=== PATIENT | male | born 1935 | race Hispanic/Latino ===

== ENCOUNTER 2016-09-14 10:07 | Emergency (ER) | payer MEDICARE, BC ==
[2016-09-14 10:21] VITALS: RESP 18; TEMP 97.7; BMI 34.2
[2016-09-14] MEDS ORDERED: Sodium Chloride 0.9% 1,000 ML IV STA (10:40)
--- NOTE | 2016-09-14 10:53 | ED PDOC ---
Arrival/HPI - General Historian: Patient - History of Present Illness Time/Duration: < month Symptom Onset: Gradual Symptom Course: Unchanged Context: Home - General Chief Complaint: Dizziness/Lightheaded Time Seen by Provider: 09/14/16 10:16 - History of Present Illness Narrative History of Present Illness (Text): 09/14/16 10:50 81 year old male with PMHx of CAD, DM, gastritis and colon polyps presents for lightheadedness ongoing for about 3 weeks. Patient states that in past 3 weeks he would get lightheaded when he would try to stand up. Patient aso c/o dark stools. Denies having any bright blood in stool. Patient denie shavign any CP , SOB, abd pain. He had 2 episodes of vomiting 2-3 days ago which has now resolved. Last colonoscopy was in 2013 which showed multiple polyps. Last EGD was in 2015 which showed gastritis. (Laila Rachel) Past Medical History - Provider Review Nursing Documentation Reviewed: Yes - Travel History Have you recently traveled outside [place] w/in the past 3 mons?: No - Cardiac Hx Pacemaker: No - Neurological Hx Paralysis: No - Hematological/Oncological Hx Blood Transfusions: No Hx Blood Transfusion Reaction: No - Musculoskeletal/Rheumatological Hx Musculoskeletal Disorders: Yes - Psychiatric Hx Emotional Abuse: No Hx Physical Abuse: No Hx Substance Use: No - Anesthesia Hx Anesthesia Reactions: No Hx Malignant Hyperthermia: No - Suicidal Assessment Feels Threatened In Home Enviroment: No Family/Social History - Physician Review Nursing Documentation Reviewed: Yes Family/Social History: Unknown Family HX Smoking Status: Unknown If Ever Smoked Hx Alcohol Use: No (PAST ETOH) Hx Substance Use: No Allergies/Home Meds Allergies/Adverse Reactions: Allergies Penicillins Allergy (Severe, Verified 08/03/15 14:33) SWELLING Home Medications: Home Meds Medication Instructions Recorded Confirmed Atorvastatin [Lipitor] 10 mg PO DAILY 10/30/13 09/14/16 Cilostazol 100 mg PO BID 10/30/13 09/14/16 Losartan [Cozaar] 50 mg PO QAM 10/30/13 09/14/16 Metoprolol Succinate 50 mg PO BID 10/30/13 09/14/16 Polyethylene Glycol 3350 [Miralax] 17 gm PO DAILY PRN 10/30/13 09/14/16 Allopurinol [Zyloprim] 300 mg PO QAM 08/03/15 09/14/16 Aspirin [Ecotrin] 81 mg PO QAM 08/03/15 09/14/16 Cholecalciferol (Vitamin D3) 4,000 unit PO QAM 08/03/15 09/14/16 [Vitamin D3] Furosemide [Lasix] 40 mg PO QAM 08/03/15 09/14/16 Isosorbide Mononitrate [Imdur] 30 mg PO QAM 08/03/15 09/14/16 Metformin HCl [Glucophage] 1,000 mg PO BID 08/03/15 09/14/16 Multivit-Min/FA/Lycopen/Lutein 1 each PO DAILY 08/03/15 09/14/16 [Centrum Silver Tablet] Omeprazole [Prilosec] 40 mg PO QAM 08/03/15 09/14/16 Vitamin B Complex [Vitamin B50 1 cap PO DAILY 08/03/15 09/14/16 Super Complex] Docusate [Colace] 100 mg PO PRN PRN 09/12/16 09/14/16 Ferrous Sulfate [High Potency Iron] 134 mg PO TID 09/12/16 09/14/16 Review of Systems - Review of Systems Constitutional: Normal. absent: Fatigue, Fevers Eyes: Normal. absent: Vision Changes, Photophobia ENT: Normal. absent: Sore Throat, Rhinorrhea, Sinus Congestion Respiratory: Normal. absent: SOB, Cough, Sputum, Wheezing Cardiovascular: Normal. absent: Chest Pain, Edema, Calf Pain, Orthopnea Gastrointestinal: Vomiting, Other (dark stools). absent: Constipation, Diarrhea , Nausea Genitourinary Male: Normal. absent: Dysuria, Frequency, Hematuria Musculoskeletal: Normal. absent: Back Pain, Neck Pain Skin: Normal. absent: Rash, Pruritis, Skin Lesions, Laceration Neurological: Dizziness. absent: Headache Hemo/Lymphatic: Normal. absent: Adenopathy, Easy Bleeding Psychiatric: Normal. absent: Anxiety, Depression Physical Exam Vital Signs Reviewed: Yes Temperature: Afebrile Blood Pressure: Normal Pulse: Regular Respiratory Rate: Normal Appearance: Positive for: Well-Appearing, Non-Toxic, Comfortable Pain Distress: None Mental Status: Positive for: Alert and Oriented X 3 - Systems Exam Head: Present: Atraumatic, Normocephalic Pupils: Present: PERRL Mouth: Present: Moist Mucous Membranes Respiratory/Chest: Present: Clear to Auscultation, Good Air Exchange. No: Respiratory Distress, Accessory Muscle Use, Wheezes, Rales, Rhonchi Cardiovascular: Present: Regular Rate and Rhythm, Normal S1, S2. No: Murmurs, Rub, Gallop Abdomen: Present: Normal Bowel Sounds. No: Tenderness, Distention, Peritoneal Signs, Rebound, Guarding Rectal: No: Occult Blood, Rectal Tenderness, Gross Blood, Melena, Hemorrhoids Lower Extremity: Present: Normal Inspection. No: Edema, CALF TENDERNESS Neurological: Present: GCS=15, Speech Normal, Motor Func Grossly Intact, Normal Sensory Function Skin: Present: Warm, Dry, Normal Color. No: Rashes Psychiatric: Present: Alert, Oriented x 3, Normal Insight, Normal Concentration Medical Decision Making ED Course and Treatment: 09/14/16 10:55 81 y/o male presents for lightheadedness. Stool occult was negative at bedside. will check CBC with diff, CMP, PT, PTT, type and screen Will give 1 bolus of NS 09/14/16 12:16 Patient has appointment with Dr. Kwan on 09/20 for colonoscopy. Hgb is found to be 10.9. Pt's lightheadedness resolved. (Laila Rachel) In agreement with resident note, which includes further HPI details. Patient was seen and evaluated with resident, came up with plan and treatment together. EKG: Ordered, reviewed, and independently interpreted the EKG. Rate : 75 BPM Rhythm : NSR Interpretation : RBBB. Comparison : No previous EKG for comparison. Case was discussed with Dr. Novak after labs reviewed and symptoms resolved. Patient already has apointment set up with Dr. Meade. Patient also feels asymptomatic and wants to go home. He is walking in the ED with no ataxia or lightheadedness or dizziness. (Kameron Carey) - Lab Interpretations Narrative Lab Interpretation (Text): 09/14/16 11:28 Hgb is noted to 10.9 (Laila Rachel) Lab Results: 09/14/16 10:35 09/14/16 10:35 Lab Results 09/14/16 11:05: Blood Type Confirm O NEGATIVE 09/14/16 10:35: Blood Type O NEGATIVE, Antibody Screen Negative, BBK History Checked No verified bt 09/14/16 10:35: PT 10.7, INR 0.99, APTT 28.3 09/14/16 10:35: Sodium 141, Potassium 4.2, Chloride 102, Carbon Dioxide 25, Anion Gap 18, BUN 20, Creatinine 1.1, Est GFR ( Amer) > 60, Est GFR (Non- Af Amer) > 60, Random Glucose 113 H, Calcium 9.9, Total Bilirubin 0.4, AST 56, ALT 60 H, Alkaline Phosphatase 101, Total Protein 8.0, Albumin 4.4, Globulin 3.6 , Albumin/Globulin Ratio 1.2, Lipase 43 09/14/16 10:35: WBC 10.0, RBC 4.36, Hgb 10.9 L, Hct 35.3 L, MCV 81.0, MCH 25.0, MCHC 30.9 L, RDW 19.8 H, Plt Count 267, MPV 9.3 - RAD Interpretation Radiology Orders: 09/14/16 11:10 CHEST PORTABLE [RAD] Stat - Medication Orders Current Medication Orders: Discontinued Medications Sodium Chloride (Sodium Chloride 0.9%) 1,000 mls @ 999 mls/hr IV .Q1H1M STA Stop: 09/14/16 11:40 Last Admin: 09/14/16 10:54 Dose: 999 mls/hr Disposition/Present on Arrival - Present on Arrival Any Indicators Present on Arrival: No History of DVT/PE: No History of Uncontrolled Diabetes: No Urinary Catheter: No History of Decub. Ulcer: No History Surgical Site Infection Following: None - Disposition Have Diagnosis and Disposition been Completed?: Yes Disposition Time: 11:33 Patient Plan: Discharge - Disposition Diagnosis: Lightheadedness, Anemia Disposition: HOME/ ROUTINE Condition: GOOD Additional Instructions: Eligio Swanson, thank you for letting us take care of you today. Your provider was Dr. Laila Rachel. You were treated for lightheadedness and anemia. The emergency medical care you received today was directed at your acute symptoms. If you were prescribed any medication, please fill it and take as directed. It may take several days for your symptoms to resolve. Return to the Emergency Department if your symptoms worsen, do not improve, or if you have any other problems. Please contact your doctor or call one of the physicians/clinics you have been referred to that are listed on the Patient Visit Information form that is included in your discharge packet. Bring any paperwork you were given at discharge with you along with any medications you are taking to your follow up visit. Our treatment cannot replace ongoing medical care by a primary care provider (PCP) outside of the emergency department. Thank you for allowing the [facility] team to be part of your care today. If you had an X-Ray or CT scan: A Radiologist will review the ED reading if any change in treatment is needed we will contact you. If you had a blood, urine, or wound culture: It will take several days for the results, if any change in treatment is needed we will contact you. If you had an STI test: It will take 48 hours for the results. Please call after 1 week if you have not heard back. Referrals: PCP,NO [Primary Care Provider] - Follow up with primary Chandu Novak MD [Staff Provider] - Follow up with primary Eligio Kwan MD [Staff Provider] - Follow up with primary Forms: [employer] (Azeri)
[2016-09-14 11:06] LABS: HEMOGLOBIN 10.9 g/dL (14.0-18.0); MEAN CORPUSCULAR HGB CONC 30.9 g/dl (31.0-37.0); MEAN PLATELET VOLUME 9.3 fl (7.0-11.0); RBC 4.36 10^6/uL (3.5-6.1); RED CELL DISTRIBUTION WIDTH 19.8 % (11.5-14.5)
[2016-09-14 11:20] LABS: ALB/GLOB RATIO 1.2 (1.1-1.8); ALBUMIN 4.4 g/dL (3.0-4.8); ALT/SGPT 60 U/L (7-56); AST/SGOT 56 U/L (15-59); BLOOD UREA NITROGEN 20 mg/dL (7-21); CALCIUM 9.9 mg/dL (8.4-10.5); GFR AFRICAN-AMERICAN > 60; GFR NON-AFRICAN AMERICAN > 60; INR 0.99 (0.93-1.08); LIPASE 43 U/L (23-300); PARTIAL THROMBOPLASTIN TIME 28.3 Seconds (23.7-30.8); PROTHROMBIN TIME 10.7 Seconds (9.9-11.8)
[2016-09-14 12:36] VITALS: BP 130/64; PULSE 70; O2SAT 99
--- NOTE | 2016-09-14 12:43 | RAD ---
HISTORY: lightheadedness COMPARISON: 03/26/2013 FINDINGS: LUNGS: No active pulmonary disease. PLEURA: No significant pleural effusion identified, no pneumothorax apparent. CARDIOVASCULAR: Normal. OSSEOUS STRUCTURES: No significant abnormalities. VISUALIZED UPPER ABDOMEN: Normal. OTHER FINDINGS: None. IMPRESSION: No active disease.
--- NOTE | 2016-09-15 00:48 | CARD ---
APPROVED REPORT EKG Measurement Heart [id number] <Conclusion> Normal sinus rhythm Right bundle branch block Inferior infarct, age undetermined Abnormal ECG
== END 2016-09-14 12:16 | disposition home or self-care (01) ==
LOC: ED 10:07
DX: D64.9 Anemia, unspecified (principal); R42 Dizziness and giddiness; E11.9 Type 2 diabetes mellitus without complications; I25.10 Atherosclerotic heart disease of native coronary artery without angina pectoris
CPT/HCPCS: 71010; 80053; 83690; 85027; 85610; 85730; 86850; 86900; 93005; 96360; 99285; J7040

== ENCOUNTER 2016-09-20 06:41 | Day surgery (SDC) | payer MEDICARE, BC ==
[2016-09-20 07:14] VITALS: TEMP 97.5
[2016-09-20] MEDS ORDERED: Propofol 10 mg/ml Inj (20 ML) ONE (08:01)
[2016-09-20] MEDS ORDERED: Etomidate 20 mg/10ml Inj IV ONE (08:02)
[2016-09-20] MEDS ORDERED: Lactated Ringer's 1,000 ML IV SCH (08:03)
[2016-09-20 09:45] VITALS: BP 154/76; PULSE 77; RESP 19; O2SAT 97
== END 2016-09-20 10:20 | disposition home or self-care (01) ==
LOC: ENDO 06:41
PROVIDERS: ATTEND Specialist
DX: D12.4 Benign neoplasm of descending colon (principal); D17.5 Benign lipomatous neoplasm of intra-abdominal organs; K57.30 Diverticulosis of large intestine without perforation or abscess without bleeding; D64.9 Anemia, unspecified; K64.8 Other hemorrhoids; E11.9 Type 2 diabetes mellitus without complications; I25.10 Atherosclerotic heart disease of native coronary artery without angina pectoris; Z95.1 Presence of aortocoronary bypass graft; Z79.84 Long term (current) use of oral hypoglycemic drugs
CPT/HCPCS: 45380; 82948; 88305; J2001; J2704; J7040; J7120

== ENCOUNTER 2017-04-06 06:29 | Inpatient (IN) | payer MEDICARE, BC ==
[2017-04-06 07:22] LABS: BASO # 0.04 K/mm3 (0.0-2.0); BASO % 0.3 % (0.0-3.0); EOS # 0.9 (0.0-0.7); EOS % 7.7 % (1.5-5.0); GRAN # 9.06 (1.4-6.5); GRAN % 74.6 % (50.0-68.0); HEMOGLOBIN 9.5 g/dL (14.0-18.0); LYMPH # 1.5 (1.2-3.4); LYMPH % 12.4 % (22.0-35.0); MEAN CELL VOLUME 89.5 fl (80.0-105.0); MEAN CORPUSCULAR HEMOGLOBIN 27.8 pg (25.0-35.0); MEAN PLATELET VOLUME 8.7 fl (7.0-11.0); MONO # 0.6 (0.1-0.6); RBC 3.42 10^6/uL (3.5-6.1); WHITE BLOOD COUNT 12.1 10^3/ul (4.5-11.0)
[2017-04-06 07:31] LABS: ALB/GLOB RATIO 1.1 (1.1-1.8); ALBUMIN 3.7 g/dL (3.0-4.8); ALT/SGPT 44 U/L (7-56); AST/SGOT 37 U/L (17-59); BLOOD UREA NITROGEN 19 mg/dL (7-21); CALCIUM 10.1 mg/dL (8.4-10.5); GFR AFRICAN-AMERICAN > 60; GFR NON-AFRICAN AMERICAN > 60
[2017-04-06 07:32] LABS: INR 1.18 (0.93-1.08); PROTHROMBIN TIME 13.6 SECONDS (9.4-12.5)
[2017-04-06 07:42] LABS: B-TYPE NATRIURETIC PEPTIDE 1770 pg/mL (0-450); TROPONIN I < 0.01 ng/mL
--- NOTE | 2017-04-06 07:49 | ED PDOC ---
Arrival/HPI - General Chief Complaint: Respiratory Distress Time Seen by Provider: 04/06/17 06:48 Historian: Patient - History of Present Illness Narrative History of Present Illness (Text): 04/06/17 07:48 An 81 year old male, whose past medical history includes CAD, diabetes, CHF, gastritis and colon polyps, presents to the emergency department complaining of shortness of breath. Patient reports he went to Dr. Chand's office yesterday for a cardiac stress test, reports shortness of breath worse with exertion or lying down. Notes lower extremity swelling. Patient reports nonproductive cough but denies any chest pain, fever or any other complaints at this time. PMD: Dr. Novak Time/Duration: Other (yesterday) Symptom Onset: Sudden Symptom Course: Unchanged Activities at Onset: Light Past Medical History - Provider Review Nursing Documentation Reviewed: Yes - Cardiac Hx Hypertension: Yes Hx Pacemaker: No Other/Comment: triple bypass. Stents - Neurological Hx Paralysis: No - Endocrine/Metabolic Hx Diabetes Mellitus Type 2: Yes - Hematological/Oncological Hx Blood Transfusions: No Hx Blood Transfusion Reaction: No - Musculoskeletal/Rheumatological Hx Musculoskeletal Disorders: Yes - Psychiatric Hx Emotional Abuse: No Hx Physical Abuse: No Hx Substance Use: No - Anesthesia Hx Anesthesia: No Hx Anesthesia Reactions: No Hx Malignant Hyperthermia: No - Suicidal Assessment Feels Threatened In Home Enviroment: No Family/Social History - Physician Review Nursing Documentation Reviewed: Yes Family/Social History: No Known Family HX Smoking Status: Unknown If Ever Smoked Hx Alcohol Use: No (PAST ETOH) Hx Substance Use: No Allergies/Home Meds Allergies/Adverse Reactions: Allergies Penicillins Allergy (Severe, Verified 04/06/17 06:48) SWELLING Home Medications: Home Meds Medication Instructions Recorded Confirmed Atorvastatin [Lipitor] 10 mg PO DAILY 10/30/13 04/06/17 Cilostazol 100 mg PO BID 10/30/13 04/06/17 Losartan [Cozaar] 50 mg PO QAM 10/30/13 04/06/17 Metoprolol Succinate 50 mg PO BID 10/30/13 04/06/17 Polyethylene Glycol 3350 [Miralax] 17 gm PO DAILY PRN 10/30/13 04/06/17 Allopurinol [Zyloprim] 300 mg PO QAM 08/03/15 04/06/17 Aspirin [Ecotrin] 81 mg PO QAM 08/03/15 04/06/17 Cholecalciferol (Vitamin D3) 4,000 unit PO QAM 08/03/15 04/06/17 [Vitamin D3] Furosemide [Lasix] 40 mg PO QAM 08/03/15 04/06/17 Isosorbide Mononitrate ER [Imdur 30 mg PO QAM 08/03/15 04/06/17 ER] Metformin HCl [Glucophage] 1,000 mg PO BID 08/03/15 04/06/17 Multivit-Min/FA/Lycopen/Lutein 1 each PO DAILY 08/03/15 04/06/17 [Centrum Silver Tablet] Omeprazole [Prilosec] 40 mg PO QAM 08/03/15 04/06/17 Vitamin B Complex [Vitamin B50 1 cap PO DAILY 08/03/15 04/06/17 Super Complex] Docusate [Colace] 100 mg PO PRN PRN 09/12/16 04/06/17 Ferrous Sulfate [High Potency Iron] 134 mg PO TID 09/12/16 04/06/17 Review of Systems - Physician Review All systems were reviewed & negative as marked: Yes - Review of Systems Constitutional: absent: Fevers Cardiovascular: absent: Chest Pain Physical Exam - Physical Exam Narrative Physical Exam (Text): 04/06/17 07:47 Constitutional: No acute distress. Head: Normocephalic. Atraumatic. Eyes: PERRL. ENT: Moist mucous membranes. Neck: Supple. Cardiovascular: Regular rate. No S3. Chest: No tenderness. Respiratory: bibasilar crackles. GI: Soft. Nontender. Nondistended. Back: No CVA tenderness. Musculoskeletal: No tenderness of extremities. b/l pitting edema LE. Skin: No rash. Neurologic: Alert, no focal deficit. Vital Signs Reviewed: Yes Vital Signs Temp Pulse Resp BP Pulse Ox 04/06/17 07:55 98 H 20 164/86 H 96 04/06/17 06:49 24 95 04/06/17 06:41 97.4 F L 103 H 22 163/91 H 92 L Appearance: Positive for: Well-Appearing, Non-Toxic, Comfortable Pain Distress: None Mental Status: Positive for: Alert and Oriented X 3 Medical Decision Making ED Course and Treatment: 04/06/17 07:46 Impression: An 81 year old male with shortness of breath. Plan: -- EKG -- chest xray -- labs -- Reassess and disposition Prior Visits: Notes and results from previous visits were reviewed. Patient was last seen in the emergency department on 09/14/16 for evaluation of lightheadedness. Progress Notes: 04/06/17 08:13 Chest xray- Creator : Lynne Varghese MD FINDINGS: LUNGS: The lungs are well inflated. There is moderate pulmonary venous congestion. There is airspace disease in the left lower lobe. PLEURA: Small pleural effusions, no pneumothorax apparent. CARDIOVASCULAR: The heart is enlarged. Status post CABG with OSSEOUS STRUCTURES: No significant abnormalities. VISUALIZED UPPER ABDOMEN: Normal. IMPRESSION: Findings are most compatible with mild congestive heart failure. EKG: Ordered, reviewed, and independently interpreted the EKG. Rate : 100 BPM Rhythm : sinus rhythm Interpretation : No ST elevations, PVCs - Lab Interpretations Lab Results: 04/06/17 07:00 04/06/17 07:00 Lab Results 04/06/17 07:00: Sodium 143, Potassium 4.5, Chloride 110 H, Carbon Dioxide 20 L, Anion Gap 18, BUN 19, Creatinine 1.1, Est GFR ( Amer) > 60, Est GFR (Non- Af Amer) > 60, Random Glucose 138 H, Calcium 10.1, Total Bilirubin 0.4, AST 37, ALT 44, Alkaline Phosphatase 115, Lactate Dehydrogenase 341, Total Creatine Kinase < 20 L, Troponin I < 0.01, NT-Pro-B Natriuret Pep 1770 H, Total Protein 7.2, Albumin 3.7, Globulin 3.5, Albumin/Globulin Ratio 1.1 04/06/17 07:00: PT 13.6 H, INR 1.18 H, APTT 33.0 04/06/17 07:00: WBC 12.1 H D, RBC 3.42 L, Hgb 9.5 L, Hct 30.6 L, MCV 89.5 D, MCH 27.8, MCHC 31.0, RDW 18.0 H, Plt Count 341, MPV 8.7, Gran % 74.6 H, Lymph % (Auto) 12.4 L, Ware % (Auto) 5.0, Eos % (Auto) 7.7 H, Baso % (Auto) 0.3, Gran # 9.06 H, Lymph # (Auto) 1.5, Ware # (Auto) 0.6, Eos # (Auto) 0.9 H, Baso # (Auto ) 0.04 I have reviewed the lab results: Yes - RAD Interpretation Radiology Orders: 04/06/17 06:57 CHEST PORTABLE [RAD] Stat - EKG Interpretation Interpreted by ED Physician: Yes Type: 12 lead EKG - Medication Orders Current Medication Orders: Discontinued Medications Furosemide (Lasix) 40 mg IVP STAT STA Stop: 04/06/17 08:14 - Scribe Statement The provider has reviewed the documentation as recorded by the Arash Calle Provider Scribe Attestation: All medical record entries made by the Mirlandeibe were at my direction and personally dictated by me. I have reviewed the chart and agree that the record accurately reflects my personal performance of the history, physical exam, medical decision making, and the department course for this patient. I have also personally directed, reviewed, and agree with the discharge instructions and disposition. Disposition/Present on Arrival - Present on Arrival Any Indicators Present on Arrival: No History of DVT/PE: No History of Uncontrolled Diabetes: No Urinary Catheter: No History of Decub. Ulcer: No History Surgical Site Infection Following: None - Disposition Have Diagnosis and Disposition been Completed?: Yes Diagnosis: CHF exacerbation Disposition: HOSPITALIZED Disposition Time: 08:15 Patient Plan: Admission, Telemetry Condition: GUARDED Discharge Instructions (ExitCare): Heart Failure (ED) Forms: [employer] (Romanian)
--- NOTE | 2017-04-06 08:11 | RAD ---
HISTORY: Shortness of breath COMPARISON: 09/14/2016. FINDINGS: LUNGS: The lungs are well inflated. There is moderate pulmonary venous congestion. There is airspace disease in the left lower lobe. PLEURA: Small pleural effusions, no pneumothorax apparent. CARDIOVASCULAR: The heart is enlarged. Status post CABG with OSSEOUS STRUCTURES: No significant abnormalities. VISUALIZED UPPER ABDOMEN: Normal. OTHER FINDINGS: None. IMPRESSION: Findings are most compatible with mild congestive heart failure.
--- NOTE | 2017-04-06 09:55 | CARD ---
APPROVED REPORT EKG Measurement Heart [id number] <Conclusion> Sinus tachycardia with frequent premature ventricular complexes
--- NOTE | 2017-04-06 10:16 | CON ---
DATE: 04/06/2017 INDICATIONS: Shortness of breath, congestive heart failure. HISTORY OF PRESENT ILLNESS: This is an 81-year-old man with coronary artery disease with remote coronary bypass surgery, who has had several days of increasing shortness of breath with orthopnea and edema. He came to the office yesterday for a stress test, but was unable to lie down on the table. He came to the emergency room this morning admission and treatment. There has been no chest pain, syncope, presyncope, lightheadedness, dizziness, palpitations, fever, chills, cough, sputum production and hemoptysis, abdominal pain, nausea, vomiting, diarrhea, constipation or melena. PAST MEDICAL HISTORY: Notable for coronary artery disease with remote coronary bypass surgery. He has diabetes and anemia. He has had colonic and gastric polyps. There is no history of rheumatic fever, stroke, TIA, gout. MEDICATIONS AT THE TIME OF ADMISSION: Include Lipitor, Pletal, Cozaar, metoprolol, MiraLax, allopurinol, aspirin, vitamin D3, Lasix which was held for a week or so because of abnormal ab results by Dr. Novak. He also takes Imdur, Metformin, Protonix, iron sulfate and Colace. ALLERGIES: HE NOTES AN ALLERGY TO PENICILLIN. SOCIAL HISTORY: He lives at home with his with assistance of his family. He does not smoke. He does not drink. FAMILY HISTORY: Noncontributory. REVIEW OF SYSTEMS: Ten-point review of systems otherwise unremarkable except as noted above. PHYSICAL EXAMINATION: GENERAL: He is a well-developed male, sitting in a chair in the emergency room, in no acute distress. His daughter is at the bedside. VITAL SIGNS: He is in sinus rhythm to sinus tachycardia, 98 to 103 beats per minute. He is afebrile. Blood pressure 164/86, respirations 20 to 24, O2 sat 95-96% on nasal cannula and room air. HEENT: Reveals neck vein distention. No thyromegaly. No carotid bruit. Mucous membranes moist. Conjunctivae pale. NECK: Supple. LUNGS: Lung baird, few rales at the bases HEART: Examination of the heart revealed an irregular rhythm. Normal first and second heart sounds. Soft systolic murmur along the left sternal border. PMI not palpable. ABDOMEN: Obese. Bowel sounds present. No mass, organomegaly, tenderness, rebound, guarding. No CVA tenderness. No palpable abdominal aortic aneurysm. EXTREMITIES: Revealed no cyanosis, clubbing or edema. There is no cyanosis or clubbing. There is 2 to 3+ edema to the shins. NEUROLOGIC: Awake, alert and oriented. PSYCHIATRIC: Normal as to mood and affect. SKIN: Warm and dry. No rash or cellulitis. LABORATORY AND IMAGING: The chest x-ray, a portable study, shows mild congestive heart failure with increased markings at both bases. EKG shows atrial fibrillation with frequent PVCs, leftward axis, nonspecific ST wave changes. The PVCs and A. fib.are new compared to an old EKG. White count 12, 100, hemoglobin 9.5, hematocrit 30.6, platelet count normal. PT, INR, PTT unremarkable. Electrolytes: BUN, creatinine unremarkable. LFTs unremarkable. CK less than 20. Troponin less than 0.01. BNP 1770. IMPRESSION: Eligio Swanson is an 81-year-old man with coronary artery disease, status post coronary bypass surgery, who presents with a week or more of increasing dyspnea on exertion, shortness of breath with minimal activity, orthopnea and edema and atrial fibrillation. He had abnormal lab results and Lasix was stopped about a week ago. At this time, he will be admitted to telemetry. I have spoken with Dr. Dougherty. He will get IV Lasix and we will attempt to diurese him. We will get an echocardiogram. We will monitor inputs and outputs, weights and check stool for occult blood. I will review his old records. I will continue cardiac medications including losartan, aspirin, Imdur, Lipitor, metoprolol. He is also getting allopurinol, Pletal and insulin coverage. He will get Colace p.r.n. Start A/C with Eliquis. I will follow along with you. I will make additional recommendations based on his clinical course. If his symptoms are controlled, we will consider nuclear stress testing as well. However, we may elect to go directly to cardiac catheterization based on his clinical course. We will monitor repeat labs in the morning. I will get a TSH level and repeat his troponin. Jovon Chand MD [facility] # [id number]
[2017-04-06] MEDS: Cilostazol 100 mg Tab UD PO SCH ×2 (10:23→17:26)
[2017-04-06] MEDS: Metoprolol Succinate 50 mg XL Tab PO SCH ×2 (10:24→17:27)
[2017-04-06] MEDS ORDERED: Pneumococcal 23-Valent Vaccine IM ONE (13:04)
[2017-04-06] MEDS ORDERED: Influenza Vaccine 60 mcg/0.5 mL SYR (4YR UP) IM ONE (13:04)
[2017-04-06 13:05] VITALS: BMI 34.5
[2017-04-06] MEDS: Insulin Reg-LOW-Coverage SC SCH (17:02)
--- NOTE | 2017-04-07 02:31 | HP ---
CHIEF COMPLAINT AND HISTORY OF PRESENT ILLNESS: This is an 81-year-old male who is coming in to the hospital because of shortness of breath. The patient says that he gets shortness of breath on exertion. He was going to get a stress test done, but was unable to lie flat. He has a past medical history of diabetes type 2, coronary artery disease, colon polyps. The patient says he does not have any shortness of breath now. He had been seen by Dr. Chand, who was going to perform a stress test, but because it was unsuccessful, he was advised to come in to the hospital for further management. The patient has no complaints of any chest pain. No nausea. No vomiting. No fever, headaches or chills. No dysuria or frequency. No weakness in the arms or his legs. REVIEW OF SYMPTOMS: All other review of symptoms are within normal limits except that was mentioned. ALLERGIES: TO PENICILLIN. HOME MEDICATIONS: Have been reviewed. PAST MEDICAL HISTORY: Coronary artery disease, status post CABG; diabetes; colon polyps. SOCIAL HISTORY: He lives with his . He does not smoke or drink. FAMILY HISTORY: Noncontributory. PHYSICAL EXAMINATION: VITAL SIGNS: Temperature is 97.3; pulse of 91; blood pressure is 166/81, repeat is 133/78; respirations 22; O2 saturation 96%. GENERAL: The patient lying in bed, uncomfortable, and in no acute distress. HEENT: Atraumatic and normocephalic. Anicteric sclerae. Moist mucosa. [place] conjunctivae. No oral lesions. NECK: No JVD, anterior and posterior adenopathy, thyromegaly, or bruits. CARDIOVASCULAR: S1 and S2 regular. No murmur, rubs, or gallop. LUNGS: Clear to auscultation bilaterally. No wheezes, rales, or rhonchi. ABDOMEN: Bowel sounds are positive. Soft, nontender and nondistended. No hepatosplenomegaly. No rebound and no guarding EXTREMITIES: No cyanosis, clubbing. Lower extremity, there is 1+ edema. NEUROLOGIC: No facial asymmetry. Tongue is midline. No uvula deviation. Power is 5/5 upper extremity and lower extremity. Sensation intact in upper extremity and lower extremity. PSYCHIATRIC: He is awake, alert and oriented x3. No anxiety or depression. He has normal affect. GENITOURINARY: No CVA tenderness. VASCULAR: 2+ pulses in the carotid pulses and pedal pulses. SKIN: No erythema or nodules SPINE: Shows normal curvature. LABORATORY DATA: His labs have been reviewed. White count of 4.1, hemoglobin 9.5. INR is 1.1. Chemistry shows creatinine is 1.1 with a troponin is 0.01, albumin is 3.7. ProBNP is 1770. EKG shows sinus tachycardia with frequent PVCs, heart rate of 102. Chest x-ray done shows mild CHF. ASSESSMENT: 1. Shortness of breath. 2. Lower extremity edema. 3. Diabetes type 2. 4. Coronary artery disease. 5. Dyslipidemia. 6. Hypertension. 7. Hyperuricemia. 8. Anemia, unknown type. PLAN: The patient is going to be admitted to the hospital. He has shortness of breath. He has lower extremity edema. He has an elevated proBNP. He is unable to lie flat because of paroxysmal nocturnal dyspnea. The patient has an acute CHF exacerbation. He is going to be admitted to the hospital. I will get Dr. Chand to evaluate the patient. We are going to continue with his losartan. He is on aspirin for his coronary artery disease. The patient is on Lipitor for dyslipidemia. This will be continued. He is on metoprolol for his coronary artery disease as well. He is going to with the allopurinol because of hyperuricemia. The patient is going to have an echocardiogram ordered. He will continue on carbohydrate consistent diet. I will hold his metformin. In case he needs contrast, the patient is going to be on insulin sliding scale. He is going to have repeat blood work tomorrow as well as the troponin. He had blood cultures, which are done and pending. Juma Dougherty MD
--- NOTE | 2017-04-07 08:02 | CP.PCM.PN ---
Subjective - Date & Time of Evaluation Date of Evaluation: 04/07/17 Time of Evaluation: 07:00 - Subjective Subjective: Stable on 3R. Still orthopneic, SOB with min. exertions and edema. No CP. Not much sleep last night. V/S noted. AF PE: Lungs: rhonchi, rales at bases or.: irreg S1S2 Abd.: soft Ext: + edema Neuro.: alert I/O= 620/1150 recorded. Wt = 255 lbs. Objective - Vital Signs/Intake and Output Vital Signs (last 24 hours): Temp Pulse Resp BP Pulse Ox 97.6 F 57 L 18 144/66 98 04/07/17 06:00 04/07/17 06:00 04/07/17 06:00 04/07/17 06:00 04/07/17 06:00 Intake and Output: 04/07/17 04/07/17 06:59 18:59 Intake Total 620 Output Total 650 Balance -30 - Medications Medications: Current Medications Acetaminophen (Tylenol 325mg Tab) 650 mg PO Q4H PRN PRN Reason: Pain, Mild (1-3) [facility] Last Admin: 04/06/17 10:23 Dose: 300 mg Apixaban (Eliquis) 5 mg PO BID [facility] PRN Reason: Protocol Aspirin (Ecotrin) [facility] [place] Last Admin: 04/06/17 10:23 Dose: 81 mg Atorvastatin Calcium (Lipitor) 10 mg PO HS [facility] Last Admin: 04/06/17 21:39 Dose: 10 mg Cilostazol (Pletal) 100 mg PO BID [facility] Last Admin: 04/06/17 17:26 Dose: 100 mg Furosemide (Lasix) 40 mg IVP Q12 [facility] Insulin Human Regular (Humulin R Low) 0 units SC ACBD [facility] PRN Reason: Protocol Last Admin: 04/06/17 17:02 Dose: Not Given Isosorbide Mononitrate (Imdur Er) [facility] [place] Last Admin: 04/06/17 10:24 Dose: 30 mg Losartan Potassium (Cozaar) [facility] [place] Last Admin: 04/06/17 10:24 Dose: 50 mg Metolazone (Zaroxolyn) 2.5 mg PO ONCE ONE Stop: 04/07/17 09:01 Metoprolol Succinate (Toprol Xl) 50 mg PO BID [facility] Last Admin: 04/06/17 17:27 Dose: 50 mg - Labs Labs: PT 13.6 SECONDS (9.4-12.5) H 04/06/17 07:00 INR 1.18 (0.93-1.08) H 04/06/17 07:00 APTT 33.0 Seconds (25.1-36.5) 04/06/17 07:00 Assessment and Plan - Assessment and Plan (Free Text) Assessment: Dyspnea/Orthopnea/Edema CHF AFib CAD/CABG CKD Diabetes Gastric and Colonic Polyps Anemia Plan: Continue IV Lasix and add metolazone 2.5 PO today Echo Lovenox OOB Once stabilized> cath next week.
[2017-04-07 08:14] LABS: HEMOGLOBIN 9.5 g/dL (14.0-18.0); MEAN CELL VOLUME 89.7 fl (80.0-105.0); MEAN CORPUSCULAR HEMOGLOBIN 27.1 pg (25.0-35.0); MEAN CORPUSCULAR HGB CONC 30.3 g/dl (31.0-37.0); MEAN PLATELET VOLUME 8.9 fl (7.0-11.0); RBC 3.5 10^6/uL (3.5-6.1)
[2017-04-07 08:16] LABS: BLOOD UREA NITROGEN 22 mg/dL (7-21); CALCIUM 9.7 mg/dL (8.4-10.5); GFR AFRICAN-AMERICAN > 60; GFR NON-AFRICAN AMERICAN 53
[2017-04-07] MEDS: Insulin Reg-LOW-Coverage SC SCH ×2 (08:22→16:15)
[2017-04-07 08:27] LABS: IRON 29 ug/dL (45-180); TROPONIN I < 0.01 ng/mL
[2017-04-07 08:36] LABS: % IRON SATURATION 9 % (20-55); TOTAL IRON BINDING CAPACITY 337 ug/dL (261-462)
[2017-04-07] MEDS ORDERED: metOLazone 2.5 MG TAB PO ONE (09:00)
--- NOTE | 2017-04-07 09:33 | CARD ---
APPROVED REPORT EKG Measurement Heart [id number] NE 176P [id number] <Conclusion> A fib Inferior infarct, age undetermined Abnormal ECG
[2017-04-07] MEDS: Cilostazol 100 mg Tab UD PO SCH ×2 (10:23→17:34)
[2017-04-07] MEDS: Enoxaparin 120 mg Syringe SC SCH ×2 (10:23→20:03)
[2017-04-07] MEDS: Metoprolol Succinate 50 mg XL Tab PO SCH ×2 (10:23→17:34)
--- NOTE | 2017-04-07 12:37 | PN ---
DATE: SUBJECTIVE: The patient is 81 years old, seen and examined, sitting in chair, seems to be comfortable. Mild shortness of breath on exertion. Still has leg edema. He states when he is sitting in chair, he has no problem and as soon as he move around and try to go to the bathroom, he start huffing and puffing. PHYSICAL EXAMINATION: VITAL SIGNS: He is afebrile, pulse 70, respirations 18, blood pressure 142/62. LUNGS: Bilateral diffusely decreased breath sound, more so in the bases. HEART: S1 and S2 audible. ABDOMEN: Soft, obese, nontender. No rebound. No guarding. NEUROLOGIC: He is awake, alert, oriented, communicative. EXTREMITIES: Bilateral leg, +3 edema with slight erythema of shins. LABORATORY DATA: WBC is 13, hemoglobin 9.5, hematocrit 31.4, platelet Of 385, PT 13.6, INR 1.18. Chemistry: Sodium 142, potassium 4.2, chloride 108, CO2 of 22, BUN 22, creatinine 1.3, blood sugar of 146. TSH is 4.94. His blood culture positive for gram-positive cocci. His x-ray chest is positive for mild congestive heart failure. ASSESSMENT: 1. Gram-positive bacteremia. 2. Congestive heart failure. 3. Morbid obesity. 4. Bilateral leg edema. 5. Coronary artery disease, status post open heart surgery, followed by angioplasty. 6. Efh-ymjzecd-otklpibco diabetes. 7. Hyperlipidemia. 8. Hypothyroidism. PLAN: We will continue the patient on losartan, aspirin. He is on isosorbide. He is on Lasix 40 mg q. 12, we will continue that. He is on DVT prophylaxis. We will start him on levothyroxine. I will give him a dose of vancomycin and ID consult will be requested. We will follow up his electrolytes. Michael Giron MD
[2017-04-07] MEDS: Vancomycin 1gm in NS 250ml 1 GM/250 ML BAG IVPB SCH ×2 (14:35→22:51)
[2017-04-08 00:49] LABS: URINE BILIRUBIN NEGATIVE (NEGATIVE); URINE BLOOD NEGATIVE (NEGATIVE); URINE GLUCOSE (UA) NEGATIVE (NEGATIVE); URINE LEUKOCYTE ESTERASE TRACE Leu/uL (NEGATIVE); URINE NITRATE NEGATIVE (NEGATIVE); URINE PROTEIN NEGATIVE mg/dL (<30 mg/dL); URINE UROBILINOGEN 0.2 E.U./dL (<1 E.U./dL)
[2017-04-08 01:35] LABS: URINE APPEARANCE CLEAR (CLEAR); URINE COLOR YELLOW (YELLOW)
[2017-04-08 01:38] LABS: URINE BACTERIA FEW (NEG); URINE EPITHELIAL CELLS 0 - 2 /hpf (0-5); URINE RBC 0 - 2 /hpf (0-2)
[2017-04-08] MEDS: Levothyroxine 25 MCG TAB PO SCH (05:58)
--- NOTE | 2017-04-08 08:04 | CP.PCM.PN ---
Subjective - Date & Time of Evaluation Date of Evaluation: 04/08/17 Time of Evaluation: 07:00 - Subjective Subjective: Stable on 3R. He feels better after good diuresis. Less SOB, edema. Able to walk in room and sleep in bed without dyspnea. No CP. V/S noted. AF PE: Lungs: rhonchi, rales at bases or.: irreg S1S2 Abd.: soft Ext: less edema Neuro.: alert I/O= 1040/4200 recorded. Wt = 255 lbs. Labs pending ECG 04/07: AF with moderate VR, PVCs, NSSTW changes Objective - Vital Signs/Intake and Output Vital Signs (last 24 hours): Temp Pulse Resp BP Pulse Ox 97.5 F L 81 18 155/79 H 95 04/08/17 06:00 04/08/17 06:00 04/08/17 06:00 04/08/17 06:00 04/08/17 06:00 Intake and Output: 04/08/17 04/08/17 06:59 18:59 Intake Total 740 Output Total 3300 Balance -2560 - Medications Medications: Current Medications Acetaminophen (Tylenol 325mg Tab) 650 mg PO Q4H PRN PRN Reason: Pain, Mild (1-3) Last Admin: 04/07/17 20:01 Dose: 650 mg Allopurinol (Zyloprim) 300 mg PO QAM [facility] Last Admin: 04/07/17 10:24 Dose: 300 mg Aspirin (Ecotrin) 81 mg PO QAM [facility] Last Admin: 04/07/17 10:23 Dose: 81 mg Atorvastatin Calcium (Lipitor) 10 mg PO HS [facility] Last Admin: 04/07/17 22:18 Dose: 10 mg Cilostazol (Pletal) 100 mg PO BID [facility] Last Admin: 04/07/17 17:34 Dose: 100 mg Enoxaparin Sodium (Lovenox) 120 mg SC Q12H [facility] PRN Reason: Protocol Last Admin: 04/07/17 20:03 Dose: 120 mg Furosemide (Lasix) 40 mg IVP Q12 [facility] Last Admin: 04/07/17 22:18 Dose: 40 mg Vancomycin HCl (Vancomycin 1gm) 1 gm in 250 mls @ 167 mls/hr IVPB Q12H [facility] PRN Reason: Protocol Last Admin: 04/07/17 22:51 Dose: 167 mls/hr Insulin Human Regular (Humulin R Low) 0 units SC ACBD [facility] PRN Reason: Protocol Last Admin: 04/07/17 16:15 Dose: Not Given Isosorbide Mononitrate (Imdur Er) [facility] [place] Last Admin: 04/07/17 10:21 Dose: 30 mg Levothyroxine Sodium (Synthroid) 25 mcg PO 0600 [facility] Last Admin: 04/08/17 05:58 Dose: 25 mcg Losartan Potassium (Cozaar) 50 mg PO QAM [facility] Last Admin: 04/07/17 10:22 Dose: 50 mg Metoprolol Succinate (Toprol Xl) 50 mg PO BID [facility] Last Admin: 04/07/17 17:34 Dose: 50 mg - Labs Labs: 04/07/17 07:00 04/07/17 07:00 PT 13.6 SECONDS (9.4-12.5) H 04/06/17 07:00 INR 1.18 (0.93-1.08) H 04/06/17 07:00 APTT 33.0 Seconds (25.1-36.5) 04/06/17 07:00 Assessment and Plan - Assessment and Plan (Free Text) Assessment: Dyspnea/Orthopnea/Edema CHF AFib CAD/CABG CKD Diabetes Gastric and Colonic Polyps Anemia Plan: Await AM labs. Continue IV Lasix BID today Will check Echo Lovenox OOB Monitor: I/O, wts., labs, sats., etc. Once stabilized> cath, probably this week.
[2017-04-08 08:21] LABS: BASO # 0.04 K/mm3 (0.0-2.0); BASO % 0.3 % (0.0-3.0); EOS # 1.2 (0.0-0.7); EOS % 9.7 % (1.5-5.0); GRAN # 7.73 (1.4-6.5); GRAN % 63.6 % (50.0-68.0); HEMOGLOBIN 9.4 g/dL (14.0-18.0); LYMPH # 2.4 (1.2-3.4); LYMPH % 19.7 % (22.0-35.0); MEAN CELL VOLUME 89.2 fl (80.0-105.0); MEAN CORPUSCULAR HEMOGLOBIN 27.4 pg (25.0-35.0); MEAN CORPUSCULAR HGB CONC 30.7 g/dl (31.0-37.0); MEAN PLATELET VOLUME 8.9 fl (7.0-11.0); MONO # 0.8 (0.1-0.6); MONO % 6.7 % (1.0-6.0); RBC 3.43 10^6/uL (3.5-6.1); WHITE BLOOD COUNT 12.2 10^3/ul (4.5-11.0)
[2017-04-08 09:23] LABS: CALCIUM 9.6 mg/dL (8.4-10.5)
[2017-04-08] MEDS: Insulin Reg-LOW-Coverage SC SCH ×2 (09:54→17:14)
[2017-04-08] MEDS: Metoprolol Succinate 50 mg XL Tab PO SCH ×2 (10:09→17:40)
[2017-04-08] MEDS: Potassium Chloride 20 mEq ER Tab PO SCH ×2 (10:09→17:39)
[2017-04-08] MEDS: Vancomycin 1gm in NS 250ml 1 GM/250 ML BAG IVPB SCH ×3 (10:10→23:05)
[2017-04-08] MEDS: Enoxaparin 120 mg Syringe SC SCH ×2 (10:10→23:04)
[2017-04-08] MEDS: Cilostazol 100 mg Tab UD PO SCH ×2 (10:10→17:39)
[2017-04-09] MEDS: Levothyroxine 25 MCG TAB PO SCH (06:52)
[2017-04-09 07:48] LABS: CALCIUM 9.4 mg/dL (8.4-10.5); MAGNESIUM 1.8 mg/dL (1.7-2.2)
--- NOTE | 2017-04-09 08:05 | PQF CHF ---
This form is a permanent part of the medical record Dr. Dougherty, Please provide specificity for CHF type and severity when determined. Clarification of your documentation is requested to better reflect the severity of illness and intensity of treatment of your patient. Indicators present [] Diagnosis of CHF and/or history of CHF [] BNP > 200 [] Imaging Finding of Pulmonary Edema /Pleural Effusions [] Fluid/Volume Overload [] Pitting edema [] Ejection Fraction < 40% (Indicative of Systolic Heart Failure) [] Ejection Fraction > 40% (Indicative of Diastolic Heart Failure) [] Dyspnea / Orthopenea / Paroxysmal Nocturnal Dyspnea [] Other: Location in the medical record that reflects the above clinical findings: [] Treatment Provided: [] PHYSICIAN'S RESPONSE Based on your medical judgment of the clinical indicators outlined above, are you treating this patient for a known or suspected: [] Acute CHF [] Systolic [] Diastolic [] Combined [] Chronic CHF [] Systolic [] Diastolic [] Combined [] Acute on Chronic CHF []Systolic [] Diastolic [] Combined [] CHF due hypertension [] Acute systolic []Chronic systolic [] Acute/ chronic systolic [] Other, please indicate: [] [] If Unable to Determine, please check the box, sign and date. Present On Admission (POA) Indicator: [] Present at the time of admission [] Not present at the time of admission [] Clinically Undetermined In responding to this query, please exercise your independent professional judgment. The fact that a question is asked does not imply that any particular answer is desired or expected. Thank you for your clarification on this documentation. If you have any questions please call:[ ] * Thank you, [ ]Indra Gonsales [facility] #[id number] explosive operator fuse KRYSTY[place]
--- NOTE | 2017-04-09 08:17 | CP.PCM.PN ---
Subjective - Date & Time of Evaluation Date of Evaluation: 04/09/17 Time of Evaluation: 07:00 - Subjective Subjective: Stable on 3R. He feels better after good diuresis (5800 cc. urine reported). Less SOB, edema. Able to walk and sleep in bed without dyspnea. No CP. V/S noted. AF PE: Lungs: rhonchi or.: irreg S1S2 Abd.: soft Ext: less edema, mild erythema Neuro.: alert I/O= 5800 cc. urine reported Wt = 256 lbs. (?) Labs noted: K+= 4.2, Cr.= 1.5, Mg.++= 1.8 ECG 04/07: AF with moderate VR, PVCs, NSSTW changes BC x1 + 2 GP orgs Objective - Vital Signs/Intake and Output Vital Signs (last 24 hours): Temp Pulse Resp BP Pulse Ox 97.6 F 90 16 147/88 95 04/08/17 12:00 04/09/17 06:00 04/08/17 12:00 04/08/17 23:05 04/08/17 06:00 Intake and Output: 04/09/17 04/09/17 06:59 18:59 Intake Total 1450 Output Total 7800 Balance -6350 - Medications Medications: Current Medications Acetaminophen (Tylenol 325mg Tab) 650 mg PO Q4H PRN PRN Reason: Pain, Mild (1-3) Last Admin: 04/07/17 20:01 Dose: 650 mg Allopurinol (Zyloprim) 300 mg PO QAM [facility] Last Admin: 04/08/17 10:09 Dose: 300 mg Aspirin (Ecotrin) 81 mg PO QAM [facility] Last Admin: 04/08/17 10:09 Dose: 81 mg Atorvastatin Calcium (Lipitor) 10 mg PO HS [facility] Last Admin: 04/08/17 23:04 Dose: 10 mg Cilostazol (Pletal) 100 mg PO BID [facility] Last Admin: 04/08/17 17:39 Dose: 100 mg Enoxaparin Sodium (Lovenox) 120 mg SC Q12H [facility] PRN Reason: Protocol Last Admin: 04/08/17 23:04 Dose: 120 mg Furosemide (Lasix) 40 mg IVP Q12 [facility] Last Admin: 04/08/17 23:05 Dose: 40 mg Vancomycin HCl (Vancomycin 1gm) 1 gm in 250 mls @ 167 mls/hr IVPB Q12H [facility] PRN Reason: Protocol Last Admin: 04/08/17 23:05 Dose: 167 mls/hr Insulin Human Regular (Humulin R Low) 0 units SC ACBD [facility] PRN Reason: Protocol Last Admin: 04/08/17 17:14 Dose: Not Given Isosorbide Mononitrate (Imdur Er) 30 mg PO QAM [facility] Last Admin: 04/08/17 10:09 Dose: 30 mg Levothyroxine Sodium (Synthroid) 25 mcg PO 0600 [facility] Last Admin: 04/09/17 06:52 Dose: 25 mcg Losartan Potassium (Cozaar) 50 mg PO QAM [facility] Last Admin: 04/08/17 10:09 Dose: 50 mg Metoprolol Succinate (Toprol Xl) 50 mg PO BID [facility] Last Admin: 04/08/17 17:40 Dose: 50 mg Potassium Chloride (K-Dur 20 Meq Er Tab) 20 meq PO BID [facility] Last Admin: 04/08/17 17:39 Dose: 20 meq - Labs Labs: 04/08/17 07:30 04/09/17 06:45 PT 13.6 SECONDS (9.4-12.5) H 04/06/17 07:00 INR 1.18 (0.93-1.08) H 04/06/17 07:00 APTT 33.0 Seconds (25.1-36.5) 04/06/17 07:00 Assessment and Plan - Assessment and Plan (Free Text) Assessment: Dyspnea/Orthopnea/Edema BC x1 _ GP orgs x 2 CHF , ? severity AFib CAD/CABG CKD Diabetes Gastric and Colonic Polyps Anemia Plan: Continue IV Lasix Will repeat Echo today. Initial study is suboptimal. ID evaluation for + BC x 1 Lovenox OOB as sam. Monitor: I/O, wts., labs, sats., BCs, etc. Case D/W Dr. Dougherty this AM.
[2017-04-09] MEDS: Insulin Reg-LOW-Coverage SC SCH ×2 (09:15→17:09)
[2017-04-09] MEDS ORDERED: DAPTOmycin 500 mg Inj (Cubicin) IV SCH (09:45)
[2017-04-09] MEDS ORDERED: DAPTOmycin 700 MG in Sodium Chloride 0.9% 100 ML IV SCH (09:45)
--- NOTE | 2017-04-09 10:39 | PN ---
DATE: 04/08/2017 SUBJECTIVE: The patient is an 81 years old, seen and examined, sitting in chair, seems to be doing better. He states he is able to bath in the bathroom without shortness of breath now. PHYSICAL EXAMINATION: VITAL SIGNS: He is afebrile, pulse 81, respirations 18, blood pressure is 134/73. LUNGS: Bilateral good airflow in the upper lung region; however, he has decreased breath sound at bases. HEART: S1 and S2 audible. ABDOMEN: Soft, obese, nontender. No rebound. No guarding. EXTREMITIES: Bilateral leg +2 edema. LABORATORY EXAM: WBC 12.2, hemoglobin 9.4, hematocrit 30.6, and platelets 401. Chemistry: Sodium 141, potassium 3.9, chloride 104, CO2 of 23. BUN 28, creatinine 1.5. Blood sugar of 110. ASSESSMENT: 1. Gram-positive bacteremia. 2. Congestive heart failure, improving. 3. Morbid obesity. 4. Bilateral leg edema, improving. 5. Coronary artery disease status post open heart surgery and angioplasty. 6. Insulin-dependent diabetes. 7. Hypothyroidism. 8. Hyperlipidemia. PLAN: The patient is currently on losartan, aspirin. Blood sugar is being monitored. He is on potassium supplementation. He is on Lasix and Lipitor. He is on cilostazol. He has been started on Synthroid. Continue on beta-abad. Follow up his electrolytes in the a.m. Michael Giron MD
[2017-04-09] MEDS: Potassium Chloride 20 mEq ER Tab PO SCH ×2 (10:48→18:30)
[2017-04-09] MEDS: Enoxaparin 120 mg Syringe SC SCH ×2 (10:48→21:37)
[2017-04-09] MEDS: Cilostazol 100 mg Tab UD PO SCH ×2 (10:48→18:30)
[2017-04-09] MEDS: Metoprolol Succinate 50 mg XL Tab PO SCH ×2 (10:49→18:28)
--- NOTE | 2017-04-09 15:44 | CP.PCM.CON ---
History of Present Illness - History of Present Illness History of Present Illness: 81 year old male with PMH of CAD S/P CABG in 1998 S/P PCI, chronic CHF, DM, history of colonic polyps S/P polypectomy, S/P laminectomy in 1970 without hardware placement, obesity with BMI 34, was brought in to [facility] initially because of shortness of breath and he is being treated for CHF exacerbation and has been doing well. Part of the initial work up included blood cx which are now showing coagulase negative staph and E. faecalis in 1 bottle out of 4. Infectious Diseases consult is requested to further evaluate and manage. The patient denies having any hardware placed in his body, denies fever or chills currently , no nausea or vomiting, no headache or dizziness, no chest pain, no SOB, no abdominal pain, no diarrhea, no dysuria, no back pain. Review of Systems - Review of Systems All systems: reviewed and no additional remarkable complaints except (as per HPI ) Past Patient History - Past Social History Smoking Status: Former Smoker - CARDIAC Hx Cardiac Disorders: Yes (PVD) Hx Circulatory Problems: Yes Hx Congestive Heart Failure: Yes Hx Hypercholesterolemia: Yes Hx Hypertension: Yes Hx Pacemaker: No Hx Peripheral Edema: Yes Other/Comment: triple bypass. Stents - PULMONARY Hx Respiratory Disorders: Yes (PPD OF CIGARETTES QUIT 1996) - NEUROLOGICAL Hx Neurological Disorder: No - HEENT Hx HEENT Problems: Yes (BLURRY VISION) - RENAL Hx Chronic Kidney Disease: No - ENDOCRINE/METABOLIC Hx Endocrine Disorders: Yes Hx Diabetes Mellitus Type 2: Yes - HEMATOLOGICAL/ONCOLOGICAL Hx Blood Disorders: Yes Hx Anemia: Yes - INTEGUMENTARY Hx Dermatological Problems: Yes Other/Comment: BILATERAL LE EDEMA MORE TO RIGHT. JAIN BONE SOME REDNESS.BROWNISH SKIN DISCOLORATION. - MUSCULOSKELETAL/RHEUMATOLOGICAL Hx Musculoskeletal Disorders: Yes (LAMINECTOMY) Hx Falls: Yes Hx Gout: Yes Hx Unsteady Gait: Yes (CANE) - GASTROINTESTINAL Hx Gastrointestinal Disorders: Yes (DIVERTICULITIS,CONSTIPATION) Hx Gastroesophageal Reflux: Yes - GENITOURINARY/GYNECOLOGICAL Hx Genitourinary Disorders: No - PSYCHIATRIC Hx Psychophysiologic Disorder: No Hx Emotional Abuse: No Hx Physical Abuse: No Hx Substance Use: No - SURGICAL HISTORY Hx Surgeries: Yes (GI POLYPS REMOVED,LAMINECTOMY 1970,5 BYPASS) - ANESTHESIA Hx Anesthesia: No Hx Anesthesia Reactions: No Hx Malignant Hyperthermia: No Meds Allergies/Adverse Reactions: Allergies Allergy/AdvReac Type Severity Reaction Status Date / Time Penicillins Allergy Severe SWELLING Verified 04/06/17 11:27 - Medications Medications: Current Medications Acetaminophen (Tylenol 325mg Tab) 650 mg PO Q4H PRN PRN Reason: Pain, Mild (1-3) Last Admin: 04/07/17 20:01 Dose: 650 mg Allopurinol (Zyloprim) 300 mg PO QAM [facility] Last Admin: 04/08/17 10:09 Dose: 300 mg Aspirin (Ecotrin) 81 mg PO QAM [facility] Last Admin: 04/08/17 10:09 Dose: 81 mg Atorvastatin Calcium (Lipitor) 10 mg PO HS [facility] Last Admin: 04/08/17 23:04 Dose: 10 mg Cilostazol (Pletal) 100 mg PO BID [facility] Last Admin: 04/08/17 17:39 Dose: 100 mg Enoxaparin Sodium (Lovenox) 120 mg SC Q12H [facility] PRN Reason: Protocol Last Admin: 04/08/17 23:04 Dose: 120 mg Furosemide (Lasix) 40 mg IVP Q12 [facility] Last Admin: 04/08/17 23:05 Dose: 40 mg Vancomycin HCl (Vancomycin 1gm) 1 gm in 250 mls @ 167 mls/hr IVPB Q12H [facility] PRN Reason: Protocol Last Admin: 04/08/17 23:05 Dose: 167 mls/hr Insulin Human Regular (Humulin R Low) 0 units SC ACBD [facility] PRN Reason: Protocol Last Admin: 04/09/17 09:15 Dose: Not Given Isosorbide Mononitrate (Imdur Er) [facility] [place] Last Admin: 04/08/17 10:09 Dose: 30 mg Levothyroxine Sodium (Synthroid) 25 mcg PO 0600 [facility] Last Admin: 04/09/17 06:52 Dose: 25 mcg Losartan Potassium (Cozaar) [facility] [place] Last Admin: 04/08/17 10:09 Dose: 50 mg Metoprolol Succinate (Toprol Xl) 50 mg PO BID [facility] Last Admin: 04/08/17 17:40 Dose: 50 mg Potassium Chloride (K-Dur 20 Meq Er Tab) 20 meq PO BID [facility] Last Admin: 04/08/17 17:39 Dose: 20 meq Physical Exam - Constitutional Appears: Non-toxic - Head Exam Head Exam: NORMAL INSPECTION - ENT Exam ENT Exam: Mucous Membranes Moist - Neck Exam Neck exam: Negative for: Meningismus - Respiratory Exam Respiratory Exam: Decreased Breath Sounds - Cardiovascular Exam Cardiovascular Exam: +S1, +S2 - GI/Abdominal Exam GI & Abdominal Exam: Soft. absent: Tenderness Results - Vital Signs Recent Vital Signs: Last Vital Signs Temp 97.6 F 04/08/17 12:00 Pulse 90 04/09/17 06:00 Resp 16 04/08/17 12:00 BP 147/88 04/08/17 23:05 Pulse Ox 95 04/08/17 06:00 - Labs Result Diagrams: 04/08/17 07:30 04/09/17 06:45 Labs: Laboratory Results - last 24 hr 04/08/17 04/08/17 04/08/17 07:22 11:16 16:30 Sodium Potassium Chloride Carbon Dioxide Anion Gap BUN Creatinine Est GFR ( Amer) Est GFR (Non-Af Amer) POC Glucose (mg/dL) 112 H 116 H 100 Random Glucose Calcium Magnesium 04/08/17 04/09/17 04/09/17 22:06 06:45 07:10 Sodium 140 Potassium 4.2 Chloride 102 Carbon Dioxide 27 Anion Gap 15 BUN 29 H Creatinine 1.5 Est GFR ( Amer) 54 Est GFR (Non-Af Amer) 45 POC Glucose (mg/dL) 142 H 100 Random Glucose 108 Calcium 9.4 Magnesium 1.8 Assessment & Plan - Assessment and Plan (Free Text) Plan: Assessment E. faecalis and coagulase staph bacteremia (1 of 4 bottles), R/O contamination, R/O endocarditis CAD S/P CABG in 1998 S/P PCI acute on chronic CHF, clinically improving chronic renal failure DM history of colonic polyps S/P polypectomy S/P laminectomy in 1970 without hardware placement obesity with BMI 34 Plan Started Daptomycin pending repeat blood cx and 2D echo will monitor clinically
--- NOTE | 2017-04-09 23:10 | DS ---
DATE: 04/09/2017 SUBJECTIVE: Patient has no complaints of any chest pain or shortness of breath. No headache, no dizziness. He was initially admitted to the hospital because he was having shortness of breath when he tried to lie flat. He had lower extremity edema. He was found to have CHF and was started on IV diuretic therapy. He said he is feeling better. The patient had an echocardiogram, but had not been read yet. He had no complaints of any headaches or dizziness. PHYSICAL EXAMINATION: VITAL SIGNS: Temperature is 97.6, pulse of 93, blood pressure 130/60, respirations 16. GENERAL: The patient is lying in bed, flat, comfortable. HEENT: No oral lesion. Anicteric sclerae. Moist mucosa. NECK: No JVD, adenopathy, or thyromegaly. CARDIOVASCULAR: S1 and S2, regular. No murmurs, rubs, or gallops. LUNGS: Clear to auscultation bilaterally. No wheeze, rales, or rhonchi. ABDOMEN: Bowel sounds are positive, soft, nontender and nondistended. EXTREMITIES: No cyanosis, clubbing. Lower extremity 1+ edema. ASSESSMENT: 1. Acute congestive heart failure secondary to systolic dysfunction. 2. Lower extremity edema. 3. Diabetes type 2. 4. Coronary artery disease. 5. Dyslipidemia. 6. Hypertension. 7. Hyperuricemia. 8. Anemia, iron deficiency. PLAN: The patient is currently comfortable. Patient is on losartan for hypertension. He is going to continue with isosorbide, Lasix twice a day. His edema has improved. Patient is on Lipitor for dyslipidemia. He is on Lovenox for anticoagulation. Patient is on Synthroid for hypothyroidism, allopurinol for hyperuricemia. We will await for the input from Cardiology regarding the patient's plan of care. Patient may need a cardiac cath to be done; I will speak to Cardiology regarding this. Juma Dougherty MD
[2017-04-10] MEDS: Levothyroxine 25 MCG TAB PO SCH (05:51)
--- NOTE | 2017-04-10 07:21 | CARD ---
APPROVED REPORT EXAM: Two-dimensional and M-mode echocardiogram with Doppler and color Doppler. Other Information Quality : FairRhythm : INDICATION Dyspnea , Edema 2D DIMENSIONS Left Atrium (2D)4.5 (1.6-4.0cm)IVSd1.3 (0.7-1.1cm) LVDd5.1 (3.9-5.9cm)LVOT Diameter2.1 (1.8-2.4cm) PWd1.3 (0.7-1.1cm)LVDs3.8 (2.5-4.0cm) FS (%) 26.4 %LVEF (%)51.0 (>50%) M-Mode DIMENSIONS Aortic Root3.90 (2.2-3.7cm)Aortic Cusp Exc.1.00 (1.5-2.0cm) Aortic Valve AoV Peak Rfdpqxxn075.0cm/Tarik Peak GR.28mmHgLVOT Peak Xwonpnbo60.4cm/s LVOT VTI13.00cmAO Mean GR.16mmHgAVA (VMAX)1.07cm2 Mitral Valve MV AMU81edH/A ratio0.0MVA (PHT)2.75cm2 TDI E/Lateral E'0.0E/Medial E'0.0 Pulmonary Valve PV Peak Ctrshucq926.0cm/sPV Peak Grad.6mmHg Tricuspid Valve TR Peak Vhqdxwrn992ha/sRAP WZUVHPVA97laKdTR Peak Gr.24mmHg TITY29ucLm LEFT VENTRICLE The left ventricle is normal size. There is mild concentric left ventricular hypertrophy. The left ventricular function is normal. The left ventricular ejection fraction is within the normal range. There is normal LV segmental wall motion. RIGHT VENTRICLE The right ventricle is normal size. ATRIA The left atrium is mildly dilated. The right atrium size is normal. The interatrial septum is intact with no evidence for an atrial septal defect. AORTIC VALVE The aortic valve is moderately to severely calcified. There is mild to moderate valvular aortic stenosis. MITRAL VALVE The mitral valve is mildly thickened but opens well. Mitral annular calcification is moderate to severe. Mitral regurgitation is moderate. TRICUSPID VALVE The tricuspid valve is not well visualized. PULMONIC VALVE The pulmonic valve is not well visualized. GREAT VESSELS The aortic root is normal in size. PERICARDIAL EFFUSION There is no pericardial effusion. <Conclusion> The left ventricle is normal size. There is mild concentric left ventricular hypertrophy. The left ventricular ejection fraction is within the normal range. The aortic valve is moderately to severely calcified. There is mild to moderate valvular aortic stenosis. Mitral regurgitation is moderate.
[2017-04-10 07:35] LABS: CALCIUM 9.7 mg/dL (8.4-10.5)
--- NOTE | 2017-04-10 07:36 | CP.PCM.PN ---
Subjective - Date & Time of Evaluation Date of Evaluation: 04/10/17 Time of Evaluation: 07:00 - Subjective Subjective: Stable on 3R. He feels better. Less SOB, mild edema. Able to walk and sleep in bed without dyspnea. No CP. V/S noted. AF/FL PE: Lungs: rhonchi or.: irreg S1S2 Abd.: soft Ext: less edema, mild erythema Neuro.: alert I/O= 1140/3675 recorded Wt = 253 lbs. Labs 04/09 noted: K+= 4.2, Cr.= 1.5, Mg.++= 1.8 ECG 04/07: AF with moderate VR, PVCs, NSSTW changes BC x1 + 2 GP orgs Echo: Nl LV fx. with conc. LVH, Mild/mod , mod/ MR. No veg. seen on fair quality study. Objective - Vital Signs/Intake and Output Vital Signs (last 24 hours): Temp Pulse Resp BP Pulse Ox 97.3 F L 63 20 122/57 L 93 L 04/10/17 00:01 04/10/17 06:00 04/10/17 00:01 04/10/17 00:01 04/10/17 00:01 Intake and Output: 04/10/17 04/10/17 06:59 18:59 Intake Total 300 Output Total 2300 -1999 - Medications Medications: Current Medications Acetaminophen (Tylenol 325mg Tab) 650 mg PO Q4H PRN PRN Reason: Pain, Mild (1-3) Last Admin: 04/07/17 20:01 Dose: 650 mg Allopurinol (Zyloprim) 300 mg PO QAM [facility] Last Admin: 04/09/17 10:48 Dose: 300 mg Apixaban (Eliquis) 2.5 mg PO BID [facility] PRN Reason: Protocol Aspirin (Ecotrin) 81 mg PO QAM [facility] Last Admin: 04/09/17 10:48 Dose: 81 mg Atorvastatin Calcium (Lipitor) 10 mg PO HS [facility] Last Admin: 04/09/17 21:37 Dose: 10 mg Cilostazol (Pletal) 100 mg PO BID [facility] Last Admin: 04/09/17 18:30 Dose: 100 mg Furosemide (Lasix) 40 mg PO BID [facility] Insulin Human Regular (Humulin R Low) 0 units SC ACBD [facility] PRN Reason: Protocol Last Admin: 04/09/17 17:09 Dose: Not Given Isosorbide Mononitrate (Imdur Er) 30 mg PO QAM [facility] Last Admin: 04/09/17 10:48 Dose: 30 mg Levothyroxine Sodium (Synthroid) 25 mcg PO 0600 [facility] Last Admin: 04/10/17 05:51 Dose: 25 mcg Losartan Potassium (Cozaar) 50 mg PO QAM [facility] Last Admin: 04/09/17 10:48 Dose: 50 mg Metoprolol Succinate (Toprol Xl) 50 mg PO BID [facility] Last Admin: 04/09/17 18:28 Dose: 50 mg Potassium Chloride (K-Dur 20 Meq Er Tab) 20 meq PO BID [facility] Last Admin: 04/09/17 18:30 Dose: 20 meq - Labs Labs: 04/08/17 07:30 04/09/17 06:45 PT 13.6 SECONDS (9.4-12.5) H 04/06/17 07:00 INR 1.18 (0.93-1.08) H 04/06/17 07:00 APTT 33.0 Seconds (25.1-36.5) 04/06/17 07:00 Assessment and Plan - Assessment and Plan (Free Text) Assessment: Dyspnea/Orthopnea/Edema BC x1 _ GP orgs x 2 CHF , mild /mod. with mod. MR AFib/fllutter CAD/CABG CKD Diabetes Gastric and Colonic Polyps Anemia Plan: PO Lasix BID D/C Lovenox > Eliquis 2.5 BID ID evaluation for + BC x 1: noted OOB as sam. OK to D/C home if OK with ID and Dr. Dougherty. Case D/W Dr. Dougherty this AM. Out-pt nuclear stress test and cardiac f/u.
[2017-04-10] MEDS: Insulin Reg-LOW-Coverage SC SCH (08:18)
[2017-04-10] MEDS: Metoprolol Succinate 50 mg XL Tab PO SCH (10:19)
[2017-04-10] MEDS: Potassium Chloride 20 mEq ER Tab PO SCH (10:19)
[2017-04-10] MEDS: Cilostazol 100 mg Tab UD PO SCH (10:20)
[2017-04-10 11:57] VITALS: BP 142/72; PULSE 74; RESP 67; TEMP 97.5; O2SAT 92
--- NOTE | 2017-04-10 18:48 | DS ---
HISTORY OF PRESENT ILLNESS: This is an 81-year-old male, who has come into the hospital with shortness of breath. He had a difficult time in lying flat for his stress test. The patient has no complaints of any chest pain. No shortness of breath, no nausea, and no vomiting. He says he is feeling better. PHYSICAL EXAMINATION: VITAL SIGNS: Temperature is 97.3, pulse of 83, blood pressure 122/57, respirations 20. GENERAL: The patient is lying in bed, flat, comfortable. HEENT: No oral lesion. Anicteric sclerae. Moist mucosa. NECK: No JVD, adenopathy, or thyromegaly. CARDIOVASCULAR: S1 and S2, regular. No murmurs, rubs, or gallops. LUNGS: Clear to auscultation bilaterally. No wheeze, rales, or rhonchi. ABDOMEN: Bowel sounds are positive, soft, nontender and nondistended. EXTREMITIES: A 1+ edema. LABORATORY DATA: White count of 12.2 and hemoglobin 9.4. Creatinine is 1.5. ASSESSMENT: 1. Acute congestive heart failure secondary to systolic dysfunction. 2. Blood culture is positive for Enterococcus. 3. Diabetes type 2. 4. Lower extremity edema. 5. Coronary artery disease. 6. Dyslipidemia. 7. Hypertension. 8. Hyperuricemia. 9. Iron-deficiency anemia. 10. Coronary artery bypass graft. 11. Atrial fibrillation, new onset. PLAN: The patient has one set of blood culture that is positive. The patient's echo has been done and is pending. He has repeat blood cultures that have been ordered. I appreciate input from Dr. Jensen from Infectious Disease and the patient is going to continue his Lasix. He is on aspirin daily. The patient is on Lovenox for anticoagulation. He is on Synthroid. He is on Lipitor for dyslipidemia. He is on losartan for his hypertension. We will await further input from Infectious Disease and Cardiology. The patient may have blood cultures that are contaminated. He has a history of coronary artery disease with CABG. The patient will need oral anticoagulation for his atrial fibrillation. Juma Dougherty MD [facility] # [id number]
--- NOTE | 2017-04-10 22:57 | PN ---
DATE: 04/10/2017 SUBJECTIVE: The patient was seen on 373, bed 3 this morning. He is anxious about getting home. He states he has people at home who cannot manage on their on and his is also ill and he must go home. He has had no fevers. The patient states that he was never did have any fevers at home. No chills. He was admitted with shortness of breath that had gotten progressively worse in the last few days prior to admission. PHYSICAL EXAMINATION VITAL SIGNS: Temperature is 97, blood pressure is 140/70, respiratory rate of 18, heart rate of 74. HEENT: Examination of HEENT is unremarkable. NECK: Supple. LUNGS: Have decreased breath sounds. HEART: Normal S1, S2. ABDOMEN: Soft, nontender. LABORATORY DATA: Laboratory examination reveals a white count of 12,200, hemoglobin of 9, platelets of 402. Chemistries reveals the creatinine is 1.7 and urinalysis is noted. Microbiology reveals the blood culture in 1 bottle is Enterococcus faecalis and a coag-negative Staph by a PNA-FISH, both sensitive organisms and the repeat blood cultures are no growth 24 hours and a second blood culture from the same date is 04/06/2017, no growth. The patient also had an echo, which was negative for endocarditis. Dr. Jovon Chand's progress note from today is reviewed reveals the patient has congestive heart failure. ASSESSMENT AND PLAN: This is an 81-year-old male who was seen early this morning, history of coronary artery disease and cardiac stents, diabetes and who was admitted what appears to be with Enterococcus faecalis and coagulase-negative Staphylococcus bacteremia, 1 bottle with repeat blood cultures no growth. Not consistent with endocarditis, most likely a contamination in a patient with acute on chronic congestive heart failure and renal insufficiency and diabetes. We can discontinue the antibiotics. The patient to follow up as outpatient with Dr. Dougherty. I spoke to the patient at length. He is to follow up with Dr. Dougherty in less than a week. He is to follow up with Cardiology in less than a week for adjustment of congestive heart failure medication and he is told to take his fevers and if there is any change to return to the emergency room immediately and we will follow with you as outpatient. He states he will follow the directions given. Hoang Orourke MD [facility] # [id number]
== END 2017-04-10 16:05 | disposition home or self-care (01) | DRG 291 ==
LOC: ED 06:29 → ERH 08:21 → 3RSO 11:35
PROVIDERS: ADMIT Internal Medicine Nephrology; ATTEND Internal Medicine Nephrology
DX: I13.0 Hypertensive heart and chronic kidney disease with heart failure and stage 1 through stage 4 chronic kidney disease, or unspecified chronic kidney disease (principal); I50.21 Acute systolic (congestive) heart failure; R78.81 Bacteremia; I48.91 Unspecified atrial fibrillation; E11.22 Type 2 diabetes mellitus with diabetic chronic kidney disease; N18.9 Chronic kidney disease, unspecified; D50.9 Iron deficiency anemia, unspecified; E78.5 Hyperlipidemia, unspecified; I25.10 Atherosclerotic heart disease of native coronary artery without angina pectoris; E66.01 Morbid (severe) obesity due to excess calories; E03.9 Hypothyroidism, unspecified; E79.0 Hyperuricemia without signs of inflammatory arthritis and tophaceous disease; Z95.1 Presence of aortocoronary bypass graft; Z79.82 Long term (current) use of aspirin; Z79.84 Long term (current) use of oral hypoglycemic drugs; Z86.010 Personal history of colon polyps; Z68.34 Body mass index [BMI] 34.0-34.9, adult; Z88.0 Allergy status to penicillin

== ENCOUNTER 2017-05-07 09:09 | Inpatient (IN) | payer MEDICARE, BC ==
[2017-05-07 09:13] VITALS: BMI 34.5
[2017-05-07] MEDS ORDERED: Sodium Chloride 0.9% 250 ML IV STA (09:29)
--- NOTE | 2017-05-07 09:38 | ED PDOC ---
Arrival/HPI - General Chief Complaint: Abnormal Labs Time Seen by Provider: 05/07/17 09:28 Historian: Patient - History of Present Illness Narrative History of Present Illness (Text): 05/07/17 09:25 pt p/w + weeks of progressive weakness, worse with exertion; pt was recently admitted and discharged earlier during the month of April for acute chf; pt states his symptoms had not improved; pt states exertional SOB continued after he was discharged home; pt had seen Dr Novak (his PCP) last week and labs were drawn. Pt was notified by Dr Novak today of worsening abnl elevated Creat and slightly elevated K+ and instructed patient to come to ED immediately; pt states no appetite, ? chills, no fever/shivers/sweats, no cp, no palpitations, no abd pain, no vomiting, + mild nausea, no urinary changes, + slight constipation (dark stool pt is on iron tablets for the last few months); pt states no LOC, + lightheadedness/dizziness, no lunsford/neck pain, no vision changes, no rashes, no fall/trauma/sick contact, no travel. pt arrived to ED for further eval pt's without other complaints. pt states his leg swellings are much improved however PCP: Dr Novak Cards: Dr Rodriguez colonoscopy last year pt lives with daughter 05/07/17 12:41 Time/Duration: Other (weeks) Symptom Onset: Gradual Symptom Course: Worsening Quality: Other (no chest pain) Severity Level: Moderate Activities at Onset: Other (worse symptoms with exertion) Context: Exertion, Home Past Medical History - Provider Review Nursing Documentation Reviewed: Yes - Travel History Have you recently traveled outside [place] w/in the past 3 mons?: No - Past History Past History: No Previous - Infectious Disease Hx of Infectious Diseases: None - Tetanus Immunization Tetanus Immunization: Unknown - Reproductive Currently Lactating: No - Cardiac Hx Cardiac Disorders: Yes (PVD) Hx Congestive Heart Failure: Yes Hx Hypertension: Yes - Pulmonary Hx Respiratory Disorders: Yes (PPD OF CIGARETTES QUIT 1996) - Neurological Hx Neurological Disorder: No - HEENT Hx HEENT Disorder: Yes (BLURRY VISION) - Renal Hx Renal Disorder: No - Endocrine/Metabolic Hx Diabetes Mellitus Type 2: Yes - Hematological/Oncological Hx Blood Disorders: Yes Hx Anemia: Yes - Integumentary Hx Dermatological Disorder: Yes Other/Comment: BILATERAL LE EDEMA MORE TO RIGHT. JAIN BONE SOME REDNESS.BROWNISH SKIN DISCOLORATION. - Musculoskeletal/Rheumatological Hx Musculoskeletal Disorders: Yes (LAMINECTOMY) Hx Falls: Yes Hx Gout: Yes Hx Unsteady Gait: Yes (CANE) - Gastrointestinal Hx Gastrointestinal Disorders: Yes (DIVERTICULITIS,CONSTIPATION) Hx Gastroesophageal Reflux: Yes - Genitourinary/Gynecological Hx Genitourinary Disorders: No - Psychiatric Hx Psychophysiologic Disorder: No Hx Emotional Abuse: No Hx Physical Abuse: No Hx Substance Use: No - Anesthesia Hx Anesthesia: No Hx Anesthesia Reactions: No Hx Malignant Hyperthermia: No - Suicidal Assessment Feels Threatened In Home Enviroment: No Family/Social History - Physician Review Nursing Documentation Reviewed: Yes Family/Social History: No Known Family HX Smoking Status: Former Smoker Hx Alcohol Use: Yes (USED TO DRINK HEAVILY QUIT 2009) Hx Substance Use: No Hx Substance Use Treatment: No Allergies/Home Meds Allergies/Adverse Reactions: Allergies Penicillins Allergy (Severe, Verified 04/06/17 11:27) SWELLING Home Medications: Home Meds Medication Instructions Recorded Confirmed Atorvastatin [Lipitor] 10 mg PO DAILY 10/30/13 05/07/17 Cilostazol 100 mg PO BID 10/30/13 05/07/17 Losartan [Cozaar] 50 mg PO QAM 10/30/13 05/07/17 Metoprolol Succinate 50 mg PO BID 10/30/13 05/07/17 Allopurinol [Zyloprim] 300 mg PO QAM 08/03/15 05/07/17 Aspirin [Ecotrin] 81 mg PO QAM 08/03/15 05/07/17 Cholecalciferol (Vitamin D3) 4,000 unit PO QAM 08/03/15 05/07/17 [Vitamin D3] Metformin HCl [Glucophage] 1,000 mg PO BID 08/03/15 05/07/17 Multivit-Min/FA/Lycopen/Lutein 1 each PO DAILY 08/03/15 05/07/17 [Centrum Silver Tablet] Vitamin B Complex [Super B-50 1 cap PO DAILY 08/03/15 05/07/17 Complex] Docusate [Colace] 100 mg PO PRN PRN 09/12/16 05/07/17 Ferrous Sulfate [High Potency Iron] 134 mg PO TID 09/12/16 05/07/17 Review of Systems - Review of Systems Constitutional: Normal Eyes: Normal ENT: Normal Respiratory: SOB Cardiovascular: Orthopnea. absent: Edema Gastrointestinal: Normal Genitourinary Male: Normal Musculoskeletal: Normal Skin: Normal Neurological: Dizziness Endocrine: Normal Hemo/Lymphatic: Normal Psychiatric: Normal Physical Exam Vital Signs Reviewed: Yes Vital Signs Temp Pulse Resp BP Pulse Ox 05/07/17 12:40 70 18 90/55 L 100 05/07/17 09:13 97.7 F 67 18 136/80 100 Temperature: Afebrile Blood Pressure: Normal Pulse: Regular Respiratory Rate: Normal Appearance: Positive for: Well-Appearing, Uncomfortable, Other (resting in bed, alert/awake, uncomfortable, NAD, cooperative, GCS = 15, oriented x 3). No: Non- Toxic Pain Distress: None Mental Status: Positive for: Alert and Oriented X 3 - Systems Exam Head: Present: Atraumatic, Normocephalic, Other (mild bi-temporal wasting) Pupils: Present: PERRL, Other (no nystagmus, no photophobia, sclera anicteric, visual field intact b/l) Extroacular Muscles: Present: EOMI Conjunctiva: Present: Normal Ears: Present: Normal Mouth: Present: Other (slight dry oral mucosa; uvula/tongue are midline, fair dentitions, no drooling/stridor, no dysphonia) Pharnyx: Present: Normal Nose (External): Present: Atraumatic Nose (Internal): Present: Normal Inspection Neck: Present: Normal Range of Motion, Trachea Midline, Other (no step off, no gross deformities, no meningeal signs, intact ROM). No: MIDLINE TENDERNESS Respiratory/Chest: Present: Clear to Auscultation, Good Air Exchange, Other ( CTA b/l, no w/r/r, no accessory muscle use noted, no tachypenia) Cardiovascular: Present: Regular Rate and Rhythm, Normal S1, S2. No: Murmurs Abdomen: Present: Normal Bowel Sounds, Other (well nourished male, no focal tenderness, no masses/rebound/guarding/rigidity, no matos's sign, no mcburney' s point tenderness) Back: Present: Normal Inspection, Other (no step off). No: CVA Tenderness, Midline Tenderness Upper Extremity: Present: Normal Inspection, Normal ROM, NORMAL PULSES, Neurovascularly Intact Lower Extremity: Present: Normal Inspection, NORMAL PULSES, Normal ROM, Neurovascularly Intact, Other (intact ROM, strength 5/5 grossly intact ). No: CALF TENDERNESS, Luis's Sign, Tenderness, Swelling Neurological: Present: GCS=15, CN II-XII Intact, Speech Normal, Other (NIH stroke scale ~ 0; CNII-XII WNL, no facial asymmetries, no slurr speech) Skin: Present: Warm, Dry, Pale, Other (cap refill ~ 1sec, no ulcerations, no petechiae; + pallor) Psychiatric: Present: Alert, Oriented x 3 Medical Decision Making ED Course and Treatment: 05/07/17 09:25 Impression: weakness/exertional sob i have consider all the differential diagnosis regarding pt's chief medical complaints/clinical findings, including but are not limited to: ARF, r/o CHF; r/ o heart attack A/P: weakness/exertional sob, abnl labs - labs - iv - xray - ekg - ua - observe - supportive care Chest X-ray Dictator : Lynne Varghese MD Report Date : 05/07/2017 10:05:57 IMPRESSION: No active pulmonary disease. Mild cardiomegaly. 05/07/17 11:21: Case discussed with Dr. Dougherty who accepts patient to his service and will admit to Telemetry. Requests Dr. Lozada and Dr. Chand on consult. He agrees with blood transfusion for the patient. 05/07/17 13:00 pt is currently comfortable, NAD pt denied chest pain pt denied shortness of breath currently pt/family are made aware of pt's medical results agrees with admission Re-evaluation Time: 11:35 Reassessment Condition: Improving,but remains with symptoms - Lab Interpretations Lab Results: 05/07/17 09:50 05/07/17 09:50 Lab Results 05/07/17 10:50: Urine Color Yellow, Urine Appearance Clear, Urine pH 6.0, Ur Specific [place] 1.015, Urine Protein Negative, Urine Glucose (UA) Negative, Urine Ketones Negative, Urine Blood Negative, Urine Nitrate Negative, Urine Bilirubin Negative, Urine Urobilinogen 0.2, Ur Leukocyte Esterase Negative 05/07/17 09:50: Blood Type O NEGATIVE, Antibody Screen Negative, BBK History Checked Patient has bt 05/07/17 09:50: PT 15.5 H, INR 1.34 H, APTT 36.5 05/07/17 09:50: WBC 14.5 H, RBC 2.71 L, Hgb 7.8 L, Hct 24.8 L, MCV 91.5, MCH 28.8, MCHC 31.5, RDW 20.0 H, Plt Count 276, MPV 10.5, Gran % 66.8, Lymph % (Auto ) 19.1 L, Potter % (Auto) 4.6, Eos % (Auto) 9.2 H, Baso % (Auto) 0.3, Gran # 9.68 H, Lymph # (Auto) 2.8, Potter # (Auto) 0.7 H, Eos # (Auto) 1.3 H, Baso # (Auto) 0.05 05/07/17 09:50: Sodium 140, Potassium 5.2 H, Chloride 111 H, Carbon Dioxide 15 L , Anion Gap 19, BUN 86 H, Creatinine 2.9 H, Est GFR ( Amer) 25, Est GFR ( Non-Af Amer) 21, Random Glucose 116 H, Calcium 10.3, Total Bilirubin 0.2, AST 33 , ALT 27, Alkaline Phosphatase 81, Troponin I < 0.01, Total Protein 7.5, Albumin 4.2, Globulin 3.3, Albumin/Globulin Ratio 1.3 I have reviewed the lab results: Yes Interpretation: Abnormal lab values (decr H/H (abnl); elevated BUN/creat; borderline elevated K) - RAD Interpretation Narrative RAD Interpretations (Text): 05/07/17 12:50 HISTORY: exertional sob COMPARISON: 04/06/2017. FINDINGS: LUNGS: The lungs are well inflated and clear. PLEURA: No significant pleural effusion identified, no pneumothorax apparent. CARDIOVASCULAR: There is mild cardiomegaly. Status post CABG. OSSEOUS STRUCTURES: No significant abnormalities. VISUALIZED UPPER ABDOMEN: Normal. OTHER FINDINGS: None. IMPRESSION: No active pulmonary disease. Mild cardiomegaly. Radiology Orders: 05/07/17 09:29 CHEST PORTABLE [RAD] Stat Clay Pigeon Loader: Radiologist - EKG Interpretation EKG Interpretation (Text): 05/07/17 12:55 sinus rhythm at 85 bpm, with frequent PVCs, normal axis, qs in leads III/F, non- specific st-t changes, ABNL EKG; unchanged compare with old ekg 04/2017 Interpreted by ED Physician: Yes Type: 12 lead EKG Comparison: Similar to previous EKG - Medication Orders Current Medication Orders: Discontinued Medications Sodium Chloride (Sodium Chloride 0.9%) 250 mls @ 999 mls/hr IV .Q16M STA Stop: 05/07/17 09:44 Last Admin: 05/07/17 10:21 Dose: 999 mls/hr eMAR Start Stop Document 05/07/17 10:21 GMD (Rec: 05/07/17 10:21 GMD [id number]) Intravenous Solution Start Date 05/07/17 Start Time 10:21 End Date 05/07/17 End time 10:36 Total Infusion Time 15 Disposition/Present on Arrival - Present on Arrival Any Indicators Present on Arrival: No History of DVT/PE: No History of Uncontrolled Diabetes: No Urinary Catheter: No History of Decub. Ulcer: No History Surgical Site Infection Following: None - Disposition Have Diagnosis and Disposition been Completed?: Yes Diagnosis: Anemia, SOB (shortness of breath) on exertion, Acute renal failure, Weakness Disposition: HOSPITALIZED Disposition Time: 12:30 Patient Plan: Admission, Telemetry Patient Problems: Current Active Problems Problem Status Onset Acute renal failure Acute Anemia Acute SOB (shortness of breath) on exertion Acute Weakness Acute Condition: STABLE Discharge Instructions (ExitCare): Weakness (ED)
--- NOTE | 2017-05-07 10:07 | RAD ---
HISTORY: exertional sob COMPARISON: 04/06/2017. FINDINGS: LUNGS: The lungs are well inflated and clear. PLEURA: No significant pleural effusion identified, no pneumothorax apparent. CARDIOVASCULAR: There is mild cardiomegaly. Status post CABG. OSSEOUS STRUCTURES: No significant abnormalities. VISUALIZED UPPER ABDOMEN: Normal. OTHER FINDINGS: None. IMPRESSION: No active pulmonary disease. Mild cardiomegaly.
[2017-05-07 10:34] LABS: BASO # 0.05 K/mm3 (0.0-2.0); BASO % 0.3 % (0.0-3.0); EOS # 1.3 (0.0-0.7); EOS % 9.2 % (1.5-5.0); GRAN # 9.68 (1.4-6.5); GRAN % 66.8 % (50.0-68.0); HEMOGLOBIN 7.8 g/dL (14.0-18.0); LYMPH # 2.8 (1.2-3.4); LYMPH % 19.1 % (22.0-35.0); MEAN CELL VOLUME 91.5 fl (80.0-105.0); MEAN CORPUSCULAR HEMOGLOBIN 28.8 pg (25.0-35.0); MEAN CORPUSCULAR HGB CONC 31.5 g/dl (31.0-37.0); MEAN PLATELET VOLUME 10.5 fl (7.0-11.0); MONO # 0.7 (0.1-0.6); MONO % 4.6 % (1.0-6.0); RBC 2.71 10^6/uL (3.5-6.1); WHITE BLOOD COUNT 14.5 10^3/ul (4.5-11.0)
[2017-05-07 10:46] LABS: INR 1.34 (0.93-1.08); PARTIAL THROMBOPLASTIN TIME 36.5 Seconds (25.1-36.5); PROTHROMBIN TIME 15.5 SECONDS (9.4-12.5)
[2017-05-07 10:56] LABS: TROPONIN I < 0.01 ng/mL
[2017-05-07 11:06] LABS: ALB/GLOB RATIO 1.3 (1.1-1.8); ALBUMIN 4.2 g/dL (3.0-4.8); ALT/SGPT 27 U/L (7-56); AST/SGOT 33 U/L (17-59); BLOOD UREA NITROGEN 86 mg/dL (7-21); CALCIUM 10.3 mg/dL (8.4-10.5); GFR AFRICAN-AMERICAN 25; GFR NON-AFRICAN AMERICAN 21
[2017-05-07 11:07] LABS: URINE BILIRUBIN NEGATIVE (NEGATIVE); URINE BLOOD NEGATIVE (NEGATIVE); URINE GLUCOSE (UA) NEGATIVE (NEGATIVE); URINE LEUKOCYTE ESTERASE NEGATIVE Leu/uL (NEGATIVE); URINE PROTEIN NEGATIVE mg/dL (<30 mg/dL); URINE UROBILINOGEN 0.2 E.U./dL (<1 E.U./dL)
[2017-05-07 11:08] LABS: URINE APPEARANCE CLEAR (CLEAR); URINE COLOR YELLOW (YELLOW)
[2017-05-07] MEDS ORDERED: Sod Polystyrene Sulf 15 gm/60 ml Susp PO STA (13:10)
[2017-05-07] MEDS: Cilostazol 100 mg Tab UD PO SCH (17:56)
[2017-05-07] MEDS: Metoprolol Succinate 50 mg XL Tab PO SCH (17:56)
--- NOTE | 2017-05-07 19:27 | CARD ---
APPROVED REPORT EKG Measurement Heart [id number] <Conclusion> Atrial Flutter with variable conduction, PVCs vs aberrancy Inferior infarct, age undetermined Abnormal ECG
[2017-05-07 21:24] LABS: IRON 53 ug/dL (45-180)
[2017-05-07 21:33] LABS: % IRON SATURATION 12 % (20-55); TOTAL IRON BINDING CAPACITY 429 ug/dL (261-462)
[2017-05-07] MEDS: Insulin Reg-LOW-Coverage SC SCH (23:00)
[2017-05-08 06:47] LABS: HEMOGLOBIN 8.6 g/dL (14.0-18.0); MEAN CELL VOLUME 90.3 fl (80.0-105.0); MEAN CORPUSCULAR HEMOGLOBIN 28.8 pg (25.0-35.0); MEAN CORPUSCULAR HGB CONC 31.9 g/dl (31.0-37.0); MEAN PLATELET VOLUME 10.5 fl (7.0-11.0); RBC 2.99 10^6/uL (3.5-6.1); RED CELL DISTRIBUTION WIDTH 19.8 % (11.5-14.5); WHITE BLOOD COUNT 14.2 10^3/ul (4.5-11.0)
[2017-05-08 07:32] LABS: ALB/GLOB RATIO 1.2 (1.1-1.8); ALBUMIN 3.7 g/dL (3.0-4.8); CALCIUM 9.3 mg/dL (8.4-10.5)
[2017-05-08] MEDS: Insulin Reg-LOW-Coverage SC SCH ×4 (07:58→21:59)
--- NOTE | 2017-05-08 08:43 | US ---
PROCEDURE: Ultrasound of the Kidneys HISTORY: [facility] COMPARISON: None available. TECHNIQUE: Sonogram of the kidneys. FINDINGS: RIGHT KIDNEY: Measures: 10.0 x 6.1 x 5.7 cm. Normal in size and contour grossly. Corticomedullary differentiation is limited which is likely a function of intrinsic medical renal disease. Body habitus limits the definition to a certain degree as well. No urolithiasis, obstructive uropathy, cystic or solid lesion grossly evident. Mild bilateral renal cortical atrophy identified. LEFT KIDNEY: Measures: 10.8 x 5.8 x 5.1 cm. Normal in size and contour grossly. Corticomedullary differentiation is limited which is likely a function of intrinsic medical renal disease. Body habitus limits the definition to a certain degree as well. No urolithiasis, obstructive uropathy, cystic or solid lesion grossly evident. Mild bilateral renal cortical atrophy identified. OTHER FINDINGS: None. IMPRESSION: Poor corticomedullary differentiation may reflect intrinsic medical renal disease though body habitus limits definition of the renal parenchyma somewhat. Mild bilateral renal cortical atrophy evident.
[2017-05-08] MEDS: Metoprolol Succinate 50 mg XL Tab PO SCH ×2 (09:26→17:28)
[2017-05-08] MEDS: Cilostazol 100 mg Tab UD PO SCH ×2 (09:26→17:28)
[2017-05-08] MEDS: Sodium Chloride 0.9% 1,000 ML IV SCH (12:29)
[2017-05-08] MEDS: Pantoprazole 40 mg EC Tab PO SCH (17:03)
--- NOTE | 2017-05-08 18:00 | CON ---
DATE: 05/08/2017 CONSULTATION INDICATIONS: Fatigue, weakness, dyspnea on exertion. HISTORY OF PRESENT ILLNESS: This is an 81-year-old man, who is well known to me, admitted with a week or more of weakness, lassitude, dyspnea on exertion, who came to the emergency room after he was found to have elevated creatinine and potassium on lab work done in Dr. Novak's office. He has had a recent admission to [facility] for congestive heart failure. He has known coronary artery disease, remote coronary bypass surgery. An echocardiogram during that admission showed normal left ventricular function with [id number] aortic stenosis and moderate mitral regurgitation. Today, he is sitting at his bedside on telemetry, complaining of fatigue, diminished memory and dyspnea on exertion only. There is no chest pain. There is no orthopnea, PND, syncope, vertigo, palpitations, edema, claudication, fever, chills, sputum production, hemoptysis, rigor, sweats, abdominal pain, nausea, vomiting, diarrhea, constipation, melena. PAST MEDICAL HISTORY: Notable for coronary artery disease, remote coronary artery bypass surgery, congestive heart failure recent, atrial fibrillation, chronic kidney disease, diabetes, anemia, colonic and gastric polyps. There is no history of stroke, TIA, or gout. MEDICATIONS AT THE TIME OF ADMISSION: Include multivitamin, Pletal, Colace, Cozaar, aspirin, Eliquis, metformin, iron sulfate, potassium chloride, Lasix 40 b.i.d., Lipitor, metoprolol 50 b.i.d., Synthroid, vitamin D3, allopurinol. ALLERGIES: HE NOTES AN ALLERGY TO PENICILLIN. SOCIAL HISTORY: He lives at home with his and family who assist him. He does not smoke. He does not drink alcohol. He is ambulatory, but less so recently. FAMILY HISTORY: Noncontributory. REVIEW OF SYSTEMS: A 10-point review of systems otherwise unremarkable except as noted above. PHYSICAL EXAMINATION GENERAL: He is a well-developed male, sitting in a chair on telemetry, in no acute distress. VITAL SIGNS: Notable for atrial fibrillation 60 to 78 beats per minute, afebrile. Blood pressure 128/61, respirations 16 to 20, O2 sat 96% to 97% on room air. HEENT: Reveals no neck vein distention, thyromegaly, carotid bruits. Mucous membranes moist. Conjunctivae pink. NECK: Supple. LUNGS: Lung baird clear. HEART: Revealed irregular rhythm. Normal first and second heart sounds. Systolic murmur along the left sternal border. ABDOMEN: Obese, soft, benign. Bowel sounds present. No mass, organomegaly, tenderness, rebound, guarding, CVA tenderness, or palpable abdominal aortic aneurysm. EXTREMITIES: Revealed no cyanosis, clubbing, or edema. NEUROLOGICAL: He is awake, alert, and oriented. PSYCHIATRIC: Normal as to mood and affect. SKIN: Warm and dry. No rash or cellulitis. LABORATORY AND IMAGING DATA: EKG demonstrates atrial fib, PVCs, nonspecific ST-wave changes, no change from the previous EKG. Chest x-ray reveals no active disease. White count 14,500 repeat 14,200, hemoglobin 7.8 repeat 8.6, hematocrit 24.8 repeat 27, platelet count normal. PT is 15.5, INR 1.34, PTT is 36.5. Electrolytes are notable for a potassium of 5.2, chloride 111, carbon dioxide 15. Repeat potassium 4.4, chloride 111, carbon dioxide 16. BUN 86 repeat 72, creatinine 2.9 repeat 2.3, blood sugar 116 repeat 113. Calcium normal. Magnesium 2.3. LFTs unremarkable. Troponin are normal. Urinalysis noted. IMPRESSION: Eligio Swanson is an 81-year-old man with recent congestive heart failure in the setting of coronary artery bypass surgery remotely, normal left ventricular function on echo with [id number] aortic stenosis and moderate mitral regurgitation, admitted with worsening renal function, hyperkalemia, fatigue, lassitude, some dyspnea on exertion, and anemia, while on Eliquis for atrial fibrillation. PLAN: At this time, he is admitted to telemetry. We are holding Cozaar and Eliquis as well as potassium and Lasix. I will review his old records. We will check him for postural changes. He is on telemetry. We will follow renal function. He is undergoing a renal evaluation and renal ultrasound is ordered. We will continue allopurinol, metoprolol, Pletal, Lipitor, and aspirin. We will check stool for occult blood. Monitor H and H as well as labs for renal function. He got a dose of Kayexalate. He will have a GI evaluation by Dr. Kwan. I will follow along with you. We will make additional recommendations based on his clinical course. Jovon Chand MD [facility]
[2017-05-08] MEDS ORDERED: Vancomycin 1gm in NS 250ml 1 GM/250 ML BAG IVPB STA (22:00)
[2017-05-08] MEDS: Aztreonam 1 Gm in NS 100mL 100 ML IVPB SCH (22:16)
--- NOTE | 2017-05-09 04:01 | HP ---
CHIEF COMPLAINT AND HISTORY OF PRESENT ILLNESS: This is an 81-year-old male, who has come into the hospital because of anemia. The patient had outpatient blood work done and was advised to come into the ER for further evaluation because of a hemoglobin that was decreased. The patient states that he has been feeling weak and tired. He is lethargic. He has no complaint of any chest pain or shortness of breath. No fevers or chills. The patient had been discharged a few weeks ago from the hospital because of heart failure. The patient states that his breathing is better, but he just feels weak and he has not been able to ambulate much. He denies any chest pain. No palpitations or abdominal pain. No back pain. No dysuria. No fevers. He does have dark stool, but he states he has been on iron tablet. He does complain of lightheadedness and dizziness at times, not all the times. He states he has been compliant with his medications. He has been on Eliquis for anticoagulation for his atrial fibrillation. He is frustrated that he is still not well as he was before. He has seen Dr. Kwan in the past for GI evaluation and endoscopy. REVIEW OF SYSTEMS: All of the review of symptoms are within normal limits except as mentioned. ALLERGIES: HE HAS ALLERGIES TO PENICILLIN. HOME MEDICATIONS: Have been reviewed on the [facility]. He is on iron tablet as well. PAST MEDICAL HISTORY: 1. Coronary artery disease, status post CABG. 2. Diabetes type 2. 3. Colon polyps. 4. Dyslipidemia. 5. Hypertension. 6. Hyperuricemia. 7. Anemia. 8. CHF secondary to systolic dysfunction. 9. Sepsis secondary to enterococcus. 10 Iron-deficiency anemia. 11. Atrial fibrillation, on Eliquis. SOCIAL HISTORY: He lives with his . He does not smoke or drink. FAMILY HISTORY: Noncontributory. PAST SURGICAL HISTORY: CABG. PHYSICAL EXAMINATION: VITAL SIGNS: He has a temperature of 98.2, pulse is 83, blood pressure is 140/59, respirations 18, height is 5 feet 10 inches, weight is 190 pounds, BMI is 27.3. GENERAL: The patient lying in bed, uncomfortable, and in no acute distress. HEENT: Atraumatic and normocephalic. Anicteric sclerae. Moist mucosa. [place] conjunctivae. No oral lesions. NECK: No JVD, anterior and posterior adenopathy, thyromegaly, or bruits. CARDIOVASCULAR: S1 and S2 regular. No murmur, rubs, or gallop. LUNGS: Clear to auscultation bilaterally. No wheezes, rales, or rhonchi. ABDOMEN: Bowel sounds are positive. Soft, nontender and nondistended. No hepatosplenomegaly. No rebound and no guarding. EXTREMITIES: No cyanosis, clubbing, or edema. NEUROLOGIC: No facial asymmetry. Tongue is midline. No uvula deviation. Power is 5/5 upper extremity and lower extremity. Sensation intact in upper extremity and lower extremity. PSYCHIATRIC: He is awake, alert and oriented x3. No anxiety or depression. He has normal affect. GENITOURINARY: No CVA tenderness. VASCULAR: 2+ pulses in the carotid pulses and pedal pulses. SKIN: No erythema or nodules SPINE: Shows normal curvature. LABORATORY DATA: White count of 14.5, hemoglobin of 7.8; repeat white count is 14.2, hemoglobin 8.6. He has INR at 1.3. He has a chemistry that shows a creatinine of 2.3. He has iron saturation of 12% with a ferritin of 27, albumin is 4.2. He has a TSH of 4.1. His bicarb is 15. His urine does show that ketones are negative, blood is negative, nitrites are negative. He has a renal ultrasound that was done that shows poor corticomedullary differentiation, may reflect intrinsic medical disease. Chest x-ray done shows no infiltrates. He had an EKG, shows atrial flutter with PVCs. ASSESSMENT: 1. Acute anemia secondary to blood loss. 2. Acute kidney injury with chronic kidney disease, stage 3. 3. Metabolic acidosis. 4. Iron-deficiency anemia. 5. Atrial fibrillation, anticoagulation on hold. 6. Coronary artery disease. 7. Dyslipidemia. 8. Hypertension. 9. Diabetes type 2. PLAN: The patient is to be admitted to the hospital. He was given 1 unit of transfusion. His hemoglobin has increased from 7.8 to 8.6 with elevated white count. I am not sure of the etiology. The patient is going to sign off AMA. He was advised to stay in the hospital to get further evaluation. His initial creatinine was 2.9 on admission. His baseline creatinine is about 1.7. The patient has been placed on fluids. His repeat creatinine is 2.3. The patient has a normal thyroid. His urine is normal as well. I will get urine to see if he has any proteinuria. I did speak to Dr. Novak, the patient's primary, to give him an update. I will get evaluation with Dr. Chand. The patient is also to be seen by GI, Dr. Kwan, but he is being covered by Dr. Lozada. I will continue his aspirin, but hold his anticoagulation with Eliquis. He is at risk of having stroke. Patient is on Lipitor for dyslipidemia. He is currently comfortable of not having any pain. We will need to repeat his a.m. blood work. Now, the patient was placed on sodium bicarb for his metabolic acidosis. He is on IV fluids. Patient on Synthroid for hypothyroidism. He is going to continue with metoprolol. He is on allopurinol for his hyperuricemia. He is on a heart-healthy diet. He is on metformin for his diabetes. I will hold his metformin because of his elevated creatinine. He has been placed on insulin sliding scale. I will wait for further input from the consultants. Juma Dougherty MD
[2017-05-09] MEDS: Levothyroxine 25 MCG TAB PO SCH (05:12)
[2017-05-09] MEDS: Pantoprazole 40 mg EC Tab PO SCH (05:12)
[2017-05-09] MEDS: Aztreonam 1 Gm in NS 100mL 100 ML IVPB SCH ×3 (05:14→22:29)
[2017-05-09 07:12] LABS: BASO # 0.04 K/mm3 (0.0-2.0); BASO % 0.3 % (0.0-3.0); EOS # 1.5 (0.0-0.7); EOS % 10.5 % (1.5-5.0); GRAN # 8.61 (1.4-6.5); GRAN % 61.2 % (50.0-68.0); HEMOGLOBIN 8.3 g/dL (14.0-18.0); LYMPH # 2.9 (1.2-3.4); LYMPH % 20.5 % (22.0-35.0); MEAN CELL VOLUME 90.2 fl (80.0-105.0); MEAN CORPUSCULAR HEMOGLOBIN 28.9 pg (25.0-35.0); MEAN PLATELET VOLUME 10.5 fl (7.0-11.0); MONO # 1.1 (0.1-0.6); MONO % 7.5 % (1.0-6.0); RBC 2.87 10^6/uL (3.5-6.1); RED CELL DISTRIBUTION WIDTH 20.1 % (11.5-14.5); WHITE BLOOD COUNT 14.1 10^3/ul (4.5-11.0)
--- NOTE | 2017-05-09 07:12 | CON ---
DATE: 05/08/2017 REASON FOR CONSULTATION: Anemia, rule out GI source of blood loss. HISTORY OF PRESENT ILLNESS: This 81-year-old patient with a past medical history of coronary artery disease, status post coronary artery bypass surgery, CHF, atrial fibrillation, chronic kidney disease, diabetes mellitus, was on Coumadin and aspirin, was found to have an abnormal labs by the primary physician, was sent to the ER for further evaluation. The patient was found to have a hemoglobin of 7.8. The patient has been on iron supplements and he says his stool is always dark. No history of any vomiting. No specific abdominal pain. The patient has been followed by Dr. Eligio Kwan, labor relations representative. He had an endoscopy and a colonoscopy done. His last endoscopy was in July 2015, and he was found to have a hiatus hernia and atrophic gastritis. The patient did have a colonoscopy in September 2016. He was found to have 2 dimunitive small polyps removed from the descending colon, diverticulosis and ascending colon lipoma and internal hemorrhoids. The patient was placed on Eliquis since his last discharge from the hospital a month ago. The patient has seen Dr. Kwan for anemia for further evaluation. Risks and benefits were discussed and repeat endoscopic evaluation was deferred. PAST MEDICAL HISTORY: Significant as above. FAMILY HISTORY: Noncontributory. SOCIAL HISTORY: Denies smoking or alcohol. REVIEW OF SYSTEMS: Other systems reviewed. Positive as above. ALLERGIES: ALLERGIC TO PENICILLIN. PHYSICAL EXAMINATION: GENERAL: The patient is lying on the bed, not in acute distress. VITAL SIGNS: T-max was 102.9 in the evening. Blood pressure 166/89, pulse 102, respirations 22. HEENT: Atraumatic, anicteric. NECK: Supple. HEART: S1 and S2 heard. LUNGS: Bilateral air entry present. ABDOMEN: Soft. There was no tenderness. EXTREMITIES: No cyanosis, no clubbing. NEUROLOGIC: Alert, oriented, moves all the extremities. LABORATORY DATA: WBC count 14.2, hemoglobin 8.6, the patient is admitted with a hemoglobin of 7.8, a unit of transfusion was given, platelets 243. Chemistry: BUN 72, creatinine 2.3. LFT's are otherwise unremarkable. IMPRESSION: This 81-year-old patient was admitted with worsening of his renal function and severe anemia. The patient has a history of chronic anemia, has been on iron supplements. EGD done in 2016 showed diverticulosis and atrophic gastritis. Colonoscopy done in 2017; dimunitive polyps removed, diverticulosis, hemorrhoids. Since the patient was on aspirin and Eliquis for atrial fibrillation and coronary artery disease and the patient has been having dark stools, he was not sure whether it is due to melena or the iron supplement causing this dark stool. The etiology for the patient's anemia is multifactorial. The patient has chronic kidney disease. The patient had spiked a temperature of 102, the etiology is unclear, cultures ordered. The patient's urinalysis is negative. RECOMMENDATION: Would recommend: 1. Followup of the hemoglobin and hematocrit. 2. Order for the CT scan of the abdomen and pelvis with only p.o. contrast to further evaluate, rule out any intraabdominal lesions, rule out any acute inflammatory pathology. 3. Continue close followup of the hemoglobin and hematocrit. The patient is still on aspirin, but Eliquis is being not restarted. The patient did have some nosebleed before, subsided now. Other comorbidities include diabetes mellitus, hypertension, dyslipidemia and arthritis. Thank you very much for allowing me to participate in the care of the patient. Magaly Lozada MD
[2017-05-09 07:21] LABS: CALCIUM 9.2 mg/dL (8.4-10.5)
[2017-05-09] MEDS: Insulin Reg-LOW-Coverage SC SCH ×4 (08:01→22:29)
[2017-05-09] MEDS: Cilostazol 100 mg Tab UD PO SCH ×2 (09:35→17:43)
[2017-05-09] MEDS: Sodium Chloride 0.9% 1,000 ML IV SCH (09:36)
[2017-05-09] MEDS: Metoprolol Succinate 50 mg XL Tab PO SCH ×2 (09:36→17:43)
[2017-05-09] MEDS ORDERED: Barium Sulfate Susp 2.1% w/v, 2.0% w/w 450 mL Bottle PO ONE (09:41)
--- NOTE | 2017-05-09 12:17 | CP.PCM.PN ---
<Jennifer Navas - Last Filed: 05/09/17 12:15> Subjective - Date & Time of Evaluation Date of Evaluation: 05/09/17 Time of Evaluation: 10:00 - Subjective Subjective: Seen and examined at the bedside earlier today, chart reviewed. Drinking oral contrast for CAT scan. Denies nausea, vomiting, or abdominal pain. Reports last bowel movement to be about 2 or 3 days ago. Objective - Vital Signs/Intake and Output Vital Signs (last 24 hours): Temp Pulse Resp BP Pulse Ox 97.3 F L 68 18 125/72 96 05/09/17 08:16 05/09/17 09:36 05/09/17 08:16 05/09/17 09:36 05/09/17 08:16 Intake and Output: 05/09/17 05/09/17 06:59 18:59 Intake Total 2690 Output Total 450 Balance 2240 - Medications Medications: Current Medications Allopurinol (Zyloprim) 300 mg PO QAM [facility] Last Admin: 05/09/17 09:35 Dose: 300 mg Aspirin (Ecotrin) 81 mg PO QAM [facility] Last Admin: 05/09/17 09:35 Dose: 81 mg Atorvastatin Calcium (Lipitor) 10 mg PO HS [facility] Last Admin: 05/08/17 22:02 Dose: 10 mg Cilostazol (Pletal) 100 mg PO BID [facility] Last Admin: 05/09/17 09:35 Dose: 100 mg Docusate Sodium (Colace) 100 mg PO TID PRN PRN Reason: Constipation Sodium Chloride (Sodium Chloride 0.9%) 1,000 mls @ 50 mls/hr IV .Q20H [facility] Last Admin: 05/09/17 09:36 Dose: Not Given Aztreonam (Azactam 1 Gm) 100 mls @ 100 mls/hr IVPB Q8 [facility] PRN Reason: Protocol Stop: 05/15/17 22:01 Last Admin: 05/09/17 05:14 Dose: 100 mls/hr Insulin Human Regular (Humulin R Low) 0 units SC ACHS [facility] PRN Reason: Protocol Last Admin: 05/09/17 08:01 Dose: Not Given Levothyroxine Sodium (Synthroid) 25 mcg PO 0600 [facility] Last Admin: 05/09/17 05:12 Dose: 25 mcg Metoprolol Succinate (Toprol Xl) 50 mg PO BID [facility] Last Admin: 05/09/17 09:36 Dose: 50 mg Pantoprazole Sodium (Protonix Ec Tab) 40 mg PO 0600,1600 [facility] Last Admin: 05/09/17 05:12 Dose: 40 mg Sodium Bicarbonate (Sodium Bicarbonate Tab) 650 mg PO DAILY [facility] Last Admin: 05/09/17 09:35 Dose: 650 mg Sodium Chloride ([place] Nasal [place]) 0 ml NS BID [facility] Last Admin: 05/09/17 09:35 Dose: 1 spr - Labs Labs: 05/09/17 06:40 05/09/17 06:40 PT 15.5 SECONDS (9.4-12.5) H 05/07/17 09:50 INR 1.34 (0.93-1.08) H 05/07/17 09:50 APTT 36.5 Seconds (25.1-36.5) 05/07/17 09:50 - Constitutional Appears: No Acute Distress - Head Exam Head Exam: NORMOCEPHALIC - Eye Exam Eye Exam: Normal appearance. absent: Scleral icterus - ENT Exam ENT Exam: Mucous Membranes Moist - Neck Exam Neck Exam: Normal Inspection - Respiratory Exam Respiratory Exam: NORMAL BREATHING PATTERN. absent: Respiratory Distress - Cardiovascular Exam Cardiovascular Exam: +S1, +S2 - GI/Abdominal Exam GI & Abdominal Exam: Soft, Normal Bowel Sounds. absent: Guarding, Tenderness, Rebound - Extremities Exam Extremities Exam: absent: Calf Tenderness, Pedal Edema - Neurological Exam Neurological Exam: Alert, Awake, Oriented x3 - Skin Skin Exam: Dry, Warm Assessment and Plan - Assessment and Plan (Free Text) Assessment: Assessment: Severe anemia status post 2 units of packed RBC Fever, urine culture negative Acute renal failure Atrial fibrillation History of colon polyps Coronary artery disease Plan: With decrease Protonix from twice a day to 40 daily in view of acute renal failure Request for CT scan of abdomen and pelvis with only oral contrast, evaluate for any intra-abdominal lesions or inflammatory process. On IV antibiotics On aspirin On stool softener when necessary Trend H&H and for overt GI bleed. Will continue to follow closely and make Further recommendations after review of CT scan abdomen and pelvis. Seen and discussed with Dr. Lozada. <Magaly Lozada V - Last Filed: 05/09/17 23:49> Objective - Vital Signs/Intake and Output Vital Signs (last 24 hours): Temp Pulse Resp BP Pulse Ox 97.9 F 80 20 132/70 100 05/09/17 16:00 05/09/17 17:43 05/09/17 16:00 05/09/17 17:43 05/09/17 16:00 Intake and Output: 05/09/17 05/10/17 18:59 06:59 Intake Total 1320 Balance 1320 - Medications Medications: Current Medications Allopurinol (Zyloprim) 300 mg PO QAM [facility] Last Admin: 05/09/17 09:35 Dose: 300 mg Aspirin (Ecotrin) 81 mg PO QAM [facility] Last Admin: 05/09/17 09:35 Dose: 81 mg Atorvastatin Calcium (Lipitor) 10 mg PO HS [facility] Last Admin: 05/09/17 22:29 Dose: 10 mg Cilostazol (Pletal) 100 mg PO BID [facility] Last Admin: 05/09/17 17:43 Dose: 100 mg Docusate Sodium (Colace) 100 mg PO TID PRN PRN Reason: Constipation Sodium Chloride (Sodium Chloride 0.9%) 1,000 mls @ 50 mls/hr IV .Q20H [facility] Last Admin: 05/09/17 09:36 Dose: Not Given Aztreonam (Azactam 1 Gm) 100 mls @ 100 mls/hr IVPB Q8 [facility] PRN Reason: Protocol Stop: 05/15/17 22:01 Last Admin: 05/09/17 22:29 Dose: 100 mls/hr Insulin Human Regular (Humulin R Low) 0 units SC ACHS [facility] PRN Reason: Protocol Last Admin: 05/09/17 22:29 Dose: Not Given Levothyroxine Sodium (Synthroid) 25 mcg PO 0600 [facility] Last Admin: 05/09/17 05:12 Dose: 25 mcg Metoprolol Succinate (Toprol Xl) 50 mg PO BID [facility] Last Admin: 05/09/17 17:43 Dose: 50 mg Pantoprazole Sodium (Protonix Ec Tab) 20 mg PO ACB [facility] Sodium Bicarbonate (Sodium Bicarbonate Tab) 650 mg PO DAILY [facility] Last Admin: 05/09/17 09:35 Dose: 650 mg Sodium Chloride ([place] Nasal [place]) 0 ml NS BID [facility] Last Admin: 05/09/17 09:35 Dose: 1 spr - Labs Labs: 05/09/17 06:40 05/09/17 06:40 PT 15.5 SECONDS (9.4-12.5) H 05/07/17 09:50 INR 1.34 (0.93-1.08) H 05/07/17 09:50 APTT 36.5 Seconds (25.1-36.5) 05/07/17 09:50 Attending/Attestation - Attestation I have personally seen and examined this patient.: Yes I have fully participated in the care of the patient.: Yes I have reviewed all pertinent clinical information, including history, physical exam and plan: Yes Notes (Text): This is an addendum to GI progress report dictated by Jennifer Navas APN.The patient was seen and examined earlier. Medical records, lab studies, imagings were reviewed. Last 24 hours events reviewed. Agreed with the above treatment plan as outlined in Jennifer Navas APN's notes the with the addition of the following patient denies any bleeding per rectum or abdominal pain Physical examination no tenderness no change CT scan was reviewed I have discussed with Dr Dougherty patient is anemic probably multifactorial etiology Chronic kidney disease Patient has significant drop in Hb/Hct ,status post transfusion Patient was on elaquis and ASA at home we will discuss with cardologist If the patient needs to be on fdc anticoagulation he may benefit from upper GI endoscopy to further evaluate . Last EGD was done and colonoscopy n 2017. The findings are reviewed. Patient has The possibility of angiodysplasia has to be considered in view of history of Aortic stenosis I discussed with the elena today 05/09/17 23:31
--- NOTE | 2017-05-09 12:40 | PN ---
DATE: SUBJECTIVE: The patient has no complaints of any chest pain. No shortness of breath. No headache. PHYSICAL EXAMINATION VITAL SIGNS: Temperature is 102.9, pulse is 68, blood pressure 113/64, respirations 22. GENERAL: The patient is lying in bed, flat, comfortable. HEENT: No oral lesion. Anicteric sclerae. Moist mucosa. NECK: No JVD, adenopathy, or thyromegaly. CARDIOVASCULAR: S1 and S2, regular. No murmurs, rubs, or gallops. LUNGS: Clear to auscultation bilaterally. No wheeze, rales, or rhonchi. ABDOMEN: Bowel sounds are positive. Soft, nontender and nondistended. EXTREMITIES: No cyanosis, clubbing or edema. LABORATORY DATA: White count is 14.3, hemoglobin 8.6, creatinine is 2.3. ASSESSMENT 1. Fever. 2. Leukocytosis. 3. Acute anemia secondary to blood loss. 4. Acute kidney injury with chronic kidney disease stage 3. 5. Iron-deficiency anemia. 6. Atrial fibrillation, anticoagulation on hold. 7. Coronary artery disease. 8. Dyslipidemia. 9. Hypertension. 10. Diabetes type 2. 11. PENICILLIN ALLERGY. PLAN: The patient is currently comfortable. He is going to be on Colace for constipation. He is on Lipitor for dyslipidemia. The patient is on sodium bicarbonate for his metabolic acidosis. The patient is on IV fluids. He is going to continue with metoprolol. The patient is on heart-healthy diet. The patient is going to be seen by Dr. Lozada. I did speak to Dr. Novak yesterday regarding the case. The patient does have iron deficiency with a saturation of 12%, ferritin of 27 and we will give the patient a dose of IV iron. The patient will need IV iron replacement to maintain his hemoglobin. He is on Synthroid for hypothyroidism. He is on metoprolol. The patient has had a fever, I am not sure of the etiology of the fever. The patient is going to be seen by Infectious Disease. Blood cultures and urine cultures have been ordered. The patient does have mild proteinuria. A renal ultrasound done was abnormal. The patient has underlying chronic kidney disease. The patient has PENICILLIN ALLERGY; so, he has been started on . Juma Dougherty MD [facility] # [id number]
--- NOTE | 2017-05-09 14:01 | CT ---
PROCEDURE: CT Abdomen and Pelvis without intravenous contrast HISTORY: anemia COMPARISON: None. TECHNIQUE: Without contrast.. Contrast Dose: Radiation dose: Total exam DLP = Total exam DLP = 1027 mGy-cm. This CT exam was performed using one or more of the following dose reduction techniques: Automated exposure control, adjustment of the mA and/or kV according to patient size, and/or use of iterative reconstruction technique. FINDINGS: LOWER THORAX: Unremarkable. LIVER: Unremarkable. No gross lesion or ductal dilatation. GALLBLADDER AND BILE DUCTS: Unremarkable. PANCREAS: Unremarkable. No gross lesion or ductal dilatation. SPLEEN: Unremarkable. ADRENALS: Unremarkable. No mass. KIDNEYS AND URETERS: Unremarkable. No hydronephrosis. No solid mass. VASCULATURE: There is a small infrarenal abdominal aortic aneurysm measuring 3.6 cm in diameter BOWEL: There is diverticulosis of the sigmoid colon without diverticulitis APPENDIX: Unremarkable. Normal appendix. PERITONEUM: Unremarkable. No free fluid. No free air. LYMPH NODES: Unremarkable. No enlarged lymph nodes. BLADDER: Unremarkable. REPRODUCTIVE: Unremarkable. BONES: No acute fracture. OTHER FINDINGS: None. IMPRESSION: No acute findings
--- NOTE | 2017-05-09 14:28 | CP.PCM.CON ---
History of Present Illness - History of Present Illness History of Present Illness: 81 year old male with PMH of chronic CHF, CAD, peripheral vascular disease, HTN , DM, gout, S/P laminectomy, came in to [facility] [place] complaining of progressive weakness and dyspnea on exertion. He was seen by his PMD and blood was taken, shwing increased potassium levels and increased Creatinine. He apparently developed one episode of 102 F fever yesterday but the patient did not have chills, no nausea or vomiting, no chest pain, no sore throat, no headache or dizziness, no cough or rhinorrhea, no abdominal pain, no diarrhea, no dysuria. Infectious Diseases consult is requested to further evaluate and manage. Review of Systems - Review of Systems All systems: reviewed and no additional remarkable complaints except (as per HPI ) Past Patient History - Infectious Disease Hx of Infectious Diseases: None - Tetanus Immunizations Tetanus Immunization: Unknown - Past Social History Smoking Status: Former Smoker - CARDIAC Hx Cardiac Disorders: Yes (PVD) Hx Congestive Heart Failure: Yes Hx Hypertension: Yes - PULMONARY Hx Respiratory Disorders: Yes (PPD OF CIGARETTES QUIT 1996) - NEUROLOGICAL Hx Neurological Disorder: No - HEENT Hx HEENT Problems: Yes (BLURRY VISION) - RENAL Hx Chronic Kidney Disease: No - ENDOCRINE/METABOLIC Hx Diabetes Mellitus Type 2: Yes - HEMATOLOGICAL/ONCOLOGICAL Hx Blood Disorders: Yes Hx Anemia: Yes - INTEGUMENTARY Hx Dermatological Problems: Yes Other/Comment: BILATERAL LE EDEMA MORE TO RIGHT. JAIN BONE SOME REDNESS.BROWNISH SKIN DISCOLORATION. - MUSCULOSKELETAL/RHEUMATOLOGICAL Hx Falls: Yes - GASTROINTESTINAL Hx Gastrointestinal Disorders: Yes (DIVERTICULITIS,CONSTIPATION) Hx Gastroesophageal Reflux: Yes - GENITOURINARY/GYNECOLOGICAL Hx Genitourinary Disorders: No - PSYCHIATRIC Hx Psychophysiologic Disorder: No Hx Emotional Abuse: No Hx Physical Abuse: No - SURGICAL HISTORY Hx Surgeries: Yes (GI POLYPS REMOVED,LAMINECTOMY 1970,5 BYPASS) - ANESTHESIA Hx Anesthesia: No Hx Anesthesia Reactions: No Hx Malignant Hyperthermia: No Meds Allergies/Adverse Reactions: Allergies Allergy/AdvReac Type Severity Reaction Status Date / Time Penicillins Allergy Severe SWELLING Verified 04/06/17 11:27 - Medications Medications: Current Medications [facility] ([facility]) [facility] [place] Last Admin: 05/08/17 09:25 Dose: 300 mg Aspirin (Ecotrin) [facility] [place] Last Admin: 05/08/17 09:26 Dose: 81 mg Atorvastatin Calcium (Lipitor) 10 mg PO DAILY [facility] Last Admin: 05/08/17 09:25 Dose: 10 mg Cilostazol (Pletal) 100 mg PO BID [facility] Last Admin: 05/08/17 09:26 Dose: 100 mg Docusate Sodium (Colace) 100 mg PO TID PRN PRN Reason: Constipation Sodium Chloride (Sodium Chloride 0.9%) 1,000 mls @ 50 mls/hr IV .Q20H [facility] Insulin Human Regular (Humulin R Low) 0 units SC ACHS [facility] PRN Reason: Protocol Last Admin: 05/08/17 11:39 Dose: Not Given Metoprolol Succinate (Toprol Xl) 50 mg PO BID [facility] Last Admin: 05/08/17 09:26 Dose: 50 mg Pantoprazole Sodium (Protonix Ec Tab) 40 mg PO 0600,1600 [facility] Sodium Bicarbonate (Sodium Bicarbonate Tab) 650 mg PO DAILY [facility] Last Admin: 05/08/17 09:25 Dose: 650 mg Sodium Chloride ([place] Nasal [place]) 0 ml NS BID [facility] Last Admin: 05/08/17 09:25 Dose: Not Given Physical Exam - Constitutional Appears: Non-toxic, Chronically Ill - Head Exam Head Exam: NORMAL INSPECTION - ENT Exam ENT Exam: Mucous Membranes Moist - Neck Exam Neck exam: Negative for: Meningismus - Respiratory Exam Respiratory Exam: Decreased Breath Sounds - Cardiovascular Exam Cardiovascular Exam: +S1, +S2 - GI/Abdominal Exam GI & Abdominal Exam: Soft. absent: Tenderness Results - Vital Signs Recent Vital Signs: Last Vital Signs Temp 98.6 F 05/08/17 09:02 Pulse 60 05/08/17 10:00 Resp 16 05/08/17 09:02 BP 128/61 05/08/17 09:26 Pulse Ox 98 05/08/17 09:02 - Labs Result Diagrams: 05/09/17 06:40 05/09/17 06:40 Labs: Laboratory Results - last 24 hr 05/07/17 05/08/17 05/08/17 21:47 06:15 06:15 WBC 14.2 H RBC 2.99 L Hgb 8.6 L Hct 27.0 L MCV 90.3 MCH 28.8 MCHC 31.9 RDW 19.8 H Plt Count 243 MPV 10.5 Sodium 139 Potassium 4.4 Chloride 111 H Carbon Dioxide 16 L Anion Gap 16 BUN 72 H Creatinine 2.3 H Est GFR ( Amer) 33 Est GFR (Non-Af Amer) 27 POC Glucose (mg/dL) 113 H Random Glucose 102 Calcium 9.3 Magnesium 2.3 H Total Bilirubin 1.0 AST 34 ALT 29 Alkaline Phosphatase 65 Total Protein 6.8 Albumin 3.7 Globulin 3.1 Albumin/Globulin Ratio 1.2 05/08/17 05/08/17 07:44 11:37 WBC RBC Hgb Hct MCV MCH MCHC RDW Plt Count MPV Sodium Potassium Chloride Carbon Dioxide Anion Gap BUN Creatinine Est GFR ( Amer) Est GFR (Non-Af Amer) POC Glucose (mg/dL) 101 99 Random Glucose Calcium Magnesium Total Bilirubin AST ALT Alkaline Phosphatase Total Protein Albumin Globulin Albumin/Globulin Ratio Assessment & Plan - Assessment and Plan (Free Text) Plan: Assessment fever with systemic inflammatory response syndrome, etiology unclear chronic CHF CAD peripheral vascular disease HTN DM gout S/P laminectomy chronic anemia Plan Follow up blood, urine cx, PCT; CXR does not show infiltrates follow up CT A/P will monitor clinically started with a dose of IV Vancomycin and started Azactam
[2017-05-10] MEDS: Aztreonam 1 Gm in NS 100mL 100 ML IVPB SCH (06:08)
[2017-05-10] MEDS: Levothyroxine 25 MCG TAB PO SCH (06:08)
[2017-05-10 06:54] LABS: HEMOGLOBIN 8.8 g/dL (14.0-18.0); MEAN CELL VOLUME 91.2 fl (80.0-105.0); MEAN CORPUSCULAR HEMOGLOBIN 28.6 pg (25.0-35.0); MEAN CORPUSCULAR HGB CONC 31.3 g/dl (31.0-37.0); MEAN PLATELET VOLUME 10.5 fl (7.0-11.0); RBC 3.08 10^6/uL (3.5-6.1); RED CELL DISTRIBUTION WIDTH 20.4 % (11.5-14.5); WHITE BLOOD COUNT 13.8 10^3/ul (4.5-11.0)
[2017-05-10 07:15] LABS: ALB/GLOB RATIO 1.2 (1.1-1.8); ALBUMIN 3.9 g/dL (3.0-4.8); CALCIUM 9.4 mg/dL (8.4-10.5)
[2017-05-10] MEDS ORDERED: Pantoprazole 20 mg EC Tab PO SCH (07:30)
[2017-05-10] MEDS ORDERED: Pantoprazole 40 mg EC Tab PO SCH (07:30)
[2017-05-10 08:32] VITALS: BP 144/62; RESP 18; TEMP 97.4; O2SAT 99
[2017-05-10] MEDS: Cilostazol 100 mg Tab UD PO SCH (09:34)
[2017-05-10] MEDS: Insulin Reg-LOW-Coverage SC SCH (09:34)
[2017-05-10] MEDS: Metoprolol Succinate 50 mg XL Tab PO SCH (09:35)
[2017-05-10 09:39] VITALS: PULSE 60
--- NOTE | 2017-05-10 10:22 | CP.PCM.PN ---
Subjective - Date & Time of Evaluation Date of Evaluation: 05/10/17 Time of Evaluation: 07:00 - Subjective Subjective: Stable on 3R. He feels better now. NO CP, SOB, Dizziness V/S noted. AF PE: Lungs: clear Cor.: irreg. S1S2, Sys murmur Abd.: soft Ext.: no edema Neuro.: alert Labs noted: H/H = 8.8/28.1, Cr. = 2.0 Stool for OB: neg. BC X2 NG at [address] A/P: No acute findings Objective - Vital Signs/Intake and Output Vital Signs (last 24 hours): Temp Pulse Resp BP Pulse Ox 97.4 F L 60 18 144/62 99 05/10/17 08:31 05/10/17 09:35 05/10/17 08:31 05/10/17 09:35 05/10/17 08:31 Intake and Output: 05/10/17 05/10/17 06:59 18:59 Intake Total 1620 Output Total 0 Balance 1620 - Medications Medications: Current Medications Allopurinol (Zyloprim) 300 mg PO QAM [facility] Last Admin: 05/10/17 09:36 Dose: 300 mg Aspirin (Ecotrin) 81 mg PO QAM [facility] Last Admin: 05/10/17 09:33 Dose: 81 mg Atorvastatin Calcium (Lipitor) 10 mg PO HS [facility] Last Admin: 05/09/17 22:29 Dose: 10 mg Cilostazol (Pletal) 100 mg PO BID [facility] Last Admin: 05/10/17 09:34 Dose: 100 mg Docusate Sodium (Colace) 100 mg PO TID PRN PRN Reason: Constipation Sodium Chloride (Sodium Chloride 0.9%) 1,000 mls @ 50 mls/hr IV .Q20H [facility] Last Admin: 05/09/17 09:36 Dose: Not Given Aztreonam (Azactam 1 Gm) 100 mls @ 100 mls/hr IVPB Q8 [facility] PRN Reason: Protocol Stop: 05/15/17 22:01 Last Admin: 05/10/17 06:08 Dose: 100 mls/hr Insulin Human Regular (Humulin R Low) 0 units SC ACHS [facility] PRN Reason: Protocol Last Admin: 05/10/17 09:34 Dose: Not Given Levothyroxine Sodium (Synthroid) 25 mcg PO 0600 [facility] Last Admin: 05/10/17 06:08 Dose: 25 mcg Metoprolol Succinate (Toprol Xl) 50 mg PO BID [facility] Last Admin: 05/10/17 09:35 Dose: 50 mg Pantoprazole Sodium (Protonix Ec Tab) 20 mg PO ACB [facility] Last Admin: 05/10/17 09:35 Dose: 20 mg Sodium Bicarbonate (Sodium Bicarbonate Tab) 650 mg PO DAILY [facility] Last Admin: 05/10/17 09:35 Dose: 650 mg Sodium Chloride ([place] Nasal [place]) 0 ml NS BID [facility] Last Admin: 05/09/17 09:35 Dose: 1 spr - Labs Labs: 05/10/17 05:30 05/10/17 05:30 PT 15.5 SECONDS (9.4-12.5) H 05/07/17 09:50 INR 1.34 (0.93-1.08) H 05/07/17 09:50 APTT 36.5 Seconds (25.1-36.5) 05/07/17 09:50 Assessment and Plan - Assessment and Plan (Free Text) Assessment: Weak/Dizzy/SOB CAD/CABG Echo: NL LV fx., mild/mod and mod. MR AF on Eliquis Anemia CHF Diabetes Acute on chronic kidney disease Colonic and gastric polyps Diminished memory Plan: As per GI Hold Eliquis for now. OK for EGD if pt agrees. Mild increased cardiac risk. OOB As per Dr. Dougherty and ID.
--- NOTE | 2017-05-10 11:50 | CP.PCM.PN ---
Subjective - Date & Time of Evaluation Date of Evaluation: 05/10/17 Time of Evaluation: 10:50 - Subjective Subjective: No fevers, no cough, no sore throat, no abdominal pain, no diarrhea, no nausea or vomiting, no dysuria. Objective - Vital Signs/Intake and Output Vital Signs (last 24 hours): Temp Pulse Resp BP Pulse Ox 97.4 F L 58 L 18 144/62 99 05/10/17 08:31 05/10/17 08:31 05/10/17 08:31 05/10/17 08:31 05/10/17 08:31 Intake and Output: 05/10/17 05/10/17 06:59 18:59 Intake Total 1620 Output Total 0 Balance 1620 - Medications Medications: Current Medications Allopurinol (Zyloprim) 300 mg PO QAM [facility] Last Admin: 05/09/17 09:35 Dose: 300 mg Aspirin (Ecotrin) 81 mg PO QAM [facility] Last Admin: 05/09/17 09:35 Dose: 81 mg Atorvastatin Calcium (Lipitor) 10 mg PO HS [facility] Last Admin: 05/09/17 22:29 Dose: 10 mg Cilostazol (Pletal) 100 mg PO BID [facility] Last Admin: 05/09/17 17:43 Dose: 100 mg Docusate Sodium (Colace) 100 mg PO TID PRN PRN Reason: Constipation Sodium Chloride (Sodium Chloride 0.9%) 1,000 mls @ 50 mls/hr IV .Q20H [facility] Last Admin: 05/09/17 09:36 Dose: Not Given Aztreonam (Azactam 1 Gm) 100 mls @ 100 mls/hr IVPB Q8 [facility] PRN Reason: Protocol Stop: 05/15/17 22:01 Last Admin: 05/10/17 06:08 Dose: 100 mls/hr Insulin Human Regular (Humulin R Low) 0 units SC ACHS [facility] PRN Reason: Protocol Last Admin: 05/09/17 22:29 Dose: Not Given Levothyroxine Sodium (Synthroid) 25 mcg PO 0600 [facility] Last Admin: 05/10/17 06:08 Dose: 25 mcg Metoprolol Succinate (Toprol Xl) 50 mg PO BID [facility] Last Admin: 05/09/17 17:43 Dose: 50 mg Pantoprazole Sodium (Protonix Ec Tab) 20 mg PO ACB [facility] Sodium Bicarbonate (Sodium Bicarbonate Tab) 650 mg PO DAILY [facility] Last Admin: 05/09/17 09:35 Dose: 650 mg Sodium Chloride ([place] Nasal [place]) 0 ml NS BID [facility] Last Admin: 05/09/17 09:35 Dose: 1 spr - Labs Labs: 05/10/17 05:30 05/10/17 05:30 PT 15.5 SECONDS (9.4-12.5) H 05/07/17 09:50 INR 1.34 (0.93-1.08) H 05/07/17 09:50 APTT 36.5 Seconds (25.1-36.5) 05/07/17 09:50 - Constitutional Appears: Non-toxic - Head Exam Head Exam: NORMAL INSPECTION - Neck Exam Neck Exam: absent: Meningismus - Respiratory Exam Respiratory Exam: Decreased Breath Sounds - Cardiovascular Exam Cardiovascular Exam: +S1, +S2 - GI/Abdominal Exam GI & Abdominal Exam: Soft. absent: Tenderness Assessment and Plan - Assessment and Plan (Free Text) Plan: Assessment fever with systemic inflammatory response syndrome, no evidence of sepsis or bacterial infection identified chronic CHF CAD peripheral vascular disease HTN DM gout S/P laminectomy chronic anemia Plan blood, urine cx are negative; CXR does not show infiltrates CT A/P does not show acute findings or lesions suggestive of infection will d/c Azactam and observe
--- NOTE | 2017-05-10 17:04 | CP.PCM.PN ---
Subjective - Date & Time of Evaluation Date of Evaluation: 05/10/17 Time of Evaluation: 09:50 - Subjective Subjective: Seen and examined at the bedside earlier today, chart review. Patient went for CT scan of abdomen and pelvis yesterday, noted to have diverticulosis, no lymph nodes, kidneys were unremarkable, no acute findings. Stool guaiac was done which was negative. Patient reported having multiple bowel movements yesterday post oral contrast no reports of any melena or bright red blood. Patient denies nausea, vomiting, or abdominal pain. Objective - Vital Signs/Intake and Output Vital Signs (last 24 hours): Temp Pulse Resp BP Pulse Ox 97.4 F L 60 18 144/62 99 05/10/17 08:31 05/10/17 09:35 05/10/17 08:31 05/10/17 09:35 05/10/17 08:31 Intake and Output: 05/10/17 05/10/17 06:59 18:59 Intake Total 1620 Output Total 0 Balance 1620 - Labs Labs: 05/10/17 05:30 05/10/17 05:30 PT 15.5 SECONDS (9.4-12.5) H 05/07/17 09:50 INR 1.34 (0.93-1.08) H 05/07/17 09:50 APTT 36.5 Seconds (25.1-36.5) 05/07/17 09:50 - Constitutional Appears: No Acute Distress - Head Exam Head Exam: NORMOCEPHALIC - Eye Exam Eye Exam: Normal appearance. absent: Scleral icterus - ENT Exam ENT Exam: Mucous Membranes Moist - Neck Exam Neck Exam: Normal Inspection - Respiratory Exam Respiratory Exam: NORMAL BREATHING PATTERN. absent: Respiratory Distress - Cardiovascular Exam Cardiovascular Exam: +S1, +S2 (finished selecting) - GI/Abdominal Exam GI & Abdominal Exam: Soft, Normal Bowel Sounds. absent: Guarding, Tenderness, Rebound - Extremities Exam Extremities Exam: absent: Calf Tenderness - Neurological Exam Neurological Exam: Alert, Awake, Oriented x3 - Skin Skin Exam: Dry, Warm Assessment and Plan - Assessment and Plan (Free Text) Assessment: Assessment: Severe anemia status post 2 units of packed RBC, status post CT scan of abdomen and pelvis no acute findings Fever, urine culture negative Acute renal failure Atrial fibrillation History of colon polyps Coronary artery disease Plan: continue Protonix, dose decreased to 20 mg daily On IV antibiotics On aspirin On stool softener when necessary Trend H&H and for overt GI bleed. Plan is for patient to be discharged home today, to be followed outpatient, he is currently off Eliquis and he will be on aspirin, Dr. Kwan is his serology technician, and he will FU with him for his endoscopy, instructed patient to make follow-up appointment as soon as possible. Patient stated understanding. Seen and discussed with Dr. Lozada.
--- NOTE | 2017-05-11 05:56 | DS ---
HISTORY OF PRESENT ILLNESS: This is an 81-year-old male, who has come into the hospital, who had anemia. He was seen by Infectious Disease for fever. He had blood cultures and urine cultures that were negative. He received 2 units of blood transfusion. His hemoglobin has been stable at 8.8 today. He has no signs of bleeding. He has no signs of fever. The patient is going to be discharged. He had an extensive discussion regarding his anticoagulation and the fact that he is at risk of having stroke because he is off his anticoagulation. The risk of bleeding on anticoagulation was also explained to him given that the hemoglobin had decreased. The patient was given IV Venofer because of iron deficiency anemia. He does understand the risk of having stroke after he had been off his anticoagulation. He would prefer to stay off his anticoagulation until he can discuss this case with his primary care doctor, Dr. Novak. I did let Dr. Novak know that the patient is going to be coming in for followup early next week and the discussion that we had regarding his risks and benefits about anticoagulation and having an endoscopy done. would prefer to wait until he is seen in the next week by his primary care doctor. PHYSICAL EXAMINATION: VITAL SIGNS: Temperature is 97.4, pulse of 58, blood pressure , respirations 18. GENERAL: The patient is lying in bed, flat, comfortable. HEENT: No oral lesion. Anicteric sclerae. Moist mucosa. NECK: No JVD, adenopathy, or thyromegaly. CARDIOVASCULAR: S1 and S2, regular. No murmurs, rubs, or gallops. LUNGS: Clear to auscultation bilaterally. No wheeze, rales, or rhonchi. ABDOMEN: Bowel sounds are positive, soft, nontender, and nondistended. EXTREMITIES: No cyanosis, clubbing, or edema. ASSESSMENT: 1. Acute anemia secondary to blood loss. 2. Chronic kidney disease stage III. 3. Iron deficiency anemia. 4. Coronary artery disease. 5. Dyslipidemia. 6. Hypertension. 7. Diabetes type 2. 8. PENICILLIN ALLERGY. PLAN: The patient is currently comfortable. He has creatinine that is stable at 2.0. His baseline creatinine is 1.7. He has procalcitonin level that is low. The patient has had all his questions answered. He is on Lipitor for his dyslipidemia. He is on a heart-healthy diet. He is on Colace for his constipation. He is going to be discharged home. CONDITION: Stable. ACTIVITIES: Increase as tolerated. FOLLOWUP: 1. Follow up with Dr. Novak in the next 3 to 4 days. 2. Follow up with GI within 1 week. 3. Also follow up with Dr. Chand in 1 week. Juma Dougherty MD
== END 2017-05-10 11:13 | disposition home or self-care (01) | DRG 683 ==
LOC: ED 09:09 → ERH 11:30 → 3RSO 13:51
PROVIDERS: ADMIT Internal Medicine Nephrology; ATTEND Internal Medicine Nephrology
PROC: 30233N1 Transfusion of Nonautologous Red Blood Cells into Peripheral Vein, Percutaneous Approach (ICD-10-PCS; principal; 2017-05-07)
DX: N17.9 Acute kidney failure, unspecified (principal); D62 Acute posthemorrhagic anemia; I13.0 Hypertensive heart and chronic kidney disease with heart failure and stage 1 through stage 4 chronic kidney disease, or unspecified chronic kidney disease; I50.20 Unspecified systolic (congestive) heart failure; R65.10 Systemic inflammatory response syndrome (SIRS) of non-infectious origin without acute organ dysfunction; E87.2 Acidosis; E11.51 Type 2 diabetes mellitus with diabetic peripheral angiopathy without gangrene; I48.91 Unspecified atrial fibrillation; D50.9 Iron deficiency anemia, unspecified; N18.3 Chronic kidney disease, stage 3 (moderate); E11.22 Type 2 diabetes mellitus with diabetic chronic kidney disease; I25.10 Atherosclerotic heart disease of native coronary artery without angina pectoris; M10.9 Gout, unspecified; E03.9 Hypothyroidism, unspecified; I08.0 Rheumatic disorders of both mitral and aortic valves; K29.40 Chronic atrophic gastritis without bleeding; E87.5 Hyperkalemia; E78.5 Hyperlipidemia, unspecified; K31.7 Polyp of stomach and duodenum; K44.9 Diaphragmatic hernia without obstruction or gangrene; K57.30 Diverticulosis of large intestine without perforation or abscess without bleeding; K21.9 Gastro-esophageal reflux disease without esophagitis; E79.0 Hyperuricemia without signs of inflammatory arthritis and tophaceous disease; Z79.84 Long term (current) use of oral hypoglycemic drugs; Z88.0 Allergy status to penicillin; Z79.82 Long term (current) use of aspirin; Z86.010 Personal history of colon polyps; Z87.891 Personal history of nicotine dependence; Z95.1 Presence of aortocoronary bypass graft; Z79.01 Long term (current) use of anticoagulants

== ENCOUNTER 2017-05-23 09:49 | Day surgery (SDC) | payer MEDICARE ==
[2017-05-23] MEDS ORDERED: Propofol 10 mg/ml Inj (20 ML) ONE (10:36)
[2017-05-23] MEDS ORDERED: Sodium Chloride 0.9% 1,000 ML IV SCH (10:45)
[2017-05-23] MEDS ORDERED: Etomidate 40 MG/20 ML ML IV ONE (10:46)
[2017-05-23 11:17] VITALS: O2SAT 99
[2017-05-23 12:20] VITALS: BP 108/54; PULSE 80; RESP 22; TEMP 97.8
== END 2017-05-23 12:09 | disposition home or self-care (01) ==
LOC: ENDO 09:49
PROVIDERS: ATTEND Specialist
DX: K31.811 Angiodysplasia of stomach and duodenum with bleeding (principal); D64.9 Anemia, unspecified
CPT/HCPCS: 43255; 82948; J2001; J2704; J3010; J7040 ×2

== ENCOUNTER 2017-06-13 16:01 | Inpatient (IN) | payer MEDICARE ==
[2017-06-13 16:15] VITALS: BMI 27.2
[2017-06-13] MEDS ORDERED: Morphine 4 mg/ml ISec IVP STA (16:20)
--- NOTE | 2017-06-13 16:26 | ED PDOC ---
Arrival/HPI - General Chief Complaint: Chest Pain Time Seen by Provider: 06/13/17 16:04 Historian: Patient, Family - History of Present Illness Narrative History of Present Illness (Text): 06/13/17 16:23 81 year old male, pmh including hypertension/hyperlipidemia/a.fibb on eliquis/ cad and had CABG/Diabetes/CHF, penicillin allergy, complaining of send in because of hyperkalemia in his blood. Pt. stated that he had outpatient lab work done which told by the sustainability coordinator Dr. Chand that he has hyperkalemia and he needs to come to the ER. Pt. also stated that he has been having on and off chest pain with fatigue for the past 3 days, exertional chest pain for the past 2 days, no night sweat, no rash, no numbness or tingling, no slurred speech , no abdominal or pelvic pain, no other medical or psychological complaints. Past Medical History - Provider Review Nursing Documentation Reviewed: Yes - Past History Past History: No Previous - Infectious Disease Hx of Infectious Diseases: None - Tetanus Immunization Tetanus Immunization: Unknown - Reproductive Currently Lactating: No - Cardiac Hx Pacemaker: No Other/Comment: open heart s. x - Pulmonary Hx Respiratory Disorders: Yes (PPD OF CIGARETTES QUIT 1996) - Neurological Hx Paralysis: No - HEENT Hx HEENT Disorder: Yes (BLURRY VISION) - Renal Hx Renal Disorder: No - Endocrine/Metabolic Hx Diabetes Mellitus Type 2: Yes - Hematological/Oncological Hx Blood Transfusions: Yes Hx Blood Transfusion Reaction: No - Integumentary Hx Dermatological Disorder: Yes Other/Comment: BILATERAL LE EDEMA MORE TO RIGHT. JAIN BONE SOME REDNESS.BROWNISH SKIN DISCOLORATION. - Musculoskeletal/Rheumatological Hx Musculoskeletal Disorders: Yes (LAMINECTOMY) - Gastrointestinal Hx Gastrointestinal Disorders: Yes (DIVERTICULITIS,CONSTIPATION) Hx Gastroesophageal Reflux: Yes - Genitourinary/Gynecological Hx Genitourinary Disorders: No - Psychiatric Hx Emotional Abuse: No Hx Physical Abuse: No Hx Substance Use: No - Anesthesia Hx Anesthesia Reactions: No Hx Malignant Hyperthermia: No - Suicidal Assessment Feels Threatened In Home Enviroment: No Family/Social History - Physician Review Nursing Documentation Reviewed: Yes Family/Social History: Unknown Family HX Smoking Status: Former Smoker Hx Alcohol Use: Yes (USED TO DRINK HEAVILY QUIT 2009) Hx Substance Use: No Hx Substance Use Treatment: No Allergies/Home Meds Allergies/Adverse Reactions: Allergies Penicillins Allergy (Severe, Verified 04/06/17 11:27) SWELLING Home Medications: Home Meds Medication Instructions Recorded Confirmed Atorvastatin [Lipitor] 10 mg PO DAILY 10/30/13 06/13/17 Cilostazol 100 mg PO BID 10/30/13 06/13/17 Losartan [Cozaar] 50 mg PO QAM 10/30/13 06/13/17 Metoprolol Succinate 50 mg PO BID 10/30/13 06/13/17 Allopurinol [Zyloprim] 300 mg PO QAM 08/03/15 06/13/17 Cholecalciferol (Vitamin D3) 4,000 unit PO QAM 08/03/15 06/13/17 [Vitamin D3] Metformin HCl [Glucophage] 1,000 mg PO BID 08/03/15 06/13/17 Multivit-Min/FA/Lycopen/Lutein 1 each PO DAILY 08/03/15 06/13/17 [Centrum Silver Tablet] Vitamin B Complex [Super B-50 1 cap PO DAILY 08/03/15 06/13/17 Complex] Ferrous Sulfate [High Potency Iron] 134 mg PO TID 09/12/16 06/13/17 Famotidine [Pepcid] 20 mg PO DAILY 05/21/17 06/13/17 Isosorbide Mononitrate [Isosorbide 30 mg PO DAILY 05/21/17 06/13/17 Mononitrate ER] Review of Systems - Review of Systems Constitutional: Fatigue. absent: Fevers Eyes: absent: Vision Changes ENT: absent: Hearing Changes, Sore Throat, Rhinorrhea Respiratory: absent: SOB, Cough Cardiovascular: Chest Pain. absent: Palpitations, Edema Gastrointestinal: absent: Abdominal Pain, Nausea, Vomiting Musculoskeletal: absent: Arthralgias, Back Pain Skin: absent: Rash, Pruritis, Skin Lesions Neurological: absent: Headache, Dizziness Psychiatric: absent: Anxiety, Depression, Suicidal Ideation Physical Exam Vital Signs Reviewed: Yes Vital Signs Temp Pulse Resp BP Pulse Ox 06/13/17 18:05 129/52 L 06/13/17 17:57 89 18 113/79 100 06/13/17 16:01 97.6 F 97 H 19 115/86 100 Temperature: Afebrile Blood Pressure: Normal Pulse: Regular Respiratory Rate: Normal Appearance: Positive for: Well-Appearing, Non-Toxic, Comfortable Pain Distress: Mild Mental Status: Positive for: Alert and Oriented X 3 - Systems Exam Head: Present: Atraumatic, Normocephalic Pupils: Present: PERRL Extroacular Muscles: Present: EOMI Conjunctiva: Present: Normal Mouth: Present: Moist Mucous Membranes Neck: Present: Normal Range of Motion Respiratory/Chest: Present: Clear to Auscultation, Good Air Exchange. No: Respiratory Distress, Accessory Muscle Use Cardiovascular: Present: Regular Rate and Rhythm, Normal S1, S2, Other (visible scar noted on mid anterior chest). No: Murmurs Abdomen: No: Tenderness, Distention, Peritoneal Signs Back: Present: Normal Inspection. No: CVA Tenderness, Midline Tenderness Upper Extremity: Present: Normal Inspection. No: Cyanosis, Edema Lower Extremity: Present: Normal Inspection. No: Edema Neurological: Present: GCS=15, CN II-XII Intact, Speech Normal, Motor Func Grossly Intact, Gait Normal, Memory Normal Skin: Present: Warm, Dry, Normal Color. No: Rashes Psychiatric: Present: Alert, Oriented x 3, Normal Insight, Normal Concentration Medical Decision Making ED Course and Treatment: 06/13/17 16:26 -labs/cardiac enzyme/bnp -ekg -chest xray -Morphine/kjptba4G/nitro/on eliquis so he is anticoagulated -manager cardiac -observe and reassess 06/13/17 17:47 -EKG: Sinus Rhythm @ 85 BPM, no ST elevation but nonspecific mild ST changes on lead I/II/V3-V5, flattened P wave, compared with previous ekg. -Chest xray show ER wet read: +cardiomegally, no active disease -Labs are non-significant except wbc 13.9 (afebrile, likely pain/stress induced) , Troponin 0.25 (nitro/morphine/on eliquis/oxygen), BUN 126 (IVF slowly infusing ), Potassium 8.5 (D50 with 10 units of insulin/albuterol nebulizer/kayaxylate 30gm/calcium gluconate 1.5gm IV ordered) -Troponin is positive at 0.25, will need trending, likely NSTEMI. -Pt. will need admission with sustainability coordinator consult, discussed the case/ treatment with Dr. Zhao and he agreed with above treatment plan. -Dr. Mannie murray, Dr. Connell paged. 06/13/17 18:08 -I spoke to Dr. Connell, discussed about the case/labs/radiology result, request IVF fluid slowly and agreed @50cc/hr with [place]/kayaxylate 30gm and abdominal sonogram which he will follow up on the pending labs/radiology results , agreed on ICU and might or might not need dialysis which Dr. Connell is mba intern 06/13/17 18:15 -I spoke to the intensenvist Dr. Ferguson, discussed about the labs/radiology result, he will come to evaluate the patient. -Pending Dr. Chand to call back. 06/13/17 18:20 -Dr. Ferguson is in the ER now, evaluating the patient. Dr. Zhao evaluated the patient as well on the bedside. -All case/labs/radiology result discussed with the patient and the family. 06/13/17 18:40 -Additional treatment ordered by me with ICU Dr. Ferguson standing on the side just now including IV nitro 5mcg/insulin drip 5units/hr./IVF 1000cc bolus once/ IVF D5W with saline 150ml/hr. Dr. Ferguson reviewed all the orders I put in and agreed on it. -Dr. Chand is on the consult and Dr. Ferguson will contact Dr. Chand or his partner Dr. Grande. 06/13/17 18:43 -Patient and family requested DNR/DNI with DR. Ferguson after explaining the patient's situation. 06/13/17 18:47 -I spoke to Dr. Chand as he just call me back, discussed about the labs/ radiology results, agreed on the ICU and discussed about the treatment given, suggest no other treatment emergently at this time as long as Dr. Connell is contacted. Reassessment Condition: Re-examined, Unchanged - Critical Care Critical Care Minutes: 45 minutes Critical Care Time: Unstable Narrative Critical Care (Text): 06/13/17 17:49 Hyperkalemia 8.1, Troponin NSTEMI 0.25, BUN 126 (dehydration) - Lab Interpretations Lab Results: 06/13/17 16:42 06/13/17 16:42 Lab Results 06/13/17 16:42: WBC 13.9 H, RBC 3.02 L, Hgb 8.8 L, Hct 27.6 L, MCV 91.4, MCH 29.1, MCHC 31.9, RDW 19.0 H, Plt Count 247, MPV 10.4, Gran % 64.6, Lymph % (Auto ) 15.8 L, [place] % (Auto) 7.4 H, Eos % (Auto) 12.0 H, Baso % (Auto) 0.2, Gran # 8.94 H, Lymph # (Auto) 2.2, [place] # (Auto) 1.0 H, Eos # (Auto) 1.7 H, Baso # ( Auto) 0.03 06/13/17 16:42: Sodium 138, Potassium 8.1 H* D, Chloride 110 H, Carbon Dioxide 7 L D, Anion Gap 29 H, BUN 126 H*, Creatinine 7.6 H* D, Est GFR ( Amer) 8 , Est GFR (Non-Af Amer) 7, Random Glucose 86, Calcium 9.2, Magnesium 2.5 H, Total Bilirubin 0.2, AST 41, ALT 35, Alkaline Phosphatase 99, Lactate Dehydrogenase 324 L, Total Creatine Kinase < 20 L, Troponin I 0.25 H* D, NT-Pro- B Natriuret Pep 7300 H, Total Protein 7.7, Albumin 4.3, Globulin 3.4, Albumin/ Globulin Ratio 1.3 I have reviewed the lab results: Yes Interpretation: Abnormal lab values - RAD Interpretation Radiology Orders: 06/13/17 16:34 CHEST PORTABLE [RAD] Stat 06/13/17 18:13 RENAL [US] Stat Chest xray: cardiomegally, no active disease Screw Machine Operator Single Spindle: Radiologist - EKG Interpretation EKG Interpretation (Text): 06/13/17 16:33 EKG: Sinus Rhythm @ 85 BPM, no ST elevation but nonspecific mild ST changes on lead I/II/V3-V5, flattened P wave, compared with previous ekg. Interpreted by ED Physician: Yes Type: 12 lead EKG - Medication Orders Current Medication Orders: Aspirin (Aspirin Chewable) 81 mg PO DAILY [facility] Last Admin: 06/14/17 10:27 Dose: 81 mg Atorvastatin Calcium (Lipitor) 40 mg PO DIN [facility] Last Admin: 06/14/17 17:04 Dose: 40 mg Nitroglycerin/Dextrose (Nitroglycerin 50 Mg/250 Ml D5w) 50 mg in 250 mls @ 1.5 mls/hr IV .Q24H PRN; Protocol; 5 MCG/MIN PRN Reason: chest pain Sodium Bicarbonate 150 meq/ (Dextrose) 1,150 mls @ 100 mls/hr IV .[id number] [facility] Last Admin: 06/14/17 07:30 Dose: 100 mls/hr eMAR Start Stop Document 06/14/17 07:30 (Rec: 06/14/17 10:30 [id number]) Intravenous Solution Start Date 06/14/17 Start Time 10:30 End Date 06/14/17 Metoprolol Tartrate (Lopressor) 2.5 mg IV Q8H [facility] Last Admin: 06/14/17 17:06 Dose: 2.5 mg eMAR Start Stop Document 06/14/17 17:06 FM (Rec: 06/14/17 17:05 [id number]) Intravenous Solution Start Date 06/14/17 Start Time 17:05 End Date 06/14/17 End time 17:07 Total Infusion Time 2 MAR Pulse and Blood Pressure Document 06/14/17 17:06 (Rec: 06/14/17 17:05 [id number]) Pulse Pulse Rate (60-90) 102 Blood Pressure Blood Pressure (100/60-150/90) 121/56 Pantoprazole Sodium (Protonix Inj) 40 mg IVP DAILY [facility] Last Admin: 06/14/17 10:29 Dose: 40 mg IVP Administration Document 06/14/17 10:29 FM (Rec: 06/14/17 10:29 [id number]) Charges for Administration # of IVP Administrations 1 Discontinued Medications Albuterol Sulfate (Albuterol 0.083% Inhal Viola (2.5 Mg/3 Ml) Ud) 2.5 mg INH STAT STA Stop: 06/13/17 17:46 Last Admin: 06/13/17 18:04 Dose: 2.5 mg Albuterol Sulfate (Albuterol 0.083% Inhal Viola (2.5 Mg/3 Ml) Ud) 2.5 mg INH STAT STA Stop: 06/13/17 18:29 Last Admin: 06/13/17 19:03 Dose: 2.5 mg Calcium Gluconate (Calcium Gluconate Iv) 1,500 mg IVP ONCE ONE Stop: 06/13/17 17:44 Last Admin: 06/13/17 18:07 Dose: 1,500 mg IVP Administration Document 06/13/17 18:07 LA (Rec: 06/13/17 18:07 LA [id number]) Charges for Administration # of IVP Administrations 1 Dextrose (Dextrose 50% Inj) 50 ml IVP STAT STA Stop: 06/13/17 17:46 Last Admin: 06/13/17 18:08 Dose: 50 ml IVP Administration Document 06/13/17 18:08 LA (Rec: 06/13/17 18:08 LA [id number]) Charges for Administration # of IVP Administrations 1 Diphenhydramine HCl (Benadryl) 25 mg IVP ONCE ONE Stop: 06/13/17 22:17 Last Admin: 06/13/17 22:24 Dose: 25 mg IVP Administration Document 06/13/17 22:24 KGD (Rec: 06/13/17 22:24 KGD [id number]) Charges for Administration # of IVP Administrations 1 Furosemide (Lasix) 20 mg IVP STAT STA Stop: 06/13/17 17:51 Last Admin: 06/13/17 18:05 Dose: 20 mg MAR Blood Pressure Document 06/13/17 18:05 LA (Rec: 06/13/17 18:07 LA [id number]) Blood Pressure Blood Pressure (100/60-150/90) 129/52 IVP Administration Document 06/13/17 18:05 LA (Rec: 06/13/17 18:07 MANE [id number]) Charges for Administration # of IVP Administrations 1 Dextrose/Sodium Chloride (Dextrose 5%/0.9% Ns 1000 Ml) 1,000 mls @ 150 mls/hr IV .Q6H40M [facility] Last Admin: 06/13/17 20:48 Dose: 150 mls/hr eMAR Start Stop Document 06/13/17 20:48 LA (Rec: 06/13/17 20:49 LA [id number]) Intravenous Solution Start Date 06/13/17 Start Time 20:49 Insulin Human Regular 100 (units/ Sodium Chloride) 100 mls @ 5 mls/hr IV .Q20H PRN; Protocol; 5 UNITS/HR PRN Reason: TITRATE PER MD ORDER Last Titration: 06/13/17 21:18 Dose: 1.5 units/hr, 1.5 mls/hr Titration Intervention Document 06/13/17 21:18 KGD (Rec: 06/13/17 21:18 KGD [id number]) Titration Intake Titration Intake 5 Cumulative Intake 5 Cumulative Intake (Rx) 5 Waste Amount 0 Container Volume 95 Titration Dosing Titration Dose 1.5 IV Rate 1.5 Intake/Decrease Decreased Cumulative Dose 5 Sodium Chloride (Sodium Chloride 0.9%) 1,000 mls @ 999 mls/hr IV .Q1H1M STA Stop: 06/13/17 19:34 Last Admin: 06/13/17 18:35 Dose: 999 mls/hr eMAR Start Stop Document 06/13/17 18:35 LA (Rec: 06/13/17 19:04 LA [id number]) Intravenous Solution Start Date 06/13/17 Start Time 18:35 End Date 06/13/17 End time 19:36 Total Infusion Time 61 Sodium Bicarbonate 150 meq/ (Dextrose) 1,150 mls @ 100 mls/hr IV .[id number] NIYA Sodium Bicarbonate 150 meq/ (Dextrose) 1,150 mls @ 150 mls/hr IV .Q7H40M NIYA Last Admin: 06/13/17 20:44 Dose: 150 mls/hr eMAR Start Stop Document 06/13/17 20:44 LA (Rec: 06/13/17 20:44 LA [id number]) Intravenous Solution Start Date 06/13/17 Start Time 20:44 Aztreonam (Azactam 1 Gm) 100 mls @ 100 mls/hr IVPB Q12H NIYA Stop: 06/14/17 08:59 Last Admin: 06/14/17 07:46 Dose: 100 mls/hr eMAR Start Stop Document 06/14/17 07:46 FM (Rec: 06/14/17 07:46 FM [id number]) Intravenous Solution Start Date 06/14/17 Start Time 07:46 End Date 06/14/17 Insulin Human Regular (Humulin R) 10 units IV STAT STA Stop: 06/13/17 17:46 Last Admin: 06/13/17 18:08 Dose: 10 units eMAR Start Stop Document 06/13/17 18:08 LA (Rec: 06/13/17 18:08 LA [id number]) Intravenous Solution Start Date 06/13/17 Start Time 18:08 End Date 06/13/17 End time 18:08 Total Infusion Time 0 Morphine Sulfate (Morphine) 4 mg IVP STAT STA Stop: 06/13/17 16:21 Last Admin: 06/13/17 16:49 Dose: 4 mg MAR Pain Assessment Document 06/13/17 16:49 LA (Rec: 06/13/17 16:49 LA [id number]) Pain Reassessment Is this a pain reassessment? No Sleep Is patient sleeping during reassessment? No Presence of Pain Presence of Pain Yes Pain Scale Used Pain Scale Used Numeric Location Pain Location Body Site Chest Description Intensity of Pain at present 5 IVP Administration Document 06/13/17 16:49 LA (Rec: 06/13/17 16:49 LA [id number]) Charges for Administration # of IVP Administrations 1 Nitroglycerin (Nitrostat Sl Tab) 0.3 mg SL STAT STA Stop: 06/13/17 16:26 Last Admin: 06/13/17 16:47 Dose: 0.3 mg Sodium Polystyrene Sulfonate (Kayexalate Susp) 15 gm PO STAT STA Stop: 06/13/17 17:47 Last Admin: 06/13/17 18:05 Dose: 15 gm Sodium Polystyrene Sulfonate (Kayexalate Susp) 15 gm IL STAT STA Stop: 06/13/17 18:10 Last Admin: 06/13/17 18:56 Dose: 15 gm - PA / REWINDER OPERATOR HELPER / Resident Statement ELLE has reviewed & agrees with the documentation as recorded. ELLE has examined the patient and agrees with the treatment plan. Disposition/Present on Arrival - Present on Arrival Any Indicators Present on Arrival: No History of DVT/PE: No History of Uncontrolled Diabetes: No Urinary Catheter: No History of Decub. Ulcer: No History Surgical Site Infection Following: None - Disposition Have Diagnosis and Disposition been Completed?: Yes Diagnosis: Abnormal EKG, Chest pain, Acute renal failure, NSTEMI (non-ST elevated myocardial infarction), CHF exacerbation, Hyperkalemia Disposition: HOSPITALIZED Disposition Time: 16:34 Patient Plan: Admission, ICU Patient Problems: Current Active Problems Problem Status Onset CHF exacerbation Acute Acute renal failure Acute Abnormal EKG Acute Chest pain Acute NSTEMI (non-ST elevated myocardial infarction) Acute Condition: STABLE
[2017-06-13 17:14] LABS: BASO # 0.03 K/mm3 (0.0-2.0); BASO % 0.2 % (0.0-3.0); EOS # 1.7 (0.0-0.7); GRAN # 8.94 (1.4-6.5); GRAN % 64.6 % (50.0-68.0); HEMOGLOBIN 8.8 g/dL (14.0-18.0); LYMPH # 2.2 (1.2-3.4); LYMPH % 15.8 % (22.0-35.0); MEAN CELL VOLUME 91.4 fl (80.0-105.0); MEAN CORPUSCULAR HEMOGLOBIN 29.1 pg (25.0-35.0); MEAN CORPUSCULAR HGB CONC 31.9 g/dl (31.0-37.0); MEAN PLATELET VOLUME 10.4 fl (7.0-11.0); MONO % 7.4 % (1.0-6.0); RBC 3.02 10^6/uL (3.5-6.1); WHITE BLOOD COUNT 13.9 10^3/ul (4.5-11.0)
[2017-06-13 17:40] LABS: ALB/GLOB RATIO 1.3 (1.1-1.8); ALBUMIN 4.3 g/dL (3.0-4.8); ALT/SGPT 35 U/L (7-56); AST/SGOT 41 U/L (17-59); B-TYPE NATRIURETIC PEPTIDE 7300 pg/mL (0-450); BLOOD UREA NITROGEN 126 mg/dL (7-21); CALCIUM 9.2 mg/dL (8.4-10.5); GFR AFRICAN-AMERICAN 8; GFR NON-AFRICAN AMERICAN 7; TROPONIN I 0.25 ng/mL
[2017-06-13] MEDS ORDERED: Dextrose 50% SYRINGE Inj (50 ml) IVP STA (17:45)
[2017-06-13] MEDS ORDERED: Insulin Regular 1 UNITS/0.01 ML ML IV STA (17:45)
[2017-06-13] MEDS ORDERED: Albuterol 0.083% Inhal Sol (2.5 mg/3 mL) UD INH STA ×2 (17:45→18:28)
[2017-06-13] MEDS ORDERED: Sod Polystyrene Sulf 15 gm/60 ml Susp PO STA (17:46)
[2017-06-13] MEDS ORDERED: Sod Polystyrene Sulf 15 gm/60 ml Susp PR STA (18:09)
[2017-06-13] MEDS ORDERED: Sodium Chloride 0.9% 1,000 ML IV SCH (18:15)
[2017-06-13] MEDS ORDERED: Sodium Chloride 0.9% 1,000 ML IV STA (18:34)
[2017-06-13] MEDS ORDERED: Insulin Regular 100 UNITS in Sodium Chloride 0.9% 99 ML IV PRN (18:35)
[2017-06-13] MEDS ORDERED: Nitroglycerin 50mg in D5W 50 MG/250 ML BOTTLE IV PRN (18:38)
[2017-06-13] MEDS ORDERED: Dextrose 5%/0.9% NS 1,000 ML IV SCH (18:45)
[2017-06-13] MEDS ORDERED: Sodium Bicarbonate 8.4% 150 MEQ in Dextrose 5% In Water 1,000 ML IV SCH ×2 (19:15)
--- NOTE | 2017-06-13 20:06 | CON ---
DATE: 06/13/2017 HISTORY OF PRESENT ILLNESS: This is an 81-year-old gentleman with history of hypertension, diabetes, hyperlipidemia, coronary artery disease status post 5 stents and CABG in 1998 who presented at this time after 1 month of nausea and occasional vomiting as well as diarrhea, that started after "spider veins" (? AVM) catheterization by Dr. Kwan after upper GI bleed. The procedure happened about a month ago and after discharge, the patient was unable to keep his food and fluid down adequately. Over the last 3-4 days, his symptoms deteriorated and he also started having on and off chest pain, which was tight in character, aggravated by exertion and his exercise capacity also went down. The chest tightness and pain was associated with increased shortness of breath and increased orthopnea. No fever, no chills, no sweats. PAST MEDICAL HISTORY: As above. PAST SURGICAL HISTORY: CABG. FAMILY HISTORY: Noncontributory. SOCIAL HISTORY: The patient is an ex-smoker. No alcohol or illicit drug abuse. REVIEW OF SYSTEM: Review of 12-organ system other than mentioned in history present illness is negative. ALLERGIES: PENICILLIN. MEDICATIONS AT HOME: Metoprolol, metformin, Cozaar, Synthroid, isosorbide mononitrate, Lasix, Pepcid, cilostazol, Lipitor, Eliquis, allopurinol, multivitamins. PHYSICAL EXAMINATION: VITAL SIGNS: Blood pressure 129/52, temperature 97.6, heart rate 89, respiratory rate 18, oxygen saturation 100% on 2 liters nasal cannula. HEENT: Head and neck atraumatic. LUNGS: Clear to auscultation bilaterally. HEART: Regular rate and rhythm. S1 and S2 distant. ABDOMEN: Soft, nontender and nondistended. MUSCULOSKELETAL: No C/C/E. NEUROLOGIC: The patient moves all extremities spontaneously. SKIN: Moist. PSYCHIATRIC: He is somewhat confused, but not in respiratory or otherwise distress. LABORATORY DATA: WBC 13.9, hemoglobin 8.8, platelet count 247, potassium 8.1. Sodium 138, chloride 110, carbon dioxide 7, BUN 126, creatinine 7.6, troponin 0.24. ProBNP 7300. Chest x-ray, no acute pulmonary disease. ASSESSMENT AND PLAN: This is an 81-year-old gentleman who presented with acute coronary syndrome, severe dehydration, bordering on hypovolemic shock (ABG with lactic acid pending) with multiorgan system failure including acute kidney injury on top of chronic kidney disease, encephalopathy, supply demand mismatch ischemia. I cannot rule out primary coronary event, even though, it is less likely in the presence of therapeutic anticoagulation with Eliquis and reported compliance with his statins, aspirin, beta-blockers. At present time, we will proceed with aggressive fluid resuscitation. [place] catheter placement. Aim is maintaining urine output more than 0.5 mL/kg/hour. The patient received D50/10 units of IV insulin, calcium and Kayexalate in the emergency room. We will proceed with bicarb drip, insulin drip. Septic workup. Antibiotics. Procalcitonin. The patient is do not resuscitate/do not intubate; however, he is not in respiratory distress right now. The patient will be n.p.o. We will continue with serial BMP to make sure that potassium is trending down and have low threshold for emergent hemodialysis. Nephrology service is on board (Dr. Dougherty). The patient will be going to Intensive Care Unit for further management and monitoring. We will get echocardiogram as well and we will trend lactic acid and troponin level. I will continue to target euvolemia, euglycemia, normothermia, and oxygen saturation more than 90%. We will maintain mean arterial pressure more than 65, avoid hyperchloremia, nephrotoxins. ccm time 40 min Yfn Ferguson MD KRYSTYNA
--- NOTE | 2017-06-13 20:43 | US ---
EXAM: US Retroperitoneal Limited, Renal EXAM DATE/TIME: 06/13/2017 6:13 PM CLINICAL HISTORY: The patient age is 81 years old and is male; Abnormal findings; Abnormal lab test; Abnormal kidney function lab tests; Additional info: Renal failure Facility exam id and description: Us renal renal TECHNIQUE: Real-time ultrasound of the retroperitoneum (limited) with image documentation. COMPARISON: US - RENAL 2017-05-07 20:25 FINDINGS: Right kidney: The right kidney measures 10.1 x 6.0 x 5.9 cm. No shadowing stones. No hydronephrosis. There is mild increased echogenicity of the renal cortex, suggestive of medical renal disease. Left kidney: There is mild increased echogenicity of the renal cortex, suggestive of medical renal disease. The left kidney measures 10.2 x 6.0 x 5.8 cm. No shadowing stones. No hydronephrosis. IMPRESSION: 1. There is mild increased echogenicity of the bilateral cortices, suggestive of medical renal disease. 2. No hydronephrosis bilaterally.
[2017-06-13] MEDS: Aztreonam 1 Gm in NS 100mL 100 ML IVPB SCH (20:50)
[2017-06-13] MEDS ORDERED: Cefepime IV 2 gm in NS 2 GM/100 ML BAG IVPB SCH (22:00)
[2017-06-13] MEDS ORDERED: DiphenhydrAMINE 50 mg/ml Inj IVP ONE (22:16)
[2017-06-14 01:31] LABS: ALB/GLOB RATIO 1.3 (1.1-1.8); ALBUMIN 4.2 g/dL (3.0-4.8); CALCIUM 8.9 mg/dL (8.4-10.5)
[2017-06-14 04:37] LABS: BASO # 0.02 K/mm3 (0.0-2.0); BASO % 0.2 % (0.0-3.0); EOS # 0.6 (0.0-0.7); EOS % 6.4 % (1.5-5.0); GRAN # 5.93 (1.4-6.5); GRAN % 63.4 % (50.0-68.0); HEMOGLOBIN 7.7 g/dL (14.0-18.0); LYMPH # 2.1 (1.2-3.4); LYMPH % 22.4 % (22.0-35.0); MEAN CELL VOLUME 89.4 fl (80.0-105.0); MEAN CORPUSCULAR HEMOGLOBIN 29.1 pg (25.0-35.0); MEAN CORPUSCULAR HGB CONC 32.5 g/dl (31.0-37.0); MEAN PLATELET VOLUME 9.4 fl (7.0-11.0); MONO # 0.7 (0.1-0.6); MONO % 7.6 % (1.0-6.0); RBC 2.65 10^6/uL (3.5-6.1); WHITE BLOOD COUNT 9.4 10^3/ul (4.5-11.0)
[2017-06-14 04:59] LABS: ALB/GLOB RATIO 1.2 (1.1-1.8); ALBUMIN 3.7 g/dL (3.0-4.8); CALCIUM 8.9 mg/dL (8.4-10.5)
--- NOTE | 2017-06-14 06:56 | CP.PCM.HP ---
<Meche Crump - Last Filed: 06/14/17 13:41> History of Present Illness - History of Present Illness History of Present Illness: H&P for Celine Rajan PGY2 This is a 81yo M with past medical history of CAD, moderate aortic sclerosis with normal EF/LV function, CKD stage IIIb, DM, chronic A.fib (on Eliquis), anemia, GI bleed who came to ED because he was sent in by Dr. Chand for abnormal lab values. Patient follows up with Dr. Chand who did outpatient blood work and found K to be elevated. Patient was instructed to go to ED. Patient also admits for past few days of having squeezing intermittent chest pain that radiates up his neck that is worse with exertion. He also had some nausea and shortness of breath as well. He denies having diarrhea, dark colored or blood in stool, vomiting, numbness/tingling, fever/chills, dysuria or hematuria. In ED, patient was found to be in acute renal failure with K of 8.3. EKG showed SR with possible ischemic changes in V3-V6 as well as I and II. He was given calcium gluconate, insulin, albuterol and kayexalate. Patient was evaluated by ICU and transferred there for further monitoring. Of note, patient was recently admitted for anemia secondary to GI bleed. He had an EGD which showed a bleeding angiodysplasia in his stomach which was treated during EGD. Patient is on Eliquis at home for hx of a.fib and it was decided that he would continue Eliquis despite hx of recent bleed. Past medical history: CAD, CKD stage IIIb, DM, chronic A.fib (on Eliquis), anemia, GI bleed Past surgical history: CABG Home meds: As per MAR Allergies: Penicillin- rash Social history: Former tobacco smoker, Denies EtOH or drug use. Lives with family Present on Admission - Present on Admission Any Indicators Present on Admission: No Review of Systems - Review of Systems All systems: reviewed and no additional remarkable complaints except Review of Systems: 12 point ROS reviewed as per HPI Past Patient History - Infectious Disease Hx of Infectious Diseases: None - Tetanus Immunizations Tetanus Immunization: Unknown - Past Social History Smoking Status: Former Smoker Alcohol: None Drugs: Denies Home Situation {Lives}: With Family - CARDIAC Hx Pacemaker: No Other/Comment: open heart s. x - PULMONARY Hx Respiratory Disorders: Yes (PPD OF CIGARETTES QUIT 1996) - NEUROLOGICAL Hx Neurological Disorder: No - HEENT Hx HEENT Problems: Yes (BLURRY VISION) - RENAL Hx Chronic Kidney Disease: No - ENDOCRINE/METABOLIC Hx Diabetes Mellitus Type 2: Yes - HEMATOLOGICAL/ONCOLOGICAL Hx Blood Disorders: Yes Hx Anemia: Yes - INTEGUMENTARY Hx Dermatological Problems: Yes Other/Comment: BILATERAL LE EDEMA MORE TO RIGHT. JAIN BONE SOME REDNESS.BROWNISH SKIN DISCOLORATION. - MUSCULOSKELETAL/RHEUMATOLOGICAL Hx Musculoskeletal Disorders: Yes (LAMINECTOMY) Hx Falls: Yes - GASTROINTESTINAL Hx Gastrointestinal Disorders: Yes (DIVERTICULITIS,CONSTIPATION) Hx Gastroesophageal Reflux: Yes - GENITOURINARY/GYNECOLOGICAL Hx Genitourinary Disorders: No - PSYCHIATRIC Hx Emotional Abuse: No Hx Physical Abuse: No Hx Substance Use: No - SURGICAL HISTORY Hx Surgeries: Yes (GI POLYPS REMOVED,LAMINECTOMY 1970,) - ANESTHESIA Hx Anesthesia Reactions: No Hx Malignant Hyperthermia: No Meds Allergies/Adverse Reactions: Allergies Allergy/AdvReac Type Severity Reaction Status Date / Time Penicillins Allergy Severe SWELLING Verified 04/06/17 11:27 Physical Exam - Constitutional Appears: No Acute Distress - Head Exam Head Exam: ATRAUMATIC, NORMAL INSPECTION, NORMOCEPHALIC - Eye Exam Eye Exam: Normal appearance, PERRL Pupil Exam: NORMAL ACCOMODATION, PERRL Additional comments: pale conjunctiva - ENT Exam ENT Exam: Mucous Membranes Moist - Respiratory Exam Respiratory Exam: Clear to Auscultation Bilateral, NORMAL BREATHING PATTERN. absent: Rales, Rhonchi, Wheezes - Cardiovascular Exam Cardiovascular Exam: REGULAR RHYTHM, +S1, +S2, Systolic Murmur. absent: Gallop , Rubs - GI/Abdominal Exam GI & Abdominal Exam: Normal Bowel Sounds, Soft. absent: Mass, Rebound, Rigid, Tenderness - Extremities Exam Extremities exam: Positive for: normal inspection. Negative for: calf tenderness, pedal edema - Neurological Exam Neurological exam: Alert, CN II-XII Intact, Oriented x3 - Psychiatric Exam Psychiatric exam: Normal Affect, Normal Mood - Skin Skin Exam: Dry, Intact, Warm Results - Vital Signs Recent Vital Signs: Last Vital Signs Temp 97.6 F 06/13/17 22:54 Pulse 120 H 06/13/17 22:54 Resp 21 06/13/17 22:54 BP 124/60 06/13/17 22:00 Pulse Ox 89 L 06/13/17 22:50 - Labs Result Diagrams: 06/14/17 04:12 06/14/17 10:00 Labs: Laboratory Results - last 24 hr 06/13/17 06/13/17 06/13/17 21:14 22:28 23:50 WBC RBC Hgb Hct MCV MCH MCHC RDW Plt Count MPV Gran % Lymph % (Auto) [place] % (Auto) Eos % (Auto) Baso % (Auto) Gran # Lymph # (Auto) [place] # (Auto) Eos # (Auto) Baso # (Auto) Sodium 139 Potassium 7.2 H* Chloride 111 H Carbon Dioxide 8 L Anion Gap 27 H BUN 124 H* Creatinine 7.1 H Est GFR ( Amer) 9 Est GFR (Non-Af Amer) 7 POC Glucose (mg/dL) 126 H 152 H Random Glucose 129 H Calcium 8.9 Phosphorus Magnesium Total Bilirubin 0.1 L AST 25 ALT 36 Alkaline Phosphatase 90 Total Protein 7.5 Albumin 4.2 Globulin 3.2 Albumin/Globulin Ratio 1.3 06/14/17 06/14/17 06/14/17 00:11 01:12 02:05 WBC RBC Hgb Hct MCV MCH MCHC RDW Plt Count MPV Gran % Lymph % (Auto) [place] % (Auto) Eos % (Auto) Baso % (Auto) Gran # Lymph # (Auto) [place] # (Auto) Eos # (Auto) Baso # (Auto) Sodium Potassium Chloride Carbon Dioxide Anion Gap BUN Creatinine Est GFR ( Amer) Est GFR (Non-Af Amer) POC Glucose (mg/dL) 139 H 158 H 136 H Random Glucose Calcium Phosphorus Magnesium Total Bilirubin AST ALT Alkaline Phosphatase Total Protein Albumin Globulin Albumin/Globulin Ratio 06/14/17 06/14/17 06/14/17 03:20 04:12 04:12 WBC 9.4 D RBC 2.65 L Hgb 7.7 L Hct 23.7 L MCV 89.4 MCH 29.1 MCHC 32.5 RDW 19.0 H Plt Count 200 MPV 9.4 Gran % 63.4 Lymph % (Auto) 22.4 [place] % (Auto) 7.6 H Eos % (Auto) 6.4 H Baso % (Auto) 0.2 Gran # 5.93 Lymph # (Auto) 2.1 [place] # (Auto) 0.7 H Eos # (Auto) 0.6 Baso # (Auto) 0.02 Sodium 142 Potassium 5.8 H* Chloride 111 H Carbon Dioxide 12 L Anion Gap 25 H BUN 122 H* Creatinine 6.9 H Est GFR ( Amer) 9 Est GFR (Non-Af Amer) 8 POC Glucose (mg/dL) 137 H Random Glucose 120 H Calcium 8.9 Phosphorus 7.8 H Magnesium 2.5 H Total Bilirubin 0.2 AST 40 ALT 28 Alkaline Phosphatase 76 Total Protein 6.7 Albumin 3.7 Globulin 3.0 Albumin/Globulin Ratio 1.2 06/14/17 06/14/17 06/14/17 04:29 05:19 06:01 WBC RBC Hgb Hct MCV MCH MCHC RDW Plt Count MPV Gran % Lymph % (Auto) [place] % (Auto) Eos % (Auto) Baso % (Auto) Gran # Lymph # (Auto) [place] # (Auto) Eos # (Auto) Baso # (Auto) Sodium Potassium Chloride Carbon Dioxide Anion Gap BUN Creatinine Est GFR ( Amer) Est GFR (Non-Af Amer) POC Glucose (mg/dL) 145 H 136 H 129 H Random Glucose Calcium Phosphorus Magnesium Total Bilirubin AST ALT Alkaline Phosphatase Total Protein Albumin Globulin Albumin/Globulin Ratio Assessment & Plan - Assessment and Plan (Free Text) Assessment: This is a 81yo M with past medical history of CAD, moderate aortic sclerosis with normal EF/LV function, CKD stage IIIb, DM, chronic A.fib (on Eliquis), anemia, GI bleed who is admitted for hyperkalemia, acute renal failure, and acute coronary syndrome. Plan: 1. Hyperkalemia - found to also have EKG changes - can be secondary to acute renal failure as well as medications - K: 8.3 on admission- now 5.0 - s/p calcium gluconate kayexalate, insulin drip, albuterol - Continue to monitor BMP q4h. - If K start to increase, recommend insulin IV push with D50 2. Acute renal failure on CKD IIIb - can be secondary to medications versus other etiology - Cr on admission 7.6- trending down to 6.2 - Baseline Cr ~2.0 - Hold nephrotoxic agents - Continue bicarb drip - HD was held at this time because of pt history of being on Eliquis with recent GI bleed and anemia - Will continue with medical management for renal failure at this time 3. NSTEMI - EKG showed ST depressions in V3-V5, I and II - Troponin 0.25 to 0.88- can be slightly elevated from kidney failure as well - Cardio consulted- recs appreciated - Patient on ASA and Lipitor - Continue Nitro drip - Patient not a candidate at this time for heparin drip secondary to anemia with possible active GI bleed - Cardiac cath can also exacerbate acute renal failure - Will continue to monitor clinically at this time 4. Anemia - Hgb 7.7 - Recent hx of GI bleed from AVM in stomach - Pt was on Eliquis at home - Would hold anticoagulants - GI consulted- recs appreciated - Iron, TIBC and ferritin pending - transfusing 2U PRBC as per GI 5. UTI - Afebrile, leukocytosis resolved - Lactate 0.9 - U/A was positive for UTI - Micro pending - PCT: 0.29 - Continue Azactam- renally dosed - ID consulted 6. Hx of CAD - on ASA and Lipitor 7. Hx of A.fib - Pt on Lopressor - Eliquis on hold Gi ppx: Protonix DVT ppx: SCDs. Anticoagulation contraindicated since patient most likely has active bleeding Dispo: Patient is DNR/DNI Case seen, discussed and reviewed with Dr. Ladonna Estrada PGY2 - Date & Time Date: 06/14/17 Time: 08:00 <Juma Dougherty S - Last Filed: 06/14/17 22:11> Results - Vital Signs Recent Vital Signs: Last Vital Signs Temp 97.4 F L 06/14/17 16:30 Pulse 103 H 06/14/17 18:20 Resp 48 H 06/14/17 18:20 BP 116/50 L 06/14/17 18:30 Pulse Ox 96 06/14/17 18:30 - Labs Result Diagrams: 06/14/17 20:30 06/14/17 20:30 Labs: Laboratory Results - last 24 hr 06/13/17 06/13/17 06/13/17 22:28 23:50 23:50 WBC RBC Hgb Hct MCV MCH MCHC RDW Plt Count MPV Gran % Lymph % (Auto) [place] % (Auto) Eos % (Auto) Baso % (Auto) Gran # Lymph # (Auto) [place] # (Auto) Eos # (Auto) Baso # (Auto) pCO2 pO2 HCO3 ABG pH ABG Total CO2 ABG O2 Saturation ABG Base Excess ABG Potassium VBG pH VBG pCO2 VBG HCO3 VBG Total CO2 VBG O2 Sat (Calc) VBG Base Excess VBG Potassium Glucose Lactate FiO2 Sodium 139 Potassium 7.2 H* Chloride 111 H Carbon Dioxide 8 L Anion Gap 27 H BUN 124 H* Creatinine 7.1 H Est GFR ( Amer) 9 Est GFR (Non-Af Amer) 7 POC Glucose (mg/dL) 152 H Random Glucose 129 H Calcium 8.9 Phosphorus Magnesium Iron TIBC % Saturation Ferritin Total Bilirubin 0.1 L AST 25 ALT 36 Alkaline Phosphatase 90 Troponin I Total Protein 7.5 Albumin 4.2 Globulin 3.2 Albumin/Globulin Ratio 1.3 Procalcitonin 0.24 Arterial Blood Potassium Venous Blood Potassium Urine Color Urine Appearance Urine pH Ur Specific [place]en Urine Protein Urine Glucose (UA) Urine Ketones Urine Blood Urine Nitrate Urine Bilirubin Urine Urobilinogen Ur Leukocyte Esterase Urine RBC Urine WBC Ur Epithelial Cells Amorphous Sediment Urine Bacteria Coarse Granular Casts Urine Other Blood Type Antibody Screen Crossmatch BBK History Checked 06/14/17 06/14/17 06/14/17 00:11 01:12 02:05 WBC RBC Hgb Hct MCV MCH MCHC RDW Plt Count MPV Gran % Lymph % (Auto) [place] % (Auto) Eos % (Auto) Baso % (Auto) Gran # Lymph # (Auto) [place] # (Auto) Eos # (Auto) Baso # (Auto) pCO2 pO2 HCO3 ABG pH ABG Total CO2 ABG O2 Saturation ABG Base Excess ABG Potassium VBG pH VBG pCO2 VBG HCO3 VBG Total CO2 VBG O2 Sat (Calc) VBG Base Excess VBG Potassium Glucose Lactate FiO2 Sodium Potassium Chloride Carbon Dioxide Anion Gap BUN Creatinine Est GFR ( Amer) Est GFR (Non-Af Amer) POC Glucose (mg/dL) 139 H 158 H 136 H Random Glucose Calcium Phosphorus Magnesium Iron TIBC % Saturation Ferritin Total Bilirubin AST ALT Alkaline Phosphatase Troponin I Total Protein Albumin Globulin Albumin/Globulin Ratio Procalcitonin Arterial Blood Potassium Venous Blood Potassium Urine Color Urine Appearance Urine pH Ur Specific [place] Urine Protein Urine Glucose (UA) Urine Ketones Urine Blood Urine Nitrate Urine Bilirubin Urine Urobilinogen Ur Leukocyte Esterase Urine RBC Urine WBC Ur Epithelial Cells Amorphous Sediment Urine Bacteria Coarse Granular Casts Urine Other Blood Type Antibody Screen Crossmatch BBK History Checked 06/14/17 06/14/17 06/14/17 03:20 04:12 04:12 WBC 9.4 D RBC 2.65 L Hgb 7.7 L Hct 23.7 L MCV 89.4 MCH 29.1 MCHC 32.5 RDW 19.0 H Plt Count 200 MPV 9.4 Gran % 63.4 Lymph % (Auto) 22.4 [place] % (Auto) 7.6 H Eos % (Auto) 6.4 H Baso % (Auto) 0.2 Gran # 5.93 Lymph # (Auto) 2.1 [place] # (Auto) 0.7 H Eos # (Auto) 0.6 Baso # (Auto) 0.02 pCO2 pO2 HCO3 ABG pH ABG Total CO2 ABG O2 Saturation ABG Base Excess ABG Potassium VBG pH VBG pCO2 VBG HCO3 VBG Total CO2 VBG O2 Sat (Calc) VBG Base Excess VBG Potassium Glucose Lactate FiO2 Sodium 142 Potassium 5.8 H* Chloride 111 H Carbon Dioxide 12 L Anion Gap 25 H BUN 122 H* Creatinine 6.9 H Est GFR ( Amer) 9 Est GFR (Non-Af Amer) 8 POC Glucose (mg/dL) 137 H Random Glucose 120 H Calcium 8.9 Phosphorus 7.8 H Magnesium 2.5 H Iron TIBC % Saturation Ferritin Total Bilirubin 0.2 AST 40 ALT 28 Alkaline Phosphatase 76 Troponin I Total Protein 6.7 Albumin 3.7 Globulin 3.0 Albumin/Globulin Ratio 1.2 Procalcitonin Arterial Blood Potassium Venous Blood Potassium Urine Color Urine Appearance Urine pH Ur Specific [place] Urine Protein Urine Glucose (UA) Urine Ketones Urine Blood Urine Nitrate Urine Bilirubin Urine Urobilinogen Ur Leukocyte Esterase Urine RBC Urine WBC Ur Epithelial Cells Amorphous Sediment Urine Bacteria Coarse Granular Casts Urine Other Blood Type Antibody Screen Crossmatch BBK History Checked 06/14/17 06/14/17 06/14/17 04:12 04:29 05:19 WBC RBC Hgb Hct MCV MCH MCHC RDW Plt Count MPV Gran % Lymph % (Auto) [place] % (Auto) Eos % (Auto) Baso % (Auto) Gran # Lymph # (Auto) [place] # (Auto) Eos # (Auto) Baso # (Auto) pCO2 pO2 HCO3 ABG pH ABG Total CO2 ABG O2 Saturation ABG Base Excess ABG Potassium VBG pH VBG pCO2 VBG HCO3 VBG Total CO2 VBG O2 Sat (Calc) VBG Base Excess VBG Potassium Glucose Lactate FiO2 Sodium Potassium Chloride Carbon Dioxide Anion Gap BUN Creatinine Est GFR ( Amer) Est GFR (Non-Af Amer) POC Glucose (mg/dL) 145 H 136 H Random Glucose Calcium Phosphorus Magnesium Iron TIBC % Saturation Ferritin Total Bilirubin AST ALT Alkaline Phosphatase Troponin I 0.88 H* D Total Protein Albumin Globulin Albumin/Globulin Ratio Procalcitonin Arterial Blood Potassium Venous Blood Potassium Urine Color Urine Appearance Urine pH Ur Specific [place] Urine Protein Urine Glucose (UA) Urine Ketones Urine Blood Urine Nitrate Urine Bilirubin Urine Urobilinogen Ur Leukocyte Esterase Urine RBC Urine WBC Ur Epithelial Cells Amorphous Sediment Urine Bacteria Coarse Granular Casts Urine Other Blood Type Antibody Screen Crossmatch BBK History Checked 06/14/17 06/14/17 06/14/17 06:01 07:16 07:30 WBC RBC Hgb Hct MCV MCH MCHC RDW Plt Count MPV Gran % Lymph % (Auto) [place] % (Auto) Eos % (Auto) Baso % (Auto) Gran # Lymph # (Auto) [place] # (Auto) Eos # (Auto) Baso # (Auto) pCO2 23 L pO2 178.0 H HCO3 10.8 L ABG pH 7.28 L ABG Total CO2 11.5 L ABG O2 Saturation 100.1 H ABG Base Excess -14.0 L ABG Potassium 4.6 VBG pH VBG pCO2 VBG HCO3 VBG Total CO2 VBG O2 Sat (Calc) VBG Base Excess VBG Potassium Glucose 100 Lactate 0.9 FiO2 32.0 Sodium 136.0 Potassium Chloride 112.0 H Carbon Dioxide Anion Gap BUN Creatinine Est GFR ( Amer) Est GFR (Non-Af Amer) POC Glucose (mg/dL) 129 H 110 Random Glucose Calcium Phosphorus Magnesium Iron TIBC % Saturation Ferritin Total Bilirubin AST ALT Alkaline Phosphatase Troponin I Total Protein Albumin Globulin Albumin/Globulin Ratio Procalcitonin Arterial Blood Potassium 4.6 Venous Blood Potassium Urine Color Urine Appearance Urine pH Ur Specific [place] Urine Protein Urine Glucose (UA) Urine Ketones Urine Blood Urine Nitrate Urine Bilirubin Urine Urobilinogen Ur Leukocyte Esterase Urine RBC Urine WBC Ur Epithelial Cells Amorphous Sediment Urine Bacteria Coarse Granular Casts Urine Other Blood Type Antibody Screen Crossmatch BBK History Checked 06/14/17 06/14/17 06/14/17 08:01 09:15 09:40 WBC RBC Hgb Hct MCV MCH MCHC RDW Plt Count MPV Gran % Lymph % (Auto) [place] % (Auto) Eos % (Auto) Baso % (Auto) Gran # Lymph # (Auto) [place] # (Auto) Eos # (Auto) Baso # (Auto) pCO2 pO2 HCO3 ABG pH ABG Total CO2 ABG O2 Saturation ABG Base Excess ABG Potassium VBG pH VBG pCO2 VBG HCO3 VBG Total CO2 VBG O2 Sat (Calc) VBG Base Excess VBG Potassium Glucose Lactate FiO2 Sodium Potassium Chloride Carbon Dioxide Anion Gap BUN Creatinine Est GFR ( Amer) Est GFR (Non-Af Amer) POC Glucose (mg/dL) 117 H Random Glucose Calcium Phosphorus Magnesium Iron TIBC % Saturation Ferritin Total Bilirubin AST ALT Alkaline Phosphatase Troponin I Total Protein Albumin Globulin Albumin/Globulin Ratio Procalcitonin Arterial Blood Potassium Venous Blood Potassium Urine Color Yellow Urine Appearance Clear Urine pH 5.5 Ur Specific [place] 1.020 Urine Protein Trace H Urine Glucose (UA) Negative Urine Ketones Negative Urine Blood Large H Urine Nitrate Negative Urine Bilirubin Negative Urine Urobilinogen 0.2 Ur Leukocyte Esterase Trace H Urine RBC 25 - 30 Urine WBC 5 - 10 Ur Epithelial Cells None Amorphous Sediment Few Urine Bacteria Many Coarse Granular Casts Trace H Urine Other Uyeast Blood Type O NEGATIVE Antibody Screen Negative Crossmatch See Detail BBK History Checked Patient has bt 06/14/17 06/14/17 06/14/17 10:00 10:00 10:00 WBC RBC Hgb Hct MCV MCH MCHC RDW Plt Count MPV Gran % Lymph % (Auto) [place] % (Auto) Eos % (Auto) Baso % (Auto) Gran # Lymph # (Auto) [place] # (Auto) Eos # (Auto) Baso # (Auto) pCO2 pO2 HCO3 ABG pH ABG Total CO2 ABG O2 Saturation ABG Base Excess ABG Potassium VBG pH VBG pCO2 VBG HCO3 VBG Total CO2 VBG O2 Sat (Calc) VBG Base Excess VBG Potassium Glucose Lactate FiO2 Sodium 142 Potassium 5.0 Chloride 111 H Carbon Dioxide 13 L Anion Gap 24 H BUN 118 H Creatinine 6.2 H Est GFR ( Amer) 11 Est GFR (Non-Af Amer) 9 POC Glucose (mg/dL) Random Glucose 110 Calcium 8.7 Phosphorus Magnesium Iron 20 L TIBC 340 % Saturation 6 L Ferritin 46.7 Total Bilirubin AST ALT Alkaline Phosphatase Troponin I Total Protein Albumin Globulin Albumin/Globulin Ratio Procalcitonin Arterial Blood Potassium Venous Blood Potassium Urine Color Urine Appearance Urine pH Ur Specific [place] Urine Protein Urine Glucose (UA) Urine Ketones Urine Blood Urine Nitrate Urine Bilirubin Urine Urobilinogen Ur Leukocyte Esterase Urine RBC Urine WBC Ur Epithelial Cells Amorphous Sediment Urine Bacteria Coarse Granular Casts Urine Other Blood Type Antibody Screen Crossmatch BBK History Checked 06/14/17 06/14/17 06/14/17 10:01 11:45 13:00 WBC RBC Hgb Hct MCV MCH MCHC RDW Plt Count MPV Gran % Lymph % (Auto) [place] % (Auto) Eos % (Auto) Baso % (Auto) Gran # Lymph # (Auto) [place] # (Auto) Eos # (Auto) Baso # (Auto) pCO2 pO2 HCO3 ABG pH ABG Total CO2 ABG O2 Saturation ABG Base Excess ABG Potassium VBG pH VBG pCO2 VBG HCO3 VBG Total CO2 VBG O2 Sat (Calc) VBG Base Excess VBG Potassium Glucose Lactate FiO2 Sodium 143 Potassium 5.1 H Chloride 111 H Carbon Dioxide 13 L Anion Gap 24 H BUN 115 H Creatinine 6.2 H Est GFR ( Amer) 11 Est GFR (Non-Af Amer) 9 POC Glucose (mg/dL) 129 H 128 H Random Glucose 150 H Calcium 8.4 Phosphorus Magnesium Iron TIBC % Saturation Ferritin Total Bilirubin AST ALT Alkaline Phosphatase Troponin I Total Protein Albumin Globulin Albumin/Globulin Ratio Procalcitonin Arterial Blood Potassium Venous Blood Potassium Urine Color Urine Appearance Urine pH Ur Specific [place] Urine Protein Urine Glucose (UA) Urine Ketones Urine Blood Urine Nitrate Urine Bilirubin Urine Urobilinogen Ur Leukocyte Esterase Urine RBC Urine WBC Ur Epithelial Cells Amorphous Sediment Urine Bacteria Coarse Granular Casts Urine Other Blood Type Antibody Screen Crossmatch BBK History Checked 06/14/17 06/14/17 06/14/17 13:00 13:49 15:56 WBC RBC Hgb Hct MCV MCH MCHC RDW Plt Count MPV Gran % Lymph % (Auto) [place] % (Auto) Eos % (Auto) Baso % (Auto) Gran # Lymph # (Auto) [place] # (Auto) Eos # (Auto) Baso # (Auto) pCO2 pO2 43 HCO3 ABG pH ABG Total CO2 ABG O2 Saturation ABG Base Excess ABG Potassium VBG pH 7.22 L VBG pCO2 35.0 L VBG HCO3 14.3 L VBG Total CO2 15.4 L VBG O2 Sat (Calc) 84.1 H VBG Base Excess -12.5 L VBG Potassium 5.1 Glucose 164 H Lactate 1.2 FiO2 21.0 Sodium 136.0 Potassium Chloride 111.0 H Carbon Dioxide Anion Gap BUN Creatinine Est GFR ( Amer) Est GFR (Non-Af Amer) POC Glucose (mg/dL) 149 H 128 H Random Glucose Calcium Phosphorus Magnesium Iron TIBC % Saturation Ferritin Total Bilirubin AST ALT Alkaline Phosphatase Troponin I Total Protein Albumin Globulin Albumin/Globulin Ratio Procalcitonin Arterial Blood Potassium Venous Blood Potassium 5.1 Urine Color Urine Appearance Urine pH Ur Specific [place] Urine Protein Urine Glucose (UA) Urine Ketones Urine Blood Urine Nitrate Urine Bilirubin Urine Urobilinogen Ur Leukocyte Esterase Urine RBC Urine WBC Ur Epithelial Cells Amorphous Sediment Urine Bacteria Coarse Granular Casts Urine Other Blood Type Antibody Screen Crossmatch BBK History Checked 06/14/17 06/14/17 20:30 20:30 WBC 9.0 RBC 2.86 L Hgb 8.3 L Hct 25.5 L MCV 89.2 MCH 29.0 MCHC 32.5 RDW 18.4 H Plt Count 178 MPV 9.3 Gran % Lymph % (Auto) [place] % (Auto) Eos % (Auto) Baso % (Auto) Gran # Lymph # (Auto) [place] # (Auto) Eos # (Auto) Baso # (Auto) pCO2 pO2 HCO3 ABG pH ABG Total CO2 ABG O2 Saturation ABG Base Excess ABG Potassium VBG pH VBG pCO2 VBG HCO3 VBG Total CO2 VBG O2 Sat (Calc) VBG Base Excess VBG Potassium Glucose Lactate FiO2 Sodium 144 Potassium 5.2 H Chloride 113 H Carbon Dioxide 14 L Anion Gap 21 H BUN 112 H Creatinine 5.4 H Est GFR ( Amer) 12 Est GFR (Non-Af Amer) 10 POC Glucose (mg/dL) Random Glucose 120 H Calcium 8.2 L Phosphorus Magnesium Iron TIBC % Saturation Ferritin Total Bilirubin AST ALT Alkaline Phosphatase Troponin I Total Protein Albumin Globulin Albumin/Globulin Ratio Procalcitonin Arterial Blood Potassium Venous Blood Potassium Urine Color Urine Appearance Urine pH Ur Specific [place] Urine Protein Urine Glucose (UA) Urine Ketones Urine Blood Urine Nitrate Urine Bilirubin Urine Urobilinogen Ur Leukocyte Esterase Urine RBC Urine WBC Ur Epithelial Cells Amorphous Sediment Urine Bacteria Coarse Granular Casts Urine Other Blood Type Antibody Screen Crossmatch BBK History Checked Assessment & Plan - Assessment and Plan (Free Text) Plan: Pt seen and examined. The note of the medical field representative has been reviewed and I agree with it. Labs and medications have been reviewed. Pt with hyperkalemia. It is improving with IVF, Kayexelate and an Insulin drip. He was not able to get HD due to difficulty in placing a dialysis cath since pt was on Eliquis. K is improving. BLANKA which is multi-factorial. Insulin D/C and serial CMP will continue. Spoke to Dr Kwan. Old records have been reviewed. Spoke to daughter at bedside this morning.
[2017-06-14] MEDS: Sodium Bicarbonate 8.4% 150 MEQ in Dextrose 5% In Water 1,000 ML IV SCH (07:30)
[2017-06-14 07:34] LABS: ARTERIAL BLOOD GAS HCO3 10.8 mmol/L (21-28); ARTERIAL BLOOD GAS O2 SAT 100.1 % (95-98); ARTERIAL BLOOD GAS PCO2 23 mm/Hg (35-45); ARTERIAL BLOOD GAS PH 7.28 (7.35-7.45); ARTERIAL BLOOD GAS TCO2 11.5 mmol.L (22-28)
[2017-06-14] MEDS: Aztreonam 1 Gm in NS 100mL 100 ML IVPB SCH (07:46)
--- NOTE | 2017-06-14 08:00 | RAD ---
HISTORY: fu COMPARISON: Portable chest 06/13/2017. FINDINGS: LUNGS: No active pulmonary disease. PLEURA: No significant pleural effusion identified, no pneumothorax apparent. CARDIOVASCULAR: Cardiomediastinal silhouette is stable with no pulmonary vascular derangement appreciated. Sternotomy wires again evident. OSSEOUS STRUCTURES: No significant abnormalities. VISUALIZED UPPER ABDOMEN: Normal. OTHER FINDINGS: None. IMPRESSION: No interval acute cardiopulmonary disease appreciable.
--- NOTE | 2017-06-14 08:09 | RAD ---
HISTORY: medical clearance COMPARISON: Portable chest 05/07/2017. FINDINGS: LUNGS: Stable likely mild cardiomegaly. No pulmonary vascular congestion. No infiltrate pleural effusion or pneumothorax bilaterally. PLEURA: As above. CARDIOVASCULAR: As above. OSSEOUS STRUCTURES: No significant abnormalities. VISUALIZED UPPER ABDOMEN: Normal. OTHER FINDINGS: None. IMPRESSION: Stable limited cardiomegaly. No acute folder disease appreciable.
[2017-06-14 09:29] LABS: PH,URINE 5.5 (4.7-8.0); URINE BILIRUBIN NEGATIVE (NEGATIVE); URINE BLOOD LARGE (NEGATIVE); URINE GLUCOSE (UA) NEGATIVE (NEGATIVE); URINE LEUKOCYTE ESTERASE TRACE Leu/uL (NEGATIVE); URINE PROTEIN TRACE mg/dL (<30 mg/dL); URINE UROBILINOGEN 0.2 E.U./dL (<1 E.U./dL)
[2017-06-14 09:31] LABS: URINE APPEARANCE CLEAR (CLEAR); URINE COLOR YELLOW (YELLOW)
[2017-06-14 09:34] LABS: URINE RBC 25 - 30 /hpf (0-2)
[2017-06-14 09:35] LABS: URINE BACTERIA MANY (NEG); URINE COARSE GRANULAR CAST TRACE /hpf (0-2)
[2017-06-14 09:36] LABS: URINE AMORPHOUS SEDIMENT FEW
--- NOTE | 2017-06-14 10:14 | CARD ---
APPROVED REPORT EKG Measurement Heart [id number] <Conclusion> RSR Q in 3, F. Old IMI. STTW changes c/w ischemia, increased
[2017-06-14 10:15] LABS: IRON 20 ug/dL (45-180)
[2017-06-14 10:24] LABS: % IRON SATURATION 6 % (20-55); TOTAL IRON BINDING CAPACITY 340 ug/dL (261-462)
[2017-06-14] MEDS: Metoprolol 1 mg/ml Inj IV SCH ×2 (10:27→17:06)
[2017-06-14 10:39] LABS: CALCIUM 8.7 mg/dL (8.4-10.5)
--- NOTE | 2017-06-14 12:39 | CON ---
DATE: 06/14/2017 CONSULTATION INDICATIONS: Renal failure and hyperkalemia. HISTORY OF PRESENT ILLNESS: This is an 81-year-old man, known to me, who had hyperkalemia and acute on chronic renal failure based on lab test done on Sunday with reports were available of Sunday. He was sent to the Emergency Room where he was found to have severe hyperkalemia and acute on chronic renal failure. He was treated with multiple interventions including Kayexalate, glucose, insulin, sodium bicarbonate. He was transferred to the Intensive Care Unit. He was seen by Dr. Dougherty. His potassium has improved. Today, he is resting comfortably in bed. He has had intermittent chest pain on and off and recent hospitalizations for congestive heart failure. He denies chest pain at the moment. There is no shortness of breath, orthopnea, PND, syncope, presyncope, lightheadedness, dizziness, vertigo, palpitations, fever, chills, cough, sputum production or hemoptysis. No abdominal pain, nausea, vomiting. He does have diarrhea after Kayexalate. PAST MEDICAL HISTORY: Notable for coronary artery disease, remote coronary artery bypass surgery, coronary interventions. Normal LV function on the last echocardiogram with mild to moderate aortic stenosis. He has had congestive heart failure; diabetes; chronic kidney disease; GI bleeding; chronic AFib, on Eliquis; anemia; colonic and gastric polyps. MEDICATIONS AT THE TIME OF ADMISSION: Included multivitamin, Pletal, losartan, Eliquis, metformin, iron sulfate, isosorbide, potassium chloride, Lasix, Lipitor, metoprolol, Pepcid, vitamin B, Synthroid, vitamin D, allopurinol. ALLERGIES: HE NOTES AN ALLERGY TO PENICILLIN. SOCIAL HISTORY: He lives at home with his family. He is not very ambulatory and has been in generally failing health. He no longer smokes. He does not drink allcohol significantly. FAMILY HISTORY: Noncontributory. REVIEW OF SYSTEMS: Ten-point review of systems otherwise unremarkable except as noted above. PHYSICAL EXAMINATION: GENERAL: He is a well-developed elderly male, lying in bed in the Intensive Care Unit, in no acute distress. VITAL SIGNS: He is in sinus rhythm, 89 beats per minute; afebrile; blood pressure 124/60; respirations 18-21; O2 sat 89-100% on nasal cannula. HEENT: Reveals no neck vein distention, thyromegaly, carotid bruit. Mucous membranes moist. Conjunctivae pale. NECK: Supple. LUNGS: Lung baird clear throughout. HEART: Examination of the heart reveals a regular rhythm with normal first and second heart sounds. There is a systolic murmur heard in the aortic space along the left sternal border. PMI is not palpable. ABDOMEN: Soft. Bowel sounds present. No mass, organomegaly, tenderness, rebound, guarding. No CVA tenderness. No palpable abdominal aortic aneurysm. EXTREMITY: Revealed no cyanosis, clubbing or edema. NEUROLOGIC: He is awake, alert and oriented. PSYCHIATRIC: Normal as to mood and affect. SKIN: Warm and dry. No rash or cellulitis. LABORATORY DATA AND IMAGING: EKG demonstrated probable sinus tachycardia with PVCs, ST-T wave changes consistent with ischemia. A portable chest x-ray revealed stable limited cardiomegaly. No acute disease appreciated. A renal ultrasound reveals mild increased echogenicity of the bilateral cortices suggestive of medical renal disease. No hydronephrosis bilaterally. A followup chest x-ray reveals no interval acute cardiopulmonary disease appreciated. White count 9400, hemoglobin fell to 7.7 today, hematocrit 23.7, platelet count normal. Blood gases noted. Chemistries are noted. Initial potassium 7.2, this morning 5.8. BUN initially 124 and creatinine 7.1. Today, BUN 122, creatinine 6.9. Blood sugars are in the 100-200 range. LFTs unremarkable. IMPRESSION: Eligio Swanson is an 81-year-old man with coronary artery disease, coronary artery bypass surgery, coronary interventions, aortic stenosis, congestive heart failure, recent chest pain, positive troponins. Admitted with hyperkalemia and acute on chronic renal failure. He is in the Intensive Care Unit and has been treated for hyperkalemia with improvement. His hemoglobin has dropped and he has a history of gastrointestinal bleeding. He is under the care of the brake rider and Dr. Dougherty. Dr. Kwan is on consult for Gastroenterology. He is getting IV fluids with a bicarb drip. He is on IV nitroglycerin. We will hold many of his medications. I will resume his metoprolol IV. We will monitor his blood sugars, input and output, labs, sats. He will remain in the Intensive Care Unit. He is a do not resuscitate/do not intubate status. I will follow along with you. I will make additional recommendations based on his clinical course. Jovon Chand MD [facility]
--- NOTE | 2017-06-14 13:32 | CON ---
DATE: 06/14/2017 GASTROENTEROLOGY CONSULTATION REQUESTING PHYSICIAN: Dr. Dougherty. REASON FOR CONSULTATION AND HISTORY OF PRESENT ILLNESS: I have been asked to see this 81-year-old male with a history of coronary artery disease status post CABG; diabetes mellitus; atrial fibrillation, on Eliquis; anemia; congestive heart failure, who was sent to the hospital because of hyperkalemia. The patient also states that for the last 2 days he has had substernal chest pain as well as easy fatigue. He had some nausea and vomiting without hematemesis. He denies melena or rectal bleeding. In the emergency room, his potassium level was noted to be 8.1 with a BUN of 126 and creatinine 7.6 with a metabolic acidosis with a bicarb of 7. This morning, his hemoglobin dropped to the 7 g range after he was given several liters of IV fluid. he is also noted to have positive troponins. The patient has a history of chronic anemia. He was hospitalized about approximately 1 month ago with symptomatic anemia requiring blood transfusions. 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 This was cauterized by BICAP. He did have a colonoscopy 2 years ago which showed extensive diverticulosis and multiple polyps without any signs of bleeding. The patient states that he currently feels better with less chest pain. His BUN and creatinine have been trending downwards. PAST MEDICAL HISTORY: As above. Again, he has a history of atrial fibrillation, on Eliquis; coronary artery disease status post CABG; diabetes mellitus; congestive heart failure; hypertension; anemia; hyperlipidemia; chronic renal insufficiency. PAST SURGICAL HISTORY: Notable for coronary artery bypass surgery. SOCIAL HISTORY: The patient used to smoke up to two packs of cigarettes per day, but he quit over 20 years ago. He denies alcohol use. FAMILY HISTORY: Noncontributory. REVIEW OF SYSTEMS: A 14-point review of systems is notable for chest pain, generalized fatigue, nausea and vomiting. MEDICATIONS AT HOME: Include Lipitor, cilostazol, Cozaar, metoprolol, Zyloprim, vitamin D3, metformin, multivitamin, folic acid, vitamin B complex, ferrous sulfate, famotidine and Isordil. PHYSICAL EXAMINATION GENERAL: Elderly male lying in bed, appearing comfortable, in no distress. VITAL SIGNS: Reveal temperature of 97.6, blood pressure 124/60, heart rate of 120. HEENT: Reveals sclerae to be white. Conjunctivae pale. NECK: Supple. CHEST: Reveals lungs to be clear. HEART: Reveals a tachycardia. There is a II/ systolic murmur. ABDOMEN: Obese, soft, nontender. EXTREMITIES: Show trace pedal edema with chronic stasis changes. LABORATORY DATA: Reveals white blood cell count 9.4, hemoglobin 7.7. Chemistries reveal blood sugar of 117, potassium on the 10th, it is down to 5.8 this morning; bicarb is up to 12; BUN is at 122 with a creatinine of 6.9. Troponin is 0.88. IMPRESSION: An 81-year-old male with acute on chronic renal failure with elevated BUN and creatinine, metabolic acidosis, hyperkalemia with chest pain and elevated troponin suggestive of non-ST elevation myocardial infarction. The patient is anemic. This is a chronic anemia. He has had an endoscopy which showed a bleeding arteriovenous malformation, which was cauterized 2 weeks ago. He had a colonoscopy 2 years ago. He is on Eliquis for atrial fibrillation. His drop in blood count is partly delusional. There is no overt gastrointestinal bleeding at this time. RECOMMENDATIONS: 1. Given the fact that the patient had a non-STEMI and he is anemic, I have discussed with Dr. Ferguson about transfusing 2 units of packed red blood cells. 2. Cardiology evaluation. 3. Consider hemodialysis given his acute on chronic renal failure with metabolic acidosis, hyperkalemia and uremic symptoms of nausea and vomiting. 4. Follow serial hematocrits. 5. We will start IV Protonix. Eligio Kwan MD [facility]
[2017-06-14 13:35] LABS: VENOUS BLOOD GAS BASE EXCESS -12.5 mmol/L (0.0-2.0); VENOUS BLOOD GAS PO2 43 mm/Hg (30-55); VENOUS BLOOD PH 7.22 (7.32-7.43)
--- NOTE | 2017-06-14 13:46 | CP.CCUPN ---
<Geraldo Fernández - Last Filed: 06/14/17 13:41> CCU Subjective - Physician Review Subjective (Free Text): ICU Progress Note Pt seen and examined at bedside. No acute overnight events. Patient states that chest pain resolved after nitro gtt. Patient CP, SOB, n/v/d, abdominal pain, fever, chills, ARCHER, or dizziness. CCU Objective - Vital Signs / Intake & Output Vital Signs (Last 4 hours): Vital Signs Temp Pulse Resp BP 06/14/17 12:30 97.4 F L 99 H 15 119/58 L 06/14/17 11:45 97.4 F L 94 H 15 103/52 L 06/14/17 11:28 97.4 F L 96 H 24 103/49 L 06/14/17 10:27 98 H Intake and Output (Last 8hrs): Intake & Output 06/13/17 06/14/17 06/14/17 22:59 06:59 14:59 Intake Total 5 0 Output Total 175 Balance 5 -175 Intake: IV 5 Blood Product 0 Apheresis Rbc Cp2d As3 Lr 0 1st Unit [id number] Output: Urine 175 Urethral ([place]) 175 Other: Voiding Method Indwelling Catheter - Physical Exam Head: Positive for: Atraumatic, Normocephalic Pupils: Positive for: PERRL Extroacular Muscles: Positive for: EOMI Conjunctiva: Positive for: Normal Mouth: Positive for: Moist Mucous Membranes Neck: Positive for: Normal Range of Motion Respiratory/Chest: Positive for: Clear to Auscultation, Good Air Exchange. Negative for: Respiratory Distress, Accessory Muscle Use Cardiovascular: Positive for: Regular Rate and Rhythm, Normal S1, S2, Other ( visible scar noted on mid anterior chest). Negative for: Murmurs Abdomen: Negative for: Tenderness, Distention, Peritoneal Signs Back: Positive for: Normal Inspection. Negative for: CVA Tenderness, Midline Tenderness Upper Extremity: Positive for: Normal Inspection. Negative for: Cyanosis, Edema Lower Extremity: Positive for: Normal Inspection. Negative for: Edema Neurological: Positive for: GCS=15, CN II-XII Intact, Speech Normal, Motor Func Grossly Intact, Gait Normal, Memory Normal Skin: Positive for: Warm, Dry, Normal Color. Negative for: Rashes Psychiatric: Positive for: Alert, Oriented x 3, Normal Insight, Normal Concentration - Medications Active Medications: Active Medications Generic Name Dose Route Start Last Admin Trade Name Anivalq PRN Reason Stop Dose Admin Aspirin 81 mg 06/14/17 10:00 06/14/17 10:27 Aspirin Chewable PO 81 mg DAILY NIYA Administration Atorvastatin Calcium 40 mg 06/14/17 17:00 Lipitor PO DIN NIYA Nitroglycerin/Dextrose 50 mg in 250 mls @ 1.5 mls/hr 06/13/17 18:38 Nitroglycerin 50 Mg/250 Ml D5w IV .Q24H PRN chest pain Protocol 5 MCG/MIN Sodium Bicarbonate 150 meq/ 1,150 mls @ 100 mls/hr 06/14/17 07:24 06/14/17 07 :30 Dextrose IV 100 mls/hr .[id number] NIYA Administration Metoprolol Tartrate 2.5 mg 06/14/17 10:00 06/14/17 10:27 Lopressor IV 2.5 mg Q8H NIYA Administration Pantoprazole Sodium 40 mg 06/14/17 10:00 06/14/17 10:29 Protonix Inj IVP 40 mg DAILY NIYA Administration - Patient Studies Lab Studies: Lab Studies 06/14/17 06/14/17 06/14/17 Range/Units 13:00 10:00 10:00 WBC (4.5-11.0) 10^3/ul RBC (3.5-6.1) 10^6/uL Hgb (14.0-18.0) g/dL Hct (42.0-52.0) % MCV (80.0-105.0) fl MCH (25.0-35.0) pg MCHC (31.0-37.0) g/dl RDW (11.5-14.5) % Plt Count (120.0-450.0) 10^3/uL MPV (7.0-11.0) fl Gran % (50.0-68.0) % Lymph % (Auto) (22.0-35.0) % [place] % (Auto) (1.0-6.0) % Eos % (Auto) (1.5-5.0) % Baso % (Auto) (0.0-3.0) % Gran # (1.4-6.5) Lymph # (Auto) (1.2-3.4) [place] # (Auto) (0.1-0.6) Eos # (Auto) (0.0-0.7) Baso # (Auto) (0.0-2.0) K/mm3 pCO2 (35-45) mm/Hg pO2 43 (80-100) mm/Hg HCO3 (21-28) mmol/L ABG pH (7.35-7.45) ABG Total CO2 (22-28) mmol.L ABG O2 Saturation (95-98) % ABG Base Excess (-2.0-3.0) mmol/L ABG Potassium (3.6-5.2) mmol/L VBG pH 7.22 L (7.32-7.43) VBG pCO2 35.0 L (40-60) VBG HCO3 14.3 L (21-28) mmol/l VBG Total CO2 15.4 L (22-28) mmol.L VBG O2 Sat (Calc) 84.1 H (40-65) % VBG Base Excess -12.5 L (0.0-2.0) mmol/L VBG Potassium 5.1 (3.6-5.2) mmol/L Glucose 164 H (75-110) mg/dl Lactate 1.2 (0.7-2.1) mmol/L FiO2 21.0 % Sodium 136.0 142 (132-148) mmol/L Potassium 5.0 (3.6-5.0) mmol/L Chloride 111.0 H 111 H (98-107) mmol/L Carbon Dioxide 13 L (21-33) mmol/L Anion Gap 24 H (10-20) BUN 118 H (7-21) mg/dL Creatinine 6.2 H (0.8-1.5) mg/dl Est GFR ( Amer) 11 Est GFR (Non-Af Amer) 9 POC Glucose (mg/dL) (65-110) mg/dL Random Glucose 110 (70-110) mg/dL Calcium 8.7 (8.4-10.5) mg/dL Phosphorus (2.5-4.5) mg/dL Magnesium (1.7-2.2) mg/dL Iron 20 L (45-180) ug/dL TIBC 340 (261-462) ug/dL % Saturation 6 L (20-55) % Total Bilirubin (0.2-1.3) mg/dL AST (17-59) U/L ALT (7-56) U/L Alkaline Phosphatase (38-126) U/L Troponin I ng/mL Total Protein (5.8-8.3) g/dL Albumin (3.0-4.8) g/dL Globulin gm/dL Albumin/Globulin Ratio (1.1-1.8) Procalcitonin (0.19-0.49) NG/ML Arterial Blood Potassium (3.6-5.2) mmol/L Venous Blood Potassium 5.1 (3.6-5.2) mmol/L Urine Color (YELLOW) Urine Appearance (CLEAR) Urine pH (4.7-8.0) Ur Specific [place] (1.005-1.035) Urine Protein (<30 mg/dL) mg/dL Urine Glucose (UA) (NEGATIVE) mg/dL Urine Ketones (NEGATIVE) mg/dL Urine Blood (NEGATIVE) Urine Nitrate (NEGATIVE) Urine Bilirubin (NEGATIVE) Urine Urobilinogen (<1 E.U./dL) E.U./dL Ur Leukocyte Esterase (NEGATIVE) Nakul/uL Urine RBC (0-2) /hpf Urine WBC (0-6) /hpf Ur Epithelial Cells (0-5) /hpf Amorphous Sediment Urine Bacteria (NEG) Coarse Granular Casts (0-2) /hpf Urine Other Blood Type Antibody Screen Crossmatch BBK History Checked 06/14/17 06/14/17 06/14/17 Range/Units 09:40 09:15 08:01 WBC (4.5-11.0) 10^3/ul RBC (3.5-6.1) 10^6/uL Hgb (14.0-18.0) g/dL Hct (42.0-52.0) % MCV (80.0-105.0) fl MCH (25.0-35.0) pg MCHC (31.0-37.0) g/dl RDW (11.5-14.5) % Plt Count (120.0-450.0) 10^3/uL MPV (7.0-11.0) fl Gran % (50.0-68.0) % Lymph % (Auto) (22.0-35.0) % [place] % (Auto) (1.0-6.0) % Eos % (Auto) (1.5-5.0) % Baso % (Auto) (0.0-3.0) % Gran # (1.4-6.5) Lymph # (Auto) (1.2-3.4) [place] # (Auto) (0.1-0.6) Eos # (Auto) (0.0-0.7) Baso # (Auto) (0.0-2.0) K/mm3 pCO2 (35-45) mm/Hg pO2 (80-100) mm/Hg HCO3 (21-28) mmol/L ABG pH (7.35-7.45) ABG Total CO2 (22-28) mmol.L ABG O2 Saturation (95-98) % ABG Base Excess (-2.0-3.0) mmol/L ABG Potassium (3.6-5.2) mmol/L VBG pH (7.32-7.43) VBG pCO2 (40-60) VBG HCO3 (21-28) mmol/l VBG Total CO2 (22-28) mmol.L VBG O2 Sat (Calc) (40-65) % VBG Base Excess (0.0-2.0) mmol/L VBG Potassium (3.6-5.2) mmol/L Glucose (75-110) mg/dl Lactate (0.7-2.1) mmol/L FiO2 % Sodium (132-148) mmol/L Potassium (3.6-5.0) mmol/L Chloride (98-107) mmol/L Carbon Dioxide (21-33) mmol/L Anion Gap (10-20) BUN (7-21) mg/dL Creatinine (0.8-1.5) mg/dl Est GFR ( Amer) Est GFR (Non-Af Amer) POC Glucose (mg/dL) 117 H (65-110) mg/dL Random Glucose (70-110) mg/dL Calcium (8.4-10.5) mg/dL Phosphorus (2.5-4.5) mg/dL Magnesium (1.7-2.2) mg/dL Iron (45-180) ug/dL TIBC (261-462) ug/dL % Saturation (20-55) % Total Bilirubin (0.2-1.3) mg/dL AST (17-59) U/L ALT (7-56) U/L Alkaline Phosphatase (38-126) U/L Troponin I ng/mL Total Protein (5.8-8.3) g/dL Albumin (3.0-4.8) g/dL Globulin gm/dL Albumin/Globulin Ratio (1.1-1.8) Procalcitonin (0.19-0.49) NG/ML Arterial Blood Potassium (3.6-5.2) mmol/L Venous Blood Potassium (3.6-5.2) mmol/L Urine Color Yellow (YELLOW) Urine Appearance Clear (CLEAR) Urine pH 5.5 (4.7-8.0) Ur Specific [place] 1.020 (1.005-1.035) Urine Protein Trace H (<30 mg/dL) mg/dL Urine Glucose (UA) Negative (NEGATIVE) mg/dL Urine Ketones Negative (NEGATIVE) mg/dL Urine Blood Large H (NEGATIVE) Urine Nitrate Negative (NEGATIVE) Urine Bilirubin Negative (NEGATIVE) Urine Urobilinogen 0.2 (<1 E.U./dL) E.U./dL Ur Leukocyte Esterase Trace H (NEGATIVE) Nakul/uL Urine RBC 25 - 30 (0-2) /hpf Urine WBC 5 - 10 (0-6) /hpf Ur Epithelial Cells None (0-5) /hpf Amorphous Sediment Few Urine Bacteria Many (NEG) Coarse Granular Casts Trace H (0-2) /hpf Urine Other Uyeast Blood Type O NEGATIVE Antibody Screen Negative Crossmatch See Detail BBK History Checked Patient has bt 06/14/17 06/14/17 06/14/17 Range/Units 07:30 07:16 06:01 WBC (4.5-11.0) 10^3/ul RBC (3.5-6.1) 10^6/uL Hgb (14.0-18.0) g/dL Hct (42.0-52.0) % MCV (80.0-105.0) fl MCH (25.0-35.0) pg MCHC (31.0-37.0) g/dl RDW (11.5-14.5) % Plt Count (120.0-450.0) 10^3/uL MPV (7.0-11.0) fl Gran % (50.0-68.0) % Lymph % (Auto) (22.0-35.0) % [place] % (Auto) (1.0-6.0) % Eos % (Auto) (1.5-5.0) % Baso % (Auto) (0.0-3.0) % Gran # (1.4-6.5) Lymph # (Auto) (1.2-3.4) [place] # (Auto) (0.1-0.6) Eos # (Auto) (0.0-0.7) Baso # (Auto) (0.0-2.0) K/mm3 pCO2 23 L (35-45) mm/Hg pO2 178.0 H (80-100) mm/Hg HCO3 10.8 L (21-28) mmol/L ABG pH 7.28 L (7.35-7.45) ABG Total CO2 11.5 L (22-28) mmol.L ABG O2 Saturation 100.1 H (95-98) % ABG Base Excess -14.0 L (-2.0-3.0) mmol/L ABG Potassium 4.6 (3.6-5.2) mmol/L VBG pH (7.32-7.43) VBG pCO2 (40-60) VBG HCO3 (21-28) mmol/l VBG Total CO2 (22-28) mmol.L VBG O2 Sat (Calc) (40-65) % VBG Base Excess (0.0-2.0) mmol/L VBG Potassium (3.6-5.2) mmol/L Glucose 100 (75-110) mg/dl Lactate 0.9 (0.7-2.1) mmol/L FiO2 32.0 % Sodium 136.0 (132-148) mmol/L Potassium (3.6-5.0) mmol/L Chloride 112.0 H (98-107) mmol/L Carbon Dioxide (21-33) mmol/L Anion Gap (10-20) BUN (7-21) mg/dL Creatinine (0.8-1.5) mg/dl Est GFR ( Amer) Est GFR (Non-Af Amer) POC Glucose (mg/dL) 110 129 H (65-110) mg/dL Random Glucose (70-110) mg/dL Calcium (8.4-10.5) mg/dL Phosphorus (2.5-4.5) mg/dL Magnesium (1.7-2.2) mg/dL Iron (45-180) ug/dL TIBC (261-462) ug/dL % Saturation (20-55) % Total Bilirubin (0.2-1.3) mg/dL AST (17-59) U/L ALT (7-56) U/L Alkaline Phosphatase (38-126) U/L Troponin I ng/mL Total Protein (5.8-8.3) g/dL Albumin (3.0-4.8) g/dL Globulin gm/dL Albumin/Globulin Ratio (1.1-1.8) Procalcitonin (0.19-0.49) NG/ML Arterial Blood Potassium 4.6 (3.6-5.2) mmol/L Venous Blood Potassium (3.6-5.2) mmol/L Urine Color (YELLOW) Urine Appearance (CLEAR) Urine pH (4.7-8.0) Ur Specific [place] (1.005-1.035) Urine Protein (<30 mg/dL) mg/dL Urine Glucose (UA) (NEGATIVE) mg/dL Urine Ketones (NEGATIVE) mg/dL Urine Blood (NEGATIVE) Urine Nitrate (NEGATIVE) Urine Bilirubin (NEGATIVE) Urine Urobilinogen (<1 E.U./dL) E.U./dL Ur Leukocyte Esterase (NEGATIVE) Nakul/uL Urine RBC (0-2) /hpf Urine WBC (0-6) /hpf Ur Epithelial Cells (0-5) /hpf Amorphous Sediment Urine Bacteria (NEG) Coarse Granular Casts (0-2) /hpf Urine Other Blood Type Antibody Screen Crossmatch BBK History Checked 06/14/17 06/14/17 06/14/17 Range/Units 05:19 04:29 04:12 WBC (4.5-11.0) 10^3/ul RBC (3.5-6.1) 10^6/uL Hgb (14.0-18.0) g/dL Hct (42.0-52.0) % MCV (80.0-105.0) fl MCH (25.0-35.0) pg MCHC (31.0-37.0) g/dl RDW (11.5-14.5) % Plt Count (120.0-450.0) 10^3/uL MPV (7.0-11.0) fl Gran % (50.0-68.0) % Lymph % (Auto) (22.0-35.0) % [place] % (Auto) (1.0-6.0) % Eos % (Auto) (1.5-5.0) % Baso % (Auto) (0.0-3.0) % Gran # (1.4-6.5) Lymph # (Auto) (1.2-3.4) [place] # (Auto) (0.1-0.6) Eos # (Auto) (0.0-0.7) Baso # (Auto) (0.0-2.0) K/mm3 pCO2 (35-45) mm/Hg pO2 (80-100) mm/Hg HCO3 (21-28) mmol/L ABG pH (7.35-7.45) ABG Total CO2 (22-28) mmol.L ABG O2 Saturation (95-98) % ABG Base Excess (-2.0-3.0) mmol/L ABG Potassium (3.6-5.2) mmol/L VBG pH (7.32-7.43) VBG pCO2 (40-60) VBG HCO3 (21-28) mmol/l VBG Total CO2 (22-28) mmol.L VBG O2 Sat (Calc) (40-65) % VBG Base Excess (0.0-2.0) mmol/L VBG Potassium (3.6-5.2) mmol/L Glucose (75-110) mg/dl Lactate (0.7-2.1) mmol/L FiO2 % Sodium (132-148) mmol/L Potassium (3.6-5.0) mmol/L Chloride (98-107) mmol/L Carbon Dioxide (21-33) mmol/L Anion Gap (10-20) BUN (7-21) mg/dL Creatinine (0.8-1.5) mg/dl Est GFR ( Amer) Est GFR (Non-Af Amer) POC Glucose (mg/dL) 136 H 145 H (65-110) mg/dL Random Glucose (70-110) mg/dL Calcium (8.4-10.5) mg/dL Phosphorus (2.5-4.5) mg/dL Magnesium (1.7-2.2) mg/dL Iron (45-180) ug/dL TIBC (261-462) ug/dL % Saturation (20-55) % Total Bilirubin (0.2-1.3) mg/dL AST (17-59) U/L ALT (7-56) U/L Alkaline Phosphatase (38-126) U/L Troponin I 0.88 H* D ng/mL Total Protein (5.8-8.3) g/dL Albumin (3.0-4.8) g/dL Globulin gm/dL Albumin/Globulin Ratio (1.1-1.8) Procalcitonin (0.19-0.49) NG/ML Arterial Blood Potassium (3.6-5.2) mmol/L Venous Blood Potassium (3.6-5.2) mmol/L Urine Color (YELLOW) Urine Appearance (CLEAR) Urine pH (4.7-8.0) Ur Specific [place] (1.005-1.035) Urine Protein (<30 mg/dL) mg/dL Urine Glucose (UA) (NEGATIVE) mg/dL Urine Ketones (NEGATIVE) mg/dL Urine Blood (NEGATIVE) Urine Nitrate (NEGATIVE) Urine Bilirubin (NEGATIVE) Urine Urobilinogen (<1 E.U./dL) E.U./dL Ur Leukocyte Esterase (NEGATIVE) Nakul/uL Urine RBC (0-2) /hpf Urine WBC (0-6) /hpf Ur Epithelial Cells (0-5) /hpf Amorphous Sediment Urine Bacteria (NEG) Coarse Granular Casts (0-2) /hpf Urine Other Blood Type Antibody Screen Crossmatch BBK History Checked 06/14/17 06/14/17 06/14/17 Range/Units 04:12 04:12 03:20 WBC 9.4 D (4.5-11.0) 10^3/ul RBC 2.65 L (3.5-6.1) 10^6/uL Hgb 7.7 L (14.0-18.0) g/dL Hct 23.7 L (42.0-52.0) % MCV 89.4 (80.0-105.0) fl MCH 29.1 (25.0-35.0) pg MCHC 32.5 (31.0-37.0) g/dl RDW 19.0 H (11.5-14.5) % Plt Count 200 (120.0-450.0) 10^3/uL MPV 9.4 (7.0-11.0) fl Gran % 63.4 (50.0-68.0) % Lymph % (Auto) 22.4 (22.0-35.0) % [place] % (Auto) 7.6 H (1.0-6.0) % Eos % (Auto) 6.4 H (1.5-5.0) % Baso % (Auto) 0.2 (0.0-3.0) % Gran # 5.93 (1.4-6.5) Lymph # (Auto) 2.1 (1.2-3.4) [place] # (Auto) 0.7 H (0.1-0.6) Eos # (Auto) 0.6 (0.0-0.7) Baso # (Auto) 0.02 (0.0-2.0) K/mm3 pCO2 (35-45) mm/Hg pO2 (80-100) mm/Hg HCO3 (21-28) mmol/L ABG pH (7.35-7.45) ABG Total CO2 (22-28) mmol.L ABG O2 Saturation (95-98) % ABG Base Excess (-2.0-3.0) mmol/L ABG Potassium (3.6-5.2) mmol/L VBG pH (7.32-7.43) VBG pCO2 (40-60) VBG HCO3 (21-28) mmol/l VBG Total CO2 (22-28) mmol.L VBG O2 Sat (Calc) (40-65) % VBG Base Excess (0.0-2.0) mmol/L VBG Potassium (3.6-5.2) mmol/L Glucose (75-110) mg/dl Lactate (0.7-2.1) mmol/L FiO2 % Sodium 142 (132-148) mmol/L Potassium 5.8 H* (3.6-5.0) mmol/L Chloride 111 H (98-107) mmol/L Carbon Dioxide 12 L (21-33) mmol/L Anion Gap 25 H (10-20) BUN 122 H* (7-21) mg/dL Creatinine 6.9 H (0.8-1.5) mg/dl Est GFR ( Amer) 9 Est GFR (Non-Af Amer) 8 POC Glucose (mg/dL) 137 H (65-110) mg/dL Random Glucose 120 H (70-110) mg/dL Calcium 8.9 (8.4-10.5) mg/dL Phosphorus 7.8 H (2.5-4.5) mg/dL Magnesium 2.5 H (1.7-2.2) mg/dL Iron (45-180) ug/dL TIBC (261-462) ug/dL % Saturation (20-55) % Total Bilirubin 0.2 (0.2-1.3) mg/dL AST 40 (17-59) U/L ALT 28 (7-56) U/L Alkaline Phosphatase 76 (38-126) U/L Troponin I ng/mL Total Protein 6.7 (5.8-8.3) g/dL Albumin 3.7 (3.0-4.8) g/dL Globulin 3.0 gm/dL Albumin/Globulin Ratio 1.2 (1.1-1.8) Procalcitonin (0.19-0.49) NG/ML Arterial Blood Potassium (3.6-5.2) mmol/L Venous Blood Potassium (3.6-5.2) mmol/L Urine Color (YELLOW) Urine Appearance (CLEAR) Urine pH (4.7-8.0) Ur Specific [place] (1.005-1.035) Urine Protein (<30 mg/dL) mg/dL Urine Glucose (UA) (NEGATIVE) mg/dL Urine Ketones (NEGATIVE) mg/dL Urine Blood (NEGATIVE) Urine Nitrate (NEGATIVE) Urine Bilirubin (NEGATIVE) Urine Urobilinogen (<1 E.U./dL) E.U./dL Ur Leukocyte Esterase (NEGATIVE) Nakul/uL Urine RBC (0-2) /hpf Urine WBC (0-6) /hpf Ur Epithelial Cells (0-5) /hpf Amorphous Sediment Urine Bacteria (NEG) Coarse Granular Casts (0-2) /hpf Urine Other Blood Type Antibody Screen Crossmatch BBK History Checked 05/11/2206/14/17 06/14/17 Range/Units 02:05 01:12 00:11 WBC (4.5-11.0) 10^3/ul RBC (3.5-6.1) 10^6/uL Hgb (14.0-18.0) g/dL Hct (42.0-52.0) % MCV (80.0-105.0) fl MCH (25.0-35.0) pg MCHC (31.0-37.0) g/dl RDW (11.5-14.5) % Plt Count (120.0-450.0) 10^3/uL MPV (7.0-11.0) fl Gran % (50.0-68.0) % Lymph % (Auto) (22.0-35.0) % [place] % (Auto) (1.0-6.0) % Eos % (Auto) (1.5-5.0) % Baso % (Auto) (0.0-3.0) % Gran # (1.4-6.5) Lymph # (Auto) (1.2-3.4) [place] # (Auto) (0.1-0.6) Eos # (Auto) (0.0-0.7) Baso # (Auto) (0.0-2.0) K/mm3 pCO2 (35-45) mm/Hg pO2 (80-100) mm/Hg HCO3 (21-28) mmol/L ABG pH (7.35-7.45) ABG Total CO2 (22-28) mmol.L ABG O2 Saturation (95-98) % ABG Base Excess (-2.0-3.0) mmol/L ABG Potassium (3.6-5.2) mmol/L VBG pH (7.32-7.43) VBG pCO2 (40-60) VBG HCO3 (21-28) mmol/l VBG Total CO2 (22-28) mmol.L VBG O2 Sat (Calc) (40-65) % VBG Base Excess (0.0-2.0) mmol/L VBG Potassium (3.6-5.2) mmol/L Glucose (75-110) mg/dl Lactate (0.7-2.1) mmol/L FiO2 % Sodium (132-148) mmol/L Potassium (3.6-5.0) mmol/L Chloride (98-107) mmol/L Carbon Dioxide (21-33) mmol/L Anion Gap (10-20) BUN (7-21) mg/dL Creatinine (0.8-1.5) mg/dl Est GFR ( Amer) Est GFR (Non-Af Amer) POC Glucose (mg/dL) 136 H 158 H 139 H (65-110) mg/dL Random Glucose (70-110) mg/dL Calcium (8.4-10.5) mg/dL Phosphorus (2.5-4.5) mg/dL Magnesium (1.7-2.2) mg/dL Iron (45-180) ug/dL TIBC (261-462) ug/dL % Saturation (20-55) % Total Bilirubin (0.2-1.3) mg/dL AST (17-59) U/L ALT (7-56) U/L Alkaline Phosphatase (38-126) U/L Troponin I ng/mL Total Protein (5.8-8.3) g/dL Albumin (3.0-4.8) g/dL Globulin gm/dL Albumin/Globulin Ratio (1.1-1.8) Procalcitonin (0.19-0.49) NG/ML Arterial Blood Potassium (3.6-5.2) mmol/L Venous Blood Potassium (3.6-5.2) mmol/L Urine Color (YELLOW) Urine Appearance (CLEAR) Urine pH (4.7-8.0) Ur Specific [place] (1.005-1.035) Urine Protein (<30 mg/dL) mg/dL Urine Glucose (UA) (NEGATIVE) mg/dL Urine Ketones (NEGATIVE) mg/dL Urine Blood (NEGATIVE) Urine Nitrate (NEGATIVE) Urine Bilirubin (NEGATIVE) Urine Urobilinogen (<1 E.U./dL) E.U./dL Ur Leukocyte Esterase (NEGATIVE) Nakul/uL Urine RBC (0-2) /hpf Urine WBC (0-6) /hpf Ur Epithelial Cells (0-5) /hpf Amorphous Sediment Urine Bacteria (NEG) Coarse Granular Casts (0-2) /hpf Urine Other Blood Type Antibody Screen Crossmatch BBK History Checked 06/13/17 06/13/17 06/13/17 Range/Units 23:50 23:50 22:28 WBC (4.5-11.0) 10^3/ul RBC (3.5-6.1) 10^6/uL Hgb (14.0-18.0) g/dL Hct (42.0-52.0) % MCV (80.0-105.0) fl MCH (25.0-35.0) pg MCHC (31.0-37.0) g/dl RDW (11.5-14.5) % Plt Count (120.0-450.0) 10^3/uL MPV (7.0-11.0) fl Gran % (50.0-68.0) % Lymph % (Auto) (22.0-35.0) % [place] % (Auto) (1.0-6.0) % Eos % (Auto) (1.5-5.0) % Baso % (Auto) (0.0-3.0) % Gran # (1.4-6.5) Lymph # (Auto) (1.2-3.4) [place] # (Auto) (0.1-0.6) Eos # (Auto) (0.0-0.7) Baso # (Auto) (0.0-2.0) K/mm3 pCO2 (35-45) mm/Hg pO2 (80-100) mm/Hg HCO3 (21-28) mmol/L ABG pH (7.35-7.45) ABG Total CO2 (22-28) mmol.L ABG O2 Saturation (95-98) % ABG Base Excess (-2.0-3.0) mmol/L ABG Potassium (3.6-5.2) mmol/L VBG pH (7.32-7.43) VBG pCO2 (40-60) VBG HCO3 (21-28) mmol/l VBG Total CO2 (22-28) mmol.L VBG O2 Sat (Calc) (40-65) % VBG Base Excess (0.0-2.0) mmol/L VBG Potassium (3.6-5.2) mmol/L Glucose (75-110) mg/dl Lactate (0.7-2.1) mmol/L FiO2 % Sodium 139 (132-148) mmol/L Potassium 7.2 H* (3.6-5.0) mmol/L Chloride 111 H (98-107) mmol/L Carbon Dioxide 8 L (21-33) mmol/L Anion Gap 27 H (10-20) BUN 124 H* (7-21) mg/dL Creatinine 7.1 H (0.8-1.5) mg/dl Est GFR ( Amer) 9 Est GFR (Non-Af Amer) 7 POC Glucose (mg/dL) 152 H (65-110) mg/dL Random Glucose 129 H (70-110) mg/dL Calcium 8.9 (8.4-10.5) mg/dL Phosphorus (2.5-4.5) mg/dL Magnesium (1.7-2.2) mg/dL Iron (45-180) ug/dL TIBC (261-462) ug/dL % Saturation (20-55) % Total Bilirubin 0.1 L (0.2-1.3) mg/dL AST 25 (17-59) U/L ALT 36 (7-56) U/L Alkaline Phosphatase 90 (38-126) U/L Troponin I ng/mL Total Protein 7.5 (5.8-8.3) g/dL Albumin 4.2 (3.0-4.8) g/dL Globulin 3.2 gm/dL Albumin/Globulin Ratio 1.3 (1.1-1.8) Procalcitonin 0.24 (0.19-0.49) NG/ML Arterial Blood Potassium (3.6-5.2) mmol/L Venous Blood Potassium (3.6-5.2) mmol/L Urine Color (YELLOW) Urine Appearance (CLEAR) Urine pH (4.7-8.0) Ur Specific [place] (1.005-1.035) Urine Protein (<30 mg/dL) mg/dL Urine Glucose (UA) (NEGATIVE) mg/dL Urine Ketones (NEGATIVE) mg/dL Urine Blood (NEGATIVE) Urine Nitrate (NEGATIVE) Urine Bilirubin (NEGATIVE) Urine Urobilinogen (<1 E.U./dL) E.U./dL Ur Leukocyte Esterase (NEGATIVE) [place]/uL Urine RBC (0-2) /hpf Urine WBC (0-6) /hpf Ur Epithelial Cells (0-5) /hpf Amorphous Sediment Urine Bacteria (NEG) Coarse Granular Casts (0-2) /hpf Urine Other Blood Type Antibody Screen Crossmatch BBK History Checked 06/13/17 Range/Units 21:14 WBC (4.5-11.0) 10^3/ul RBC (3.5-6.1) 10^6/uL Hgb (14.0-18.0) g/dL Hct (42.0-52.0) % MCV (80.0-105.0) fl MCH (25.0-35.0) pg MCHC (31.0-37.0) g/dl RDW (11.5-14.5) % Plt Count (120.0-450.0) 10^3/uL MPV (7.0-11.0) fl Gran % (50.0-68.0) % Lymph % (Auto) (22.0-35.0) % [place] % (Auto) (1.0-6.0) % Eos % (Auto) (1.5-5.0) % Baso % (Auto) (0.0-3.0) % Gran # (1.4-6.5) Lymph # (Auto) (1.2-3.4) [place] # (Auto) (0.1-0.6) Eos # (Auto) (0.0-0.7) Baso # (Auto) (0.0-2.0) K/mm3 pCO2 (35-45) mm/Hg pO2 (80-100) mm/Hg HCO3 (21-28) mmol/L ABG pH (7.35-7.45) ABG Total CO2 (22-28) mmol.L ABG O2 Saturation (95-98) % ABG Base Excess (-2.0-3.0) mmol/L ABG Potassium (3.6-5.2) mmol/L VBG pH (7.32-7.43) VBG pCO2 (40-60) VBG HCO3 (21-28) mmol/l VBG Total CO2 (22-28) mmol.L VBG O2 Sat (Calc) (40-65) % VBG Base Excess (0.0-2.0) mmol/L VBG Potassium (3.6-5.2) mmol/L Glucose (75-110) mg/dl Lactate (0.7-2.1) mmol/L FiO2 % Sodium (132-148) mmol/L Potassium (3.6-5.0) mmol/L Chloride (98-107) mmol/L Carbon Dioxide (21-33) mmol/L Anion Gap (10-20) BUN (7-21) mg/dL Creatinine (0.8-1.5) mg/dl Est GFR ( Amer) Est GFR (Non-Af Amer) POC Glucose (mg/dL) 126 H (65-110) mg/dL Random Glucose (70-110) mg/dL Calcium (8.4-10.5) mg/dL Phosphorus (2.5-4.5) mg/dL Magnesium (1.7-2.2) mg/dL Iron (45-180) ug/dL TIBC (261-462) ug/dL % Saturation (20-55) % Total Bilirubin (0.2-1.3) mg/dL AST (17-59) U/L ALT (7-56) U/L Alkaline Phosphatase (38-126) U/L Troponin I ng/mL Total Protein (5.8-8.3) g/dL Albumin (3.0-4.8) g/dL Globulin gm/dL Albumin/Globulin Ratio (1.1-1.8) Procalcitonin (0.19-0.49) NG/ML Arterial Blood Potassium (3.6-5.2) mmol/L Venous Blood Potassium (3.6-5.2) mmol/L Urine Color (YELLOW) Urine Appearance (CLEAR) Urine pH (4.7-8.0) Ur Specific [place] (1.005-1.035) Urine Protein (<30 mg/dL) mg/dL Urine Glucose (UA) (NEGATIVE) mg/dL Urine Ketones (NEGATIVE) mg/dL Urine Blood (NEGATIVE) Urine Nitrate (NEGATIVE) Urine Bilirubin (NEGATIVE) Urine Urobilinogen (<1 E.U./dL) E.U./dL Ur Leukocyte Esterase (NEGATIVE) [place]/uL Urine RBC (0-2) /hpf Urine WBC (0-6) /hpf Ur Epithelial Cells (0-5) /hpf Amorphous Sediment Urine Bacteria (NEG) Coarse Granular Casts (0-2) /hpf Urine Other Blood Type Antibody Screen Crossmatch BBK History Checked Laboratory Results - last 24 hr 06/13/17 06/13/17 06/13/17 21:14 22:28 23:50 WBC RBC Hgb Hct MCV MCH MCHC RDW Plt Count MPV Gran % Lymph % (Auto) [place] % (Auto) Eos % (Auto) Baso % (Auto) Gran # Lymph # (Auto) [place] # (Auto) Eos # (Auto) Baso # (Auto) pCO2 pO2 HCO3 ABG pH ABG Total CO2 ABG O2 Saturation ABG Base Excess ABG Potassium VBG pH VBG pCO2 VBG HCO3 VBG Total CO2 VBG O2 Sat (Calc) VBG Base Excess VBG Potassium Glucose Lactate FiO2 Sodium 139 Potassium 7.2 H* Chloride 111 H Carbon Dioxide 8 L Anion Gap 27 H BUN 124 H* Creatinine 7.1 H Est GFR ( Amer) 9 Est GFR (Non-Af Amer) 7 POC Glucose (mg/dL) 126 H 152 H Random Glucose 129 H Calcium 8.9 Phosphorus Magnesium Iron TIBC % Saturation Total Bilirubin 0.1 L AST 25 ALT 36 Alkaline Phosphatase 90 Troponin I Total Protein 7.5 Albumin 4.2 Globulin 3.2 Albumin/Globulin Ratio 1.3 Procalcitonin Arterial Blood Potassium Venous Blood Potassium Urine Color Urine Appearance Urine pH Ur Specific [place] Urine Protein Urine Glucose (UA) Urine Ketones Urine Blood Urine Nitrate Urine Bilirubin Urine Urobilinogen Ur Leukocyte Esterase Urine RBC Urine WBC Ur Epithelial Cells Amorphous Sediment Urine Bacteria Coarse Granular Casts Urine Other Blood Type Antibody Screen Crossmatch BBK History Checked 06/13/17 06/14/17 06/14/17 23:50 00:11 01:12 WBC RBC Hgb Hct MCV MCH MCHC RDW Plt Count MPV Gran % Lymph % (Auto) [place] % (Auto) Eos % (Auto) Baso % (Auto) Gran # Lymph # (Auto) [place] # (Auto) Eos # (Auto) Baso # (Auto) pCO2 pO2 HCO3 ABG pH ABG Total CO2 ABG O2 Saturation ABG Base Excess ABG Potassium VBG pH VBG pCO2 VBG HCO3 VBG Total CO2 VBG O2 Sat (Calc) VBG Base Excess VBG Potassium Glucose Lactate FiO2 Sodium Potassium Chloride Carbon Dioxide Anion Gap BUN Creatinine Est GFR ( Amer) Est GFR (Non-Af Amer) POC Glucose (mg/dL) 139 H 158 H Random Glucose Calcium Phosphorus Magnesium Iron TIBC % Saturation Total Bilirubin AST ALT Alkaline Phosphatase Troponin I Total Protein Albumin Globulin Albumin/Globulin Ratio Procalcitonin 0.24 Arterial Blood Potassium Venous Blood Potassium Urine Color Urine Appearance Urine pH Ur Specific [place] Urine Protein Urine Glucose (UA) Urine Ketones Urine Blood Urine Nitrate Urine Bilirubin Urine Urobilinogen Ur Leukocyte Esterase Urine RBC Urine WBC Ur Epithelial Cells Amorphous Sediment Urine Bacteria Coarse Granular Casts Urine Other Blood Type Antibody Screen Crossmatch BBK History Checked 06/14/17 06/14/17 06/14/17 02:05 03:20 04:12 WBC RBC Hgb Hct MCV MCH MCHC RDW Plt Count MPV Gran % Lymph % (Auto) [place] % (Auto) Eos % (Auto) Baso % (Auto) Gran # Lymph # (Auto) [place] # (Auto) Eos # (Auto) Baso # (Auto) pCO2 pO2 HCO3 ABG pH ABG Total CO2 ABG O2 Saturation ABG Base Excess ABG Potassium VBG pH VBG pCO2 VBG HCO3 VBG Total CO2 VBG O2 Sat (Calc) VBG Base Excess VBG Potassium Glucose Lactate FiO2 Sodium 142 Potassium 5.8 H* Chloride 111 H Carbon Dioxide 12 L Anion Gap 25 H BUN 122 H* Creatinine 6.9 H Est GFR ( Amer) 9 Est GFR (Non-Af Amer) 8 POC Glucose (mg/dL) 136 H 137 H Random Glucose 120 H Calcium 8.9 Phosphorus 7.8 H Magnesium 2.5 H Iron TIBC % Saturation Total Bilirubin 0.2 AST 40 ALT 28 Alkaline Phosphatase 76 Troponin I Total Protein 6.7 Albumin 3.7 Globulin 3.0 Albumin/Globulin Ratio 1.2 Procalcitonin Arterial Blood Potassium Venous Blood Potassium Urine Color Urine Appearance Urine pH Ur Specific [place] Urine Protein Urine Glucose (UA) Urine Ketones Urine Blood Urine Nitrate Urine Bilirubin Urine Urobilinogen Ur Leukocyte Esterase Urine RBC Urine WBC Ur Epithelial Cells Amorphous Sediment Urine Bacteria Coarse Granular Casts Urine Other Blood Type Antibody Screen Crossmatch BBK History Checked 06/14/17 06/14/17 06/14/17 04:12 04:12 04:29 WBC 9.4 D RBC 2.65 L Hgb 7.7 L Hct 23.7 L MCV 89.4 MCH 29.1 MCHC 32.5 RDW 19.0 H Plt Count 200 MPV 9.4 Gran % 63.4 Lymph % (Auto) 22.4 [place] % (Auto) 7.6 H Eos % (Auto) 6.4 H Baso % (Auto) 0.2 Gran # 5.93 Lymph # (Auto) 2.1 [place] # (Auto) 0.7 H Eos # (Auto) 0.6 Baso # (Auto) 0.02 pCO2 pO2 HCO3 ABG pH ABG Total CO2 ABG O2 Saturation ABG Base Excess ABG Potassium VBG pH VBG pCO2 VBG HCO3 VBG Total CO2 VBG O2 Sat (Calc) VBG Base Excess VBG Potassium Glucose Lactate FiO2 Sodium Potassium Chloride Carbon Dioxide Anion Gap BUN Creatinine Est GFR ( Amer) Est GFR (Non-Af Amer) POC Glucose (mg/dL) 145 H Random Glucose Calcium Phosphorus Magnesium Iron TIBC % Saturation Total Bilirubin AST ALT Alkaline Phosphatase Troponin I 0.88 H* D Total Protein Albumin Globulin Albumin/Globulin Ratio Procalcitonin Arterial Blood Potassium Venous Blood Potassium Urine Color Urine Appearance Urine pH Ur Specific [place] Urine Protein Urine Glucose (UA) Urine Ketones Urine Blood Urine Nitrate Urine Bilirubin Urine Urobilinogen Ur Leukocyte Esterase Urine RBC Urine WBC Ur Epithelial Cells Amorphous Sediment Urine Bacteria Coarse Granular Casts Urine Other Blood Type Antibody Screen Crossmatch BBK History Checked 06/14/17 06/14/17 06/14/17 05:19 06:01 07:16 WBC RBC Hgb Hct MCV MCH MCHC RDW Plt Count MPV Gran % Lymph % (Auto) [place] % (Auto) Eos % (Auto) Baso % (Auto) Gran # Lymph # (Auto) [place] # (Auto) Eos # (Auto) Baso # (Auto) pCO2 pO2 HCO3 ABG pH ABG Total CO2 ABG O2 Saturation ABG Base Excess ABG Potassium VBG pH VBG pCO2 VBG HCO3 VBG Total CO2 VBG O2 Sat (Calc) VBG Base Excess VBG Potassium Glucose Lactate FiO2 Sodium Potassium Chloride Carbon Dioxide Anion Gap BUN Creatinine Est GFR ( Amer) Est GFR (Non-Af Amer) POC Glucose (mg/dL) 136 H 129 H 110 Random Glucose Calcium Phosphorus Magnesium Iron TIBC % Saturation Total Bilirubin AST ALT Alkaline Phosphatase Troponin I Total Protein Albumin Globulin Albumin/Globulin Ratio Procalcitonin Arterial Blood Potassium Venous Blood Potassium Urine Color Urine Appearance Urine pH Ur Specific [place] Urine Protein Urine Glucose (UA) Urine Ketones Urine Blood Urine Nitrate Urine Bilirubin Urine Urobilinogen Ur Leukocyte Esterase Urine RBC Urine WBC Ur Epithelial Cells Amorphous Sediment Urine Bacteria Coarse Granular Casts Urine Other Blood Type Antibody Screen Crossmatch BBK History Checked 06/14/17 06/14/17 06/14/17 07:30 08:01 09:15 WBC RBC Hgb Hct MCV MCH MCHC RDW Plt Count MPV Gran % Lymph % (Auto) [place] % (Auto) Eos % (Auto) Baso % (Auto) Gran # Lymph # (Auto) [place] # (Auto) Eos # (Auto) Baso # (Auto) pCO2 23 L pO2 178.0 H HCO3 10.8 L ABG pH 7.28 L ABG Total CO2 11.5 L ABG O2 Saturation 100.1 H ABG Base Excess -14.0 L ABG Potassium 4.6 VBG pH VBG pCO2 VBG HCO3 VBG Total CO2 VBG O2 Sat (Calc) VBG Base Excess VBG Potassium Glucose 100 Lactate 0.9 FiO2 32.0 Sodium 136.0 Potassium Chloride 112.0 H Carbon Dioxide Anion Gap BUN Creatinine Est GFR ( Amer) Est GFR (Non-Af Amer) POC Glucose (mg/dL) 117 H Random Glucose Calcium Phosphorus Magnesium Iron TIBC % Saturation Total Bilirubin AST ALT Alkaline Phosphatase Troponin I Total Protein Albumin Globulin Albumin/Globulin Ratio Procalcitonin Arterial Blood Potassium 4.6 Venous Blood Potassium Urine Color Yellow Urine Appearance Clear Urine pH 5.5 Ur Specific [place] 1.020 Urine Protein Trace H Urine Glucose (UA) Negative Urine Ketones Negative Urine Blood Large H Urine Nitrate Negative Urine Bilirubin Negative Urine Urobilinogen 0.2 Ur Leukocyte Esterase Trace H Urine RBC 25 - 30 Urine WBC 5 - 10 Ur Epithelial Cells None Amorphous Sediment Few Urine Bacteria Many Coarse Granular Casts Trace H Urine Other Uyeast Blood Type Antibody Screen Crossmatch BBK History Checked 06/14/17 06/14/17 06/14/17 09:40 10:00 10:00 WBC RBC Hgb Hct MCV MCH MCHC RDW Plt Count MPV Gran % Lymph % (Auto) [place] % (Auto) Eos % (Auto) Baso % (Auto) Gran # Lymph # (Auto) [place] # (Auto) Eos # (Auto) Baso # (Auto) pCO2 pO2 HCO3 ABG pH ABG Total CO2 ABG O2 Saturation ABG Base Excess ABG Potassium VBG pH VBG pCO2 VBG HCO3 VBG Total CO2 VBG O2 Sat (Calc) VBG Base Excess VBG Potassium Glucose Lactate FiO2 Sodium 142 Potassium 5.0 Chloride 111 H Carbon Dioxide 13 L Anion Gap 24 H BUN 118 H Creatinine 6.2 H Est GFR ( Amer) 11 Est GFR (Non-Af Amer) 9 POC Glucose (mg/dL) Random Glucose 110 Calcium 8.7 Phosphorus Magnesium Iron 20 L TIBC 340 % Saturation 6 L Total Bilirubin AST ALT Alkaline Phosphatase Troponin I Total Protein Albumin Globulin Albumin/Globulin Ratio Procalcitonin Arterial Blood Potassium Venous Blood Potassium Urine Color Urine Appearance Urine pH Ur Specific [place] Urine Protein Urine Glucose (UA) Urine Ketones Urine Blood Urine Nitrate Urine Bilirubin Urine Urobilinogen Ur Leukocyte Esterase Urine RBC Urine WBC Ur Epithelial Cells Amorphous Sediment Urine Bacteria Coarse Granular Casts Urine Other Blood Type O NEGATIVE Antibody Screen Negative Crossmatch See Detail BBK History Checked Patient has bt 06/14/17 13:00 WBC RBC Hgb Hct MCV MCH MCHC RDW Plt Count MPV Gran % Lymph % (Auto) [place] % (Auto) Eos % (Auto) Baso % (Auto) Gran # Lymph # (Auto) [place] # (Auto) Eos # (Auto) Baso # (Auto) pCO2 pO2 43 HCO3 ABG pH ABG Total CO2 ABG O2 Saturation ABG Base Excess ABG Potassium VBG pH 7.22 L VBG pCO2 35.0 L VBG HCO3 14.3 L VBG Total CO2 15.4 L VBG O2 Sat (Calc) 84.1 H VBG Base Excess -12.5 L VBG Potassium 5.1 Glucose 164 H Lactate 1.2 FiO2 21.0 Sodium 136.0 Potassium Chloride 111.0 H Carbon Dioxide Anion Gap BUN Creatinine Est GFR ( Amer) Est GFR (Non-Af Amer) POC Glucose (mg/dL) Random Glucose Calcium Phosphorus Magnesium Iron TIBC % Saturation Total Bilirubin AST ALT Alkaline Phosphatase Troponin I Total Protein Albumin Globulin Albumin/Globulin Ratio Procalcitonin Arterial Blood Potassium Venous Blood Potassium 5.1 Urine Color Urine Appearance Urine pH Ur Specific [place] Urine Protein Urine Glucose (UA) Urine Ketones Urine Blood Urine Nitrate Urine Bilirubin Urine Urobilinogen Ur Leukocyte Esterase Urine RBC Urine WBC Ur Epithelial Cells Amorphous Sediment Urine Bacteria Coarse Granular Casts Urine Other Blood Type Antibody Screen Crossmatch BBK History Checked EKG/Cardiology Studies: Cardiology / EKG Studies 06/14/17 07:11 EKG [ELECTROCARDIOGRAM] Stat Comment: Reason For Exam: ST seg depression and hyperkalmeia Fingerstick Blood Sugar Results: 145 Critical Care Progress Note - Nutrition Nutrition: Nutrition Category Date Time Status Heart Healthy Diet [DIET] Diets 06/14/17 Lunch Ordered Assessment/Plan - Assessment and Plan (Free Text) Assessment: 81 yo M with PMH of HTN, DM, CAD s/p 5 stents, and CABG admitted to the ICU due to NSTEMI, severe dehydration, and BLANKA on CKD. Patient was transfused 2 units of pRBC due to an acute drop in Hgb in setting of chronic anemia and due to NSTEMI and renal failure. Plan: Neuro: - AAO x3 - Maintain normothermia CV: - EKG reviewed, showed accelreated junctional rhythm with intermittent PVC - Trop 0.25, 0.88 - BNP 7300 - Echo (04/2017) showed LVEF of 51% - Nitro gtt currently held - Cont Lipitor, Lopressor, and ASA - Maintain MAP > 65 - Cardiology consulted - No intervention at this time due to acute renal failure Pulm: - CXR negative - Maintain O2 sat > 90% - O2 via NC GI: - Heart healthy diet - Protonix for GI PPx - GI consulted Renal: - Renal US showed medical renal disease - Hyperkalemia resolved after D50/insulin, insulin gtt, and bicarb gtt - Calcium gluconate given in ED to stabilize cardiac membrane in setting of hyperkalemia - Creatinine improving - Cont to monitor - 675 ml urine output overnight (12hrs), will target 0.5 ml/kg/hr UO - Cont D5W with bicarb drip - Maintain euvolemia Heme: - Iron studies consistent with iron-deficiency anemia - 2 units pRBC transfused - Monitor H/H Endo: - Maintain euglycemia ID: - UA showed trace leukocyte esterase and yeast - ID consulted Pt seen and discussed in detail with Dr. Ferguson. Oscar Fernández, PGY1 <Yfn Ferguson - Last Filed: 06/14/17 16:26> CCU Objective - Vital Signs / Intake & Output Vital Signs (Last 4 hours): Vital Signs Temp Pulse Resp BP Pulse Ox 06/14/17 15:59 97.4 F L 100 H 15 114/64 06/14/17 15:54 97.6 F 06/14/17 15:45 102 H 129/52 L 100 06/14/17 15:40 97.6 F 99 H 17 96/44 L 100 06/14/17 15:30 96/44 L 06/14/17 15:29 100 H 12 100 06/14/17 15:20 99 H 17 100 06/14/17 15:15 101/49 L 06/14/17 15:14 100 H 13 100 06/14/17 15:10 100 H 13 100 06/14/17 15:00 100 H 12 97/56 L 100 06/14/17 14:52 97.4 F L 99 H 15 100/63 06/14/17 14:50 101 H 13 100 06/14/17 14:45 101 H 12 100/63 100 06/14/17 14:40 99 H 12 100 06/14/17 14:37 99 H 11 L 107/57 L 100 06/14/17 14:30 99 H 13 97/51 L 100 06/14/17 14:20 100 H 11 L 100 06/14/17 14:15 103/57 L 06/14/17 14:14 100 H 11 L 100 06/14/17 14:10 99 H 10 L 100 06/14/17 14:00 97 H 14 107/56 L 100 06/14/17 13:50 98 H 14 100 06/14/17 13:49 107/69 06/14/17 13:48 98 H 17 06/14/17 13:40 96 H 17 100 06/14/17 13:30 98 H 13 93/49 L 97 06/14/17 13:20 100 H 11 L 100 06/14/17 13:15 98 H 15 98/42 L 100 06/14/17 13:10 100 H 12 100 06/14/17 13:00 99 H 12 95/40 L 98 06/14/17 12:50 97 H 16 99 06/14/17 12:45 97 H 129/96 H 92 L 06/14/17 12:40 98 H 15 100 06/14/17 12:30 97.4 F L 99 H 15 108/62 97 06/14/17 12:28 100 H 14 119/58 L 99 Intake and Output (Last 8hrs): Intake & Output 06/14/17 06/14/17 06/14/17 06:59 14:59 22:59 Intake Total 279 0 Output Total 175 Balance 104 0 Intake: Blood Product 279 0 Apheresis Rbc Cp2d As3 Lr 279 1st Unit [id number] Apheresis Rbc Cp2d As3 Lr 0 2nd Unit [id number] Output: Urine 175 Urethral ([place]) 175 - Medications Active Medications: Active Medications Generic Name Dose Route Start Last Admin Trade Name Freq PRN Reason Stop Dose Admin Aspirin 81 mg 06/14/17 10:00 06/14/17 10:27 Aspirin Chewable PO 81 mg DAILY NIYA Administration Atorvastatin Calcium 40 mg 06/14/17 17:00 Lipitor PO DIN NIYA Nitroglycerin/Dextrose 50 mg in 250 mls @ 1.5 mls/hr 06/13/17 18:38 Nitroglycerin 50 Mg/250 Ml D5w IV .Q24H PRN chest pain Protocol 5 MCG/MIN Sodium Bicarbonate 150 meq/ 1,150 mls @ 100 mls/hr 06/14/17 07:24 06/14/17 07 :30 Dextrose IV 100 mls/hr .[id number] NIYA Administration Metoprolol Tartrate 2.5 mg 06/14/17 10:00 06/14/17 10:27 Lopressor IV 2.5 mg Q8H NIYA Administration Pantoprazole Sodium 40 mg 06/14/17 10:00 06/14/17 10:29 Protonix Inj IVP 40 mg DAILY NIYA Administration - Patient Studies Lab Studies: Lab Studies 06/14/17 06/14/17 06/14/17 Range/Units 15:56 13:49 13:00 WBC (4.5-11.0) 10^3/ul RBC (3.5-6.1) 10^6/uL Hgb (14.0-18.0) g/dL Hct (42.0-52.0) % MCV (80.0-105.0) fl MCH (25.0-35.0) pg MCHC (31.0-37.0) g/dl RDW (11.5-14.5) % Plt Count (120.0-450.0) 10^3/uL MPV (7.0-11.0) fl Gran % (50.0-68.0) % Lymph % (Auto) (22.0-35.0) % [place] % (Auto) (1.0-6.0) % Eos % (Auto) (1.5-5.0) % Baso % (Auto) (0.0-3.0) % Gran # (1.4-6.5) Lymph # (Auto) (1.2-3.4) [place] # (Auto) (0.1-0.6) Eos # (Auto) (0.0-0.7) Baso # (Auto) (0.0-2.0) K/mm3 pCO2 (35-45) mm/Hg pO2 43 (80-100) mm/Hg HCO3 (21-28) mmol/L ABG pH (7.35-7.45) ABG Total CO2 (22-28) mmol.L ABG O2 Saturation (95-98) % ABG Base Excess (-2.0-3.0) mmol/L ABG Potassium (3.6-5.2) mmol/L VBG pH 7.22 L (7.32-7.43) VBG pCO2 35.0 L (40-60) VBG HCO3 14.3 L (21-28) mmol/l VBG Total CO2 15.4 L (22-28) mmol.L VBG O2 Sat (Calc) 84.1 H (40-65) % VBG Base Excess -12.5 L (0.0-2.0) mmol/L VBG Potassium 5.1 (3.6-5.2) mmol/L Glucose 164 H (75-110) mg/dl Lactate 1.2 (0.7-2.1) mmol/L FiO2 21.0 % Sodium 136.0 (132-148) mmol/L Potassium (3.6-5.0) mmol/L Chloride 111.0 H (98-107) mmol/L Carbon Dioxide (21-33) mmol/L Anion Gap (10-20) BUN (7-21) mg/dL Creatinine (0.8-1.5) mg/dl Est GFR ( Amer) Est GFR (Non-Af Amer) POC Glucose (mg/dL) 128 H 149 H (65-110) mg/dL Random Glucose (70-110) mg/dL Calcium (8.4-10.5) mg/dL Phosphorus (2.5-4.5) mg/dL Magnesium (1.7-2.2) mg/dL Iron (45-180) ug/dL TIBC (261-462) ug/dL % Saturation (20-55) % Total Bilirubin (0.2-1.3) mg/dL AST (17-59) U/L ALT (7-56) U/L Alkaline Phosphatase (38-126) U/L Troponin I ng/mL Total Protein (5.8-8.3) g/dL Albumin (3.0-4.8) g/dL Globulin gm/dL Albumin/Globulin Ratio (1.1-1.8) Procalcitonin (0.19-0.49) NG/ML Arterial Blood Potassium (3.6-5.2) mmol/L Venous Blood Potassium 5.1 (3.6-5.2) mmol/L Urine Color (YELLOW) Urine Appearance (CLEAR) Urine pH (4.7-8.0) Ur Specific [place] (1.005-1.035) Urine Protein (<30 mg/dL) mg/dL Urine Glucose (UA) (NEGATIVE) mg/dL Urine Ketones (NEGATIVE) mg/dL Urine Blood (NEGATIVE) Urine Nitrate (NEGATIVE) Urine Bilirubin (NEGATIVE) Urine Urobilinogen (<1 E.U./dL) E.U./dL Ur Leukocyte Esterase (NEGATIVE) [place]/uL Urine RBC (0-2) /hpf Urine WBC (0-6) /hpf Ur Epithelial Cells (0-5) /hpf Amorphous Sediment Urine Bacteria (NEG) Coarse Granular Casts (0-2) /hpf Urine Other Blood Type Antibody Screen Crossmatch BBK History Checked 06/14/17 06/14/17 06/14/17 Range/Units 13:00 11:45 10:01 WBC (4.5-11.0) 10^3/ul RBC (3.5-6.1) 10^6/uL Hgb (14.0-18.0) g/dL Hct (42.0-52.0) % MCV (80.0-105.0) fl MCH (25.0-35.0) pg MCHC (31.0-37.0) g/dl RDW (11.5-14.5) % Plt Count (120.0-450.0) 10^3/uL MPV (7.0-11.0) fl Gran % (50.0-68.0) % Lymph % (Auto) (22.0-35.0) % [place] % (Auto) (1.0-6.0) % Eos % (Auto) (1.5-5.0) % Baso % (Auto) (0.0-3.0) % Gran # (1.4-6.5) Lymph # (Auto) (1.2-3.4) [place] # (Auto) (0.1-0.6) Eos # (Auto) (0.0-0.7) Baso # (Auto) (0.0-2.0) K/mm3 pCO2 (35-45) mm/Hg pO2 (80-100) mm/Hg HCO3 (21-28) mmol/L ABG pH (7.35-7.45) ABG Total CO2 (22-28) mmol.L ABG O2 Saturation (95-98) % ABG Base Excess (-2.0-3.0) mmol/L ABG Potassium (3.6-5.2) mmol/L VBG pH (7.32-7.43) VBG pCO2 (40-60) VBG HCO3 (21-28) mmol/l VBG Total CO2 (22-28) mmol.L VBG O2 Sat (Calc) (40-65) % VBG Base Excess (0.0-2.0) mmol/L VBG Potassium (3.6-5.2) mmol/L Glucose (75-110) mg/dl Lactate (0.7-2.1) mmol/L FiO2 % Sodium 143 (132-148) mmol/L Potassium 5.1 H (3.6-5.0) mmol/L Chloride 111 H (98-107) mmol/L Carbon Dioxide 13 L (21-33) mmol/L Anion Gap 24 H (10-20) BUN 115 H (7-21) mg/dL Creatinine 6.2 H (0.8-1.5) mg/dl Est GFR ( Amer) 11 Est GFR (Non-Af Amer) 9 POC Glucose (mg/dL) 128 H 129 H (65-110) mg/dL Random Glucose 150 H (70-110) mg/dL Calcium 8.4 (8.4-10.5) mg/dL Phosphorus (2.5-4.5) mg/dL Magnesium (1.7-2.2) mg/dL Iron (45-180) ug/dL TIBC (261-462) ug/dL % Saturation (20-55) % Total Bilirubin (0.2-1.3) mg/dL AST (17-59) U/L ALT (7-56) U/L Alkaline Phosphatase (38-126) U/L Troponin I ng/mL Total Protein (5.8-8.3) g/dL Albumin (3.0-4.8) g/dL Globulin gm/dL Albumin/Globulin Ratio (1.1-1.8) Procalcitonin (0.19-0.49) NG/ML Arterial Blood Potassium (3.6-5.2) mmol/L Venous Blood Potassium (3.6-5.2) mmol/L Urine Color (YELLOW) Urine Appearance (CLEAR) Urine pH (4.7-8.0) Ur Specific [place] (1.005-1.035) Urine Protein (<30 mg/dL) mg/dL Urine Glucose (UA) (NEGATIVE) mg/dL Urine Ketones (NEGATIVE) mg/dL Urine Blood (NEGATIVE) Urine Nitrate (NEGATIVE) Urine Bilirubin (NEGATIVE) Urine Urobilinogen (<1 E.U./dL) E.U./dL Ur Leukocyte Esterase (NEGATIVE) [place]/uL Urine RBC (0-2) /hpf Urine WBC (0-6) /hpf Ur Epithelial Cells (0-5) /hpf Amorphous Sediment Urine Bacteria (NEG) Coarse Granular Casts (0-2) /hpf Urine Other Blood Type Antibody Screen Crossmatch BBK History Checked 06/14/17 06/14/17 06/14/17 Range/Units 10:00 10:00 09:40 WBC (4.5-11.0) 10^3/ul RBC (3.5-6.1) 10^6/uL Hgb (14.0-18.0) g/dL Hct (42.0-52.0) % MCV (80.0-105.0) fl MCH (25.0-35.0) pg MCHC (31.0-37.0) g/dl RDW (11.5-14.5) % Plt Count (120.0-450.0) 10^3/uL MPV (7.0-11.0) fl Gran % (50.0-68.0) % Lymph % (Auto) (22.0-35.0) % [place] % (Auto) (1.0-6.0) % Eos % (Auto) (1.5-5.0) % Baso % (Auto) (0.0-3.0) % Gran # (1.4-6.5) Lymph # (Auto) (1.2-3.4) [place] # (Auto) (0.1-0.6) Eos # (Auto) (0.0-0.7) Baso # (Auto) (0.0-2.0) K/mm3 pCO2 (35-45) mm/Hg pO2 (80-100) mm/Hg HCO3 (21-28) mmol/L ABG pH (7.35-7.45) ABG Total CO2 (22-28) mmol.L ABG O2 Saturation (95-98) % ABG Base Excess (-2.0-3.0) mmol/L ABG Potassium (3.6-5.2) mmol/L VBG pH (7.32-7.43) VBG pCO2 (40-60) VBG HCO3 (21-28) mmol/l VBG Total CO2 (22-28) mmol.L VBG O2 Sat (Calc) (40-65) % VBG Base Excess (0.0-2.0) mmol/L VBG Potassium (3.6-5.2) mmol/L Glucose (75-110) mg/dl Lactate (0.7-2.1) mmol/L FiO2 % Sodium 142 (132-148) mmol/L Potassium 5.0 (3.6-5.0) mmol/L Chloride 111 H (98-107) mmol/L Carbon Dioxide 13 L (21-33) mmol/L Anion Gap 24 H (10-20) BUN 118 H (7-21) mg/dL Creatinine 6.2 H (0.8-1.5) mg/dl Est GFR ( Amer) 11 Est GFR (Non-Af Amer) 9 POC Glucose (mg/dL) (65-110) mg/dL Random Glucose 110 (70-110) mg/dL Calcium 8.7 (8.4-10.5) mg/dL Phosphorus (2.5-4.5) mg/dL Magnesium (1.7-2.2) mg/dL Iron 20 L (45-180) ug/dL TIBC 340 (261-462) ug/dL % Saturation 6 L (20-55) % Total Bilirubin (0.2-1.3) mg/dL AST (17-59) U/L ALT (7-56) U/L Alkaline Phosphatase (38-126) U/L Troponin I ng/mL Total Protein (5.8-8.3) g/dL Albumin (3.0-4.8) g/dL Globulin gm/dL Albumin/Globulin Ratio (1.1-1.8) Procalcitonin (0.19-0.49) NG/ML Arterial Blood Potassium (3.6-5.2) mmol/L Venous Blood Potassium (3.6-5.2) mmol/L Urine Color (YELLOW) Urine Appearance (CLEAR) Urine pH (4.7-8.0) Ur Specific [place] (1.005-1.035) Urine Protein (<30 mg/dL) mg/dL Urine Glucose (UA) (NEGATIVE) mg/dL Urine Ketones (NEGATIVE) mg/dL Urine Blood (NEGATIVE) Urine Nitrate (NEGATIVE) Urine Bilirubin (NEGATIVE) Urine Urobilinogen (<1 E.U./dL) E.U./dL Ur Leukocyte Esterase (NEGATIVE) [place]/uL Urine RBC (0-2) /hpf Urine WBC (0-6) /hpf Ur Epithelial Cells (0-5) /hpf Amorphous Sediment Urine Bacteria (NEG) Coarse Granular Casts (0-2) /hpf Urine Other Blood Type O NEGATIVE Antibody Screen Negative Crossmatch See Detail BBK History Checked Patient has bt 06/14/17 06/14/17 06/14/17 Range/Units 09:15 08:01 07:30 WBC (4.5-11.0) 10^3/ul RBC (3.5-6.1) 10^6/uL Hgb (14.0-18.0) g/dL Hct (42.0-52.0) % MCV (80.0-105.0) fl MCH (25.0-35.0) pg MCHC (31.0-37.0) g/dl RDW (11.5-14.5) % Plt Count (120.0-450.0) 10^3/uL MPV (7.0-11.0) fl Gran % (50.0-68.0) % Lymph % (Auto) (22.0-35.0) % [place] % (Auto) (1.0-6.0) % Eos % (Auto) (1.5-5.0) % Baso % (Auto) (0.0-3.0) % Gran # (1.4-6.5) Lymph # (Auto) (1.2-3.4) [place] # (Auto) (0.1-0.6) Eos # (Auto) (0.0-0.7) Baso # (Auto) (0.0-2.0) K/mm3 pCO2 23 L (35-45) mm/Hg pO2 178.0 H (80-100) mm/Hg HCO3 10.8 L (21-28) mmol/L ABG pH 7.28 L (7.35-7.45) ABG Total CO2 11.5 L (22-28) mmol.L ABG O2 Saturation 100.1 H (95-98) % ABG Base Excess -14.0 L (-2.0-3.0) mmol/L ABG Potassium 4.6 (3.6-5.2) mmol/L VBG pH (7.32-7.43) VBG pCO2 (40-60) VBG HCO3 (21-28) mmol/l VBG Total CO2 (22-28) mmol.L VBG O2 Sat (Calc) (40-65) % VBG Base Excess (0.0-2.0) mmol/L VBG Potassium (3.6-5.2) mmol/L Glucose 100 (75-110) mg/dl Lactate 0.9 (0.7-2.1) mmol/L FiO2 32.0 % Sodium 136.0 (132-148) mmol/L Potassium (3.6-5.0) mmol/L Chloride 112.0 H (98-107) mmol/L Carbon Dioxide (21-33) mmol/L Anion Gap (10-20) BUN (7-21) mg/dL Creatinine (0.8-1.5) mg/dl Est GFR ( Amer) Est GFR (Non-Af Amer) POC Glucose (mg/dL) 117 H (65-110) mg/dL Random Glucose (70-110) mg/dL Calcium (8.4-10.5) mg/dL Phosphorus (2.5-4.5) mg/dL Magnesium (1.7-2.2) mg/dL Iron (45-180) ug/dL TIBC (261-462) ug/dL % Saturation (20-55) % Total Bilirubin (0.2-1.3) mg/dL AST (17-59) U/L ALT (7-56) U/L Alkaline Phosphatase (38-126) U/L Troponin I ng/mL Total Protein (5.8-8.3) g/dL Albumin (3.0-4.8) g/dL Globulin gm/dL Albumin/Globulin Ratio (1.1-1.8) Procalcitonin (0.19-0.49) NG/ML Arterial Blood Potassium 4.6 (3.6-5.2) mmol/L Venous Blood Potassium (3.6-5.2) mmol/L Urine Color Yellow (YELLOW) Urine Appearance Clear (CLEAR) Urine pH 5.5 (4.7-8.0) Ur Specific [place] 1.020 (1.005-1.035) Urine Protein Trace H (<30 mg/dL) mg/dL Urine Glucose (UA) Negative (NEGATIVE) mg/dL Urine Ketones Negative (NEGATIVE) mg/dL Urine Blood Large H (NEGATIVE) Urine Nitrate Negative (NEGATIVE) Urine Bilirubin Negative (NEGATIVE) Urine Urobilinogen 0.2 (<1 E.U./dL) E.U./dL Ur Leukocyte Esterase Trace H (NEGATIVE) Nak[place]/uL Urine RBC 25 - 30 (0-2) /hpf Urine WBC 5 - 10 (0-6) /hpf Ur Epithelial Cells None (0-5) /hpf Amorphous Sediment Few Urine Bacteria Many (NEG) Coarse Granular Casts Trace H (0-2) /hpf Urine Other Uyeast Blood Type Antibody Screen Crossmatch BBK History Checked 06/14/17 06/14/17 06/14/17 Range/Units 07:16 06:01 05:19 WBC (4.5-11.0) 10^3/ul RBC (3.5-6.1) 10^6/uL Hgb (14.0-18.0) g/dL Hct (42.0-52.0) % MCV (80.0-105.0) fl MCH (25.0-35.0) pg MCHC (31.0-37.0) g/dl RDW (11.5-14.5) % Plt Count (120.0-450.0) 10^3/uL MPV (7.0-11.0) fl Gran % (50.0-68.0) % Lymph % (Auto) (22.0-35.0) % [place] % (Auto) (1.0-6.0) % Eos % (Auto) (1.5-5.0) % Baso % (Auto) (0.0-3.0) % Gran # (1.4-6.5) Lymph # (Auto) (1.2-3.4) [place] # (Auto) (0.1-0.6) Eos # (Auto) (0.0-0.7) Baso # (Auto) (0.0-2.0) K/mm3 pCO2 (35-45) mm/Hg pO2 (80-100) mm/Hg HCO3 (21-28) mmol/L ABG pH (7.35-7.45) ABG Total CO2 (22-28) mmol.L ABG O2 Saturation (95-98) % ABG Base Excess (-2.0-3.0) mmol/L ABG Potassium (3.6-5.2) mmol/L VBG pH (7.32-7.43) VBG pCO2 (40-60) VBG HCO3 (21-28) mmol/l VBG Total CO2 (22-28) mmol.L VBG O2 Sat (Calc) (40-65) % VBG Base Excess (0.0-2.0) mmol/L VBG Potassium (3.6-5.2) mmol/L Glucose (75-110) mg/dl Lactate (0.7-2.1) mmol/L FiO2 % Sodium (132-148) mmol/L Potassium (3.6-5.0) mmol/L Chloride (98-107) mmol/L Carbon Dioxide (21-33) mmol/L Anion Gap (10-20) BUN (7-21) mg/dL Creatinine (0.8-1.5) mg/dl Est GFR ( Amer) Est GFR (Non-Af Amer) POC Glucose (mg/dL) 110 129 H 136 H (65-110) mg/dL Random Glucose (70-110) mg/dL Calcium (8.4-10.5) mg/dL Phosphorus (2.5-4.5) mg/dL Magnesium (1.7-2.2) mg/dL Iron (45-180) ug/dL TIBC (261-462) ug/dL % Saturation (20-55) % Total Bilirubin (0.2-1.3) mg/dL AST (17-59) U/L ALT (7-56) U/L Alkaline Phosphatase (38-126) U/L Troponin I ng/mL Total Protein (5.8-8.3) g/dL Albumin (3.0-4.8) g/dL Globulin gm/dL Albumin/Globulin Ratio (1.1-1.8) Procalcitonin (0.19-0.49) NG/ML Arterial Blood Potassium (3.6-5.2) mmol/L Venous Blood Potassium (3.6-5.2) mmol/L Urine Color (YELLOW) Urine Appearance (CLEAR) Urine pH (4.7-8.0) Ur Specific [place] (1.005-1.035) Urine Protein (<30 mg/dL) mg/dL Urine Glucose (UA) (NEGATIVE) mg/dL Urine Ketones (NEGATIVE) mg/dL Urine Blood (NEGATIVE) Urine Nitrate (NEGATIVE) Urine Bilirubin (NEGATIVE) Urine Urobilinogen (<1 E.U./dL) E.U./dL Ur Leukocyte Esterase (NEGATIVE) [place]/uL Urine RBC (0-2) /hpf Urine WBC (0-6) /hpf Ur Epithelial Cells (0-5) /hpf Amorphous Sediment Urine Bacteria (NEG) Coarse Granular Casts (0-2) /hpf Urine Other Blood Type Antibody Screen Crossmatch BBK History Checked 06/14/17 06/14/17 06/14/17 Range/Units 04:29 04:12 04:12 WBC 9.4 D (4.5-11.0) 10^3/ul RBC 2.65 L (3.5-6.1) 10^6/uL Hgb 7.7 L (14.0-18.0) g/dL Hct 23.7 L (42.0-52.0) % MCV 89.4 (80.0-105.0) fl MCH 29.1 (25.0-35.0) pg MCHC 32.5 (31.0-37.0) g/dl RDW 19.0 H (11.5-14.5) % Plt Count 200 (120.0-450.0) 10^3/uL MPV 9.4 (7.0-11.0) fl Gran % 63.4 (50.0-68.0) % Lymph % (Auto) 22.4 (22.0-35.0) % [place] % (Auto) 7.6 H (1.0-6.0) % Eos % (Auto) 6.4 H (1.5-5.0) % Baso % (Auto) 0.2 (0.0-3.0) % Gran # 5.93 (1.4-6.5) Lymph # (Auto) 2.1 (1.2-3.4) [place] # (Auto) 0.7 H (0.1-0.6) Eos # (Auto) 0.6 (0.0-0.7) Baso # (Auto) 0.02 (0.0-2.0) K/mm3 pCO2 (35-45) mm/Hg pO2 (80-100) mm/Hg HCO3 (21-28) mmol/L ABG pH (7.35-7.45) ABG Total CO2 (22-28) mmol.L ABG O2 Saturation (95-98) % ABG Base Excess (-2.0-3.0) mmol/L ABG Potassium (3.6-5.2) mmol/L VBG pH (7.32-7.43) VBG pCO2 (40-60) VBG HCO3 (21-28) mmol/l VBG Total CO2 (22-28) mmol.L VBG O2 Sat (Calc) (40-65) % VBG Base Excess (0.0-2.0) mmol/L VBG Potassium (3.6-5.2) mmol/L Glucose (75-110) mg/dl Lactate (0.7-2.1) mmol/L FiO2 % Sodium (132-148) mmol/L Potassium (3.6-5.0) mmol/L Chloride (98-107) mmol/L Carbon Dioxide (21-33) mmol/L Anion Gap (10-20) BUN (7-21) mg/dL Creatinine (0.8-1.5) mg/dl Est GFR ( Amer) Est GFR (Non-Af Amer) POC Glucose (mg/dL) 145 H (65-110) mg/dL Random Glucose (70-110) mg/dL Calcium (8.4-10.5) mg/dL Phosphorus (2.5-4.5) mg/dL Magnesium (1.7-2.2) mg/dL Iron (45-180) ug/dL TIBC (261-462) ug/dL % Saturation (20-55) % Total Bilirubin (0.2-1.3) mg/dL AST (17-59) U/L ALT (7-56) U/L Alkaline Phosphatase (38-126) U/L Troponin I 0.88 H* D ng/mL Total Protein (5.8-8.3) g/dL Albumin (3.0-4.8) g/dL Globulin gm/dL Albumin/Globulin Ratio (1.1-1.8) Procalcitonin (0.19-0.49) NG/ML Arterial Blood Potassium (3.6-5.2) mmol/L Venous Blood Potassium (3.6-5.2) mmol/L Urine Color (YELLOW) Urine Appearance (CLEAR) Urine pH (4.7-8.0) Ur Specific [place] (1.005-1.035) Urine Protein (<30 mg/dL) mg/dL Urine Glucose (UA) (NEGATIVE) mg/dL Urine Ketones (NEGATIVE) mg/dL Urine Blood (NEGATIVE) Urine Nitrate (NEGATIVE) Urine Bilirubin (NEGATIVE) Urine Urobilinogen (<1 E.U./dL) E.U./dL Ur Leukocyte Esterase (NEGATIVE) Nakul/uL Urine RBC (0-2) /hpf Urine WBC (0-6) /hpf Ur Epithelial Cells (0-5) /hpf Amorphous Sediment Urine Bacteria (NEG) Coarse Granular Casts (0-2) /hpf Urine Other Blood Type Antibody Screen Crossmatch BBK History Checked 06/14/17 06/14/17 06/14/17 Range/Units 04:12 03:20 02:05 WBC (4.5-11.0) 10^3/ul RBC (3.5-6.1) 10^6/uL Hgb (14.0-18.0) g/dL Hct (42.0-52.0) % MCV (80.0-105.0) fl MCH (25.0-35.0) pg MCHC (31.0-37.0) g/dl RDW (11.5-14.5) % Plt Count (120.0-450.0) 10^3/uL MPV (7.0-11.0) fl Gran % (50.0-68.0) % Lymph % (Auto) (22.0-35.0) % [place] % (Auto) (1.0-6.0) % Eos % (Auto) (1.5-5.0) % Baso % (Auto) (0.0-3.0) % Gran # (1.4-6.5) Lymph # (Auto) (1.2-3.4) [place] # (Auto) (0.1-0.6) Eos # (Auto) (0.0-0.7) Baso # (Auto) (0.0-2.0) K/mm3 pCO2 (35-45) mm/Hg pO2 (80-100) mm/Hg HCO3 (21-28) mmol/L ABG pH (7.35-7.45) ABG Total CO2 (22-28) mmol.L ABG O2 Saturation (95-98) % ABG Base Excess (-2.0-3.0) mmol/L ABG Potassium (3.6-5.2) mmol/L VBG pH (7.32-7.43) VBG pCO2 (40-60) VBG HCO3 (21-28) mmol/l VBG Total CO2 (22-28) mmol.L VBG O2 Sat (Calc) (40-65) % VBG Base Excess (0.0-2.0) mmol/L VBG Potassium (3.6-5.2) mmol/L Glucose (75-110) mg/dl Lactate (0.7-2.1) mmol/L FiO2 % Sodium 142 (132-148) mmol/L Potassium 5.8 H* (3.6-5.0) mmol/L Chloride 111 H (98-107) mmol/L Carbon Dioxide 12 L (21-33) mmol/L Anion Gap 25 H (10-20) BUN 122 H* (7-21) mg/dL Creatinine 6.9 H (0.8-1.5) mg/dl Est GFR ( Amer) 9 Est GFR (Non-Af Amer) 8 POC Glucose (mg/dL) 137 H 136 H (65-110) mg/dL Random Glucose 120 H (70-110) mg/dL Calcium 8.9 (8.4-10.5) mg/dL Phosphorus 7.8 H (2.5-4.5) mg/dL Magnesium 2.5 H (1.7-2.2) mg/dL Iron (45-180) ug/dL TIBC (261-462) ug/dL % Saturation (20-55) % Total Bilirubin 0.2 (0.2-1.3) mg/dL AST 40 (17-59) U/L ALT 28 (7-56) U/L Alkaline Phosphatase 76 (38-126) U/L Troponin I ng/mL Total Protein 6.7 (5.8-8.3) g/dL Albumin 3.7 (3.0-4.8) g/dL Globulin 3.0 gm/dL Albumin/Globulin Ratio 1.2 (1.1-1.8) Procalcitonin (0.19-0.49) NG/ML Arterial Blood Potassium (3.6-5.2) mmol/L Venous Blood Potassium (3.6-5.2) mmol/L Urine Color (YELLOW) Urine Appearance (CLEAR) Urine pH (4.7-8.0) Ur Specific [place] (1.005-1.035) Urine Protein (<30 mg/dL) mg/dL Urine Glucose (UA) (NEGATIVE) mg/dL Urine Ketones (NEGATIVE) mg/dL Urine Blood (NEGATIVE) Urine Nitrate (NEGATIVE) Urine Bilirubin (NEGATIVE) Urine Urobilinogen (<1 E.U./dL) E.U./dL Ur Leukocyte Esterase (NEGATIVE) [place]/uL Urine RBC (0-2) /hpf Urine WBC (0-6) /hpf Ur Epithelial Cells (0-5) /hpf Amorphous Sediment Urine Bacteria (NEG) Coarse Granular Casts (0-2) /hpf Urine Other Blood Type Antibody Screen Crossmatch BBK History Checked 06/14/17 06/14/17 06/13/17 Range/Units 01:12 00:11 23:50 WBC (4.5-11.0) 10^3/ul RBC (3.5-6.1) 10^6/uL Hgb (14.0-18.0) g/dL Hct (42.0-52.0) % MCV (80.0-105.0) fl MCH (25.0-35.0) pg MCHC (31.0-37.0) g/dl RDW (11.5-14.5) % Plt Count (120.0-450.0) 10^3/uL MPV (7.0-11.0) fl Gran % (50.0-68.0) % Lymph % (Auto) (22.0-35.0) % [place] % (Auto) (1.0-6.0) % Eos % (Auto) (1.5-5.0) % Baso % (Auto) (0.0-3.0) % Gran # (1.4-6.5) Lymph # (Auto) (1.2-3.4) [place] # (Auto) (0.1-0.6) Eos # (Auto) (0.0-0.7) Baso # (Auto) (0.0-2.0) K/mm3 pCO2 (35-45) mm/Hg pO2 (80-100) mm/Hg HCO3 (21-28) mmol/L ABG pH (7.35-7.45) ABG Total CO2 (22-28) mmol.L ABG O2 Saturation (95-98) % ABG Base Excess (-2.0-3.0) mmol/L ABG Potassium (3.6-5.2) mmol/L VBG pH (7.32-7.43) VBG pCO2 (40-60) VBG HCO3 (21-28) mmol/l VBG Total CO2 (22-28) mmol.L VBG O2 Sat (Calc) (40-65) % VBG Base Excess (0.0-2.0) mmol/L VBG Potassium (3.6-5.2) mmol/L Glucose (75-110) mg/dl Lactate (0.7-2.1) mmol/L FiO2 % Sodium (132-148) mmol/L Potassium (3.6-5.0) mmol/L Chloride (98-107) mmol/L Carbon Dioxide (21-33) mmol/L Anion Gap (10-20) BUN (7-21) mg/dL Creatinine (0.8-1.5) mg/dl Est GFR ( Amer) Est GFR (Non-Af Amer) POC Glucose (mg/dL) 158 H 139 H (65-110) mg/dL Random Glucose (70-110) mg/dL Calcium (8.4-10.5) mg/dL Phosphorus (2.5-4.5) mg/dL Magnesium (1.7-2.2) mg/dL Iron (45-180) ug/dL TIBC (261-462) ug/dL % Saturation (20-55) % Total Bilirubin (0.2-1.3) mg/dL AST (17-59) U/L ALT (7-56) U/L Alkaline Phosphatase (38-126) U/L Troponin I ng/mL Total Protein (5.8-8.3) g/dL Albumin (3.0-4.8) g/dL Globulin gm/dL Albumin/Globulin Ratio (1.1-1.8) Procalcitonin 0.24 (0.19-0.49) NG/ML Arterial Blood Potassium (3.6-5.2) mmol/L Venous Blood Potassium (3.6-5.2) mmol/L Urine Color (YELLOW) Urine Appearance (CLEAR) Urine pH (4.7-8.0) Ur Specific [place] (1.005-1.035) Urine Protein (<30 mg/dL) mg/dL Urine Glucose (UA) (NEGATIVE) mg/dL Urine Ketones (NEGATIVE) mg/dL Urine Blood (NEGATIVE) Urine Nitrate (NEGATIVE) Urine Bilirubin (NEGATIVE) Urine Urobilinogen (<1 E.U./dL) E.U./dL Ur Leukocyte Esterase (NEGATIVE) [place]/uL Urine RBC (0-2) /hpf Urine WBC (0-6) /hpf Ur Epithelial Cells (0-5) /hpf Amorphous Sediment Urine Bacteria (NEG) Coarse Granular Casts (0-2) /hpf Urine Other Blood Type Antibody Screen Crossmatch BBK History Checked 06/13/17 06/13/17 06/13/17 Range/Units 23:50 22:28 21:14 WBC (4.5-11.0) 10^3/ul RBC (3.5-6.1) 10^6/uL Hgb (14.0-18.0) g/dL Hct (42.0-52.0) % MCV (80.0-105.0) fl MCH (25.0-35.0) pg MCHC (31.0-37.0) g/dl RDW (11.5-14.5) % Plt Count (120.0-450.0) 10^3/uL MPV (7.0-11.0) fl Gran % (50.0-68.0) % Lymph % (Auto) (22.0-35.0) % [place] % (Auto) (1.0-6.0) % Eos % (Auto) (1.5-5.0) % Baso % (Auto) (0.0-3.0) % Gran # (1.4-6.5) Lymph # (Auto) (1.2-3.4) [place] # (Auto) (0.1-0.6) Eos # (Auto) (0.0-0.7) Baso # (Auto) (0.0-2.0) K/mm3 pCO2 (35-45) mm/Hg pO2 (80-100) mm/Hg HCO3 (21-28) mmol/L ABG pH (7.35-7.45) ABG Total CO2 (22-28) mmol.L ABG O2 Saturation (95-98) % ABG Base Excess (-2.0-3.0) mmol/L ABG Potassium (3.6-5.2) mmol/L VBG pH (7.32-7.43) VBG pCO2 (40-60) VBG HCO3 (21-28) mmol/l VBG Total CO2 (22-28) mmol.L VBG O2 Sat (Calc) (40-65) % VBG Base Excess (0.0-2.0) mmol/L VBG Potassium (3.6-5.2) mmol/L Glucose (75-110) mg/dl Lactate (0.7-2.1) mmol/L FiO2 % Sodium 139 (132-148) mmol/L Potassium 7.2 H* (3.6-5.0) mmol/L Chloride 111 H (98-107) mmol/L Carbon Dioxide 8 L (21-33) mmol/L Anion Gap 27 H (10-20) BUN 124 H* (7-21) mg/dL Creatinine 7.1 H (0.8-1.5) mg/dl Est GFR ( Amer) 9 Est GFR (Non-Af Amer) 7 POC Glucose (mg/dL) 152 H 126 H (65-110) mg/dL Random Glucose 129 H (70-110) mg/dL Calcium 8.9 (8.4-10.5) mg/dL Phosphorus (2.5-4.5) mg/dL Magnesium (1.7-2.2) mg/dL Iron (45-180) ug/dL TIBC (261-462) ug/dL % Saturation (20-55) % Total Bilirubin 0.1 L (0.2-1.3) mg/dL AST 25 (17-59) U/L ALT 36 (7-56) U/L Alkaline Phosphatase 90 (38-126) U/L Troponin I ng/mL Total Protein 7.5 (5.8-8.3) g/dL Albumin 4.2 (3.0-4.8) g/dL Globulin 3.2 gm/dL Albumin/Globulin Ratio 1.3 (1.1-1.8) Procalcitonin (0.19-0.49) NG/ML Arterial Blood Potassium (3.6-5.2) mmol/L Venous Blood Potassium (3.6-5.2) mmol/L Urine Color (YELLOW) Urine Appearance (CLEAR) Urine pH (4.7-8.0) Ur Specific [place] (1.005-1.035) Urine Protein (<30 mg/dL) mg/dL Urine Glucose (UA) (NEGATIVE) mg/dL Urine Ketones (NEGATIVE) mg/dL Urine Blood (NEGATIVE) Urine Nitrate (NEGATIVE) Urine Bilirubin (NEGATIVE) Urine Urobilinogen (<1 E.U./dL) E.U./dL Ur Leukocyte Esterase (NEGATIVE) [place]/uL Urine RBC (0-2) /hpf Urine WBC (0-6) /hpf Ur Epithelial Cells (0-5) /hpf Amorphous Sediment Urine Bacteria (NEG) Coarse Granular Casts (0-2) /hpf Urine Other Blood Type Antibody Screen Crossmatch BBK History Checked Laboratory Results - last 24 hr 06/13/17 06/13/17 06/13/17 21:14 22:28 23:50 WBC RBC Hgb Hct MCV MCH MCHC RDW Plt Count MPV Gran % Lymph % (Auto) [place] % (Auto) Eos % (Auto) Baso % (Auto) Gran # Lymph # (Auto) [place] # (Auto) Eos # (Auto) Baso # (Auto) pCO2 pO2 HCO3 ABG pH ABG Total CO2 ABG O2 Saturation ABG Base Excess ABG Potassium VBG pH VBG pCO2 VBG HCO3 VBG Total CO2 VBG O2 Sat (Calc) VBG Base Excess VBG Potassium Glucose Lactate FiO2 Sodium 139 Potassium 7.2 H* Chloride 111 H Carbon Dioxide 8 L Anion Gap 27 H BUN 124 H* Creatinine 7.1 H Est GFR ( Amer) 9 Est GFR (Non-Af Amer) 7 POC Glucose (mg/dL) 126 H 152 H Random Glucose 129 H Calcium 8.9 Phosphorus Magnesium Iron TIBC % Saturation Total Bilirubin 0.1 L AST 25 ALT 36 Alkaline Phosphatase 90 Troponin I Total Protein 7.5 Albumin 4.2 Globulin 3.2 Albumin/Globulin Ratio 1.3 Procalcitonin Arterial Blood Potassium Venous Blood Potassium Urine Color Urine Appearance Urine pH Ur Specific [place] Urine Protein Urine Glucose (UA) Urine Ketones Urine Blood Urine Nitrate Urine Bilirubin Urine Urobilinogen Ur Leukocyte Esterase Urine RBC Urine WBC Ur Epithelial Cells Amorphous Sediment Urine Bacteria Coarse Granular Casts Urine Other Blood Type Antibody Screen Crossmatch BBK History Checked 06/13/17 06/14/17 06/14/17 23:50 00:11 01:12 WBC RBC Hgb Hct MCV MCH MCHC RDW Plt Count MPV Gran % Lymph % (Auto) [place] % (Auto) Eos % (Auto) Baso % (Auto) Gran # Lymph # (Auto) [place] # (Auto) Eos # (Auto) Baso # (Auto) pCO2 pO2 HCO3 ABG pH ABG Total CO2 ABG O2 Saturation ABG Base Excess ABG Potassium VBG pH VBG pCO2 VBG HCO3 VBG Total CO2 VBG O2 Sat (Calc) VBG Base Excess VBG Potassium Glucose Lactate FiO2 Sodium Potassium Chloride Carbon Dioxide Anion Gap BUN Creatinine Est GFR ( Amer) Est GFR (Non-Af Amer) POC Glucose (mg/dL) 139 H 158 H Random Glucose Calcium Phosphorus Magnesium Iron TIBC % Saturation Total Bilirubin AST ALT Alkaline Phosphatase Troponin I Total Protein Albumin Globulin Albumin/Globulin Ratio Procalcitonin 0.24 Arterial Blood Potassium Venous Blood Potassium Urine Color Urine Appearance Urine pH Ur Specific [place] Urine Protein Urine Glucose (UA) Urine Ketones Urine Blood Urine Nitrate Urine Bilirubin Urine Urobilinogen Ur Leukocyte Esterase Urine RBC Urine WBC Ur Epithelial Cells Amorphous Sediment Urine Bacteria Coarse Granular Casts Urine Other Blood Type Antibody Screen Crossmatch BBK History Checked 06/14/17 06/14/17 06/14/17 02:05 03:20 04:12 WBC RBC Hgb Hct MCV MCH MCHC RDW Plt Count MPV Gran % Lymph % (Auto) [place] % (Auto) Eos % (Auto) Baso % (Auto) Gran # Lymph # (Auto) [place] # (Auto) Eos # (Auto) Baso # (Auto) pCO2 pO2 HCO3 ABG pH ABG Total CO2 ABG O2 Saturation ABG Base Excess ABG Potassium VBG pH VBG pCO2 VBG HCO3 VBG Total CO2 VBG O2 Sat (Calc) VBG Base Excess VBG Potassium Glucose Lactate FiO2 Sodium 142 Potassium 5.8 H* Chloride 111 H Carbon Dioxide 12 L Anion Gap 25 H BUN 122 H* Creatinine 6.9 H Est GFR ( Amer) 9 Est GFR (Non-Af Amer) 8 POC Glucose (mg/dL) 136 H 137 H Random Glucose 120 H Calcium 8.9 Phosphorus 7.8 H Magnesium 2.5 H Iron TIBC % Saturation Total Bilirubin 0.2 AST 40 ALT 28 Alkaline Phosphatase 76 Troponin I Total Protein 6.7 Albumin 3.7 Globulin 3.0 Albumin/Globulin Ratio 1.2 Procalcitonin Arterial Blood Potassium Venous Blood Potassium Urine Color Urine Appearance Urine pH Ur Specific [place] Urine Protein Urine Glucose (UA) Urine Ketones Urine Blood Urine Nitrate Urine Bilirubin Urine Urobilinogen Ur Leukocyte Esterase Urine RBC Urine WBC Ur Epithelial Cells Amorphous Sediment Urine Bacteria Coarse Granular Casts Urine Other Blood Type Antibody Screen Crossmatch BBK History Checked 06/14/17 06/14/17 06/14/17 04:12 04:12 04:29 WBC 9.4 D RBC 2.65 L Hgb 7.7 L Hct 23.7 L MCV 89.4 MCH 29.1 MCHC 32.5 RDW 19.0 H Plt Count 200 MPV 9.4 Gran % 63.4 Lymph % (Auto) 22.4 [place] % (Auto) 7.6 H Eos % (Auto) 6.4 H Baso % (Auto) 0.2 Gran # 5.93 Lymph # (Auto) 2.1 [place] # (Auto) 0.7 H Eos # (Auto) 0.6 Baso # (Auto) 0.02 pCO2 pO2 HCO3 ABG pH ABG Total CO2 ABG O2 Saturation ABG Base Excess ABG Potassium VBG pH VBG pCO2 VBG HCO3 VBG Total CO2 VBG O2 Sat (Calc) VBG Base Excess VBG Potassium Glucose Lactate FiO2 Sodium Potassium Chloride Carbon Dioxide Anion Gap BUN Creatinine Est GFR ( Amer) Est GFR (Non-Af Amer) POC Glucose (mg/dL) 145 H Random Glucose Calcium Phosphorus Magnesium Iron TIBC % Saturation Total Bilirubin AST ALT Alkaline Phosphatase Troponin I 0.88 H* D Total Protein Albumin Globulin Albumin/Globulin Ratio Procalcitonin Arterial Blood Potassium Venous Blood Potassium Urine Color Urine Appearance Urine pH Ur Specific [place] Urine Protein Urine Glucose (UA) Urine Ketones Urine Blood Urine Nitrate Urine Bilirubin Urine Urobilinogen Ur Leukocyte Esterase Urine RBC Urine WBC Ur Epithelial Cells Amorphous Sediment Urine Bacteria Coarse Granular Casts Urine Other Blood Type Antibody Screen Crossmatch BBK History Checked 06/14/17 06/14/17 06/14/17 05:19 06:01 07:16 WBC RBC Hgb Hct MCV MCH MCHC RDW Plt Count MPV Gran % Lymph % (Auto) [place] % (Auto) Eos % (Auto) Baso % (Auto) Gran # Lymph # (Auto) [place] # (Auto) Eos # (Auto) Baso # (Auto) pCO2 pO2 HCO3 ABG pH ABG Total CO2 ABG O2 Saturation ABG Base Excess ABG Potassium VBG pH VBG pCO2 VBG HCO3 VBG Total CO2 VBG O2 Sat (Calc) VBG Base Excess VBG Potassium Glucose Lactate FiO2 Sodium Potassium Chloride Carbon Dioxide Anion Gap BUN Creatinine Est GFR ( Amer) Est GFR (Non-Af Amer) POC Glucose (mg/dL) 136 H 129 H 110 Random Glucose Calcium Phosphorus Magnesium Iron TIBC % Saturation Total Bilirubin AST ALT Alkaline Phosphatase Troponin I Total Protein Albumin Globulin Albumin/Globulin Ratio Procalcitonin Arterial Blood Potassium Venous Blood Potassium Urine Color Urine Appearance Urine pH Ur Specific [place] Urine Protein Urine Glucose (UA) Urine Ketones Urine Blood Urine Nitrate Urine Bilirubin Urine Urobilinogen Ur Leukocyte Esterase Urine RBC Urine WBC Ur Epithelial Cells Amorphous Sediment Urine Bacteria Coarse Granular Casts Urine Other Blood Type Antibody Screen Crossmatch BBK History Checked 06/14/17 06/14/17 06/14/17 07:30 08:01 09:15 WBC RBC Hgb Hct MCV MCH MCHC RDW Plt Count MPV Gran % Lymph % (Auto) [place] % (Auto) Eos % (Auto) Baso % (Auto) Gran # Lymph # (Auto) [place] # (Auto) Eos # (Auto) Baso # (Auto) pCO2 23 L pO2 178.0 H HCO3 10.8 L ABG pH 7.28 L ABG Total CO2 11.5 L ABG O2 Saturation 100.1 H ABG Base Excess -14.0 L ABG Potassium 4.6 VBG pH VBG pCO2 VBG HCO3 VBG Total CO2 VBG O2 Sat (Calc) VBG Base Excess VBG Potassium Glucose 100 Lactate 0.9 FiO2 32.0 Sodium 136.0 Potassium Chloride 112.0 H Carbon Dioxide Anion Gap BUN Creatinine Est GFR ( Amer) Est GFR (Non-Af Amer) POC Glucose (mg/dL) 117 H Random Glucose Calcium Phosphorus Magnesium Iron TIBC % Saturation Total Bilirubin AST ALT Alkaline Phosphatase Troponin I Total Protein Albumin Globulin Albumin/Globulin Ratio Procalcitonin Arterial Blood Potassium 4.6 Venous Blood Potassium Urine Color Yellow Urine Appearance Clear Urine pH 5.5 Ur Specific [place] 1.020 Urine Protein Trace H Urine Glucose (UA) Negative Urine Ketones Negative Urine Blood Large H Urine Nitrate Negative Urine Bilirubin Negative Urine Urobilinogen 0.2 Ur Leukocyte Esterase Trace H Urine RBC 25 - 30 Urine WBC 5 - 10 Ur Epithelial Cells None Amorphous Sediment Few Urine Bacteria Many Coarse Granular Casts Trace H Urine Other Uyeast Blood Type Antibody Screen Crossmatch BBK History Checked 06/14/17 06/14/17 06/14/17 09:40 10:00 10:00 WBC RBC Hgb Hct MCV MCH MCHC RDW Plt Count MPV Gran % Lymph % (Auto) [place] % (Auto) Eos % (Auto) Baso % (Auto) Gran # Lymph # (Auto) [place] # (Auto) Eos # (Auto) Baso # (Auto) pCO2 pO2 HCO3 ABG pH ABG Total CO2 ABG O2 Saturation ABG Base Excess ABG Potassium VBG pH VBG pCO2 VBG HCO3 VBG Total CO2 VBG O2 Sat (Calc) VBG Base Excess VBG Potassium Glucose Lactate FiO2 Sodium 142 Potassium 5.0 Chloride 111 H Carbon Dioxide 13 L Anion Gap 24 H BUN 118 H Creatinine 6.2 H Est GFR ( Amer) 11 Est GFR (Non-Af Amer) 9 POC Glucose (mg/dL) Random Glucose 110 Calcium 8.7 Phosphorus Magnesium Iron 20 L TIBC 340 % Saturation 6 L Total Bilirubin AST ALT Alkaline Phosphatase Troponin I Total Protein Albumin Globulin Albumin/Globulin Ratio Procalcitonin Arterial Blood Potassium Venous Blood Potassium Urine Color Urine Appearance Urine pH Ur Specific [place] Urine Protein Urine Glucose (UA) Urine Ketones Urine Blood Urine Nitrate Urine Bilirubin Urine Urobilinogen Ur Leukocyte Esterase Urine RBC Urine WBC Ur Epithelial Cells Amorphous Sediment Urine Bacteria Coarse Granular Casts Urine Other Blood Type O NEGATIVE Antibody Screen Negative Crossmatch See Detail BBK History Checked Patient has bt 06/14/17 06/14/17 06/14/17 10:01 11:45 13:00 WBC RBC Hgb Hct MCV MCH MCHC RDW Plt Count MPV Gran % Lymph % (Auto) [place] % (Auto) Eos % (Auto) Baso % (Auto) Gran # Lymph # (Auto) [place] # (Auto) Eos # (Auto) Baso # (Auto) pCO2 pO2 HCO3 ABG pH ABG Total CO2 ABG O2 Saturation ABG Base Excess ABG Potassium VBG pH VBG pCO2 VBG HCO3 VBG Total CO2 VBG O2 Sat (Calc) VBG Base Excess VBG Potassium Glucose Lactate FiO2 Sodium 143 Potassium 5.1 H Chloride 111 H Carbon Dioxide 13 L Anion Gap 24 H BUN 115 H Creatinine 6.2 H Est GFR ( Amer) 11 Est GFR (Non-Af Amer) 9 POC Glucose (mg/dL) 129 H 128 H Random Glucose 150 H Calcium 8.4 Phosphorus Magnesium Iron TIBC % Saturation Total Bilirubin AST ALT Alkaline Phosphatase Troponin I Total Protein Albumin Globulin Albumin/Globulin Ratio Procalcitonin Arterial Blood Potassium Venous Blood Potassium Urine Color Urine Appearance Urine pH Ur Specific [place] Urine Protein Urine Glucose (UA) Urine Ketones Urine Blood Urine Nitrate Urine Bilirubin Urine Urobilinogen Ur Leukocyte Esterase Urine RBC Urine WBC Ur Epithelial Cells Amorphous Sediment Urine Bacteria Coarse Granular Casts Urine Other Blood Type Antibody Screen Crossmatch BBK History Checked 06/14/17 06/14/17 06/14/17 13:00 13:49 15:56 WBC RBC Hgb Hct MCV MCH MCHC RDW Plt Count MPV Gran % Lymph % (Auto) [place] % (Auto) Eos % (Auto) Baso % (Auto) Gran # Lymph # (Auto) [place] # (Auto) Eos # (Auto) Baso # (Auto) pCO2 pO2 43 HCO3 ABG pH ABG Total CO2 ABG O2 Saturation ABG Base Excess ABG Potassium VBG pH 7.22 L VBG pCO2 35.0 L VBG HCO3 14.3 L VBG Total CO2 15.4 L VBG O2 Sat (Calc) 84.1 H VBG Base Excess -12.5 L VBG Potassium 5.1 Glucose 164 H Lactate 1.2 FiO2 21.0 Sodium 136.0 Potassium Chloride 111.0 H Carbon Dioxide Anion Gap BUN Creatinine Est GFR ( Amer) Est GFR (Non-Af Amer) POC Glucose (mg/dL) 149 H 128 H Random Glucose Calcium Phosphorus Magnesium Iron TIBC % Saturation Total Bilirubin AST ALT Alkaline Phosphatase Troponin I Total Protein Albumin Globulin Albumin/Globulin Ratio Procalcitonin Arterial Blood Potassium Venous Blood Potassium 5.1 Urine Color Urine Appearance Urine pH Ur Specific [place] Urine Protein Urine Glucose (UA) Urine Ketones Urine Blood Urine Nitrate Urine Bilirubin Urine Urobilinogen Ur Leukocyte Esterase Urine RBC Urine WBC Ur Epithelial Cells Amorphous Sediment Urine Bacteria Coarse Granular Casts Urine Other Blood Type Antibody Screen Crossmatch BBK History Checked EKG/Cardiology Studies: Cardiology / EKG Studies 06/14/17 07:11 EKG [ELECTROCARDIOGRAM] Stat Comment: Reason For Exam: ST seg depression and hyperkalmeia Critical Care Progress Note - Nutrition Nutrition: Nutrition Category Date Time Status Heart Healthy Diet [DIET] Diets 06/14/17 Lunch Ordered Attending/Attestation - Attestation I have personally seen and examined this patient.: Yes I have fully participated in the care of the patient.: Yes I have reviewed all pertinent clinical information: Yes Notes (Text): 06/14/17 16:[address] ferguson note
[2017-06-14 13:47] LABS: CALCIUM 8.4 mg/dL (8.4-10.5)
--- NOTE | 2017-06-14 13:57 | CP.PCM.CON ---
History of Present Illness - History of Present Illness History of Present Illness: 81 year old male with PMH of hronic CHF, CAD, peripheral vascular disease, HTN, DM, gout, S/P laminectomy was told to go the ED by his Investigation Division Captain because of hyperkalemia. The patient was also complaining of shortness of breath and dyspnea on exertion but denies chest pain, no cough, no sore throat, no fever or chills, no nausea or vomiting, no abdominal pain. He also has easy fatigability and occasional loose bowel movement, had one episode of difficulty urinating but no dysuria. Urinalysis is showing hematuria and the patient was found to have leukocytosis on admission. Infectious diseases consult is requested to further evaluate and manage. Review of Systems - Review of Systems All systems: reviewed and no additional remarkable complaints except (as per HPI ) Past Patient History - Infectious Disease Hx of Infectious Diseases: None - Tetanus Immunizations Tetanus Immunization: Unknown - Past Social History Smoking Status: Former Smoker - CARDIAC Hx Pacemaker: No Other/Comment: open heart s. x - PULMONARY Hx Respiratory Disorders: Yes (PPD OF CIGARETTES QUIT 1996) - NEUROLOGICAL Hx Neurological Disorder: No - HEENT Hx HEENT Problems: Yes (BLURRY VISION) - RENAL Hx Chronic Kidney Disease: No - ENDOCRINE/METABOLIC Hx Diabetes Mellitus Type 2: Yes - HEMATOLOGICAL/ONCOLOGICAL Hx Blood Disorders: Yes Hx Anemia: Yes - INTEGUMENTARY Hx Dermatological Problems: Yes Other/Comment: BILATERAL LE EDEMA MORE TO RIGHT. JAIN BONE SOME REDNESS.BROWN[place] SKIN DISCOLORATION. - MUSCULOSKELETAL/RHEUMATOLOGICAL Hx Musculoskeletal Disorders: Yes (LAMINECTOMY) Hx Falls: Yes - GASTROINTESTINAL Hx Gastrointestinal Disorders: Yes (DIVERTICULITIS,CONSTIPATION) Hx Gastroesophageal Reflux: Yes - GENITOURINARY/GYNECOLOGICAL Hx Genitourinary Disorders: No - PSYCHIATRIC Hx Emotional Abuse: No Hx Physical Abuse: No Hx Substance Use: No - SURGICAL HISTORY Hx Surgeries: Yes (GI POLYPS REMOVED,LAMINECTOMY 1970,) - ANESTHESIA Hx Anesthesia Reactions: No Hx Malignant Hyperthermia: No Meds Allergies/Adverse Reactions: Allergies Allergy/AdvReac Type Severity Reaction Status Date / Time Penicillins Allergy Severe SWELLING Verified 04/06/17 11:27 - Medications Medications: Current Medications Aspirin (Aspirin Chewable) 81 mg PO DAILY [facility] Last Admin: 06/14/17 10:27 Dose: 81 mg Atorvastatin Calcium (Lipitor) 40 mg PO DIN [facility] Nitroglycerin/Dextrose (Nitroglycerin 50 Mg/250 Ml D5w) 50 mg in 250 mls @ 1.5 mls/hr IV .Q24H PRN; Protocol; 5 MCG/MIN PRN Reason: chest pain Sodium Bicarbonate 150 meq/ (Dextrose) 1,150 mls @ 100 mls/hr IV .[id number] [facility] Last Admin: 06/14/17 07:30 Dose: 100 mls/hr Metoprolol Tartrate (Lopressor) 2.5 mg IV Q8H [facility] Last Admin: 06/14/17 10:27 Dose: 2.5 mg Pantoprazole Sodium (Protonix Inj) 40 mg IVP DAILY [facility] Last Admin: 06/14/17 10:29 Dose: 40 mg Physical Exam - Constitutional Appears: Other (as per HPI) Results - Vital Signs Recent Vital Signs: Last Vital Signs Temp 97.4 F L 06/14/17 11:45 Pulse 94 H 06/14/17 11:45 Resp 15 06/14/17 11:45 BP 103/52 L 06/14/17 11:45 Pulse Ox 89 L 06/13/17 22:50 - Labs Result Diagrams: 06/14/17 04:12 06/14/17 13:00 Labs: Laboratory Results - last 24 hr 06/13/17 06/13/17 06/13/17 21:14 22:28 23:50 WBC RBC Hgb Hct MCV MCH MCHC RDW Plt Count MPV Gran % Lymph % (Auto) [place] % (Auto) Eos % (Auto) Baso % (Auto) Gran # Lymph # (Auto) [place] # (Auto) Eos # (Auto) Baso # (Auto) pCO2 pO2 HCO3 ABG pH ABG Total CO2 ABG O2 Saturation ABG Base Excess ABG Potassium Glucose Lactate FiO2 Sodium 139 Potassium 7.2 H* Chloride 111 H Carbon Dioxide 8 L Anion Gap 27 H BUN 124 H* Creatinine 7.1 H Est GFR ( Amer) 9 Est GFR (Non-Af Amer) 7 POC Glucose (mg/dL) 126 H 152 H Random Glucose 129 H Calcium 8.9 Phosphorus Magnesium Iron TIBC % Saturation Total Bilirubin 0.1 L AST 25 ALT 36 Alkaline Phosphatase 90 Troponin I Total Protein 7.5 Albumin 4.2 Globulin 3.2 Albumin/Globulin Ratio 1.3 Procalcitonin Arterial Blood Potassium Urine Color Urine Appearance Urine pH Ur Specific [place] Urine Protein Urine Glucose (UA) Urine Ketones Urine Blood Urine Nitrate Urine Bilirubin Urine Urobilinogen Ur Leukocyte Esterase Urine RBC Urine WBC Ur Epithelial Cells Amorphous Sediment Urine Bacteria Coarse Granular Casts Urine Other Blood Type Antibody Screen Crossmatch BBK History Checked 06/13/17 06/14/17 06/14/17 23:50 00:11 01:12 WBC RBC Hgb Hct MCV MCH MCHC RDW Plt Count MPV Gran % Lymph % (Auto) [place] % (Auto) Eos % (Auto) Baso % (Auto) Gran # Lymph # (Auto) [place] # (Auto) Eos # (Auto) Baso # (Auto) pCO2 pO2 HCO3 ABG pH ABG Total CO2 ABG O2 Saturation ABG Base Excess ABG Potassium Glucose Lactate FiO2 Sodium Potassium Chloride Carbon Dioxide Anion Gap BUN Creatinine Est GFR ( Amer) Est GFR (Non-Af Amer) POC Glucose (mg/dL) 139 H 158 H Random Glucose Calcium Phosphorus Magnesium Iron TIBC % Saturation Total Bilirubin AST ALT Alkaline Phosphatase Troponin I Total Protein Albumin Globulin Albumin/Globulin Ratio Procalcitonin 0.24 Arterial Blood Potassium Urine Color Urine Appearance Urine pH Ur Specific [place] Urine Protein Urine Glucose (UA) Urine Ketones Urine Blood Urine Nitrate Urine Bilirubin Urine Urobilinogen Ur Leukocyte Esterase Urine RBC Urine WBC Ur Epithelial Cells Amorphous Sediment Urine Bacteria Coarse Granular Casts Urine Other Blood Type Antibody Screen Crossmatch BBK History Checked 06/14/17 06/14/17 06/14/17 02:05 03:20 04:12 WBC RBC Hgb Hct MCV MCH MCHC RDW Plt Count MPV Gran % Lymph % (Auto) [place] % (Auto) Eos % (Auto) Baso % (Auto) Gran # Lymph # (Auto) [place] # (Auto) Eos # (Auto) Baso # (Auto) pCO2 pO2 HCO3 ABG pH ABG Total CO2 ABG O2 Saturation ABG Base Excess ABG Potassium Glucose Lactate FiO2 Sodium 142 Potassium 5.8 H* Chloride 111 H Carbon Dioxide 12 L Anion Gap 25 H BUN 122 H* Creatinine 6.9 H Est GFR ( Amer) 9 Est GFR (Non-Af Amer) 8 POC Glucose (mg/dL) 136 H 137 H Random Glucose 120 H Calcium 8.9 Phosphorus 7.8 H Magnesium 2.5 H Iron TIBC % Saturation Total Bilirubin 0.2 AST 40 ALT 28 Alkaline Phosphatase 76 Troponin I Total Protein 6.7 Albumin 3.7 Globulin 3.0 Albumin/Globulin Ratio 1.2 Procalcitonin Arterial Blood Potassium Urine Color Urine Appearance Urine pH Ur Specific [place] Urine Protein Urine Glucose (UA) Urine Ketones Urine Blood Urine Nitrate Urine Bilirubin Urine Urobilinogen Ur Leukocyte Esterase Urine RBC Urine WBC Ur Epithelial Cells Amorphous Sediment Urine Bacteria Coarse Granular Casts Urine Other Blood Type Antibody Screen Crossmatch BBK History Checked 06/14/17 06/14/17 06/14/17 04:12 04:12 04:29 WBC 9.4 D RBC 2.65 L Hgb 7.7 L Hct 23.7 L MCV 89.4 MCH 29.1 MCHC 32.5 RDW 19.0 H Plt Count 200 MPV 9.4 Gran % 63.4 Lymph % (Auto) 22.4 [place] % (Auto) 7.6 H Eos % (Auto) 6.4 H Baso % (Auto) 0.2 Gran # 5.93 Lymph # (Auto) 2.1 [place] # (Auto) 0.7 H Eos # (Auto) 0.6 Baso # (Auto) 0.02 pCO2 pO2 HCO3 ABG pH ABG Total CO2 ABG O2 Saturation ABG Base Excess ABG Potassium Glucose Lactate FiO2 Sodium Potassium Chloride Carbon Dioxide Anion Gap BUN Creatinine Est GFR ( Amer) Est GFR (Non-Af Amer) POC Glucose (mg/dL) 145 H Random Glucose Calcium Phosphorus Magnesium Iron TIBC % Saturation Total Bilirubin AST ALT Alkaline Phosphatase Troponin I 0.88 H* D Total Protein Albumin Globulin Albumin/Globulin Ratio Procalcitonin Arterial Blood Potassium Urine Color Urine Appearance Urine pH Ur Specific [place] Urine Protein Urine Glucose (UA) Urine Ketones Urine Blood Urine Nitrate Urine Bilirubin Urine Urobilinogen Ur Leukocyte Esterase Urine RBC Urine WBC Ur Epithelial Cells Amorphous Sediment Urine Bacteria Coarse Granular Casts Urine Other Blood Type Antibody Screen Crossmatch BBK History Checked 06/14/17 06/14/17 06/14/17 05:19 06:01 07:16 WBC RBC Hgb Hct MCV MCH MCHC RDW Plt Count MPV Gran % Lymph % (Auto) [place] % (Auto) Eos % (Auto) Baso % (Auto) Gran # Lymph # (Auto) [place] # (Auto) Eos # (Auto) Baso # (Auto) pCO2 pO2 HCO3 ABG pH ABG Total CO2 ABG O2 Saturation ABG Base Excess ABG Potassium Glucose Lactate FiO2 Sodium Potassium Chloride Carbon Dioxide Anion Gap BUN Creatinine Est GFR ( Amer) Est GFR (Non-Af Amer) POC Glucose (mg/dL) 136 H 129 H 110 Random Glucose Calcium Phosphorus Magnesium Iron TIBC % Saturation Total Bilirubin AST ALT Alkaline Phosphatase Troponin I Total Protein Albumin Globulin Albumin/Globulin Ratio Procalcitonin Arterial Blood Potassium Urine Color Urine Appearance Urine pH Ur Specific [place] Urine Protein Urine Glucose (UA) Urine Ketones Urine Blood Urine Nitrate Urine Bilirubin Urine Urobilinogen Ur Leukocyte Esterase Urine RBC Urine WBC Ur Epithelial Cells Amorphous Sediment Urine Bacteria Coarse Granular Casts Urine Other Blood Type Antibody Screen Crossmatch BBK History Checked 06/14/17 06/14/17 06/14/17 07:30 08:01 09:15 WBC RBC Hgb Hct MCV MCH MCHC RDW Plt Count MPV Gran % Lymph % (Auto) [place] % (Auto) Eos % (Auto) Baso % (Auto) Gran # Lymph # (Auto) [place] # (Auto) Eos # (Auto) Baso # (Auto) pCO2 23 L pO2 178.0 H HCO3 10.8 L ABG pH 7.28 L ABG Total CO2 11.5 L ABG O2 Saturation 100.1 H ABG Base Excess -14.0 L ABG Potassium 4.6 Glucose 100 Lactate 0.9 FiO2 32.0 Sodium 136.0 Potassium Chloride 112.0 H Carbon Dioxide Anion Gap BUN Creatinine Est GFR ( Amer) Est GFR (Non-Af Amer) POC Glucose (mg/dL) 117 H Random Glucose Calcium Phosphorus Magnesium Iron TIBC % Saturation Total Bilirubin AST ALT Alkaline Phosphatase Troponin I Total Protein Albumin Globulin Albumin/Globulin Ratio Procalcitonin Arterial Blood Potassium 4.6 Urine Color Yellow Urine Appearance Clear Urine pH 5.5 Ur Specific [place] 1.020 Urine Protein Trace H Urine Glucose (UA) Negative Urine Ketones Negative Urine Blood Large H Urine Nitrate Negative Urine Bilirubin Negative Urine Urobilinogen 0.2 Ur Leukocyte Esterase Trace H Urine RBC 25 - 30 Urine WBC 5 - 10 Ur Epithelial Cells None Amorphous Sediment Few Urine Bacteria Many Coarse Granular Casts Trace H Urine Other Uyeast Blood Type Antibody Screen Crossmatch BBK History Checked 06/14/17 06/14/17 06/14/17 09:40 10:00 10:00 WBC RBC Hgb Hct MCV MCH MCHC RDW Plt Count MPV Gran % Lymph % (Auto) [place] % (Auto) Eos % (Auto) Baso % (Auto) Gran # Lymph # (Auto) [place] # (Auto) Eos # (Auto) Baso # (Auto) pCO2 pO2 HCO3 ABG pH ABG Total CO2 ABG O2 Saturation ABG Base Excess ABG Potassium Glucose Lactate FiO2 Sodium 142 Potassium 5.0 Chloride 111 H Carbon Dioxide 13 L Anion Gap 24 H BUN 118 H Creatinine 6.2 H Est GFR ( Amer) 11 Est GFR (Non-Af Amer) 9 POC Glucose (mg/dL) Random Glucose 110 Calcium 8.7 Phosphorus Magnesium Iron 20 L TIBC 340 % Saturation 6 L Total Bilirubin AST ALT Alkaline Phosphatase Troponin I Total Protein Albumin Globulin Albumin/Globulin Ratio Procalcitonin Arterial Blood Potassium Urine Color Urine Appearance Urine pH Ur Specific [place] Urine Protein Urine Glucose (UA) Urine Ketones Urine Blood Urine Nitrate Urine Bilirubin Urine Urobilinogen Ur Leukocyte Esterase Urine RBC Urine WBC Ur Epithelial Cells Amorphous Sediment Urine Bacteria Coarse Granular Casts Urine Other Blood Type O NEGATIVE Antibody Screen Negative Crossmatch See Detail BBK History Checked Patient has bt Assessment & Plan - Assessment and Plan (Free Text) Plan: Assessment S/P leukocytosis, R/O acute NSTEMI with probable acute on chronic CHF hematuria, etiology to be determined chronic CHF CAD peripheral vascular disease HTN DM gout S/P laminectomy chronic anemia Plan follow up blood, urine cx; CXR does not show infiltrates; PCT is only 0.24 patient has been given 2 doses of Azactam and will observe off antibiotics for now will monitor clinically
--- NOTE | 2017-06-14 14:05 | CARD ---
APPROVED REPORT EKG Measurement Heart [id number] <Conclusion> Accelerated Junctional rhythm with frequent premature ventricular complexes Inferior infarct, age undetermined STTW changes c/w ischemia
--- NOTE | 2017-06-14 15:08 | PN ---
DATE: 06/14/2017 SUBJECTIVE: The patient is seen and examined at bedside. He is sitting in the chair. He is alert, awake, and oriented x3. His chest pain is gone. He is much more comfortable and reports doing subjectively better. PHYSICAL EXAMINATION: VITAL SIGNS: Heart rate 100, blood pressure 124/60, respiratory rate 20, oxygen saturation 100% on 2 liters nasal cannula. HEENT: Head and neck atraumatic. LUNGS: Clear to auscultation bilaterally. HEART: Regular rate and rhythm. S1 and S2 normal. ABDOMEN: Soft, nontender, nondistended. MUSCULOSKELETAL: No C/C/E. NEUROLOGIC: The patient moves all extremities spontaneously. SKIN: Moist. PSYCHIATRIC: The patient is alert and oriented x3. LABORATORY DATA: WBC 9.4, hemoglobin 7.7, platelet count 200. Sodium 142, potassium 5.8, chloride 111, carbon dioxide 12, BUN 122, creatinine 6.9, glucose 129. Troponin 0.88. AST 40, ALT 28, total bilirubin 0.2, magnesium 2.5, phosphorus 7.8. MEDICATIONS: Metoprolol 2.5 mg IV every 8 hours, nitroglycerin drip, Protonix, bicarb drip at 100 mL per hour. ASSESSMENT AND PLAN: This is an 81-year-old gentleman, who presented with acute on chronic kidney injury with hyperkalemia and substantial rise in creatinine. At that time, he also had some chest pain and was severely dehydrated. He was fluid resuscitated and bicarb maintenance fluid started at 100 mL per hour. He received "cocktail" of calcium, Kayexalate, D50 /insulin IV, which resulted in substantial drop in potassium to 5.8 from 8.1. His mental status and overall clinical status substantially improved. His nitroglycerin drip was weaned off and he is pain-free right now. He will be transfused 2 units of PRBC to maintain hemoglobin closer to 10 as he had acute coronary syndrome. Cardiology consult is pending. Echocardiogram is pending. He is afebrile, does not have leukocytosis, and the current suspicion for ongoing sepsis is very low. Blood culture and urine culture were sent. He had a bowel movement due to Kayexalate. We will continue with beta-blockers, statins and aspirin. Avoiding hyperchloremia , maintaining mean arterial pressure more than 65 and avoiding nephrotoxins. ccm time 40 min Yfn Ferguson MD KRYSTYNA
[2017-06-14 20:42] LABS: HEMOGLOBIN 8.3 g/dL (14.0-18.0); MEAN CELL VOLUME 89.2 fl (80.0-105.0); MEAN CORPUSCULAR HGB CONC 32.5 g/dl (31.0-37.0); MEAN PLATELET VOLUME 9.3 fl (7.0-11.0); RBC 2.86 10^6/uL (3.5-6.1); RED CELL DISTRIBUTION WIDTH 18.4 % (11.5-14.5)
[2017-06-14 20:53] LABS: CALCIUM 8.2 mg/dL (8.4-10.5)
[2017-06-14] MEDS ORDERED: Sod Polystyrene Sulf 15 gm/60 ml Susp PO ONE (21:13)
[2017-06-14] MEDS ORDERED: DiphenhydrAMINE 50 mg/ml Inj IVP ONE (23:55)
[2017-06-15] MEDS: Metoprolol 1 mg/ml Inj IV SCH ×3 (01:13→18:00)
[2017-06-15] MEDS: Sodium Bicarbonate 8.4% 150 MEQ in Dextrose 5% In Water 1,000 ML IV SCH ×2 (01:26→17:56)
[2017-06-15 06:28] LABS: BASO # 0.03 K/mm3 (0.0-2.0); BASO % 0.3 % (0.0-3.0); EOS # 1.7 (0.0-0.7); EOS % 18.6 % (1.5-5.0); GRAN # 4.83 (1.4-6.5); LYMPH # 1.6 (1.2-3.4); LYMPH % 17.8 % (22.0-35.0); MEAN CELL VOLUME 88.3 fl (80.0-105.0); MEAN CORPUSCULAR HEMOGLOBIN 29.3 pg (25.0-35.0); MEAN CORPUSCULAR HGB CONC 33.2 g/dl (31.0-37.0); MEAN PLATELET VOLUME 9.5 fl (7.0-11.0); MONO # 0.8 (0.1-0.6); MONO % 9.3 % (1.0-6.0); RBC 2.73 10^6/uL (3.5-6.1); RED CELL DISTRIBUTION WIDTH 18.7 % (11.5-14.5); WHITE BLOOD COUNT 8.9 10^3/ul (4.5-11.0)
--- NOTE | 2017-06-15 07:41 | CP.PCM.PN ---
<Meche Crump - Last Filed: 06/15/17 10:37> Subjective - Date & Time of Evaluation Date of Evaluation: 06/15/17 Time of Evaluation: 07:00 - Subjective Subjective: Progress Note for Celine Rajan PGY2 Patient seen and examined at bedside. As per nursing, patient was confused overnight and was trying to leave the hospital. He was given Benadryl and only slept 2 hours. Upon examination, patient is awake and alert, but delirious. He reports he wants to go home and keeps asking the same questions over and over again. He denies having any pain, chest pain, shortness of breath, nausea/ vomiting/diarrhea, numbness/tingling, fever/chills, dysuria or hematuria. Objective - Vital Signs/Intake and Output Vital Signs (last 24 hours): Temp Pulse Resp BP Pulse Ox 97.4 F L 118 H 14 108/62 96 06/14/17 16:30 06/15/17 06:20 06/15/17 06:20 06/15/17 06:03 06/14/17 18:30 Intake and Output: 06/15/17 06/15/17 06:59 18:59 Intake Total 2478 Output Total 800 Balance 1678 - Medications Medications: Current Medications Acetaminophen (Tylenol 325mg Tab) 650 mg PO Q6H PRN PRN Reason: Pain, moderate (4-7) Last Admin: 06/15/17 04:26 Dose: 650 mg Aspirin (Aspirin Chewable) 81 mg PO DAILY [facility] Last Admin: 06/14/17 10:27 Dose: 81 mg Atorvastatin Calcium (Lipitor) 40 mg PO DIN [facility] Last Admin: 06/14/17 17:04 Dose: 40 mg Nitroglycerin/Dextrose (Nitroglycerin 50 Mg/250 Ml D5w) 50 mg in 250 mls @ 1.5 mls/hr IV .Q24H PRN; Protocol; 5 MCG/MIN PRN Reason: chest pain Sodium Bicarbonate 150 meq/ (Dextrose) 1,150 mls @ 100 mls/hr IV .[id number] [facility] Last Admin: 06/15/17 01:26 Dose: 100 mls/hr Iron Sucrose 200 mg/ Sodium (Chloride) 110 mls @ 110 mls/hr IVPB DAILY [facility] Stop: 06/20/17 10:01 Metoprolol Tartrate (Lopressor) 2.5 mg IV Q8H [facility] Last Admin: 06/15/17 01:13 Dose: Not Given Pantoprazole Sodium (Protonix Inj) 40 mg IVP DAILY [facility] Last Admin: 06/14/17 10:29 Dose: 40 mg - Labs Labs: 06/15/17 05:30 06/15/17 05:30 - Constitutional Appears: No Acute Distress - Head Exam Head Exam: ATRAUMATIC, NORMAL INSPECTION, NORMOCEPHALIC - Eye Exam Eye Exam: Normal appearance, PERRL Pupil Exam: NORMAL ACCOMODATION - ENT Exam ENT Exam: Mucous Membranes Moist Additional comments: blood in nares - Respiratory Exam Respiratory Exam: Clear to Ausculation Bilateral, NORMAL BREATHING PATTERN. absent: Rales, Rhonchi, Wheezes - Cardiovascular Exam Cardiovascular Exam: Irregular Rhythm, +S1, +S2, Murmur. absent: Gallop, Rubs - GI/Abdominal Exam GI & Abdominal Exam: Soft, Normal Bowel Sounds. absent: Rigid, Tenderness, Mass , Rebound - Extremities Exam Extremities Exam: absent: Calf Tenderness, Pedal Edema Additional comments: some blood around IV site in L arm - Neurological Exam Neurological Exam: Awake, CN II-XII Intact. absent: Oriented x3 (A&O x 2 ) - Skin Skin Exam: Dry, Warm Assessment and Plan - Assessment and Plan (Free Text) Assessment: This is a 81yo M with past medical history of CAD, moderate aortic sclerosis with normal EF/LV function, CKD stage IIIb, DM, chronic A.fib (on Eliquis), anemia, GI bleed who is admitted for hyperkalemia, acute renal failure which have improved. Patient was also found to have NSTEMI and anemia s/p 2U PRBC. Plan: 1. NSTEMI - EKG showed ST depressions in V3-V5, I and II - Troponin increased to 2.22 from 0.88 - Cardio consulted- recs appreciated - ASA and Lipitor, and Nitro paste - Eliquis at home - Patient is anemic and is bleeding from nares and IV site. Also has renal failure - Patient may not be a candidate for anticoagulation or cardiac cath at this time - Will continue to monitor clinically 2. 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 Hyperkalemia (improved) - can be secondary to acute renal failure as well as medications - EKG changes seen on admission - s/p calcium gluconate kayexalate, insulin drip, albuterol - K: 4.4 - Will continue to monitor 4. Acute renal failure on CKD IIIb (improving) - Cr: 4.3 - Baseline Cr ~2.0 - Hold nephrotoxic agents - Bicarb still low. Continue bicarb drip @75 5. Delirium - secondary to ICU delirium- has hx of this in past - Avoid sedating medication (including benadryl) - Re-orientation and education 6. UTI (possible) - Afebrile, no leukocytosis - s/p 2 doses of Azactam - now off of antibiotics - U/A was positive for WBC, bacteria and trace LE - Micro pending - PCT: 0.29, Lactate 0.9 - ID consulted- recs appreciated 7. Hx of CAD - ASA and Lipitor 8. Hx of A.fib - rate controlled - Lopressor - Eliquis on hold for anemia and active bleeding GI ppx: Protonix DVT ppx: SCDs. Anticoagulation contraindicated since patient most likely has active bleeding Dispo: Patient is DNR/DNI. He is HD stable. Patient will be transferred to telemetry. Will await physical therapy eval for discharge planning once patient is medically stable. Case seen, discussed and reviewed with Dr. Ladonna Estrada PGY2 <Juma Dougherty S - Last Filed: 06/17/17 18:55> Objective - Vital Signs/Intake and Output Vital Signs (last 24 hours): Temp Pulse Resp BP Pulse Ox 98 F 81 18 129/64 97 06/17/17 12:00 06/17/17 12:00 06/17/17 12:00 06/17/17 12:00 06/17/17 06:00 Intake and Output: 06/17/17 06/17/17 06:59 18:59 Intake Total 900 340 Output Total 820 Balance 900 -480 - Labs Labs: 06/17/17 06:00 06/17/17 06:00 Assessment and Plan - Assessment and Plan (Free Text) Plan: Pt seen and examined. Agree with the note of the medical legal investigator. Medications and Labs were reviewed. The Cr is improving.Hb is stable. On IVF and labs being followed. He had some mild confusion but has improved.
--- NOTE | 2017-06-15 07:55 | CP.PCM.PN ---
Subjective - Date & Time of Evaluation Date of Evaluation: 06/15/17 Time of Evaluation: 07:00 - Subjective Subjective: Stable in ICU. Confused this AM. + nose bleeding. No CP or SOB. S/P transfusions yesterday. V/S noted. AF. Sometimes rapid rates. PE: Lungs: rhonchi Cor.: irreg, S1S2 Abd.: soft Ext.: no edema Neuro.: alert with confusion I/O= [id number] Labs: H/H 09/28, K+= 4.4, Cr.= 4.3, Mg++= 2.3 BC X2 NG at 24 hrs CXR 06/14: No change. No CHF of infiltrate Objective - Vital Signs/Intake and Output Vital Signs (last 24 hours): Temp Pulse Resp BP Pulse Ox 97.4 F L 118 H 14 108/62 96 06/14/17 16:30 06/15/17 06:20 06/15/17 06:20 06/15/17 06:03 06/14/17 18:30 Intake and Output: 06/15/17 06/15/17 06:59 18:59 Intake Total 2478 Output Total 800 Balance 1678 - Medications Medications: Current Medications Acetaminophen (Tylenol 325mg Tab) 650 mg PO Q6H PRN PRN Reason: Pain, moderate (4-7) Last Admin: 06/15/17 04:26 Dose: 650 mg Aspirin (Aspirin Chewable) 81 mg PO DAILY [facility] Last Admin: 06/14/17 10:27 Dose: 81 mg Atorvastatin Calcium (Lipitor) 40 mg PO DIN [facility] Last Admin: 06/14/17 17:04 Dose: 40 mg Nitroglycerin/Dextrose (Nitroglycerin 50 Mg/250 Ml D5w) 50 mg in 250 mls @ 1.5 mls/hr IV .Q24H PRN; Protocol; 5 MCG/MIN PRN Reason: chest pain Sodium Bicarbonate 150 meq/ (Dextrose) 1,150 mls @ 100 mls/hr IV .[id number] [facility] Last Admin: 06/15/17 01:26 Dose: 100 mls/hr Iron Sucrose 200 mg/ Sodium (Chloride) 110 mls @ 110 mls/hr IVPB DAILY [facility] Stop: 06/20/17 10:01 Metoprolol Tartrate (Lopressor) 2.5 mg IV Q8H [facility] Last Admin: 06/15/17 01:13 Dose: Not Given Pantoprazole Sodium (Protonix Inj) 40 mg IVP DAILY [facility] Last Admin: 06/14/17 10:29 Dose: 40 mg - Labs Labs: 06/15/17 05:30 06/15/17 05:30 Assessment and Plan - Assessment and Plan (Free Text) Assessment: Acute on chronic renal failure with hyperkalemia Chest Pain, + trops in setting of acute renal failure, R/O [place] Nose Bleeding CAD/CABG/PCI's , mod. on last echo CHF Diabetes GIB with severe anemia s/p transfusions yesterday AF H/O colonic and gastric polyps DNR/DNI status Plan: Continue in ICU D/C IV NTG IV metoprolol As per Aniya Turner and Intensivists. OOB to chair as sam. Monitor: H/H, stool for OB, labs, sats., I/O, neuro. signs, etc Will follow.
[2017-06-15] MEDS: Nitroglycerin 2% Ointment Foilpak UD TOP SCH ×4 (08:24→20:02)
--- NOTE | 2017-06-15 10:32 | CP.PCM.PN ---
Subjective - Date & Time of Evaluation Date of Evaluation: 06/15/17 Time of Evaluation: 10:00 - Subjective Subjective: Comfortable on a chair, no fevers, not in distress, afebrile, no abdominal pain currently, no chest pain. Objective - Vital Signs/Intake and Output Vital Signs (last 24 hours): Temp Pulse Resp BP Pulse Ox 97.4 F L 118 H 14 108/62 96 06/14/17 16:30 06/15/17 06:20 06/15/17 06:20 06/15/17 06:03 06/14/17 18:30 Intake and Output: 06/14/17 06/15/17 18:59 06:59 Intake Total 1379 278 Output Total 920 Balance 459 278 - Medications Medications: Current Medications Acetaminophen (Tylenol 325mg Tab) 650 mg PO Q6H PRN PRN Reason: Pain, moderate (4-7) Last Admin: 06/15/17 04:26 Dose: 650 mg Aspirin (Aspirin Chewable) 81 mg PO DAILY [facility] Last Admin: 06/14/17 10:27 Dose: 81 mg Atorvastatin Calcium (Lipitor) 40 mg PO DIN [facility] Last Admin: 06/14/17 17:04 Dose: 40 mg Nitroglycerin/Dextrose (Nitroglycerin 50 Mg/250 Ml D5w) 50 mg in 250 mls @ 1.5 mls/hr IV .Q24H PRN; Protocol; 5 MCG/MIN PRN Reason: chest pain Sodium Bicarbonate 150 meq/ (Dextrose) 1,150 mls @ 100 mls/hr IV .[id number] [facility] Last Admin: 06/15/17 01:26 Dose: 100 mls/hr Iron Sucrose 200 mg/ Sodium (Chloride) 110 mls @ 110 mls/hr IVPB DAILY [facility] Stop: 06/20/17 10:01 Metoprolol Tartrate (Lopressor) 2.5 mg IV Q8H [facility] Last Admin: 06/15/17 01:13 Dose: Not Given Pantoprazole Sodium (Protonix Inj) 40 mg IVP DAILY [facility] Last Admin: 06/14/17 10:29 Dose: 40 mg - Labs Labs: 06/14/17 20:30 06/14/17 20:30 - Constitutional Appears: Chronically Ill - Head Exam Head Exam: NORMAL INSPECTION - ENT Exam ENT Exam: Mucous Membranes Moist - Neck Exam Neck Exam: absent: Lymphadenopathy, Meningismus - Respiratory Exam Respiratory Exam: Decreased Breath Sounds. absent: Rales - Cardiovascular Exam Cardiovascular Exam: +S1, +S2 - GI/Abdominal Exam GI & Abdominal Exam: Soft. absent: Tenderness Assessment and Plan - Assessment and Plan (Free Text) Plan: Assessment S/P leukocytosis, R/O acute NSTEMI with probable acute on chronic CHF with acute on chronic renal failure; currently no evidence of infection or sepsis identified hematuria, etiology to be determined chronic CHF CAD peripheral vascular disease HTN DM gout S/P laminectomy chronic anemia Plan blood cx are negative, follow up urine cx but urinalysis does not show pyuria and patient currently does not have urinary symptoms; CXR does not show infiltrates; PCT is only 0.24 patient has been given 2 doses of Azactam and will continue to observe off antibiotics for now will monitor clinically and follow up further recommendations of Cardiology and Nephrology
--- NOTE | 2017-06-15 13:43 | PN ---
DATE: 06/15/2017 SUBJECTIVE: The patient is sitting in a chair. He feels better. He denies any further chest pain or shortness of breath. He had epistaxis after blowing his nose. He also had bleeding at an IV site. There is no evidence of GI bleeding with melena or rectal bleeding. He denies any nausea, vomiting or hematemesis. PHYSICAL EXAMINATION: VITAL SIGNS: Reveal heart rate of 118, blood pressure 108/62. He is afebrile. HEENT: Reveals sclerae to be white. Conjunctivae pale. NECK: Supple. CHEST: Reveals lungs to be clear. HEART: Reveals an irregularly irregular rate. There is a II/ systolic murmur. ABDOMEN: Soft, nontender. EXTREMITIES: Show no edema. LABORATORY DATA: Reveal white blood cell count 8.9, hemoglobin of 88, platelet count of 181,000. Chemistries reveal BUN of 102, creatinine 14.3, potassium 4.4. Troponins of 2.22. IMPRESSION: 1. Acute [id number] myocardial infarction. 2. Acute on chronic renal failure with hyperkalemia, which has been treated. 3. Chronic recurrent anemia, multifactorial. Rule out anemia of chronic disease versus chronic intermittent gastrointestinal blood loss. There is no evidence of active bleeding at this time. 4. Aortic stenosis, moderate. 5. Atrial fibrillation, previously on Eliquis. RECOMMENDATIONS: 1. I have spoken with the admin secretary and the ICU resident to transfuse the patient two more units of packed red blood cells. 2. Follow serial hematocrits. 3. I would hold Eliquis for now. 4. Continue close observation. NOTE: The patient is making urine. Eligio Kwan MD
[2017-06-15 17:40] LABS: HEMOGLOBIN 9.7 g/dL (14.0-18.0); MEAN CELL VOLUME 88.3 fl (80.0-105.0); MEAN CORPUSCULAR HEMOGLOBIN 29.8 pg (25.0-35.0); MEAN CORPUSCULAR HGB CONC 33.7 g/dl (31.0-37.0); RBC 3.26 10^6/uL (3.5-6.1); RED CELL DISTRIBUTION WIDTH 18.1 % (11.5-14.5); WHITE BLOOD COUNT 8.9 10^3/ul (4.5-11.0)
[2017-06-16] MEDS: Nitroglycerin 2% Ointment Foilpak UD TOP SCH ×6 (00:29→20:49)
[2017-06-16] MEDS: Metoprolol 1 mg/ml Inj IV SCH ×3 (01:16→17:19)
[2017-06-16] MEDS: Sodium Bicarbonate 8.4% 150 MEQ in Dextrose 5% In Water 1,000 ML IV SCH ×5 (02:31→22:17)
[2017-06-16 06:55] LABS: BASO # 0.03 K/mm3 (0.0-2.0); BASO % 0.3 % (0.0-3.0); EOS # 1.9 (0.0-0.7); EOS % 19.6 % (1.5-5.0); GRAN # 5.2 (1.4-6.5); GRAN % 52.7 % (50.0-68.0); HEMOGLOBIN 8.5 g/dL (14.0-18.0); LYMPH # 1.8 (1.2-3.4); LYMPH % 18.5 % (22.0-35.0); MEAN CELL VOLUME 88.4 fl (80.0-105.0); MEAN CORPUSCULAR HEMOGLOBIN 29.1 pg (25.0-35.0); MEAN CORPUSCULAR HGB CONC 32.9 g/dl (31.0-37.0); MEAN PLATELET VOLUME 9.7 fl (7.0-11.0); MONO # 0.9 (0.1-0.6); MONO % 8.9 % (1.0-6.0); RBC 2.92 10^6/uL (3.5-6.1); WHITE BLOOD COUNT 9.9 10^3/ul (4.5-11.0)
[2017-06-16 07:10] LABS: ALB/GLOB RATIO 1.1 (1.1-1.8); ALBUMIN 3.2 g/dL (3.0-4.8); CALCIUM 7.9 mg/dL (8.4-10.5)
--- NOTE | 2017-06-16 07:18 | CP.PCM.PN ---
Subjective - Date & Time of Evaluation Date of Evaluation: 06/16/17 Time of Evaluation: 07:00 - Subjective Subjective: Stable on 2R now. No CP or SOB. V/S noted. AF. Sometimes rapid rates. PE: Lungs: rhonchi Cor.: irreg, S1S2 Abd.: soft Ext.: no edema Neuro.: alert I/O= 2930/2980 Labs: H/H 8.5/25.8 Trop 06/15 = 2.22, CMP pending BC X2 NG at 48 hrs CXR 06/14: No change. No CHF of infiltrate Objective - Vital Signs/Intake and Output Vital Signs (last 24 hours): Temp Pulse Resp BP Pulse Ox 97.7 F 96 H 20 126/63 97 06/16/17 05:57 06/16/17 05:57 06/16/17 05:57 06/16/17 05:57 06/16/17 05:57 Intake and Output: 06/16/17 06/16/17 06:59 18:59 Intake Total 765 Output Total 1550 Balance -785 - Medications Medications: Current Medications Acetaminophen (Tylenol 325mg Tab) 650 mg PO Q6H PRN PRN Reason: Pain, moderate (4-7) Last Admin: 06/15/17 04:26 Dose: 650 mg Aspirin (Aspirin Chewable) 81 mg PO DAILY [facility] Last Admin: 06/15/17 09:59 Dose: 81 mg Atorvastatin Calcium (Lipitor) 40 mg PO DIN [facility] Last Admin: 06/15/17 17:56 Dose: 40 mg Nitroglycerin/Dextrose (Nitroglycerin 50 Mg/250 Ml D5w) 50 mg in 250 mls @ 1.5 mls/hr IV .Q24H PRN; Protocol; 5 MCG/MIN PRN Reason: chest pain Iron Sucrose 200 mg/ Sodium (Chloride) 110 mls @ 110 mls/hr IVPB DAILY [facility] Stop: 06/20/17 10:01 Last Admin: 06/15/17 11:04 Dose: 110 mls/hr Sodium Bicarbonate 150 meq/ (Dextrose) 1,150 mls @ 75 mls/hr IV .[id number] [facility] Last Admin: 06/16/17 04:45 Dose: 75 mls/hr Metoprolol Tartrate (Lopressor) 2.5 mg IV Q8H [facility] Last Admin: 06/16/17 01:16 Dose: 2.5 mg Nitroglycerin (Nitro-Bid 2% Oint) 1 ea TOP Q4H [facility] Last Admin: 06/16/17 03:46 Dose: 1 ea Pantoprazole Sodium (Protonix Inj) 40 mg IVP DAILY [facility] Last Admin: 06/15/17 10:02 Dose: 40 mg Sodium Chloride ([place] Nasal [place]) 0 ml NS BID [facility] Last Admin: 06/15/17 17:57 Dose: 2 sprays - Labs Labs: 06/16/17 06:00 06/16/17 06:00 Assessment and Plan - Assessment and Plan (Free Text) Assessment: Acute on chronic renal failure with hyperkalemia Chest Pain, + trops in setting of acute renal failure, R/O [place] Nose Bleeding CAD/CABG/PCI's , mod. on last echo CHF Diabetes GIB with severe anemia s/p transfusions yesterday AF H/O colonic and gastric polyps DNR/DNI status Plan: Await AM labs. IV metoprolol: 5 mg. Q 8 hrs. As per Aniya Turner and ID. OOB to chair as sam. Monitor: H/H, stool for OB, labs, sats., I/O, neuro. signs, etc Will follow.
--- NOTE | 2017-06-16 14:28 | CP.PCM.PN ---
Subjective - Date & Time of Evaluation Date of Evaluation: 06/16/17 Time of Evaluation: 12:10 - Subjective Subjective: Comfortable on a chair, no fevers, not in distress, no SOB at rest. Objective - Vital Signs/Intake and Output Vital Signs (last 24 hours): Temp Pulse Resp BP Pulse Ox 97.7 F 96 H 20 126/63 97 06/16/17 05:57 06/16/17 05:57 06/16/17 05:57 06/16/17 05:57 06/16/17 05:57 Intake and Output: 06/15/17 06/16/17 18:59 06:59 Intake Total 2165 765 Output Total 1430 1550 Balance 735 -785 - Medications Medications: Current Medications Acetaminophen (Tylenol 325mg Tab) 650 mg PO Q6H PRN PRN Reason: Pain, moderate (4-7) Last Admin: 06/15/17 04:26 Dose: 650 mg Aspirin (Aspirin Chewable) 81 mg PO DAILY [facility] Last Admin: 06/15/17 09:59 Dose: 81 mg Atorvastatin Calcium (Lipitor) 40 mg PO DIN [facility] Last Admin: 06/15/17 17:56 Dose: 40 mg Nitroglycerin/Dextrose (Nitroglycerin 50 Mg/250 Ml D5w) 50 mg in 250 mls @ 1.5 mls/hr IV .Q24H PRN; Protocol; 5 MCG/MIN PRN Reason: chest pain Iron Sucrose 200 mg/ Sodium (Chloride) 110 mls @ 110 mls/hr IVPB DAILY [facility] Stop: 06/20/17 10:01 Last Admin: 06/15/17 11:04 Dose: 110 mls/hr Sodium Bicarbonate 150 meq/ (Dextrose) 1,150 mls @ 75 mls/hr IV .[id number] [facility] Last Admin: 06/16/17 04:45 Dose: 75 mls/hr Metoprolol Tartrate (Lopressor) 2.5 mg IV Q8H [facility] Last Admin: 06/16/17 01:16 Dose: 2.5 mg Nitroglycerin (Nitro-Bid 2% Oint) 1 ea TOP Q4H [facility] Last Admin: 06/16/17 03:46 Dose: 1 ea Pantoprazole Sodium (Protonix Inj) 40 mg IVP DAILY [facility] Last Admin: 06/15/17 10:02 Dose: 40 mg Sodium Chloride ([place] Nasal [place]) 0 ml NS BID [facility] Last Admin: 06/15/17 17:57 Dose: 2 sprays - Labs Labs: 06/15/17 17:30 06/15/17 05:30 - Constitutional Appears: Non-toxic, Chronically Ill - Head Exam Head Exam: NORMAL INSPECTION - Respiratory Exam Respiratory Exam: Decreased Breath Sounds - Cardiovascular Exam Cardiovascular Exam: +S1, +S2 - GI/Abdominal Exam GI & Abdominal Exam: Soft. absent: Tenderness Assessment and Plan - Assessment and Plan (Free Text) Plan: Assessment S/P leukocytosis, R/O acute NSTEMI with probable acute on chronic CHF with acute on chronic renal failure; currently no evidence of infection or sepsis identified hematuria, etiology to be determined chronic CHF CAD peripheral vascular disease HTN DM gout S/P laminectomy chronic anemia Plan blood cx are negative, follow up urine cx but urinalysis does not show pyuria and patient currently does not have urinary symptoms; CXR does not show infiltrates; PCT is only 0.24 patient has been given 2 doses of Azactam and will continue to observe off antibiotics will monitor clinically and follow up further recommendations of Cardiology and Nephrology
--- NOTE | 2017-06-16 20:42 | PN ---
DATE: 06/16/2017 SUBJECTIVE: Patient is an 81 years old, seen and examined, lying in bed, seems to be comfortable. Offers no complaint. Getting iron infusion. As per nurse, he is eating and tolerating. PHYSICAL EXAMINATION: VITAL SIGNS: He is afebrile, pulse 91, respirations 18, blood pressure 129/63. LUNGS: Bilateral fair airflow. No rhonchi or crackle. HEART: S1 and S2 audible. ABDOMEN: Soft, obese, nontender. No rebound. No guarding. NEUROLOGIC: He is awake and alert, answers appropriately. LABORATORY EXAM: WBC is 9.9. hemoglobin 8.5, hematocrit 25.8, platelets of 171. Chemistry: Sodium 142, potassium 4.4, chloride 110, CO2 18, BUN 102, creatinine 4.3, and today's BUN is 78, creatinine 2.8, blood sugar 135. ASSESSMENT: 1. Status post hyperkalemia. 2. Status post acute renal failure, improving. 3. Symptomatic anemia. 4. History of gastrointestinal bleed, secondary to gastric arteriovenous malformations. 5. Metabolic encephalopathy. PLAN: Since the patient's renal failure has resolved, his hemoglobin is stable, no more GI bleed, eating and tolerating. I will cut down his fluid. Follow up electrolyte in a.m. If his BUN improves further and hemoglobin remain stable, he will be discharged in a.m. Michael Giron MD
[2017-06-17] MEDS: Nitroglycerin 2% Ointment Foilpak UD TOP SCH ×2 (00:58→04:32)
[2017-06-17] MEDS: Metoprolol 1 mg/ml Inj IV SCH (01:00)
[2017-06-17 06:29] VITALS: O2SAT 97
[2017-06-17 07:27] LABS: BASO # 0.02 K/mm3 (0.0-2.0); BASO % 0.2 % (0.0-3.0); EOS # 1.3 (0.0-0.7); EOS % 14.4 % (1.5-5.0); GRAN # 5.57 (1.4-6.5); GRAN % 59.8 % (50.0-68.0); HEMOGLOBIN 8.5 g/dL (14.0-18.0); LYMPH # 1.6 (1.2-3.4); LYMPH % 17.6 % (22.0-35.0); MEAN CELL VOLUME 91.3 fl (80.0-105.0); MEAN CORPUSCULAR HEMOGLOBIN 29.6 pg (25.0-35.0); MEAN CORPUSCULAR HGB CONC 32.4 g/dl (31.0-37.0); MEAN PLATELET VOLUME 9.5 fl (7.0-11.0); MONO # 0.8 (0.1-0.6); RBC 2.87 10^6/uL (3.5-6.1); RED CELL DISTRIBUTION WIDTH 18.3 % (11.5-14.5); WHITE BLOOD COUNT 9.3 10^3/ul (4.5-11.0)
[2017-06-17 07:33] LABS: ALB/GLOB RATIO 1.1 (1.1-1.8); ALBUMIN 3.2 g/dL (3.0-4.8)
--- NOTE | 2017-06-17 08:04 | CP.PCM.PN ---
Subjective - Date & Time of Evaluation Date of Evaluation: 06/17/17 Time of Evaluation: 07:00 - Subjective Subjective: Stable on 2R now. No CP or SOB. V/S noted. AF ~ 80 - 90s PE: Lungs: rhonchi Cor.: irreg, S1S2 Abd.: soft Ext.: no edema Neuro.: alert Urine out = ~ 2000 cc. (verbal from his nurse) Labs: H/H 8.5/26.2, Cr. = 2.2, K+= 3.9 BC X2 NG at 3 days CXR 06/14: No change. No CHF of infiltrate Objective - Vital Signs/Intake and Output Vital Signs (last 24 hours): Temp Pulse Resp BP Pulse Ox 97.7 F 88 20 133/77 97 06/17/17 06:00 06/17/17 06:00 06/17/17 06:00 06/17/17 06:00 06/17/17 06:00 Intake and Output: 06/17/17 06/17/17 06:59 18:59 Intake Total 900 340 Output Total 520 Balance 900 -180 - Medications Medications: Current Medications Acetaminophen (Tylenol 325mg Tab) 650 mg PO Q6H PRN PRN Reason: Pain, moderate (4-7) Last Admin: 06/15/17 04:26 Dose: 650 mg Aspirin (Aspirin Chewable) 81 mg PO DAILY [facility] Last Admin: 06/16/17 10:07 Dose: 81 mg Atorvastatin Calcium (Lipitor) 40 mg PO DIN [facility] Last Admin: 06/16/17 17:19 Dose: 40 mg Iron Sucrose 200 mg/ Sodium (Chloride) 110 mls @ 110 mls/hr IVPB DAILY [facility] Stop: 06/20/17 10:01 Last Admin: 06/16/17 10:08 Dose: 110 mls/hr Sodium Bicarbonate 150 meq/ (Dextrose) 1,150 mls @ 75 mls/hr IV .[id number] [facility] Last Admin: 06/16/17 22:17 Dose: 75 mls/hr Metoprolol Tartrate (Lopressor) 50 mg PO BID [facility] Nitroglycerin (Nitro-Bid 2% Oint) 1 ea TOP Q4H [facility] Last Admin: 06/17/17 04:32 Dose: 1 ea Pantoprazole Sodium (Protonix Inj) 40 mg IVP DAILY [facility] Last Admin: 06/16/17 10:07 Dose: 40 mg Sodium Chloride ([place] Nasal [place]) 0 ml NS BID [facility] Last Admin: 06/16/17 17:19 Dose: 2 sprays - Labs Labs: 06/17/17 06:00 06/17/17 06:00 Assessment and Plan - Assessment and Plan (Free Text) Assessment: Acute on chronic renal failure with hyperkalemia, improving Chest Pain, + trops in setting of acute renal failure, R/O [place] Nose Bleeding, resolved CAD/CABG/PCI's , mod. on last echo CHF Diabetes GIB with severe anemia s/p transfusions yesterday AF H/O colonic and gastric polyps DNR/DNI status Plan: IV metoprolol > PO Nitrolpaste > isosorbide As per Aniya Chandler and Domitila. A/C as per GI. OOB as sam. Monitor: H/H, stool for OB, labs, sats., I/O, neuro. signs, etc Will follow.
[2017-06-17 13:11] VITALS: BP 129/64; PULSE 81; RESP 18
--- NOTE | 2017-06-17 13:50 | CP.PCM.PN ---
Subjective - Date & Time of Evaluation Date of Evaluation: 06/17/17 Time of Evaluation: 10:00 - Subjective Subjective: Comfortable, no fevers, not in distress. Objective - Vital Signs/Intake and Output Vital Signs (last 24 hours): Temp Pulse Resp BP Pulse Ox 97.7 F 88 20 133/77 97 06/17/17 06:00 06/17/17 06:00 06/17/17 06:00 06/17/17 06:00 06/17/17 06:00 Intake and Output: 06/16/17 06/17/17 18:59 06:59 Intake Total 900 Balance 900 - Medications Medications: Current Medications Acetaminophen (Tylenol 325mg Tab) 650 mg PO Q6H PRN PRN Reason: Pain, moderate (4-7) Last Admin: 06/15/17 04:26 Dose: 650 mg Aspirin (Aspirin Chewable) 81 mg PO DAILY [facility] Last Admin: 06/16/17 10:07 Dose: 81 mg Atorvastatin Calcium (Lipitor) 40 mg PO DIN [facility] Last Admin: 06/16/17 17:19 Dose: 40 mg Iron Sucrose 200 mg/ Sodium (Chloride) 110 mls @ 110 mls/hr IVPB DAILY [facility] Stop: 06/20/17 10:01 Last Admin: 06/16/17 10:08 Dose: 110 mls/hr Sodium Bicarbonate 150 meq/ (Dextrose) 1,150 mls @ 75 mls/hr IV .[id number] [facility] Last Admin: 06/16/17 22:17 Dose: 75 mls/hr Metoprolol Tartrate (Lopressor) 5 mg IV Q8H [facility] Last Admin: 06/17/17 01:00 Dose: 5 mg Nitroglycerin (Nitro-Bid 2% Oint) 1 ea TOP Q4H [facility] Last Admin: 06/17/17 04:32 Dose: 1 ea Pantoprazole Sodium (Protonix Inj) 40 mg IVP DAILY [facility] Last Admin: 06/16/17 10:07 Dose: 40 mg Sodium Chloride ([place] Nasal [place]) 0 ml NS BID [facility] Last Admin: 06/16/17 17:19 Dose: 2 sprays - Labs Labs: 06/16/17 06:00 06/16/17 06:00 - Constitutional Appears: Non-toxic, Chronically Ill - Head Exam Head Exam: NORMAL INSPECTION - Respiratory Exam Respiratory Exam: Decreased Breath Sounds - Cardiovascular Exam Cardiovascular Exam: +S1, +S2 - GI/Abdominal Exam GI & Abdominal Exam: Soft. absent: Tenderness Assessment and Plan - Assessment and Plan (Free Text) Plan: Assessment S/P leukocytosis, R/O acute NSTEMI with probable acute on chronic CHF with acute on chronic renal failure; currently no evidence of infection or sepsis identified hematuria, etiology to be determined chronic CHF CAD peripheral vascular disease HTN DM gout S/P laminectomy chronic anemia Plan blood cx are negative, follow up urine cx but urinalysis does not show pyuria and patient currently does not have urinary symptoms; CXR does not show infiltrates; PCT is only 0.24 patient has been given 2 doses of Azactam and will continue to observe off antibiotics since he is at risk for infections will monitor clinically and follow up further recommendations of Cardiology and Nephrology
[2017-06-17 14:01] VITALS: TEMP 98
--- NOTE | 2017-06-17 22:50 | DS ---
HISTORY OF PRESENT ILLNESS: Patient is an 81-year-old, seen and examined, much more awake, alert and oriented, communicative, getting his iron infusion. Denies any chest pain. No shortness of breath. No nausea or vomiting. No diarrhea. No rectal bleeding. No more nose bleeding. PHYSICAL EXAMINATION: VITAL SIGNS: He is afebrile, pulse 81, respirations 18, blood pressure 129/64. LUNGS: Bilateral fair air flow. No rhonchi or crackles. HEART: S1 and S2 audible. ABDOMEN: Soft, obese, nontender. No rebound. No guarding. EXTREMITIES: Bilateral legs, +4 edema. NEUROLOGIC: He is awake and alert, and oriented. No motor or sensory deficit. LABORATORY DATA: WBC is 9.3, hemoglobin 8.5, hematocrit 26.2, platelet of 176. Chemistry: Sodium 144, potassium 3.9, chloride 103, CO2 32, BUN 56, creatinine 2.2. Blood sugar of 112. ASSESSMENT: 1. Acute kidney injury that has significantly improved, almost back to baseline. 2. Epistaxis that has resolved. 3. History of coronary artery disease, status post open heart surgery and angioplasty. 4. Congestive heart failure, resolved. 5. Insulin dependant diabetes. 6. Acute on chronic anemia. 7. Acute on chronic renal insufficiency. 8. Atrial fibrillation. 9. Status post metabolic encephalopathy that has resolved also. PLAN: So, plan is patient is being discharged today. He will resume his medications including multivitamin, metoprolol, metformin, losartan, levothyroxine, isosorbide, Lasix, famotidine, cilostazol, atorvastatin and allopurinol. His Eliquis was on hold. He will contact Dr. Chand that it can be started or not. At this point, he is not bleeding actively and his hemoglobin is stable. He will follow with his PMD also. Michael Giron MD
== END 2017-06-17 14:06 | disposition home or self-care (01) | DRG 280 ==
LOC: ED 16:01 → ERH 18:14 → CCU 21:00 → 2RSO 06-16 00:11
PROVIDERS: ADMIT Internal Medicine Nephrology; ATTEND Internal Medicine Nephrology
PROC: 30233N1 Transfusion of Nonautologous Red Blood Cells into Peripheral Vein, Percutaneous Approach (ICD-10-PCS; principal; 2017-06-14)
DX: I21.4 Non-ST elevation (NSTEMI) myocardial infarction (principal); G93.41 Metabolic encephalopathy; N17.9 Acute kidney failure, unspecified; E87.2 Acidosis; I13.0 Hypertensive heart and chronic kidney disease with heart failure and stage 1 through stage 4 chronic kidney disease, or unspecified chronic kidney disease; K92.2 Gastrointestinal hemorrhage, unspecified; N18.3 Chronic kidney disease, stage 3 (moderate); K21.9 Gastro-esophageal reflux disease without esophagitis; D64.9 Anemia, unspecified; D72.829 Elevated white blood cell count, unspecified; E11.22 Type 2 diabetes mellitus with diabetic chronic kidney disease; E11.51 Type 2 diabetes mellitus with diabetic peripheral angiopathy without gangrene; E78.5 Hyperlipidemia, unspecified; E86.0 Dehydration; E87.5 Hyperkalemia; I25.10 Atherosclerotic heart disease of native coronary artery without angina pectoris; I35.0 Nonrheumatic aortic (valve) stenosis; I48.2 Chronic atrial fibrillation; I50.9 Heart failure, unspecified; Z87.891 Personal history of nicotine dependence; Z88.0 Allergy status to penicillin; Z79.4 Long term (current) use of insulin; Z79.01 Long term (current) use of anticoagulants; Z66 Do not resuscitate; Z95.1 Presence of aortocoronary bypass graft; M10.9 Gout, unspecified; R04.0 Epistaxis; Z95.5 Presence of coronary angioplasty implant and graft; Z86.010 Personal history of colon polyps

== ENCOUNTER 2017-11-26 10:45 | Inpatient (IN) | payer MEDICARE, BC ==
[2017-11-26 11:14] VITALS: BMI 32.5
[2017-11-26] MEDS ORDERED: Clindamycin 600mg/50ml D5W 600 MG/50 ML VIAL IVPB STA (11:31)
--- NOTE | 2017-11-26 12:05 | ED PDOC ---
Arrival/HPI - General Chief Complaint: Lower Extremity Problem/Injury Time Seen by Provider: 11/26/17 11:03 Historian: Patient - History of Present Illness Narrative History of Present Illness (Text): 11/26/17 11:30 81yo M with past medical history of CABG, CKD stage IIIb, DM, chronic A.fib (on Eliquis), anemia, and GI bleed presents to the ED complaining of bilateral lower extremity swelling and redness for two weeks. Patient states contacting Dr. Chand last for the presented symptoms and was instructed to come to the ED for evaluation. Patient reports refusing ED visit at the time and was subsequently put on increased dose of Lasix per day. Patient reports unimproved symptoms since then prompting him to present to the ED for medical evaluation. Patient informs a transient episode of chest discomfort last night but currently denies any. Patient denies any other associated somatic complaints. Patient denies any fever, chills. nausea, vomiting, diarrhea, abdominal pain, chest pain, SOB, dysuria, changes in bowel movement, headache, dizziness, neck pain, back pain or any other complaints. Patient denies any recent antibiotics use or any significant medication changes prior to onset. PMD: Dr. Novak Financial Management Analyst: Dr. Chand Time/Duration: > week (2 weeks) Symptom Onset: Gradual Symptom Course: Unchanged Activities at Onset: Light Context: Home Past Medical History - Provider Review Nursing Documentation Reviewed: Yes - Past History Past History: No Previous - Infectious Disease Hx of Infectious Diseases: None - Tetanus Immunization Tetanus Immunization: Unknown - Reproductive Currently Lactating: No - Cardiac Hx Pacemaker: No Other/Comment: open heart s. x - Pulmonary Hx Respiratory Disorders: Yes (PPD OF CIGARETTES QUIT 1996) - Neurological Hx Paralysis: No - HEENT Hx HEENT Disorder: Yes (BLURRY VISION) - Renal Hx Renal Disorder: No - Endocrine/Metabolic Hx Diabetes Mellitus Type 2: Yes - Hematological/Oncological Hx Blood Transfusions: Yes Hx Blood Transfusion Reaction: No - Integumentary Hx Dermatological Disorder: Yes Other/Comment: BILATERAL LE EDEMA MORE TO RIGHT. JAIN BONE SOME REDNESS.BROWNISH SKIN DISCOLORATION. - Musculoskeletal/Rheumatological Hx Musculoskeletal Disorders: Yes (LAMINECTOMY) - Gastrointestinal Hx Gastrointestinal Disorders: Yes (DIVERTICULITIS,CONSTIPATION) Hx Gastroesophageal Reflux: Yes - Genitourinary/Gynecological Hx Genitourinary Disorders: No - Psychiatric Hx Emotional Abuse: No Hx Physical Abuse: No Hx Substance Use: No - Anesthesia Hx Anesthesia Reactions: No Hx Malignant Hyperthermia: No - Suicidal Assessment Feels Threatened In Home Enviroment: No Family/Social History - Physician Review Nursing Documentation Reviewed: Yes Family/Social History: No Known Family HX Smoking Status: Former Smoker Hx Alcohol Use: Yes (USED TO DRINK HEAVILY QUIT 2009) Hx Substance Use: No Hx Substance Use Treatment: No Allergies/Home Meds Allergies/Adverse Reactions: Allergies Penicillins Allergy (Severe, Verified 11/26/17 11:14) SWELLING Home Medications: Home Meds Medication Instructions Recorded Confirmed Atorvastatin [Lipitor] 10 mg PO DAILY 10/30/13 06/13/17 Cilostazol 100 mg PO BID 10/30/13 06/13/17 Losartan [Cozaar] 50 mg PO QAM 10/30/13 06/13/17 Metoprolol Succinate 50 mg PO BID 10/30/13 06/13/17 Allopurinol [Zyloprim] 300 mg PO QAM 08/03/15 06/13/17 Cholecalciferol (Vitamin D3) 4,000 unit PO QAM 08/03/15 06/13/17 [Vitamin D3] Metformin HCl [Glucophage] 1,000 mg PO BID 08/03/15 06/13/17 Multivit-Min/FA/Lycopen/Lutein 1 each PO DAILY 08/03/15 06/13/17 [Centrum Silver Tablet] Vitamin B Complex [Super B-50 1 cap PO DAILY 08/03/15 06/13/17 Complex] Ferrous Sulfate [High Potency Iron] 134 mg PO TID 09/12/16 06/13/17 Famotidine [Pepcid] 20 mg PO DAILY 05/21/17 06/13/17 Isosorbide Mononitrate [Isosorbide 30 mg PO DAILY 05/21/17 06/13/17 Mononitrate ER] Review of Systems - Physician Review All systems were reviewed & negative as marked: Yes - Review of Systems Constitutional: absent: Fevers Respiratory: absent: SOB, Cough Cardiovascular: Edema (bilateral leg edema). absent: Chest Pain Gastrointestinal: absent: Abdominal Pain, Diarrhea, Nausea, Vomiting Musculoskeletal: absent: Back Pain, Neck Pain Neurological: absent: Headache, Dizziness Physical Exam Vital Signs Reviewed: Yes Vital Signs Temp Pulse Resp BP Pulse Ox 10/22/18 11:38 97.7 F 83 18 121/76 97 Temperature: Afebrile Blood Pressure: Normal Pulse: Regular Respiratory Rate: Normal Appearance: Positive for: Well-Appearing, Non-Toxic, Comfortable Pain Distress: None Mental Status: Positive for: Alert and Oriented X 3 - Systems Exam Head: Present: Atraumatic, Normocephalic Pupils: Present: PERRL Extroacular Muscles: Present: EOMI Conjunctiva: Present: Normal Mouth: Present: Moist Mucous Membranes Neck: Present: Normal Range of Motion Respiratory/Chest: Present: Other (mild bibasilar crackles ). No: Respiratory Distress, Accessory Muscle Use Cardiovascular: Present: Regular Rate and Rhythm, Normal S1, S2. No: Murmurs Abdomen: No: Tenderness, Distention, Peritoneal Signs Back: Present: Normal Inspection Upper Extremity: Present: Normal Inspection. No: Cyanosis, Edema Lower Extremity: Present: Normal Inspection, Edema (+3 bilteral edema), NORMAL PULSES, Tenderness (mild tenderness; no crepitus ), Erythema (mild overlying erythema blateral lower extremity). No: CALF TENDERNESS Neurological: Present: GCS=15, CN II-XII Intact, Speech Normal Skin: Present: Warm, Dry, Normal Color. No: Rashes Psychiatric: Present: Alert, Oriented x 3, Normal Insight, Normal Concentration Medical Decision Making ED Course and Treatment: 11/26/17 11:30 Impression: 82 year old male presents to the ED complaining of bilateral leg swelling and redness. 82 yr old male w/ hx of CHF, CABG p/w b/l LE edema. Likely CHF exacerbation. Pt was recently seen by Dr. Rodriguez (cards) and instructed to be seen in ED. Pt was started on double dosage of lasix but has not improved. B/L edema 3+ w/ erythema. No crepitus or trauma. Will likely require admission for CHF exacerbation and further workup. Will rx for cellulitis given erythema and scabs to b/l LE edema and seek b/l LE US. Differential Diagnosis included but are not limited to: CHF vs. cellulitis vs. DVT Plan: -- Labs -- CXR -- Lasix -- Clindamycin -- US of Lower Extremity -- Blood culture -- Reassess and disposition Prior Visits: Notes and results from previous visits were reviewed. Progress Notes: 1301 BNP elevated. Troponin unremarkable. Lungs w/ bibasilar rales: pt in NAD with VSS. No- respiratory issues at this time pending Duplex: Pt is already on Eliquis appreciate consult w/ Dr. Varghese: To be admitted to his service Appreciate consult w/ Dr. Tse: Lasix and to go to tele 1308 DVT negative Pt in NAD. 11/26/17 14:26 EKG 87 NSR, No stemi PVC - RAD Interpretation Radiology Orders: 11/26/17 11:30 CHEST TWO VIEWS (PA/LAT) [RAD] Stat DUPLEX LOWER EXTRM VEIN BILAT [US] Stat - Medication Orders Current Medication Orders: Clindamycin Phosphate (Cleocin) 600 mg in 50 mls @ 50 mls/hr IVPB STAT STA; Protocol Stop: 11/26/17 12:30 Discontinued Medications Furosemide (Lasix) 40 mg IVP STAT STA Stop: 11/26/17 11:31 - Scribe Statement The provider has reviewed the documentation as recorded by the Scribe Bria Holman. All medical record entries made by the Scribe were at my direction and personally dictated by me. I have reviewed the chart and agree that the record accurately reflects my personal performance of the history, physical exam, medical decision making, and the department course for this patient. I have also personally directed, reviewed, and agree with the discharge instructions and disposition. Disposition/Present on Arrival - Present on Arrival Any Indicators Present on Arrival: No History of DVT/PE: No History of Uncontrolled Diabetes: No Urinary Catheter: No History of Decub. Ulcer: No History Surgical Site Infection Following: None - Disposition Have Diagnosis and Disposition been Completed?: Yes Diagnosis: CHF exacerbation Disposition Time: 13:01 Patient Plan: Admission Condition: GOOD
[2017-11-26 12:24] LABS: ALBUMIN 3.8 g/dL (3.0-4.8); ALT/SGPT 44 U/L (7-56); AST/SGOT 34 U/L (17-59); BLOOD UREA NITROGEN 23 mg/dL (7-21); CALCIUM 9.5 mg/dL (8.4-10.5); GFR NON-AFRICAN AMERICAN 53
[2017-11-26 12:25] LABS: BASO # 0.03 K/mm3 (0.0-2.0); BASO % 0.4 % (0.0-3.0); EOS # 0.3 (0.0-0.7); EOS % 4.2 % (1.5-5.0); GRAN # 5.02 (1.4-6.5); GRAN % 63.1 % (50.0-68.0); HEMOGLOBIN 10.8 g/dL (14.0-18.0); LYMPH # 1.9 (1.2-3.4); MEAN CELL VOLUME 87.9 fl (80.0-105.0); MEAN CORPUSCULAR HEMOGLOBIN 27.1 pg (25.0-35.0); MEAN CORPUSCULAR HGB CONC 30.9 g/dl (31.0-37.0); MEAN PLATELET VOLUME 9.8 fl (7.0-11.0); MONO # 0.7 (0.1-0.6); MONO % 8.3 % (1.0-6.0); RBC 3.98 10^6/uL (3.5-6.1); RED CELL DISTRIBUTION WIDTH 17.3 % (11.5-14.5)
[2017-11-26 12:36] LABS: B-TYPE NATRIURETIC PEPTIDE 3470 pg/mL (0-450); TROPONIN I 0.02 ng/mL
[2017-11-26] MEDS: FERROUS SULFATE 134 MG PO SCH ×2 (15:05→17:27)
--- NOTE | 2017-11-26 15:46 | RAD ---
Date of service: 11/26/2017 HISTORY: leg swell COMPARISON: 06/14/2016 TECHNIQUE: Chest PA and lateral FINDINGS: LUNGS: No pulmonary infiltrates identified. PLEURA: No significant pleural effusion identified. No pneumothorax apparent. CARDIOVASCULAR: Atherosclerotic calcifications identified primarily aortic arch. Cardiomegaly, mild pulmonary vascular congestion. OSSEOUS STRUCTURES: No significant abnormalities. VISUALIZED UPPER ABDOMEN: Normal. OTHER FINDINGS: None. IMPRESSION: Mild CHF a new finding compared to the prior study. Concordant results with the preliminary interpretation rendered by the emergency department physician procedure.
[2017-11-26] MEDS ORDERED: Vancomycin 1gm in NS 250ml 1 GM/250 ML BAG IVPB SCH (17:00)
--- NOTE | 2017-11-26 17:02 | CP.PCM.HP ---
<Ajay Michelle - Last Filed: 11/26/17 17:11> History of Present Illness - History of Present Illness History of Present Illness: Ajay Michelle PGY2 IM H&P Note for Dr. Dougherty CC: Leg swelling Mr. Swanson is an 82-year-old male with a PMH of CAD post CABG, CKD, DM 2, A. fib (on Eliquis), and anemia who presented to the ED with bilateral lower extremity swelling and redness for 2 weeks. Patient had contacted Dr. Chand who recommended that the patient go to the ED for further workup, but the patient refused and was instead put on an extra dose of Lasix. The patient states that yesterday, he experienced worsening of pain in his legs, despite the swelling having improved. He states that he also sees Dr. Page as an outpatient for his evaluation of his feet and nails. He currently denies nausea/vomiting, chest pain, abdominal pain, fever/chills or any cough or shortness of breath. 12 point ROS was reviewed and is otherwise unremarkable. Prior Echo and labwork was reviewed. PMD: Dr. Novak Cardio: Dr. Chand PMH: as above PSH: CABG, laminectomy Meds: As per MAR Allergies: Penicillin- rash SHx: Former tobacco smoker, Denies EtOH or drug use. Lives with family. Uses cane/walker FHx: non-contributory Present on Admission - Present on Admission Any Indicators Present on Admission: No Review of Systems - Review of Systems All systems: reviewed and no additional remarkable complaints except (as per HPI) Past Patient History - Infectious Disease Hx of Infectious Diseases: None - Tetanus Immunizations Tetanus Immunization: Unknown - Past Medical History & Family History Past Medical History?: Yes Past Family History: Reviewed and not pertinent - Past Social History Smoking Status: Former Smoker Alcohol: None Drugs: Denies Home Situation {Lives}: With Family - CARDIAC Hx Atrial Fibrillation: Yes Hx Congestive Heart Failure: Yes Hx Heart Attack: Yes Hx Pacemaker: No - PULMONARY Hx Respiratory Disorders: Yes (PPD OF CIGARETTES QUIT 1996) - NEUROLOGICAL Hx Paralysis: No - HEENT Hx HEENT Problems: Yes (BLURRY VISION) - RENAL Hx Chronic Kidney Disease: Yes - ENDOCRINE/METABOLIC Hx Diabetes Mellitus Type 2: Yes - HEMATOLOGICAL/ONCOLOGICAL Hx Anemia: Yes Hx Blood Transfusions: Yes Hx Blood Transfusion Reaction: No - INTEGUMENTARY Hx Dermatological Problems: Yes Other/Comment: BILATERAL LE EDEMA MORE TO RIGHT. JAIN BONE SOME REDNESS.BROWNISH SKIN DISCOLORATION. - MUSCULOSKELETAL/RHEUMATOLOGICAL Hx Musculoskeletal Disorders: Yes (LAMINECTOMY) - GASTROINTESTINAL Hx Gastrointestinal Disorders: Yes (DIVERTICULITIS,CONSTIPATION) Hx Gastroesophageal Reflux: Yes - GENITOURINARY/GYNECOLOGICAL Hx Genitourinary Disorders: No - PSYCHIATRIC Hx Emotional Abuse: No Hx Physical Abuse: No Hx Substance Use: No - SURGICAL HISTORY Hx Surgeries: Yes (GI POLYPS REMOVED,LAMINECTOMY 1971,) - ANESTHESIA Hx Anesthesia Reactions: No Hx Malignant Hyperthermia: No Meds Allergies/Adverse Reactions: Allergies Allergy/AdvReac Type Severity Reaction Status Date / Time Penicillins Allergy Severe SWELLING Verified 11/26/17 11:14 Physical Exam - Constitutional Appears: Well, Non-toxic, No Acute Distress - Head Exam Head Exam: NORMAL INSPECTION - Eye Exam Eye Exam: Normal appearance, PERRL Pupil Exam: NORMAL ACCOMODATION - ENT Exam ENT Exam: Mucous Membranes Moist - Neck Exam Neck exam: Positive for: Normal Inspection Additional comments: no JVD - Respiratory Exam Respiratory Exam: NORMAL BREATHING PATTERN. absent: Rales, Rhonchi, Wheezes, Respiratory Distress - Cardiovascular Exam Cardiovascular Exam: RRR, +S1, +S2, Systolic Murmur - GI/Abdominal Exam GI & Abdominal Exam: Soft. absent: Distended, Tenderness - Extremities Exam Extremities exam: Positive for: pedal edema (2+ ) Additional comments: b/l erythematous changes w/ no clear demarcation - Back Exam Back exam: NORMAL INSPECTION - Neurological Exam Neurological exam: Alert, Oriented x3 - Psychiatric Exam Psychiatric exam: Normal Mood - Skin Skin Exam: Erythema (b/l shins ), Warm Results - Vital Signs Recent Vital Signs: Last Vital Signs Temp 97.7 F 11/26/17 11:38 Pulse 80 11/26/17 14:09 Resp 18 11/26/17 14:09 BP 132/63 11/26/17 14:09 Pulse Ox 95 11/26/17 14:09 - Labs Result Diagrams: 11/26/17 11:45 11/26/17 11:45 Labs: Laboratory Results - last 24 hr 11/26/17 11/26/17 11/26/17 11:45 11:45 11:45 WBC 8.0 RBC 3.98 Hgb 10.8 L D Hct 35.0 L MCV 87.9 D MCH 27.1 MCHC 30.9 L RDW 17.3 H Plt Count 271 MPV 9.8 Gran % 63.1 Lymph % (Auto) 24.0 [place] % (Auto) 8.3 H Eos % (Auto) 4.2 Baso % (Auto) 0.4 Gran # 5.02 Lymph # (Auto) 1.9 [place] # (Auto) 0.7 H Eos # (Auto) 0.3 Baso # (Auto) 0.03 Sodium 140 Potassium 3.7 Chloride 103 Carbon Dioxide 27 Anion Gap 14 BUN 23 H Creatinine 1.3 Est GFR ( Amer) > 60 Est GFR (Non-Af Amer) 53 Random Glucose 108 Calcium 9.5 Magnesium 2.0 Total Bilirubin 0.8 AST 34 ALT 44 Alkaline Phosphatase 128 H D Troponin I 0.02 D NT-Pro-B Natriuret Pep 3470 H Total Protein 7.4 Albumin 3.8 Globulin 3.6 Albumin/Globulin Ratio 1.0 L Blood Type O NEGATIVE Antibody Screen Negative BBK History Checked Patient has bt Assessment & Plan - Assessment and Plan (Free Text) Assessment: 82-year-old male with a PMH of CAD post CABG, CKD, DM 2, A. fib (on Eliquis), and anemia who presented to the ED with bilateral lower extremity swelling and redness for 2 weeks, which seems to be improving with increased diuretic use. Presentation likely due to CHF exacerbation with possible underlying cellulitis. CKD also noted, however, urinary function seems to be improved than prior visits. Plan: - started on vancomycin empirically - cont Lasix IV diuresis - monitor renal function; strict I/O, daily weights - Consults appreciated from ID, Podiatry and Cardio - Echo was reviewed - Further recs per Dr. Dougherty - cont pepcid and Eliquis for GI and DVT ppx Case was reviewed and discussed with attending, Dr. Ladonna Michelle PGY2 <Juma Dougherty - Last Filed: 11/27/17 15:56> Results - Vital Signs Recent Vital Signs: Last Vital Signs Temp 97.9 F 11/27/17 11:51 Pulse 114 H 11/27/17 14:00 Resp 18 11/27/17 11:51 BP 119/80 11/27/17 11:51 Pulse Ox 97 11/27/17 05:15 - Labs Result Diagrams: 11/27/17 06:00 11/27/17 06:00 Labs: Laboratory Results - last 24 hr 11/26/17 11/26/17 11/26/17 16:21 19:24 19:24 WBC RBC Hgb Hct MCV MCH MCHC RDW Plt Count MPV ESR Sodium Potassium Chloride Carbon Dioxide Anion Gap BUN Creatinine Est GFR ( Amer) Est GFR (Non-Af Amer) POC Glucose (mg/dL) 94 Random Glucose Hemoglobin A1c 6.3 Calcium Phosphorus Magnesium Iron TIBC % Saturation Transferrin Total Bilirubin AST ALT Alkaline Phosphatase Lactate Dehydrogenase 401 Total Creatine Kinase 24 L Troponin I 0.02 C-Reactive Protein Total Protein Albumin Globulin Albumin/Globulin Ratio Urine Color Urine Appearance Urine pH Ur Specific [place] Urine Protein Urine Glucose (UA) Urine Ketones Urine Blood Urine Nitrate Urine Bilirubin Urine Urobilinogen Ur Leukocyte Esterase Urine RBC Urine WBC Ur Epithelial Cells Amorphous Sediment Urine Bacteria 11/26/17 11/27/17 11/27/17 21:37 01:18 01:56 WBC RBC Hgb Hct MCV MCH MCHC RDW Plt Count MPV ESR Sodium Potassium Chloride Carbon Dioxide Anion Gap BUN Creatinine Est GFR ( Amer) Est GFR (Non-Af Amer) POC Glucose (mg/dL) 126 H Random Glucose Hemoglobin A1c Calcium Phosphorus Magnesium Iron TIBC % Saturation Transferrin Total Bilirubin AST ALT Alkaline Phosphatase Lactate Dehydrogenase 418 Total Creatine Kinase 22 L Troponin I 0.02 C-Reactive Protein Total Protein Albumin Globulin Albumin/Globulin Ratio Urine Color Yellow Urine Appearance Clear Urine pH 5.0 Ur Specific [place] 1.020 Urine Protein 30 H Urine Glucose (UA) Negative Urine Ketones Negative Urine Blood Negative Urine Nitrate Negative Urine Bilirubin Negative Urine Urobilinogen 0.2 Ur Leukocyte Esterase Trace H Urine RBC 0 - 2 Urine WBC 1 - 3 Ur Epithelial Cells 0 - 2 Amorphous Sediment Few Urine Bacteria Rare 11/27/17 11/27/17 11/27/17 06:00 06:00 06:30 WBC 8.8 RBC 4.04 Hgb 10.8 L Hct 35.9 L MCV 88.9 MCH 26.7 MCHC 30.1 L RDW 17.3 H Plt Count 277 MPV 10.2 ESR 54 H Sodium 137 Potassium 3.6 Chloride 102 Carbon Dioxide 28 Anion Gap 12 BUN 26 H Creatinine 1.4 Est GFR ( Amer) 59 Est GFR (Non-Af Amer) 49 POC Glucose (mg/dL) Random Glucose 101 Hemoglobin A1c Calcium 9.1 Phosphorus 3.8 Magnesium 2.0 Iron 52 TIBC 321 % Saturation 16 L Transferrin Total Bilirubin 0.8 AST 35 ALT 35 Alkaline Phosphatase 121 Lactate Dehydrogenase Total Creatine Kinase Troponin I C-Reactive Protein 15.60 H Total Protein 7.2 Albumin 3.6 Globulin 3.5 Albumin/Globulin Ratio 1.0 L Urine Color Urine Appearance Urine pH Ur Specific [place] Urine Protein Urine Glucose (UA) Urine Ketones Urine Blood Urine Nitrate Urine Bilirubin Urine Urobilinogen Ur Leukocyte Esterase Urine RBC Urine WBC Ur Epithelial Cells Amorphous Sediment Urine Bacteria 11/27/17 11/27/17 11/27/17 06:30 07:27 12:21 WBC RBC Hgb Hct MCV MCH MCHC RDW Plt Count MPV ESR Sodium Potassium Chloride Carbon Dioxide Anion Gap BUN Creatinine Est GFR ( Amer) Est GFR (Non-Af Amer) POC Glucose (mg/dL) 97 137 H Random Glucose Hemoglobin A1c Calcium Phosphorus Magnesium Iron TIBC % Saturation Transferrin 236.32 Total Bilirubin AST ALT Alkaline Phosphatase Lactate Dehydrogenase Total Creatine Kinase Troponin I C-Reactive Protein Total Protein Albumin Globulin Albumin/Globulin Ratio Urine Color Urine Appearance Urine pH Ur Specific [place] Urine Protein Urine Glucose (UA) Urine Ketones Urine Blood Urine Nitrate Urine Bilirubin Urine Urobilinogen Ur Leukocyte Esterase Urine RBC Urine WBC Ur Epithelial Cells Amorphous Sediment Urine Bacteria Assessment & Plan - Assessment and Plan (Free Text) Assessment: Pt seen and examined. I have reviewed the note of the durable medical equipment technician and agree with it. I have discussed the assessment and plan with the resident. I have reviewed the patient's labs and medications. Pt with acute CHF probably due to systolic dysfunction. He has been placed on Lasix. He will continue with Eliquis for A fib. He has CAD. He has LE erythema and may be developing cellulitis. He h as been started on Vanco and ID has been consulted.
[2017-11-26] MEDS: Insulin Lispro (humaLOG) MEDIUM Coverage SC SCH ×2 (17:27→22:18)
[2017-11-26] MEDS: Cilostazol 100 mg Tab UD PO SCH (17:52)
[2017-11-26] MEDS: Metoprolol Succinate 50 mg XL Tab PO SCH (17:53)
--- NOTE | 2017-11-26 18:49 | US ---
HISTORY: Leg pain and swelling. Evaluate for DVT PHYSICIAN(S): Elliott Benavides MD. TECHNIQUE: Duplex sonography and color-flow Doppler with graded compression were used to evaluate the deep venous systems of both lower extremities. FINDINGS: The visualized deep venous systems of both lower extremities are sonographically normal and compressible. Normal wave forms and augmentation are seen. There is no sonographic evidence for deep venous thrombosis in the visualized segments of both lower extremities. IMPRESSION: No sonographic evidence for deep venous thrombosis in the visualized segments of both lower extremities.
[2017-11-26 19:49] LABS: TROPONIN I 0.02 ng/mL
[2017-11-26] MEDS ORDERED: Influenza Vaccine 60 mcg/0.5 mL SYR (4YR UP) IM ONE (23:01)
[2017-11-26] MEDS ORDERED: Pneumococcal 23-Valent Vaccine IM ONE (23:01)
[2017-11-27 01:57] LABS: TROPONIN I 0.02 ng/mL
[2017-11-27 03:02] LABS: URINE BILIRUBIN NEGATIVE (NEGATIVE); URINE BLOOD NEGATIVE (NEGATIVE); URINE GLUCOSE (UA) NEGATIVE (NEGATIVE); URINE LEUKOCYTE ESTERASE TRACE Leu/uL (NEGATIVE); URINE PROTEIN 30 mg/dL (<30 mg/dL); URINE UROBILINOGEN 0.2 E.U./dL (<1 E.U./dL)
[2017-11-27 03:04] LABS: URINE APPEARANCE CLEAR (CLEAR); URINE COLOR YELLOW (YELLOW)
[2017-11-27 03:32] LABS: URINE EPITHELIAL CELLS 0 - 2 /hpf (0-5); URINE RBC 0 - 2 /hpf (0-2)
[2017-11-27 03:33] LABS: URINE AMORPHOUS SEDIMENT FEW; URINE BACTERIA RARE (NEG)
--- NOTE | 2017-11-27 04:53 | CON ---
DATE: 11/26/2017 The patient is in room 275, bed 1. The patient's complaints are lower extremity edema and erythema, more so on the left leg, times several days. HISTORY OF PRESENT ILLNESS: This is an 82-year-old male with congestive heart failure, hypertension, diabetes, coronary artery disease, myocardial infarction, peripheral vascular disease, gout, history of diverticulitis, atrial fibrillation, GERD, anemia, with a history of coronary artery bypass graft, laminectomy, and cardiac cath with stent, who is ALLERGIC TO PENICILLIN, admitted now with congestive heart failure and lower extremity erythema and edema. REVIEW OF SYSTEMS: Reveals no fevers, no chills. PAST MEDICAL HISTORY: Significant for congestive heart failure, hypertension, diabetes, myocardial infarction, peripheral vascular disease, gout, diverticulitis, atrial fibrillation, GERD, anemia. PAST SURGICAL HISTORY: Significant for coronary bypass graft, laminectomy, cardiac cath with stents. ALLERGIES: PENICILLIN ALLERGY, TYPE OF ALLERGY IS NOT CLEAR. MEDICATIONS: Medications at home are reviewed. Medications here also include tramadol. PHYSICAL EXAMINATION: VITAL SIGNS: The patient is in bed with a temperature of 97, heart rate of 102, respiratory rate of 18, blood pressure is 127/60. HEENT: Unremarkable. NECK: Supple. LUNGS: Decreased breath sounds. HEART: Normal S1, S2. ABDOMEN: Soft. EXTREMITIES: Examination of lower extremities reveals both legs have erythema and edema; however, the left ankle is much more erythematous, warm to touch. ASSESSMENT AND PLAN: This is an 82-year-old male with left ankle cellulitis, must rule out underlying osteomyelitis and peripheral artery disease in a patient who is diabetic. Recommended imaging, should have MRI. If not possible, should have a bone scan, sed rate, C-reactive protein, and we will treat the patient with vancomycin, in case of renal insufficiency, we will adjust the dose to once daily. Should have podiatric consultation and vascular consultation. We will follow with you. Hoang Orourke MD
[2017-11-27] MEDS: Levothyroxine 25 MCG TAB PO SCH (06:09)
--- NOTE | 2017-11-27 06:56 | CP.PCM.PN ---
<Ajay Michelle - Last Filed: 11/27/17 15:50> Subjective - Date & Time of Evaluation Date of Evaluation: 11/27/17 Time of Evaluation: 07:05 - Subjective Subjective: Ajay Michelle PGY2 IM Progress Note for Dr. Dougherty Patient was seen and examined at bedside. He states that he feels much better with the combination of analgesic and the diuretic. His swelling has decreased slightly but his pain is much improved. He denies any shortness of breath, cough, fevers/chills, nausea/vomiting, but states he is a bit constipated. Objective - Vital Signs/Intake and Output Vital Signs (last 24 hours): Temp Pulse Resp BP Pulse Ox 98 F 46 L 18 140/83 97 11/27/17 05:15 11/27/17 05:15 11/27/17 05:15 11/27/17 05:15 11/27/17 05:15 Intake and Output: 11/26/17 11/27/17 18:59 06:59 Intake Total 550 Output Total 500 Balance 50 - Medications Medications: Current Medications Allopurinol (Zyloprim) 300 mg PO QAM [facility] Apixaban (Eliquis) 2.5 mg PO BID [facility]; Protocol Last Admin: 11/26/17 17:52 Dose: 2.5 mg Atorvastatin Calcium (Lipitor) 10 mg PO DAILY [facility] Cholecalciferol (Vitamin D) 4,000 intlu PO QAM [facility] Cilostazol (Pletal) 100 mg PO BID [facility] Last Admin: 11/26/17 17:52 Dose: 100 mg Famotidine (Pepcid) 20 mg PO DAILY [facility] Furosemide (Lasix) 40 mg IVP DAILY [facility] Vancomycin HCl (Vancomycin 1gm) 1 gm in 250 mls @ 167 mls/hr IVPB DAILY [facility]; Protocol Stop: 12/05/17 10:01 Insulin Human Lispro (Humalog Med) 0 units SC ACHS [facility]; Protocol Last Admin: 11/26/17 22:18 Dose: Not Given Isosorbide Mononitrate (Imdur Er) 30 mg PO DAILY [facility] Levothyroxine Sodium (Synthroid) 25 mcg PO 0600 [facility] Last Admin: 11/27/17 06:09 Dose: 25 mcg Losartan Potassium (Cozaar) 50 mg PO QAM [facility] Metoprolol Succinate (Toprol Xl) 50 mg PO BID [facility] Last Admin: 11/26/17 17:53 Dose: 50 mg Non-Formulary Medication (Ferrous Sulfate [High Potency Iron]) 134 mg PO TID [facility] Last Admin: 11/26/17 17:27 Dose: Not Given Non-Formulary Medication (Multivit-Min/Fa/Lycopen/Lutein [Centrum Silver Tablet]) 1 each PO DAILY [facility] Tramadol HCl (Ultram) 50 mg PO Q8 [facility] Last Admin: 11/27/17 06:09 Dose: 50 mg - Labs Labs: 11/26/17 11:45 11/26/17 11:45 - Constitutional Appears: Non-toxic, No Acute Distress - Head Exam Head Exam: NORMAL INSPECTION - Eye Exam Eye Exam: Normal appearance, PERRL - ENT Exam ENT Exam: Mucous Membranes Moist - Neck Exam Neck Exam: Normal Inspection - Respiratory Exam Respiratory Exam: NORMAL BREATHING PATTERN. absent: Rhonchi, Wheezes - Cardiovascular Exam Cardiovascular Exam: RRR, +S1, +S2. absent: JVD - GI/Abdominal Exam GI & Abdominal Exam: Soft, Normal Bowel Sounds. absent: Distended, Tenderness - Extremities Exam Extremities Exam: Pedal Edema (1+ b/l) Additional comments: unequal erythema b/l - Back Exam Back Exam: NORMAL INSPECTION - Neurological Exam Neurological Exam: Alert, Awake, Oriented x3 - Psychiatric Exam Psychiatric exam: Normal Mood - Skin Skin Exam: Erythema (b/l legs ), Normal Color Assessment and Plan - Assessment and Plan (Free Text) Assessment: 82-year-old male with a PMH of CAD post CABG, CKD, A. fib (on Eliquis), and anemia who presented to the ED with bilateral lower extremity swelling and redness for 2 weeks, which seems to be improving with increased diuretic use. Presentation likely due to CHF exacerbation with possible underlying cellulitis. CKD also noted, however, it's improved from prior visits. Overall, swelling and pain have improved. 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 Dougherty Case was reviewed and discussed with attending, Dr. Ladonna Michelle PGY2 <Juma Dougherty - Last Filed: 11/28/17 18:51> Objective - Vital Signs/Intake and Output Vital Signs (last 24 hours): Temp Pulse Resp BP Pulse Ox 97.1 F L 78 19 99/70 L 100 11/28/17 18:00 11/28/17 18:00 11/28/17 18:00 11/28/17 18:00 11/28/17 06:00 Intake and Output: 11/28/17 11/28/17 06:59 18:59 Intake Total 670 Output Total 3 Balance 667 - Medications Medications: Current Medications Allopurinol (Zyloprim) 300 mg PO QAM [facility] Last Admin: 11/28/17 11:30 Dose: 300 mg Apixaban (Eliquis) 2.5 mg PO BID [facility]; Protocol Last Admin: 11/28/17 11:30 Dose: 2.5 mg Atorvastatin Calcium (Lipitor) 10 mg PO DAILY [facility] Last Admin: 11/28/17 11:30 Dose: 10 mg Bacitracin (Bacitracin) 1 ea TOP DAILY PRN PRN Reason: blister on hand Last Admin: 11/27/17 17:50 Dose: 1 ea Betamethasone/Clotrimazole (Lotrisone) 0 gm TOP BID [facility] Last Admin: 11/28/17 10:00 Dose: Not Given Cholecalciferol (Vitamin D) 4,000 intlu PO QAM [facility] Last Admin: 11/28/17 11:37 Dose: 4,000 intlu Cilostazol (Pletal) 100 mg PO BID [facility] Last Admin: 11/28/17 13:15 Dose: 100 mg Docusate Sodium (Colace) 100 mg PO BID [facility] Last Admin: 11/28/17 11:32 Dose: 100 mg Famotidine (Pepcid) 20 mg PO DAILY [facility] Last Admin: 11/28/17 11:28 Dose: 20 mg Ferrous Sulfate (Feosol) 324 mg PO TID [facility] Last Admin: 11/28/17 15:59 Dose: 324 mg Furosemide (Lasix) 40 mg IVP DAILY [facility] Last Admin: 11/28/17 11:31 Dose: 40 mg Vancomycin HCl (Vancomycin 1gm) 1 gm in 250 mls @ 167 mls/hr IVPB DAILY [facility]; Protocol Stop: 12/05/17 10:01 Last Admin: 11/28/17 11:40 Dose: 167 mls/hr Insulin Human Lispro (Humalog Med) 0 units SC ACHS [facility]; Protocol Last Admin: 11/28/17 18:23 Dose: Not Given Isosorbide Mononitrate (Imdur Er) 30 mg PO DAILY [facility] Last Admin: 11/28/17 11:30 Dose: 30 mg Levothyroxine Sodium (Synthroid) 25 mcg PO 0600 [facility] Last Admin: 11/28/17 06:08 Dose: 25 mcg Losartan Potassium (Cozaar) 50 mg PO QAM [facility] Last Admin: 11/28/17 11:29 Dose: 50 mg Metoprolol Succinate (Toprol Xl) 50 mg PO BID [facility] Last Admin: 11/28/17 11:30 Dose: 50 mg Multivitamins/Minerals (Therapeutic-M Tab) 1 tab PO 0800 [facility] Last Admin: 11/28/17 11:42 Dose: 1 tab Non-Formulary Medication (Ferrous Sulfate [High Potency Iron]) 134 mg PO TID [facility] Last Admin: 11/28/17 18:22 Dose: Not Given Non-Formulary Medication (Multivit-Min/Fa/Lycopen/Lutein [Centrum Silver Tablet]) 1 each PO DAILY [facility] Last Admin: 11/28/17 12:43 Dose: Not Given Ondansetron HCl (Zofran Inj) 4 mg IVP Q4H PRN PRN Reason: Nausea/Vomiting Tramadol HCl (Ultram) 50 mg PO Q8 [facility] Last Admin: 11/28/17 15:58 Dose: 50 mg - Labs Labs: 11/27/17 06:00 11/27/17 06:00 Assessment and Plan - Assessment and Plan (Free Text) Assessment: Pt seen and examined. I have reviewed the note of the medical care administrator and agree with it. I have discussed the assessment and plan with the resident. I have reviewed the patient's labs and medications. Pt with A fib and on Eliquis. He has cellulitis and will get a bone scan to rule out osteomyelitis. ID and Podiatry on consult. PT eval. Pt will continue with lasamarjit.
[2017-11-27 07:11] LABS: HEMOGLOBIN 10.8 g/dL (14.0-18.0); MEAN CELL VOLUME 88.9 fl (80.0-105.0); MEAN CORPUSCULAR HEMOGLOBIN 26.7 pg (25.0-35.0); MEAN CORPUSCULAR HGB CONC 30.1 g/dl (31.0-37.0); MEAN PLATELET VOLUME 10.2 fl (7.0-11.0); RBC 4.04 10^6/uL (3.5-6.1); RED CELL DISTRIBUTION WIDTH 17.3 % (11.5-14.5); WHITE BLOOD COUNT 8.8 10^3/ul (4.5-11.0)
[2017-11-27 07:24] LABS: ALBUMIN 3.6 g/dL (3.0-4.8); CALCIUM 9.1 mg/dL (8.4-10.5)
[2017-11-27] MEDS: Insulin Lispro (humaLOG) MEDIUM Coverage SC SCH ×4 (07:43→22:30)
[2017-11-27] MEDS ORDERED: POLYETHYLENE GLYCOL 3350 17 GM/Dose PACKET PO ONE (07:47)
[2017-11-27 09:22] LABS: IRON 52 ug/dL (45-180)
[2017-11-27 09:32] LABS: % IRON SATURATION 16 % (20-55); TOTAL IRON BINDING CAPACITY 321 ug/dL (261-462)
[2017-11-27] MEDS: Vancomycin 1gm in NS 250ml 1 GM/250 ML BAG IVPB SCH (09:55)
[2017-11-27] MEDS: Cholecalciferol 1,000 INTLU TAB PO SCH (09:56)
[2017-11-27] MEDS: Metoprolol Succinate 50 mg XL Tab PO SCH ×2 (09:56→17:49)
[2017-11-27] MEDS: Non Formulary Medication (Multivit-Min/Fa/Lycopen/Lutein [Centrum Silver Tablet] 1 EACH) PO SCH (09:57)
[2017-11-27] MEDS: FERROUS SULFATE 134 MG PO SCH ×3 (09:57→17:57)
--- NOTE | 2017-11-27 10:02 | CARD ---
APPROVED REPORT Date of service: 11/26/2017 EKG Measurement Heart [id number] <Conclusion> A. Fib. NSSTW changes PVCs
[2017-11-27] MEDS: Cilostazol 100 mg Tab UD PO SCH ×2 (10:12→17:50)
--- NOTE | 2017-11-27 11:54 | PN ---
DATE: 11/27/2017 SUBJECTIVE: Patient is in bed, in no acute distress, nontoxic. PHYSICAL EXAMINATION: VITAL SIGNS: Temperature is 98, blood pressure is 140/80, respiratory rate of 20. HEENT: Unremarkable. NECK: Supple. LUNGS: Have decreased breath sounds. HEART: Normal S1, S2. ABDOMINAL: Soft. LABORATORY EXAMINATION: Reveals a white count of 8.8, hemoglobin of 10, BUN of 26, creatinine of 1.4. Urinalysis is noted. ASSESSMENT AND PLAN: An 82-year-old male with left ankle cellulitis, must rule out underlying osteomyelitis, peripheral arterial disease. He is diabetic. Review of medications at home reveals the patient is not on any diabetic medications. According to Dr. Hyman, patient is not a diabetic. Workup is ordered. We will continue the present course. Hoang Orourke MD
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
[2017-11-27] MEDS ORDERED: Bacitracin 500 Units/gm Oint Foilpak UD TOP PRN (15:45)
--- NOTE | 2017-11-27 16:01 | CON ---
DATE: 11/27/2017 CONSULTATION INDICATIONS: Edema, lower extremity pain, cellulitis. HISTORY OF PRESENT ILLNESS: This is an 82-year-old man, known to me, who was admitted yesterday through the emergency room with increasing swelling in his lower extremities with pain especially in the left ankle and erythema, possible cellulitis. He has known cardiac disease with coronary artery disease, remote myocardial infarction, coronary bypass surgery, chronic atrial fibrillation. An echocardiogram this year demonstrated normal LV function with moderate aortic stenosis and mitral regurgitation. He has had congestive heart failure, diabetes, chronic kidney disease, GI bleeding, anemia, gastric polyps and back surgery. He is a former smoker. In addition to edema, he notes chronic dyspnea on exertion. There was occasional exertional chest pain, but not recently. There is no orthopnea, PND, syncope, presyncope, lightheadedness, dizziness, vertigo, palpitation, fever, chills, cough, sputum production, hemoptysis, abdominal pain, nausea, vomiting, diarrhea, constipation, or melena. MEDICATIONS: His medications at the time of admission include multivitamin, Eliquis 2.5 b.i.d., iron supplementation, Imdur, Lasix, metoprolol, Pepcid, vitamin B, Synthroid, vitamin D3. ALLERGIES: PENICILLIN. SOCIAL HISTORY: He lives at home with his family. He is ambulatory, but limited, sometimes using a cane or a walker. He no longer smokes cigarettes. He does not drink alcohol significantly. FAMILY HISTORY: Noncontributory. REVIEW OF SYSTEMS: Ten-point review of systems is otherwise unremarkable except as noted above. PHYSICAL EXAMINATION: GENERAL: He is a well-developed man, lying in bed on telemetry, in no acute distress. VITAL SIGNS: Notable for atrial fib, heart rate 46 to 102, the slower rates occurring during sleep. He is afebrile. Blood pressure 140/83. Respirations 18. O2 sat 95% to 97% on room air. HEENT: Exam reveals no neck vein distention, thyromegaly, carotid bruits. Mucous membranes moist. Conjunctivae pink. NECK: Supple. LUNGS: Lung baird, scattered rales at the bases, scattered rhonchi. No wheezing. HEART: Examination of the heart reveals normal first and second heart sounds. There is a soft systolic murmur in the aortic space along the left sternal border. The PMI is not palpable. ABDOMEN: Soft. Bowel sounds present. No mass, organomegaly, tenderness, rebound, guarding. No CVA tenderness. No palpable abdominal aortic aneurysm. EXTREMITIES: Exam revealed no cyanosis, clubbing. There is 2+ to 3+ edema at the ankles and shins. There is erythema. There is tenderness, especially in the left ankle area. NEUROLOGICAL: Awake, alert and oriented. PSYCHIATRIC: Normal as to mood and affect. SKIN: Cellulitic appearance of both lower extremities at the ankles and lower shins. LABORATORY AND IMAGING DATA: EKG demonstrates atrial fibrillation, nonspecific ST-wave changes. Chest x-ray is a portable study, mild CHF which was new compared to a prior chest x-ray. Lower extremity venous Doppler, no DVT. White count normal, hemoglobin 10.8, hematocrit 35.9, platelet count 277,000. Electrolytes, BUN, creatinine unremarkable. Today's creatinine is 1.4, potassium 3.6. Blood sugar 108, repeat 101. LFTs unremarkable. The three troponins are negative. CK 24, repeat 22. BNP 3470. Urinalysis is noted. IMPRESSION AND PLAN: Eligio Swanson is an 82-year-old man with known cardiac disease, presenting with increasing edema, erythema, pain, probable cellulitis of the lower extremities with chronic atrial fibrillation, coronary artery disease, remote myocardial infarction and coronary bypass surgery with moderate aortic stenosis and mitral regurgitation on the most recent echocardiogram. He is diabetic with chronic kidney disease, a history of gastrointestinal bleeding and anemia. At this time, he is admitted to telemetry. He is getting IV Lasix. He is being seen by Podiatry and Infectious Diseases. He has been cultured. He is getting antibiotics. We will continue cardiac medications including losartan, Eliquis, isosorbide, Lipitor, metoprolol. He is getting vitamin D, allopurinol, tramadol, Synthroid, Pletal. We will monitor stool for occult blood, I's and O's, daily weights. He can be out of bed to chair. He should elevate his legs when sitting. I will review his old records. I will follow along with you. I will make additional recommendations based on his clinical course. Jovon Chand MD [facility] # [id number]
[2017-11-27 16:22] LABS: FERRITIN 85.6 ng/mL
[2017-11-27 17:21] LABS: FOLATE > 20.0 ng/mL
[2017-11-27] MEDS: Clotrimazole/Betamethasone Cream(15 gm) TOP SCH (17:50)
[2017-11-28] MEDS: Levothyroxine 25 MCG TAB PO SCH (06:08)
[2017-11-28] MEDS: Insulin Lispro (humaLOG) MEDIUM Coverage SC SCH ×4 (08:46→22:00)
[2017-11-28] MEDS: Clotrimazole/Betamethasone Cream(15 gm) TOP SCH ×2 (10:00→19:09)
--- NOTE | 2017-11-28 10:18 | PN ---
DATE: 11/28/2017 SUBJECTIVE: The patient is in bed, in no acute distress. PHYSICAL EXAMINATION: VITAL SIGNS: On exam, temperature is 97, blood pressure is 90/100, respiratory rate of 18. HEENT: Examination of HEENT is unremarkable. NECK: Supple. LUNGS: Have decreased breath sounds. HEART: Normal S1, S2. ABDOMEN: Soft. LABORATORY DATA: Laboratory examination reveals a white count of 8.8, hemoglobin of 10, platelets of 277. Chemistries are noted. Urinalysis is noted. Microbiology reveals the blood cultures are negative. ASSESSMENT AND PLAN: An 82-year-old male with left ankle cellulitis, must rule out underlying osteomyelitis and the patient who has peripheral arterial disease and not diabetic as initially written. Dr. Dougherty has informed me that the patient is not a diabetic. The patient is waiting for a bone scan to rule out underlying osteomyelitis. Should have arterial Dopplers regarding the ABIs for peripheral arterial disease and currently on vancomycin. Because of renal insufficiency, we will order vancomycin trough on the fourth dose. Review of the medications reveals the patient is on vancomycin once daily. Hoang Orourke MD
--- NOTE | 2017-11-28 10:24 | CP.PCM.PN ---
Subjective - Date & Time of Evaluation Date of Evaluation: 11/28/17 Time of Evaluation: 10:21 - Subjective Subjective: Podiatry progress note for Dr. bassett/med, 81yo M with past medical history of CABG, CKD stage IIIb, DM, chronic A.fib (on Eliquis), anemia, and GI bleed seen at bedside complaining of bilateral lower extremity swelling and redness for two weeks. Patient admits to minimal pain in the leg while ambulating. Denies acute overnight events. Denies f/n/v/sob. Objective - Vital Signs/Intake and Output Vital Signs (last 24 hours): Temp Pulse Resp BP Pulse Ox 97 F L 83 20 99/53 L 100 11/28/17 06:00 11/28/17 06:00 11/28/17 06:00 11/28/17 06:00 11/28/17 06:00 Intake and Output: 11/28/17 11/28/17 06:59 18:59 Intake Total 670 Output Total 3 Balance 667 - Medications Medications: Current Medications Allopurinol (Zyloprim) 300 mg PO QAM [facility] Last Admin: 11/27/17 09:56 Dose: 300 mg Apixaban (Eliquis) 2.5 mg PO BID [facility]; Protocol Last Admin: 11/27/17 17:49 Dose: 2.5 mg Atorvastatin Calcium (Lipitor) 10 mg PO DAILY [facility] Last Admin: 11/27/17 09:56 Dose: 10 mg Bacitracin (Bacitracin) 1 ea TOP DAILY PRN PRN Reason: blister on hand Last Admin: 11/27/17 17:50 Dose: 1 ea Betamethasone/Clotrimazole (Lotrisone) 0 gm TOP BID [facility] Last Admin: 11/27/17 17:50 Dose: 1 applic Cholecalciferol (Vitamin D) 4,000 intlu PO QAM [facility] Last Admin: 11/27/17 09:56 Dose: 4,000 intlu Cilostazol (Pletal) 100 mg PO BID [facility] Last Admin: 11/27/17 17:50 Dose: 100 mg Docusate Sodium (Colace) 100 mg PO BID [facility] Last Admin: 11/27/17 17:49 Dose: 100 mg Famotidine (Pepcid) 20 mg PO DAILY [facility] Last Admin: 10/23/18 09:56 Dose: 20 mg Ferrous Sulfate (Feosol) 324 mg PO TID [facility] Last Admin: 11/27/17 17:49 Dose: 324 mg Furosemide (Lasix) 40 mg IVP DAILY [facility] Last Admin: 11/27/17 09:55 Dose: 40 mg Vancomycin HCl (Vancomycin 1gm) 1 gm in 250 mls @ 167 mls/hr IVPB DAILY [facility]; Protocol Stop: 12/05/17 10:01 Last Admin: 11/27/17 09:55 Dose: 167 mls/hr Insulin Human Lispro (Humalog Med) 0 units SC ACHS [facility]; Protocol Last Admin: 11/28/17 08:46 Dose: Not Given Isosorbide Mononitrate (Imdur Er) 30 mg PO DAILY [facility] Last Admin: 11/27/17 09:56 Dose: 30 mg Levothyroxine Sodium (Synthroid) 25 mcg PO 0600 [facility] Last Admin: 11/28/17 06:08 Dose: 25 mcg Losartan Potassium (Cozaar) 50 mg PO QAM [facility] Last Admin: 11/27/17 09:56 Dose: 50 mg Metoprolol Succinate (Toprol Xl) 50 mg PO BID [facility] Last Admin: 11/27/17 17:49 Dose: 50 mg Multivitamins/Minerals (Therapeutic-M Tab) 1 tab PO 0800 [facility] Non-Formulary Medication (Ferrous Sulfate [High Potency Iron]) 134 mg PO TID [facility] Last Admin: 11/27/17 17:57 Dose: Not Given Non-Formulary Medication (Multivit-Min/Fa/Lycopen/Lutein [Centrum Silver Tablet]) 1 each PO DAILY [facility] Last Admin: 11/27/17 09:57 Dose: Not Given Ondansetron HCl (Zofran Inj) 4 mg IVP Q4H PRN PRN Reason: Nausea/Vomiting Polyethylene Glycol (Miralax) 17 gm PO BID [facility] Stop: 11/28/17 18:01 Tramadol HCl (Ultram) 50 mg PO Q8 [facility] Last Admin: 11/28/17 06:08 Dose: 50 mg - Labs Labs: 11/27/17 06:00 11/27/17 06:00 - Constitutional Appears: Well, Non-toxic, No Acute Distress - Head Exam Head Exam: ATRAUMATIC, NORMOCEPHALIC - Extremities Exam Additional comments: Bilateral lower extremity exam: vascular: nonpalpable Dp/pt b/l secondary to edema, CFT<3 secs x10, Tg warm to warm, patchy erythematous lesions noted distal to the midleg b/l, pitting edema pretibial, perimalleolar and dorsum of feet b/l neuro: protective sensation diminished b/l derm: superficial wound noted on the lateral aspect of the ankle joint on the left foot, no drainage, no malodor, no probe to bone or tendon, erythematous patches noted distal to the mid leg b/l, no other open lesions ortho: pain on palpation distal to the mid leg b/l, pain with ankle joint ROM L>R - Neurological Exam Neurological Exam: Alert, Awake, Oriented x3 - Psychiatric Exam Psychiatric exam: Normal Affect - Skin Skin Exam: Normal Color Assessment and Plan - Assessment and Plan (Free Text) Assessment: 82 yo male seen at bedside for a superficial wound on the left lateral aspect of the ankle with cellulitis of the lower extremity b/l Plan: Patient seen and evaluated along with the attending Dr Bassett charts, lab and vitals reviewed; afebrile WBC 8.8 venous ultrasound ordered; no DVT continue IV antibiotics lotrisone ordered; to be applied twice a day to bilateral lower extremity maxorb, and optifoam applied to the lateral aspect of the left ankle Lower extremity arterial studies ordered podiatry will continue to follow the patient while in house
[2017-11-28 10:52] VITALS: O2SAT 100
--- NOTE | 2017-11-28 11:11 | CP.PCM.PN ---
Subjective - Date & Time of Evaluation Date of Evaluation: 11/28/17 Time of Evaluation: 09:11 - Subjective Subjective: Ajay Michelle PGY2 IM Progress Note Patient was seen and examined at bedside. The patient states that he has a bdominal discomfort and has not had BM in 2 days. He also says that he was urinating well until last night, however, the patient does not have bladder distention and bladder scan did not show retention. He denies any chest pain, weakness, headaches, or vomiting. Objective - Vital Signs/Intake and Output Vital Signs (last 24 hours): Temp Pulse Resp BP Pulse Ox 97 F L 83 20 99/53 L 100 11/28/17 06:00 11/28/17 06:00 11/28/17 06:00 11/28/17 06:00 11/28/17 06:00 Intake and Output: 11/28/17 11/28/17 06:59 18:59 Intake Total 670 Output Total 3 Balance 667 - Medications Medications: Current Medications Allopurinol (Zyloprim) 300 mg PO QAM [facility] Last Admin: 11/27/17 09:56 Dose: 300 mg Apixaban (Eliquis) 2.5 mg PO BID [facility]; Protocol Last Admin: 11/27/17 17:49 Dose: 2.5 mg Atorvastatin Calcium (Lipitor) 10 mg PO DAILY [facility] Last Admin: 11/27/17 09:56 Dose: 10 mg Bacitracin (Bacitracin) 1 ea TOP DAILY PRN PRN Reason: blister on hand Last Admin: 11/27/17 17:50 Dose: 1 ea Betamethasone/Clotrimazole (Lotrisone) 0 gm TOP BID [facility] Last Admin: 11/27/17 17:50 Dose: 1 applic Cholecalciferol (Vitamin D) 4,000 intlu PO QAM [facility] Last Admin: 11/27/17 09:56 Dose: 4,000 intlu Cilostazol (Pletal) 100 mg PO BID [facility] Last Admin: 11/27/17 17:50 Dose: 100 mg Docusate Sodium (Colace) 100 mg PO BID [facility] Last Admin: 11/27/17 17:49 Dose: 100 mg Famotidine (Pepcid) 20 mg PO DAILY [facility] Last Admin: 11/27/17 09:56 Dose: 20 mg Ferrous Sulfate (Feosol) 324 mg PO TID [facility] Last Admin: 11/27/17 17:49 Dose: 324 mg Furosemide (Lasix) 40 mg IVP DAILY [facility] Last Admin: 11/27/17 09:55 Dose: 40 mg Vancomycin HCl (Vancomycin 1gm) 1 gm in 250 mls @ 167 mls/hr IVPB DAILY [facility]; Protocol Stop: 12/05/17 10:01 Last Admin: 11/27/17 09:55 Dose: 167 mls/hr Insulin Human Lispro (Humalog Med) 0 units SC ACHS [facility]; Protocol Last Admin: 11/28/17 08:46 Dose: Not Given Isosorbide Mononitrate (Imdur Er) 30 mg PO DAILY [facility] Last Admin: 11/27/17 09:56 Dose: 30 mg Levothyroxine Sodium (Synthroid) 25 mcg PO 0600 [facility] Last Admin: 11/28/17 06:08 Dose: 25 mcg Losartan Potassium (Cozaar) 50 mg PO QAM [facility] Last Admin: 11/27/17 09:56 Dose: 50 mg Metoprolol Succinate (Toprol Xl) 50 mg PO BID [facility] Last Admin: 11/27/17 17:49 Dose: 50 mg Multivitamins/Minerals (Therapeutic-M Tab) 1 tab PO 0800 [facility] Non-Formulary Medication (Ferrous Sulfate [High Potency Iron]) 134 mg PO TID [facility] Last Admin: 11/27/17 17:57 Dose: Not Given Non-Formulary Medication (Multivit-Min/Fa/Lycopen/Lutein [Centrum Silver Tablet]) 1 each PO DAILY [facility] Last Admin: 11/27/17 09:57 Dose: Not Given Ondansetron HCl (Zofran Inj) 4 mg IVP Q4H PRN PRN Reason: Nausea/Vomiting Polyethylene Glycol (Miralax) 17 gm PO BID [facility] Stop: 11/28/17 18:01 Tramadol HCl (Ultram) 50 mg PO Q8 [facility] Last Admin: 11/28/17 06:08 Dose: 50 mg - Labs Labs: 11/27/17 06:00 11/27/17 06:00 - Additional Findings Additional findings: - Constitutional Appears: Non-toxic, No Acute Distress - Head Exam Head Exam: NORMAL INSPECTION - Eye Exam Eye Exam: Normal appearance, PERRL - ENT Exam ENT Exam: Mucous Membranes Moist - Neck Exam Neck Exam: Normal Inspection - Respiratory Exam Respiratory Exam: NORMAL BREATHING PATTERN. absent: Rhonchi, Wheezes - Cardiovascular Exam Cardiovascular Exam: RRR, +S1, +S2. absent: JVD - GI/Abdominal Exam GI & Abdominal Exam: Soft, Normal Bowel Sounds. absent: Distended, Tenderness - Extremities Exam Extremities Exam: Pedal Edema (1+ b/l) Additional comments: unequal erythema b/l Left ankle is painful - Back Exam Back Exam: NORMAL INSPECTION - Neurological Exam Neurological Exam: Alert, Awake, Oriented x3 - Psychiatric Exam Psychiatric exam: Normal Mood - Skin Skin Exam: Erythema (b/l legs ), Normal Color Assessment and Plan - Assessment and Plan (Free Text) Assessment: 82-year-old male with a PMH of CAD post CABG, CKD, A. fib (on Eliquis), and anemia who presented to the ED with bilateral lower extremity swelling and redness for 2 weeks, which seems to be improving with increased diuretic use. Presentation likely due to CHF exacerbation with underlying cellulitis. CKD also noted, however, it's improved from prior visits. Overall, swelling and pain have improved. 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 Giron Case was reviewed and discussed with attending, Dr. Giron (covering for Dr. Dougherty) Ajay Michelle PGY2
[2017-11-28] MEDS: Metoprolol Succinate 50 mg XL Tab PO SCH ×2 (11:30→19:07)
[2017-11-28] MEDS: POLYETHYLENE GLYCOL 3350 17 GM/Dose PACKET PO SCH ×2 (11:31→19:13)
[2017-11-28] MEDS: Cholecalciferol 1,000 INTLU TAB PO SCH (11:37)
[2017-11-28] MEDS: Vancomycin 1gm in NS 250ml 1 GM/250 ML BAG IVPB SCH (11:40)
[2017-11-28] MEDS: Multivitamin With Minerals Tab PO SCH (11:42)
[2017-11-28] MEDS: FERROUS SULFATE 134 MG PO SCH ×3 (12:42→18:22)
[2017-11-28] MEDS: Non Formulary Medication (Multivit-Min/Fa/Lycopen/Lutein [Centrum Silver Tablet] 1 EACH) PO SCH (12:43)
[2017-11-28] MEDS: Cilostazol 100 mg Tab UD PO SCH ×2 (13:15→19:12)
--- NOTE | 2017-11-28 15:22 | US ---
PROCEDURE: Lower extremity KARIN exam HISTORY: Peripheral vascular disease with pain and ulceration. Diabetes. Previous smoker. PHYSICIAN(S): Elliott Benavides MD. FINDINGS: Comparing with the PVR waveforms, the resting ABIs are inaccurate due to calcified vessels: Right, 0.77 and left, 0.84 The brachial systolic pressures are symmetric. The high thigh PVR waveforms are relatively normal and symmetric. The right calf PVR waveform augments normally. The left calf PVR waveform is moderately blunted. This is consistent with left SFA occlusive disease There are significant gradients across both knees. The ankle and metatarsal waveforms are severely blunted. This is consistent with bilateral distal SFA, popliteal, and/or trifurcation disease. The ankle and metatarsal waveforms are severely blunted bilaterally IMPRESSION: 1. Bilateral distal SFA, popliteal, and/or trifurcation disease. 2. Left SFA occlusive disease. 3. The ankle and metatarsal waveforms are severely blunted bilaterally. 4. If further workup is indicated, an MRA with gadolinium runoff, CTA runoff, or conventional arteriogram can be obtained
--- NOTE | 2017-11-28 17:14 | PN ---
DATE: 11/28/2017 SUBJECTIVE: The patient is seen sitting in chair on telemetry. He states he feels more comfortable. His edema is somewhat improved. CURRENT MEDICATIONS: Include Cozaar, Colace, Eliquis 2.5 mg b.i.d., iron supplement, insulin, Imdur 30 mg daily, Lasix 40 mg IV daily, metoprolol 10 mg daily, MiraLax, Pepcid, Pletal 100 mg b.i.d., Synthroid, metoprolol 50 mg b.i.d., vancomycin, and allopurinol. OBJECTIVE: GENERAL: He is an obese elderly man. VITAL SIGNS: Blood pressure is 100/56 with pulse of 80 in atrial fibrillation, respirations 14, he is afebrile. HEENT: No JVD. CHEST: Few scattered rhonchi heard. HEART: PMI displaced laterally with a mid peak systolic murmur at base as well as murmur at the apex. ABDOMEN: Soft, obese, nontender. Normoactive bowel sounds. EXTREMITIES: Chronic lower extremity cellulitic changes noted with 2+ leg edema. DIAGNOSTIC DATA: Morning blood work is pending. IMPRESSION: 1. Decompensated congestive heart failure, [id number] diastolic. 2. Moderate aortic stenosis. 3. Coronary artery disease status post prior bypass surgery. 4. History of diabetes. 5. Chronic renal insufficiency. RECOMMENDATIONS: Continued gentle hydration should be planned. Followup monitoring of his renal function is advised. Local wound care will be continued as well. The need for sodium and fluid restriction were discussed with him. We will continue to follow and make further recommendations as appropriate. Thaddeus Cuellar MD
--- NOTE | 2017-11-28 18:06 | NM ---
Date of service: 11/28/2017 PROCEDURE: Three-phase body Bone Scan HISTORY: r/o LE osteomyelitis COMPARISON: None available. TECHNIQUE: Following administration of 20.3 miCu of Tc MDP multiplanar three-phase bone scan attention left lower extremity FINDINGS: Flow component: Mildly asymmetric increased flow to the left calf and ankle Blood pool component: Asymmetric retention of radionuclide in the soft tissues right calf compared to left Delayed images at 3:00: No significant abnormalities. Other findings: None. IMPRESSION: Negative study for acute osseous process.
[2017-11-28 23:51] VITALS: RESP 18
[2017-11-29] MEDS: Levothyroxine 25 MCG TAB PO SCH (05:23)
[2017-11-29 06:58] VITALS: TEMP 97.1
[2017-11-29] MEDS: Multivitamin With Minerals Tab PO SCH (07:25)
[2017-11-29] MEDS: Insulin Lispro (humaLOG) MEDIUM Coverage SC SCH (07:42)
--- NOTE | 2017-11-29 08:00 | CP.PCM.PN ---
Subjective - Date & Time of Evaluation Date of Evaluation: 11/29/17 Time of Evaluation: 07:00 - Subjective Subjective: Stable on 2R. No CP or SOB. Legs better V/S: AF PE: Lungs: clear Cor.: irreg. S1S2 Abd.: soft Ext.: improved Neuro.: alert I/O= 1444/950 recorded LE art. Dopplers noted. Bone Scan noted. BC X2 NG at 48 hrs. Objective - Vital Signs/Intake and Output Vital Signs (last 24 hours): Temp Pulse Resp BP Pulse Ox 97.1 F L 75 18 110/72 100 11/29/17 06:00 11/29/17 06:00 11/28/17 23:49 11/28/17 23:49 11/28/17 06:00 Intake and Output: 11/29/17 11/29/17 06:59 18:59 Intake Total 490 Output Total 450 Balance 40 - Medications Medications: Current Medications Allopurinol (Zyloprim) 300 mg PO QAM [facility] Last Admin: 11/28/17 11:30 Dose: 300 mg Apixaban (Eliquis) 2.5 mg PO BID [facility]; Protocol Last Admin: 11/28/17 19:07 Dose: 2.5 mg Atorvastatin Calcium (Lipitor) 10 mg PO DAILY [facility] Last Admin: 11/28/17 11:30 Dose: 10 mg Bacitracin (Bacitracin) 1 ea TOP DAILY PRN PRN Reason: blister on hand Last Admin: 11/27/17 17:50 Dose: 1 ea Betamethasone/Clotrimazole (Lotrisone) 0 gm TOP BID [facility] Last Admin: 11/28/17 19:09 Dose: 1 applic Cholecalciferol (Vitamin D) 4,000 intlu PO QAM [facility] Last Admin: 11/28/17 11:37 Dose: 4,000 intlu Cilostazol (Pletal) 100 mg PO BID [facility] Last Admin: 11/28/17 19:12 Dose: 100 mg Docusate Sodium (Colace) 100 mg PO BID [facility] Last Admin: 11/28/17 19:09 Dose: 100 mg Famotidine (Pepcid) 20 mg PO DAILY [facility] Last Admin: 11/28/17 11:28 Dose: 20 mg Ferrous Sulfate (Feosol) 324 mg PO TID [facility] Last Admin: 11/28/17 19:07 Dose: 324 mg Furosemide (Lasix) 40 mg IVP DAILY [facility] Last Admin: 11/28/17 11:31 Dose: 40 mg Vancomycin HCl (Vancomycin 1gm) 1 gm in 250 mls @ 167 mls/hr IVPB DAILY [facility]; Protocol Stop: 12/05/17 10:01 Last Admin: 11/28/17 11:40 Dose: 167 mls/hr Insulin Human Lispro (Humalog Med) 0 units SC ACHS [facility]; Protocol Last Admin: 11/29/17 07:42 Dose: Not Given Isosorbide Mononitrate (Imdur Er) 30 mg PO DAILY [facility] Last Admin: 11/28/17 11:30 Dose: 30 mg Levothyroxine Sodium (Synthroid) 25 mcg PO 0600 [facility] Last Admin: 11/29/17 05:23 Dose: 25 mcg Losartan Potassium (Cozaar) 50 mg PO QAM [facility] Last Admin: 11/28/17 11:29 Dose: 50 mg Metoprolol Succinate (Toprol Xl) 50 mg PO BID [facility] Last Admin: 11/28/17 19:07 Dose: 50 mg Multivitamins/Minerals (Therapeutic-M Tab) 1 tab PO 0800 [facility] Last Admin: 11/29/17 07:25 Dose: 1 tab Non-Formulary Medication (Ferrous Sulfate [High Potency Iron]) 134 mg PO TID [facility] Last Admin: 11/28/17 18:22 Dose: Not Given Non-Formulary Medication (Multivit-Min/Fa/Lycopen/Lutein [Centrum Silver Tablet]) 1 each PO DAILY [facility] Last Admin: 11/28/17 12:43 Dose: Not Given Ondansetron HCl (Zofran Inj) 4 mg IVP Q4H PRN PRN Reason: Nausea/Vomiting Tramadol HCl (Ultram) 50 mg PO Q8 [facility] Last Admin: 11/29/17 05:23 Dose: 50 mg - Labs Labs: 11/27/17 06:00 11/27/17 06:00 Assessment and Plan - Assessment and Plan (Free Text) Assessment: Pain and edema, cellulitis both LEs CHF Chronic AF CAD/CABG/old [place] Echo: Nl LV, Mod. and MR Diabetes PAD CKD Anemia H/O GIB Gastric Polyps Former Smoker Plan: Continue IV Lasix, AB As per ID, Podiatry, Dr. Dougherty/Medical Team OOB/PT Monitor labs, I/O, cultures, etc.
--- NOTE | 2017-11-29 08:12 | PN ---
DATE: 11/28/2017 This is an addendum to the progress note written by the resident earlier. SUBJECTIVE: The patient is seen and examined. Case is discussed with the resident. Agreed with history and physical and the plan. The patient is 82 years old, sitting in chair comfortable with mild shortness of breath. He is being treated for CHF. He has history of coronary artery disease with open heart surgery in the remote past with chronic kidney disease, chronic AFib, on Eliquis and anemia. His bilateral legs swelling seems to be improving. Currently, he is on vancomycin. He is on Eliquis IV diuretic, levothyroxine. Again, with the plan, encouraged physical therapy and follow up electrolyte in the a.m. Michael Giron MD
[2017-11-29 09:45] LABS: CALCIUM 9.1 mg/dL (8.4-10.5)
[2017-11-29] MEDS: Vancomycin 1gm in NS 250ml 1 GM/250 ML BAG IVPB SCH (09:49)
[2017-11-29] MEDS: Metoprolol Succinate 50 mg XL Tab PO SCH (09:50)
[2017-11-29] MEDS: Non Formulary Medication (Multivit-Min/Fa/Lycopen/Lutein [Centrum Silver Tablet] 1 EACH) PO SCH (09:53)
--- NOTE | 2017-11-29 09:56 | PN ---
DATE: 11/29/2017 SUBJECTIVE: The patient is seen earlier today in room 275, bed 1. He is doing better. No fevers, no chills. No nausea. PHYSICAL EXAMINATION: VITAL SIGNS: On exam, temperature is 98, blood pressure is 110/70, respiratory rate of 16. HEENT: Examination of HEENT is unremarkable. NECK: Supple. LUNGS: Have decreased breath sounds. HEART: Normal S1, S2. ABDOMEN: Soft. LABORATORY DATA: Laboratory examination reveals a white count of 8, hemoglobin of 10, platelets of 277, BUN of 26, creatinine of 1.4. Microbiology reveals the leg culture is pending. The blood cultures are negative. ASSESSMENT AND PLAN: An 82-year-old male with left ankle cellulitis with a negative bone scan with peripheral arterial disease, not diabetic and may discontinue the vancomycin and use p.o. doxycycline to complete therapy pending culture results. We will check on the culture results before making definitive recommendation regarding the treatment options by p.o. Review of the ultrasound from yesterday reveals left superficial femoral artery occlusive disease, bilaterally severely blunted waveforms and bilateral distal superficial femoral artery, popliteal and trifurcation disease. A bone scan report is also reported to be negative for osteomyelitis. Hoang Orourke MD
[2017-11-29] MEDS: Cholecalciferol 1,000 INTLU TAB PO SCH (09:58)
[2017-11-29] MEDS: Cilostazol 100 mg Tab UD PO SCH (10:00)
[2017-11-29] MEDS: Clotrimazole/Betamethasone Cream(15 gm) TOP SCH (10:00)
[2017-11-29] MEDS: FERROUS SULFATE 134 MG PO SCH (10:01)
[2017-11-29 10:10] VITALS: BP 97/41; PULSE 83
--- NOTE | 2017-11-29 10:27 | CP.PCM.PN ---
Subjective - Date & Time of Evaluation Date of Evaluation: 11/29/17 Time of Evaluation: 10:24 - Subjective Subjective: Podiatry progress note for Dr. bassett/med, 81yo M with past medical history of CABG, CKD stage IIIb, DM, chronic A.fib (on Eliquis), anemia, and GI bleed seen at bedside complaining of bilateral lower extremity swelling and redness for two weeks. Patient admits to minimal pain in the leg while ambulating. Denies acute overnight events. Denies f/n/v/sob. Objective - Vital Signs/Intake and Output Vital Signs (last 24 hours): Temp Pulse Resp BP Pulse Ox 97.1 F L 83 18 97/41 L 100 11/29/17 06:00 11/29/17 10:00 11/28/17 23:49 11/29/17 09:52 11/28/17 06:00 Intake and Output: 11/29/17 11/29/17 06:59 18:59 Intake Total 490 Output Total 450 Balance 40 - Medications Medications: Current Medications Allopurinol (Zyloprim) 300 mg PO QAM [facility] Last Admin: 11/29/17 09:52 Dose: 300 mg Apixaban (Eliquis) 2.5 mg PO BID [facility]; Protocol Last Admin: 11/29/17 09:50 Dose: 2.5 mg Atorvastatin Calcium (Lipitor) 10 mg PO DAILY [facility] Last Admin: 11/29/17 09:50 Dose: 10 mg Bacitracin (Bacitracin) 1 ea TOP DAILY PRN PRN Reason: blister on hand Last Admin: 11/27/17 17:50 Dose: 1 ea Betamethasone/Clotrimazole (Lotrisone) 0 gm TOP BID [facility] Last Admin: 11/29/17 10:00 Dose: Not Given Cholecalciferol (Vitamin D) 4,000 intlu PO QAM [facility] Last Admin: 11/29/17 09:58 Dose: 4,000 intlu Cilostazol (Pletal) 100 mg PO BID [facility] Last Admin: 11/29/17 10:00 Dose: 100 mg Docusate Sodium (Colace) 100 mg PO BID [facility] Last Admin: 11/29/17 09:52 Dose: 100 mg Famotidine (Pepcid) 20 mg PO DAILY [facility] Last Admin: 11/29/17 09:52 Dose: 20 mg Ferrous Sulfate (Feosol) 324 mg PO TID [facility] Last Admin: 11/29/17 09:52 Dose: 324 mg Furosemide (Lasix) 40 mg IVP DAILY [facility] Last Admin: 11/29/17 09:50 Dose: Not Given Vancomycin HCl (Vancomycin 1gm) 1 gm in 250 mls @ 167 mls/hr IVPB DAILY [facility]; Protocol Stop: 12/05/17 10:01 Last Admin: 11/29/17 09:49 Dose: 167 mls/hr Insulin Human Lispro (Humalog Med) 0 units SC ACHS [facility]; Protocol Last Admin: 11/29/17 07:42 Dose: Not Given Isosorbide Mononitrate (Imdur Er) 30 mg PO DAILY [facility] Last Admin: 11/29/17 09:49 Dose: 30 mg Levothyroxine Sodium (Synthroid) 25 mcg PO 0600 [facility] Last Admin: 11/29/17 05:23 Dose: 25 mcg Losartan Potassium (Cozaar) 50 mg PO QAM [facility] Last Admin: 11/29/17 09:52 Dose: 50 mg Metoprolol Succinate (Toprol Xl) 50 mg PO BID [facility] Last Admin: 11/29/17 09:50 Dose: 50 mg Multivitamins/Minerals (Therapeutic-M Tab) 1 tab PO 0800 [facility] Last Admin: 11/29/17 07:25 Dose: 1 tab Non-Formulary Medication (Ferrous Sulfate [High Potency Iron]) 134 mg PO TID [facility] Last Admin: 11/29/17 10:01 Dose: Not Given Non-Formulary Medication (Multivit-Min/Fa/Lycopen/Lutein [Centrum Silver Tablet]) 1 each PO DAILY [facility] Last Admin: 11/29/17 09:53 Dose: Not Given Ondansetron HCl (Zofran Inj) 4 mg IVP Q4H PRN PRN Reason: Nausea/Vomiting Tramadol HCl (Ultram) 50 mg PO Q8 [facility] Last Admin: 11/29/17 05:23 Dose: 50 mg - Labs Labs: 11/27/17 06:00 11/29/17 08:55 - Constitutional Appears: Well, Non-toxic, No Acute Distress - Head Exam Head Exam: ATRAUMATIC, NORMOCEPHALIC - Extremities Exam Additional comments: Bilateral lower extremity exam: vascular: nonpalpable Dp/pt b/l secondary to edema, CFT<3 secs x10, Tg warm to warm, patchy erythematous lesions noted distal to the midleg b/l, pitting edema pretibial, perimalleolar and dorsum of feet b/l neuro: protective sensation diminished b/l derm: superficial wound noted on the lateral aspect of the ankle joint on the le ft foot, no drainage, no malodor, no probe to bone or tendon, erythematous patches noted distal to the mid leg b/l, no other open lesions ortho: pain on palpation distal to the mid leg b/l, pain with ankle joint ROM L>R - Neurological Exam Neurological Exam: Alert, Awake - Psychiatric Exam Psychiatric exam: Normal Affect - Skin Skin Exam: Normal Color Assessment and Plan - Assessment and Plan (Free Text) Assessment: 82 yo male seen at bedside for a superficial wound on the left lateral aspect of the ankle with cellulitis of the lower extremity b/l Plan: Patient seen and evaluated along with the attending Dr Bassett charts, lab and vitals reviewed; afebrile WBC 8.8 venous ultrasound ordered; no DVT continue IV antibiotics lotrisone ordered; to be applied twice a day to bilateral lower extremity by the nurse maxorb, and optifoam applied to the lateral aspect of the left ankle wound cultured pending Lower extremity arterial studies : B/L distal SFA, popliteal, trifurcation di sease. patient to ambulate using surgical shoe stable for discharge podiatry will continue to follow the patient while in house
--- NOTE | 2017-11-29 14:01 | CP.PCM.DIS ---
<Ajay Michelle - Last Filed: 11/29/17 17:22> Provider - Provider Date of Admission: 11/26/17 13:09 Attending physician: Juma Dougherty MD Time Spent in preparation of Discharge (in minutes): 45 Diagnosis - Discharge Diagnosis (1) CHF exacerbation Status: Acute Hospital Course - Lab Results Lab Results: Micro Results 11/26/17 11:45 Blood-Venous Blood Culture - Preliminary NO GROWTH AFTER 3 DAYS 11/26/17 11:15 Blood-Venous Blood Culture - Preliminary NO GROWTH AFTER 3 DAYS 11/28/17 13:00 Leg - Left Gram Stain - Final Most Recent Lab Values WBC 8.8 10^3/ul (4.5-11.0) 11/27/17 06:00 RBC 4.04 10^6/uL (3.5-6.1) 11/27/17 06:00 Hgb 10.8 g/dL (14.0-18.0) L 11/27/17 06:00 Hct 35.9 % (42.0-52.0) L 11/27/17 06:00 MCV 88.9 fl (80.0-105.0) 11/27/17 06:00 MCH 26.7 pg (25.0-35.0) 11/27/17 06:00 MCHC 30.1 g/dl (31.0-37.0) L 11/27/17 06:00 RDW 17.3 % (11.5-14.5) H 11/27/17 06:00 Plt Count 277 10^3/uL (120.0-450.0) 11/27/17 06:00 MPV 10.2 fl (7.0-11.0) 11/27/17 06:00 Gran % 63.1 % (50.0-68.0) 11/26/17 11:45 Lymph % (Auto) 24.0 % (22.0-35.0) 11/26/17 11:45 [place] % (Auto) 8.3 % (1.0-6.0) H 11/26/17 11:45 Eos % (Auto) 4.2 % (1.5-5.0) 11/26/17 11:45 Baso % (Auto) 0.4 % (0.0-3.0) 11/26/17 11:45 Gran # 5.02 (1.4-6.5) 11/26/17 11:45 Lymph # (Auto) 1.9 (1.2-3.4) 11/26/17 11:45 [place] # (Auto) 0.7 (0.1-0.6) H 11/26/17 11:45 Eos # (Auto) 0.3 (0.0-0.7) 11/26/17 11:45 Baso # (Auto) 0.03 K/mm3 (0.0-2.0) 11/26/17 11:45 ESR 54 mm/hr (0.00-15.0) H 11/27/17 06:00 Sodium 130 mmol/L (132-148) L 11/29/17 08:55 Potassium 4.4 mmol/L (3.6-5.0) 11/29/17 08:55 Chloride 95 mmol/L (98-107) L 11/29/17 08:55 Carbon Dioxide 24 mmol/L (21-33) 11/29/17 08:55 Anion Gap 15 (10-20) 11/29/17 08:55 BUN 36 mg/dL (7-21) H 11/29/17 08:55 Creatinine 2.1 mg/dl (0.8-1.5) H 11/29/17 08:55 Est GFR ( Amer) 37 11/29/17 08:55 Est GFR (Non-Af Amer) 30 11/29/17 08:55 POC Glucose (mg/dL) 87 mg/dL (65-110) 11/29/17 07:28 Random Glucose 93 mg/dL (70-110) 11/29/17 08:55 Hemoglobin A1c 6.3 % (4.2-6.5) 11/26/17 19:24 Calcium 9.1 mg/dL (8.4-10.5) 11/29/17 08:55 Phosphorus 3.8 mg/dL (2.5-4.5) 11/27/17 06:00 Magnesium 2.0 mg/dL (1.7-2.2) 11/27/17 06:00 Iron 52 ug/dL (45-180) 11/27/17 06:30 TIBC 321 ug/dL (261-462) 11/27/17 06:30 % Saturation 16 % (20-55) L 11/27/17 06:30 Transferrin 236.32 mg/dL (206-381) 11/27/17 06:30 Ferritin 85.6 ng/mL 11/27/17 06:30 Total Bilirubin 0.8 mg/dL (0.2-1.3) 11/27/17 06:00 AST 35 U/L (17-59) 11/27/17 06:00 ALT 35 U/L (7-56) 11/27/17 06:00 Alkaline Phosphatase 121 U/L (38-126) 11/27/17 06:00 Lactate Dehydrogenase 418 U/L (333-699) 11/27/17 01:18 Total Creatine Kinase 22 U/L (35-230) L 11/27/17 01:18 Troponin I 0.02 ng/mL 11/27/17 01:18 C-Reactive Protein 15.60 mg/L (0.0-9.9) H 11/27/17 06:00 NT-Pro-B Natriuret Pep 3470 pg/mL (0-450) H 11/26/17 11:45 Total Protein 7.2 g/dL (5.8-8.3) 11/27/17 06:00 Albumin 3.6 g/dL (3.0-4.8) 11/27/17 06:00 Globulin 3.5 gm/dL 11/27/17 06:00 Albumin/Globulin Ratio 1.0 (1.1-1.8) L 11/27/17 06:00 Vitamin B12 673 pg/mL (239-931) 11/27/17 06:30 Folate > 20.0 ng/mL 11/27/17 06:30 Urine Color Yellow (YELLOW) 11/27/17 01:56 Urine Appearance Clear (CLEAR) 11/27/17 01:56 Urine pH 5.0 (4.7-8.0) 11/27/17 01:56 Ur Specific [place] 1.020 (1.005-1.035) 11/27/17 01:56 Urine Protein 30 mg/dL (<30 mg/dL) H 11/27/17 01:56 Urine Glucose (UA) Negative mg/dL (NEGATIVE) 11/27/17 01:56 Urine Ketones Negative mg/dL (NEGATIVE) 11/27/17 01:56 Urine Blood Negative (NEGATIVE) 11/27/17 01:56 Urine Nitrate Negative (NEGATIVE) 11/27/17 01:56 Urine Bilirubin Negative (NEGATIVE) 11/27/17 01:56 Urine Urobilinogen 0.2 E.U./dL (<1 E.U./dL) 11/27/17 01:56 Ur Leukocyte Esterase Trace [place]/uL (NEGATIVE) H 11/27/17 01:56 Urine RBC 0 - 2 /hpf (0-2) 11/27/17 01:56 Urine WBC 1 - 3 /hpf (0-6) 11/27/17 01:56 Ur Epithelial Cells 0 - 2 /hpf (0-5) 11/27/17 01:56 Amorphous Sediment Few 11/27/17 01:56 Urine Bacteria Rare (NEG) 11/27/17 01:56 Vancomycin Trough 8.0 ug/mL (5.0-10.0) 11/29/17 08:55 Blood Type O NEGATIVE 11/26/17 11:45 Antibody Screen Negative 11/26/17 11:45 BBK History Checked Patient has bt 11/26/17 11:45 - Hospital Course Hospital Course: Mr. Swanson is an 82-year-old male with a PMH of CAD post CABG, CKD, DM 2, A. fib (on Eliquis) and anemia who was admitted for lower extremity swelling and pain for 2 weeks, found to be in CHF exacerbation with superficial cellulitis. Cardiology, ID and podiatry were consulted. Symptoms improved with antibiotics and IV diuresis. DVT was ruled out. Arterial ABIs were recorded B/L as <0.9 due to calcifications. Bone scan was negative for any osteomyelitis. Patient improved during course of stay, but was constipated. There was a suspicion of urinary retention, however several bladder scans were negative for retention. On the day of discharge, patient felt much better, and had participated in physical therapy. He is discharged with Lasix, doxycycline, and is to continue his prior medications. His Lipitor was increased to 40mg daily as he should be on high intensity dose. He is not on ASA due to being on Eliquis and per his Air Duct Mechanic's recommendations. MiraLAX and Colace were prescribed for his constipation. He will follow-up with his PMD and Air Duct Mechanic. Discharge Exam - Head Exam Head Exam: ATRAUMATIC, NORMOCEPHALIC - Eye Exam Eye Exam: EOMI, Normal appearance, PERRL - ENT Exam ENT Exam: Mucous Membranes Moist - Neck Exam Neck exam: Full Rom - Respiratory Exam Respiratory Exam: NORMAL BREATHING PATTERN. absent: Rales, Rhonchi, Wheezes, Respiratory Distress - Cardiovascular Exam Cardiovascular Exam: RRR, +S1, +S2 - GI/Abdominal Exam GI & Abdominal Exam: Normal Bowel Sounds, Soft. absent: Distended, Tenderness - Extremities Exam Extremities exam: full ROM, pedal pulses present Additional comments: no pedal edema b/l erythema improving - Back Exam Back exam: NORMAL INSPECTION - Neurological Exam Neurological exam: Alert, Normal Gait, Oriented x3 - Psychiatric Exam Psychiatric exam: Normal Mood - Skin Skin Exam: Pallor, Warm Discharge Plan - Discharge Medications Prescriptions: RX: Docusate [Colace] 100 mg PO BID #28 cap RX: Doxycycline Hyclate [Doryx] 100 mg PO BID #10 cap RX: Atorvastatin [Lipitor] 40 mg PO HS #14 tab Polyethylene Glycol 3350 [Miralax] 17 gm PO BID #14 powd.pack - Follow Up Plan Condition: GOOD Disposition: HOME/ ROUTINE Instructions: Heart Failure, Adult (DC) Additional Instructions: - please take the Lasix and Doxy as prescribed - please follow up with PMD and Air Duct Mechanic within 2 weeks - if you experience worsening shortness of breath or leg swelling/pain, please contact PMD or return to ER <Juma Dougherty - Last Filed: 11/29/17 18:34> Provider - Provider Date of Admission: 11/26/17 13:09 Attending physician: Juma Dougherty MD Hospital Course - Lab Results Lab Results: Micro Results 11/28/17 13:00 Leg - Left Gram Stain - Final 11/28/17 13:00 Leg - Left Wound Culture - Preliminary Staphylococcus Aureus 11/26/17 11:45 Blood-Venous Blood Culture - Preliminary NO GROWTH AFTER 3 DAYS 11/26/17 11:15 Blood-Venous Blood Culture - Preliminary NO GROWTH AFTER 3 DAYS Most Recent Lab Values WBC 8.8 10^3/ul (4.5-11.0) 11/27/17 06:00 RBC 4.04 10^6/uL (3.5-6.1) 11/27/17 06:00 Hgb 10.8 g/dL (14.0-18.0) L 11/27/17 06:00 Hct 35.9 % (42.0-52.0) L 11/27/17 06:00 MCV 88.9 fl (80.0-105.0) 11/27/17 06:00 MCH 26.7 pg (25.0-35.0) 11/27/17 06:00 MCHC 30.1 g/dl (31.0-37.0) L 11/27/17 06:00 RDW 17.3 % (11.5-14.5) H 11/27/17 06:00 Plt Count 277 10^3/uL (120.0-450.0) 11/27/17 06:00 MPV 10.2 fl (7.0-11.0) 11/27/17 06:00 Gran % 63.1 % (50.0-68.0) 11/26/17 11:45 Lymph % (Auto) 24.0 % (22.0-35.0) 11/26/17 11:45 [place] % (Auto) 8.3 % (1.0-6.0) H 11/26/17 11:45 Eos % (Auto) 4.2 % (1.5-5.0) 11/26/17 11:45 Baso % (Auto) 0.4 % (0.0-3.0) 11/26/17 11:45 Gran # 5.02 (1.4-6.5) 11/26/17 11:45 Lymph # (Auto) 1.9 (1.2-3.4) 11/26/17 11:45 [place] # (Auto) 0.7 (0.1-0.6) H 11/26/17 11:45 Eos # (Auto) 0.3 (0.0-0.7) 11/26/17 11:45 Baso # (Auto) 0.03 K/mm3 (0.0-2.0) 11/26/17 11:45 ESR 54 mm/hr (0.00-15.0) H 11/27/17 06:00 Sodium 130 mmol/L (132-148) L 11/29/17 08:55 Potassium 4.4 mmol/L (3.6-5.0) 11/29/17 08:55 Chloride 95 mmol/L (98-107) L 11/29/17 08:55 Carbon Dioxide 24 mmol/L (21-33) 11/29/17 08:55 Anion Gap 15 (10-20) 11/29/17 08:55 BUN 36 mg/dL (7-21) H 11/29/17 08:55 Creatinine 2.1 mg/dl (0.8-1.5) H 11/29/17 08:55 Est GFR ( Amer) 37 11/29/17 08:55 Est GFR (Non-Af Amer) 30 11/29/17 08:55 POC Glucose (mg/dL) 87 mg/dL (65-110) 11/29/17 07:28 Random Glucose 93 mg/dL (70-110) 11/29/17 08:55 Hemoglobin A1c 6.3 % (4.2-6.5) 11/26/17 19:24 Calcium 9.1 mg/dL (8.4-10.5) 11/29/17 08:55 Phosphorus 3.8 mg/dL (2.5-4.5) 11/27/17 06:00 Magnesium 2.0 mg/dL (1.7-2.2) 11/27/17 06:00 Iron 52 ug/dL (45-180) 11/27/17 06:30 TIBC 321 ug/dL (261-462) 11/27/17 06:30 % Saturation 16 % (20-55) L 11/27/17 06:30 Transferrin 236.32 mg/dL (206-381) 11/27/17 06:30 Ferritin 85.6 ng/mL 11/27/17 06:30 Total Bilirubin 0.8 mg/dL (0.2-1.3) 11/27/17 06:00 AST 35 U/L (17-59) 11/27/17 06:00 ALT 35 U/L (7-56) 11/27/17 06:00 Alkaline Phosphatase 121 U/L (38-126) 11/27/17 06:00 Lactate Dehydrogenase 418 U/L (333-699) 11/27/17 01:18 Total Creatine Kinase 22 U/L (35-230) L 11/27/17 01:18 Troponin I 0.02 ng/mL 11/27/17 01:18 C-Reactive Protein 15.60 mg/L (0.0-9.9) H 11/27/17 06:00 NT-Pro-B Natriuret Pep 3470 pg/mL (0-450) H 11/26/17 11:45 Total Protein 7.2 g/dL (5.8-8.3) 11/27/17 06:00 Albumin 3.6 g/dL (3.0-4.8) 11/27/17 06:00 Globulin 3.5 gm/dL 11/27/17 06:00 Albumin/Globulin Ratio 1.0 (1.1-1.8) L 11/27/17 06:00 Vitamin B12 673 pg/mL (239-931) 11/27/17 06:30 Folate > 20.0 ng/mL 11/27/17 06:30 Urine Color Yellow (YELLOW) 11/27/17 01:56 Urine Appearance Clear (CLEAR) 11/27/17 01:56 Urine pH 5.0 (4.7-8.0) 11/27/17 01:56 Ur Specific [place] 1.020 (1.005-1.035) 11/27/17 01:56 Urine Protein 30 mg/dL (<30 mg/dL) H 11/27/17 01:56 Urine Glucose (UA) Negative mg/dL (NEGATIVE) 11/27/17 01:56 Urine Ketones Negative mg/dL (NEGATIVE) 11/27/17 01:56 Urine Blood Negative (NEGATIVE) 11/27/17 01:56 Urine Nitrate Negative (NEGATIVE) 11/27/17 01:56 Urine Bilirubin Negative (NEGATIVE) 11/27/17 01:56 Urine Urobilinogen 0.2 E.U./dL (<1 E.U./dL) 11/27/17 01:56 Ur Leukocyte Esterase Trace [place]/uL (NEGATIVE) H 11/27/17 01:56 Urine RBC 0 - 2 /hpf (0-2) 11/27/17 01:56 Urine WBC 1 - 3 /hpf (0-6) 11/27/17 01:56 Ur Epithelial Cells 0 - 2 /hpf (0-5) 11/27/17 01:56 Amorphous Sediment Few 11/27/17 01:56 Urine Bacteria Rare (NEG) 11/27/17 01:56 Vancomycin Trough 8.0 ug/mL (5.0-10.0) 11/29/17 08:55 Blood Type O NEGATIVE 11/26/17 11:45 Antibody Screen Negative 11/26/17 11:45 BBK History Checked Patient has bt 11/26/17 11:45 - Hospital Course Hospital Course: Pt seen and examined. I have reviewed the note of the phlebotomist medical lab assistant and agree with it. I have discussed the assessment and plan with the resident. I have reviewed the patient's labs and medications. Pt with acute CHF due to systolic dsyfunction. DM-2 is controlled with medications that were reviewed. Pt will be placed on Doxycycline for Cellulitis. A fib is controlled. on Eliquis.
== END 2017-11-29 11:52 | disposition home or self-care (01) | DRG 291 ==
LOC: ED 10:45 → ERH 13:09 → 2RSO 16:20
PROVIDERS: ADMIT Internal Medicine Nephrology; ATTEND Internal Medicine Nephrology
DX: I13.0 Hypertensive heart and chronic kidney disease with heart failure and stage 1 through stage 4 chronic kidney disease, or unspecified chronic kidney disease (principal); I50.23 Acute on chronic systolic (congestive) heart failure; L03.116 Cellulitis of left lower limb; L03.115 Cellulitis of right lower limb; N18.3 Chronic kidney disease, stage 3 (moderate); E11.22 Type 2 diabetes mellitus with diabetic chronic kidney disease; I48.2 Chronic atrial fibrillation; I25.10 Atherosclerotic heart disease of native coronary artery without angina pectoris; E11.51 Type 2 diabetes mellitus with diabetic peripheral angiopathy without gangrene; I08.0 Rheumatic disorders of both mitral and aortic valves; D64.9 Anemia, unspecified; E78.00 Pure hypercholesterolemia, unspecified; K21.9 Gastro-esophageal reflux disease without esophagitis; E66.9 Obesity, unspecified; I25.2 Old myocardial infarction; Z68.33 Body mass index [BMI] 33.0-33.9, adult; K59.00 Constipation, unspecified; M10.9 Gout, unspecified; Z79.01 Long term (current) use of anticoagulants; Z87.891 Personal history of nicotine dependence; Z95.1 Presence of aortocoronary bypass graft; Z88.0 Allergy status to penicillin

== ENCOUNTER 2018-04-12 11:18 | Inpatient (IN) | payer MEDICARE, BC | END 2018-04-15 16:42 | disposition skilled nursing facility (03) | LOC: ED 11:18 → 3RNO 04-14 17:26 → ERH 16:27 → 2RNO 19:42 ==

== ENCOUNTER 2018-04-15 17:11 | Inpatient (IN) | payer OTHER, BC | END 2018-04-19 13:43 | disposition home or self-care (01) | LOC: TRCU 17:11 ==

== ENCOUNTER 2018-05-04 11:35 | Inpatient (IN) | payer MEDICARE, BC ==
[2018-05-04 11:35] VITALS: BMI 32.8
--- NOTE | 2018-05-04 12:16 | ED PDOC ---
Arrival/HPI - General Chief Complaint: Abnormal Skin Integrity Time Seen by Provider: 05/04/18 11:54 Historian: Family (great grand daughter) - History of Present Illness Narrative History of Present Illness (Text): 05/04/18 12:19 82 year old male, with a past medical history of CHF, CAD post CABG, CKD, DM 2, A. fib, and anemia, who presents to the emergency department BIB his great granddaughter for exacerbation of leg infection. Grand daughter reports a "yellow, orange" pus a couple days ago. She also reports pain and difficulty breathing when walking. She endorses giving him Tylenol for pain, with no relief. She reports his weight is unstable and states he lost 0.8 lb today. She also reports he has a visiting nurse, who comes 3 times a week. She denies any fever, chills, nausea, vomiting, diarrhea, back pain, or any other complaints. She also denies any antibiotic use. Patient is complaint with with medications. PMD: Dr. Novak Epic Ambulatory Analysts: Dr. Page Cardiolgoist: Dr. Cuellar Symptom Onset: Gradual Symptom Course: Unchanged Activities at Onset: Light Context: Home Past Medical History - Provider Review Nursing Documentation Reviewed: Yes - Past History Past History: No Previous - Infectious Disease Hx of Infectious Diseases: None - Tetanus Immunization Tetanus Immunization: Unknown - Reproductive Currently Lactating: No - Cardiac Hx Cardiac Disorders: Yes Hx Atrial Fibrillation: Yes Hx Congestive Heart Failure: Yes Hx CA: Yes - Pulmonary Hx Respiratory Disorders: Yes (PPD OF CIGARETTES QUIT 1996) - Neurological Hx Neurological Disorder: Yes Hx Dizziness: Yes - HEENT Hx HEENT Disorder: Yes (BLURRY VISION) Other/Comment: eyeglasses, [place] b/l - Renal Hx Renal Disorder: Yes Hx Renal Failure: Yes - Endocrine/Metabolic Hx Endocrine Disorders: Yes Hx Diabetes Mellitus Type 2: Yes - Hematological/Oncological Hx Blood Disorders: Yes Hx Anemia: Yes Hx Blood Transfusions: Yes Hx Cancer: Yes (SKIN) - Integumentary Hx Dermatological Disorder: Yes Hx Cellulitis: Yes - Musculoskeletal/Rheumatological Hx Musculoskeletal Disorders: Yes Hx Falls: Yes - Gastrointestinal Hx Gastrointestinal Disorders: No - Genitourinary/Gynecological Hx Genitourinary Disorders: No - Psychiatric Hx Psychophysiologic Disorder: No Hx Substance Use: No - Surgical History Hx Open Heart Surgery: Yes Other/Comment: gi polyps removed - Anesthesia Hx Anesthesia: Yes Hx Anesthesia Reactions: No Hx Malignant Hyperthermia: No - Suicidal Assessment Feels Threatened In Home Enviroment: No Family/Social History - Physician Review Nursing Documentation Reviewed: Yes Family/Social History: Unknown Family HX Smoking Status: Former Smoker Hx Alcohol Use: Yes (quit 2009) Hx Substance Use: No Hx Substance Use Treatment: No Allergies/Home Meds Allergies/Adverse Reactions: Allergies Penicillins Allergy (Severe, Verified 05/04/18 11:36) SWELLING Home Medications: Home Meds Medication Instructions Recorded Confirmed Metoprolol Succinate 50 mg PO BID 10/30/13 05/04/18 Famotidine [Pepcid] 20 mg PO DAILY 05/21/17 05/04/18 Review of Systems - Physician Review All systems were reviewed & negative as marked: Yes - Review of Systems Constitutional: absent: Fevers Respiratory: SOB. absent: Cough Gastrointestinal: absent: Abdominal Pain, Diarrhea, Nausea, Vomiting Musculoskeletal: absent: Back Pain, Neck Pain Skin: Abscess Neurological: absent: Headache, Dizziness Endocrine: absent: Diaphoresis Physical Exam Vital Signs Reviewed: Yes Vital Signs Temp Pulse Resp BP Pulse Ox 05/04/18 11:41 97.3 F L 82 17 97/58 L 98 Temperature: Afebrile Blood Pressure: Normal Pulse: Regular Respiratory Rate: Normal Appearance: Positive for: Well-Appearing, Non-Toxic, Comfortable Pain Distress: None Mental Status: Positive for: Alert and Oriented X 3 - Systems Exam Head: Present: Atraumatic, Normocephalic Pupils: Present: PERRL Extroacular Muscles: Present: EOMI Conjunctiva: Present: Normal Mouth: Present: Moist Mucous Membranes Neck: Present: Normal Range of Motion Respiratory/Chest: Present: Clear to Auscultation, Good Air Exchange. No: Respiratory Distress, Accessory Muscle Use Cardiovascular: Present: Regular Rate and Rhythm, Normal S1, S2. No: Murmurs Abdomen: No: Tenderness, Distention, Peritoneal Signs Back: Present: Normal Inspection Upper Extremity: Present: Normal Inspection. No: Cyanosis, Edema Lower Extremity: Present: Normal Inspection, Edema (pitting edema), Erythema (mild erythema, slight warmth on left leg.), Other (Irregular shape 3cm x 2cm wound on left leg. ) Neurological: Present: Speech Normal Skin: Present: Warm, Dry, Normal Color. No: Rashes Psychiatric: Present: Alert, Oriented x 3, Normal Insight, Normal Concentration Medical Decision Making ED Course and Treatment: 05/04/18 12:13 Impression: 82 year old male presents to the emergency department BIB great grand daughter for exacerbation of leg infection. Differential Diagnosis included but are not limited to: CHF exacerbation, Left leg wound ulcer and b/l leg PVD Plan: -- Labs -- EKG -- Chest X-ray -- IV Fluids -- Blood culture -- Urine culture -- Urinalysis -- Lasix -- Reassess and disposition Prior Visits: Notes and results from previous visits were reviewed. Progress Notes: 05/04/18 13:01 EKG reviewed, shows: NSR at 81 bpm, Non specific T wave abnormality, PVCs. 05/04/18 13:09 Chest X-ray reviewed by radiologist, shows: No active disease. 05/04/18 14:07 No fever and WBC is normal. Patient's blood pressure is low and he has multiple comorbidities so I believe patient qualifies for full admission. Lasix was held for now. Lungs are clear. Light hydration. I discussed the case with Dr. Dougherty and we agreed to place her under his service and getting Dr. Page for Podiatry and Dr. Atkins for Cardiology. - Scribe Statement The provider has reviewed the documentation as recorded by the Scribjean pierre Cobb All medical record entries made by the Scribe were at my direction and personally dictated by me. I have reviewed the chart and agree that the record accurately reflects my personal performance of the history, physical exam, medical decision making, and the department course for this patient. I have also personally directed, reviewed, and agree with the discharge instructions and disposition. Disposition/Present on Arrival - Present on Arrival Any Indicators Present on Arrival: No History of DVT/PE: No History of Uncontrolled Diabetes: No Urinary Catheter: No History of Decub. Ulcer: No History Surgical Site Infection Following: CABG - Mediastinitis, None - Disposition Have Diagnosis and Disposition been Completed?: Yes Diagnosis: CHF exacerbation Disposition: HOSPITALIZED Disposition Time: 14:10 Patient Plan: Admission Condition: GUARDED Discharge Instructions (ExitCare): Heart Failure (ED) Referrals: Chandu Novak MD [Primary Care Provider] - Follow up with primary Forms: [employer] (Macedonian)
[2018-05-04] MEDS ORDERED: Sodium Chloride 0.9% 500 ML IV SCH ×2 (12:45→16:00)
[2018-05-04 12:46] LABS: BASO # 0.05 K/mm3 (0.0-2.0); BASO % 0.5 % (0.0-3.0); EOS # 0.3 (0.0-0.7); EOS % 2.7 % (1.5-5.0); HEMOGLOBIN 10.5 g/dL (14.0-18.0); LYMPH # 1.4 (1.2-3.4); LYMPH % 14.6 % (22.0-35.0); MEAN CELL VOLUME 91.5 fl (80.0-105.0); MEAN CORPUSCULAR HEMOGLOBIN 27.9 pg (25.0-35.0); MEAN CORPUSCULAR HGB CONC 30.5 g/dl (31.0-37.0); MEAN PLATELET VOLUME 9.8 fl (7.0-11.0); MONO % 10.4 % (1.0-6.0); RBC 3.76 10^6/uL (3.5-6.1); WHITE BLOOD COUNT 9.3 10^3/uL (4.5-11.0)
[2018-05-04 12:47] LABS: INR 2.35; PARTIAL THROMBOPLASTIN TIME 37.4 Seconds (26.9-38.3); PROTHROMBIN TIME 26.5 SECONDS (9.4-12.5)
--- NOTE | 2018-05-04 12:47 | RAD ---
Date of service: 05/04/2018 HISTORY: sob COMPARISON: 04/12/2018 TECHNIQUE: 1 view obtained. FINDINGS: LUNGS: No active pulmonary disease. PLEURA: No significant pleural effusion identified, no pneumothorax apparent. CARDIOVASCULAR: Aortic calcification Moderate cardiomegaly no pulmonary vascular congestion. OSSEOUS STRUCTURES: Sternal wires VISUALIZED UPPER ABDOMEN: Normal. OTHER FINDINGS: None. IMPRESSION: No active disease.
[2018-05-04 13:01] LABS: TROPONIN I < 0.01 ng/mL
[2018-05-04 13:06] LABS: ALBUMIN 3.5 g/dL (3.0-4.8); ALT/SGPT 31 U/L (7-56); AST/SGOT 45 U/L (17-59); BLOOD UREA NITROGEN 60 mg/dL (7-21); CALCIUM 8.9 mg/dL (8.4-10.5); GFR NON-AFRICAN AMERICAN 39
[2018-05-04 13:30] LABS: PH,URINE 5.5 (4.7-8.0); URINE BILIRUBIN NEGATIVE (NEGATIVE); URINE BLOOD NEGATIVE (NEGATIVE); URINE GLUCOSE (UA) NEGATIVE (NEGATIVE); URINE LEUKOCYTE ESTERASE NEGATIVE Leu/uL (NEGATIVE); URINE PROTEIN NEGATIVE mg/dL (<30 mg/dL); URINE UROBILINOGEN 0.2 E.U./dL (<1 E.U./dL)
[2018-05-04 13:33] LABS: URINE APPEARANCE CLEAR (CLEAR); URINE COLOR YELLOW (YELLOW)
[2018-05-04 17:26] LABS: IRON 49 ug/dL (45-180)
[2018-05-04 17:35] LABS: % IRON SATURATION 16 % (20-55); TOTAL IRON BINDING CAPACITY 313 ug/dL (261-462)
[2018-05-04] MEDS: Metoprolol Succinate 50 mg XL Tab PO SCH (17:46)
--- NOTE | 2018-05-04 18:35 | CARD ---
APPROVED REPORT Date of service: 05/04/2018 EKG Measurement Heart [id number] <Conclusion> Sinus rhythm with occasional premature ventricular complexes T wave abnormality, consider inferior ischemia Prolonged QT Abnormal ECG
--- NOTE | 2018-05-05 04:20 | CP.PCM.PN ---
Subjective - Date & Time of Evaluation Date of Evaluation: 05/05/18 Time of Evaluation: 04:17 - Subjective Subjective: S:Patient was seen in his room. Because I was asked to co-dign order for benadryl. He is sitting in the chair and states that benadryl has not helped him to fall asleep.He wants something stronger. Has no other complaints. Medical record was reviewed. O:VSS. Not in acute distress. Alert, oriented. LUNGS: Normal breathing pattern. A: Insomnia. P: Benadryl was given. Will give Ambien 5 mg PO now. Objective - Vital Signs/Intake and Output Vital Signs (last 24 hours): Temp Pulse Resp BP Pulse Ox 97.4 F L 86 18 109/70 100 05/05/18 00:01 05/05/18 02:00 05/05/18 00:01 05/05/18 00:01 05/05/18 00:01 Intake and Output: 05/04/18 05/05/18 18:59 06:59 Intake Total 300 Output Total 0 Balance 300 - Medications Medications: Current Medications Acetaminophen (Tylenol 325mg Tab) 650 mg PO Q4H PRN PRN Reason: Pain, Mild (1-3) Apixaban (Eliquis) 2.5 mg PO BID [facility]; Protocol Last Admin: 05/04/18 17:45 Dose: 2.5 mg Atorvastatin Calcium (Lipitor) 40 mg PO HS [facility] Last Admin: 05/04/18 21:28 Dose: 40 mg Docusate Sodium (Colace) 100 mg PO BID [facility] Last Admin: 05/04/18 17:45 Dose: 100 mg Famotidine (Pepcid) 20 mg PO DAILY [facility] Levothyroxine Sodium (Synthroid) 25 mcg PO 0600 [facility] Metoprolol Succinate (Toprol Xl) 50 mg PO DAILY [facility] Last Admin: 05/04/18 17:46 Dose: 50 mg - Labs Labs: 05/04/18 12:18 05/04/18 12:18 PT 26.5 SECONDS (9.4-12.5) H 05/04/18 12:18 INR 2.35 05/04/18 12:18 APTT 37.4 Seconds (26.9-38.3) 05/04/18 12:18
[2018-05-05] MEDS: Levothyroxine 25 MCG TAB PO SCH (05:38)
--- NOTE | 2018-05-05 09:36 | CON ---
DATE: 05/05/2018 REQUESTING PHYSICIAN: Dr. Dougherty. REASON FOR CONSULTATION: Decompensated congestive heart failure. HISTORY: This is an 82-year-old man, well known to me with a history of coronary artery disease, status post prior myocardial infarction, bypass surgery, and PCI as well as [id number] aortic stenosis, moderate mitral regurgitation, who was brought to emergency room with worsening drainage from a superficial leg infection. He is seen sitting on a chair on telemetry. He is requesting to go home, as he is unable to sleep in the hospital. He denies any dyspnea at rest. He has had no recent chest pain. PAST HISTORY: Known for the problems mentioned above. He has a longstanding history of renal insufficiency, peripheral edema, leg cellulitis, chronic obesity, peripheral arterial disease, and diabetes. 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 He also has a history of COPD. CURRENT MEDICATIONS: Include Eliquis 2.5 mg b.i.d., Lipitor, Pepcid, Synthroid, Toprol-XL 50 mg daily. At home, he is also on Lasix 40 mg b.i.d. and Synthroid 25 mcg daily. ALLERGIES: PENICILLIN. SOCIAL HISTORY: He is a former smoker. He lives at home with his family. He denies alcohol use. He walks with a cane and walker at home. FAMILY HISTORY: Both parents from age-related illness. REVIEW OF SYSTEMS: Ten-point review of systems is otherwise unremarkable. PHYSICAL EXAMINATION: GENERAL: He is an elderly man, who appears comfortable at rest. VITAL SIGNS: His blood pressure is 126/60 with a pulse of 80 and sinus, occasional PVCs noted, respirations are 14. He is afebrile. HEENT: Normocephalic, atraumatic. NECK: Supple. No JVD noted. CHEST: Few scattered rhonchi heard. HEART: PMI displaced laterally with a systolic murmur noted at the base as well as at the apex. ABDOMEN: Soft, protuberant with normoactive bowel sounds. EXTREMITIES: 2 to 3+ edema in both lower extremities to the thighs. Left lower extremity wound is noted. PSYCHIATRIC: Normal mood and affect. NEUROLOGIC: Alert and oriented x3. No gross motor or sensory deficits apparent. DIAGNOSTIC DATA: White count 9.3, hemoglobin and hematocrit 10.5 and 34.4 with a platelet count of 299,000. PT/PTT 26.5 and 37.4. Potassium 4.3, BUN and creatinine 60 and 1.3. Troponin is negative. Chest x-ray reveals enlarged cardiac silhouette with post sternotomy changes and clear lung baird. Electrocardiogram reveals sinus rhythm with PVCs and prolonged QT and nonspecific ST-T abnormalities. IMPRESSION: 1. Recurrent leg wound. Needs local wound care. 2. Chronic congestive heart failure, combined systolic and diastolic. 3. Arce-kg-fymcqhfy aortic stenosis. 4. Moderate mitral regurgitation. 5. Coronary artery disease, status post prior myocardial fraction, percutaneous coronary intervention, and bypass surgery, clinically stable at present. 6. Chronic atrial fibrillation. 7. Chronic renal insufficiency. RECOMMENDATIONS: His current medications will continue for now. A trial of Aldactone will be added to his regimen. IV Lasix will be administered for now. Local wound care can be provided. There is no need to repeat his prior cardiac workup at this time. I will be happy to follow along as needed and will continue to provide outpatient followup. Thank you for this consultation. Thaddeus Cuellar MD
[2018-05-05] MEDS: Metoprolol Succinate 50 mg XL Tab PO SCH (10:24)
--- NOTE | 2018-05-05 12:08 | CP.PCM.CON ---
<Sabine France - Last Filed: 05/05/18 12:02> History of Present Illness - History of Present Illness History of Present Illness: Podiatry Consult Note: Dr. Page 82 year old male patient with CAD, CKD, DMII, A.fib, and anemia seen and evaluated for b/l lower extremity edema, weeping, and erythema with wound to the L lower leg. Patient states that his legs started weeping recently and became more swollen. Patient was brought into the ER by his daughter. Denies any pain to b/l lower extremities at this time. Patient currently sitting in bed. Denies nausea/vomiting/fever/shortness of breath/chest pain/chills. PMH: CAD post CABG, CKD, DM II, A. fib (on Eliquis), and anemia PSH: CABG, laminectomy ALL: PCN (rash) SHx: Former tobacco use Review of Systems - Review of Systems All systems: reviewed and no additional remarkable complaints except Review of Systems: As per HPI Past Patient History - Infectious Disease Hx of Infectious Diseases: None - Tetanus Immunizations Tetanus Immunization: Unknown - Past Medical History & Family History Past Medical History?: Yes - Past Social History Smoking Status: Former Smoker - CARDIAC Hx Cardiac Disorders: Yes Hx Congestive Heart Failure: Yes - PULMONARY Hx Respiratory Disorders: Yes (PPD OF CIGARETTES QUIT 1996) - NEUROLOGICAL Hx Neurological Disorder: Yes Hx Dizziness: Yes - HEENT Hx HEENT Problems: Yes (BLURRY VISION) Other/Comment: eyeglasses, knik b/l - RENAL Hx Chronic Kidney Disease: Yes Hx Renal Failure: Yes - ENDOCRINE/METABOLIC Hx Endocrine Disorders: Yes Hx Diabetes Mellitus Type 2: Yes - HEMATOLOGICAL/ONCOLOGICAL Hx Blood Disorders: Yes Hx Anemia: Yes Hx Cancer: Yes (SKIN) - INTEGUMENTARY Hx Dermatological Problems: Yes - MUSCULOSKELETAL/RHEUMATOLOGICAL Hx Falls: Yes - GASTROINTESTINAL Hx Gastrointestinal Disorders: No - GENITOURINARY/GYNECOLOGICAL Hx Genitourinary Disorders: No - PSYCHIATRIC Hx Psychophysiologic Disorder: No - SURGICAL HISTORY Hx Open Heart Surgery: Yes Other/Comment: gi polyps removed - ANESTHESIA Hx Anesthesia: Yes Hx Anesthesia Reactions: No Hx Malignant Hyperthermia: No Meds Allergies/Adverse Reactions: Allergies Allergy/AdvReac Type Severity Reaction Status Date / Time Penicillins Allergy Severe SWELLING Verified 05/04/18 11:36 - Medications Medications: Current Medications Acetaminophen (Tylenol 325mg Tab) 650 mg PO Q4H PRN PRN Reason: Pain, Mild (1-3) Apixaban (Eliquis) 2.5 mg PO BID [facility]; Protocol Last Admin: 05/05/18 10:26 Dose: 2.5 mg Atorvastatin Calcium (Lipitor) 40 mg PO HS [facility] Last Admin: 05/04/18 21:28 Dose: 40 mg Docusate Sodium (Colace) 100 mg PO BID [facility] Last Admin: 05/05/18 10:24 Dose: 100 mg Famotidine (Pepcid) 20 mg PO DAILY [facility] Last Admin: 05/05/18 10:24 Dose: 20 mg Furosemide (Lasix) 40 mg IV BID [facility] Last Admin: 05/05/18 10:24 Dose: 40 mg Levothyroxine Sodium (Synthroid) 25 mcg PO 0600 [facility] Last Admin: 05/05/18 05:38 Dose: 25 mcg Metoprolol Succinate (Toprol Xl) 50 mg PO DAILY [facility] Last Admin: 05/05/18 10:24 Dose: 50 mg Spironolactone (Aldactone) 25 mg PO BID [facility] Last Admin: 05/05/18 10:24 Dose: 25 mg Physical Exam - Constitutional Appears: Well, Non-toxic, No Acute Distress - Head Exam Head Exam: ATRAUMATIC, NORMOCEPHALIC - Extremities Exam Additional comments: B/L lower extremity exam: Vascular: DP/PT faintly palpable, CFT < 3 seconds, TG warm to cool, + 1 weeping edema appreciated to b/l lower extremities Ortho: No pain with palpation of b/l lower extremities, no pain with calf compression, MMT 4/5 Neuro: Gross sensation intact, protective sensation diminished Derm: Weeping edema appreciated to b/l lower extremities with superficial wound to the left medial leg, serous drainage, no malodor, no open lesions, no tunneling, no tracking appreciated, no probe to bone, no clinical signs of infection noted - Neurological Exam Neurological exam: Alert, Oriented x3 - Psychiatric Exam Psychiatric exam: Normal Affect, Normal Mood Results - Vital Signs Recent Vital Signs: Last Vital Signs Temp 97.3 F L 05/05/18 05:21 Pulse 92 H 05/05/18 10:24 Resp 20 05/05/18 05:21 BP 105/65 05/05/18 10:24 Pulse Ox 95 05/05/18 05:21 - Labs Result Diagrams: 05/04/18 12:18 05/04/18 12:18 Labs: Laboratory Results - last 24 hr 05/04/18 05/04/18 05/04/18 12:18 12:18 12:18 WBC 9.3 RBC 3.76 Hgb 10.5 L Hct 34.4 L MCV 91.5 MCH 27.9 MCHC 30.5 L RDW 20.0 H Plt Count 299 MPV 9.8 Neut % (Auto) 71.8 H Lymph % (Auto) 14.6 L Reagan % (Auto) 10.4 H Eos % (Auto) 2.7 Baso % (Auto) 0.5 Lymph # (Auto) 1.4 Reagan # (Auto) 1.0 H Eos # (Auto) 0.3 Baso # (Auto) 0.05 Absolute Neuts (auto) 6.68 H PT 26.5 H INR 2.35 APTT 37.4 Sodium 136 Potassium 4.3 Chloride 102 Carbon Dioxide 26 Anion Gap 12 BUN 60 H Creatinine 1.7 H Est GFR ( Amer) 47 Est GFR (Non-Af Amer) 39 Random Glucose 122 H Calcium 8.9 Magnesium 2.1 Iron TIBC % Saturation Ferritin Total Bilirubin 0.7 AST 45 ALT 31 Alkaline Phosphatase 179 H D Lactate Dehydrogenase 445 Total Creatine Kinase < 20 L Troponin I < 0.01 D NT-Pro-B Natriuret Pep Total Protein 7.1 Albumin 3.5 Globulin 3.6 Albumin/Globulin Ratio 1.0 L Urine Color Urine Appearance Urine pH Ur Specific [place] Urine Protein Urine Glucose (UA) Urine Ketones Urine Blood Urine Nitrate Urine Bilirubin Urine Urobilinogen Ur Leukocyte Esterase 05/04/18 05/04/18 05/04/18 13:00 15:00 15:00 WBC RBC Hgb Hct MCV MCH MCHC RDW Plt Count MPV Neut % (Auto) Lymph % (Auto) Reagan % (Auto) Eos % (Auto) Baso % (Auto) Lymph # (Auto) Reagan # (Auto) Eos # (Auto) Baso # (Auto) Absolute Neuts (auto) PT INR APTT Sodium Potassium Chloride Carbon Dioxide Anion Gap BUN Creatinine Est GFR ( Amer) Est GFR (Non-Af Amer) Random Glucose Calcium Magnesium Iron 49 TIBC 313 % Saturation 16 L Ferritin 126.0 Total Bilirubin AST ALT Alkaline Phosphatase Lactate Dehydrogenase Total Creatine Kinase Troponin I NT-Pro-B Natriuret Pep Total Protein Albumin Globulin Albumin/Globulin Ratio Urine Color Yellow Urine Appearance Clear Urine pH 5.5 Ur Specific [place] 1.020 Urine Protein Negative Urine Glucose (UA) Negative Urine Ketones Negative Urine Blood Negative Urine Nitrate Negative Urine Bilirubin Negative Urine Urobilinogen 0.2 Ur Leukocyte Esterase Negative 05/05/18 10:15 WBC RBC Hgb Hct MCV MCH MCHC RDW Plt Count MPV Neut % (Auto) Lymph % (Auto) Reagan % (Auto) Eos % (Auto) Baso % (Auto) Lymph # (Auto) Reagan # (Auto) Eos # (Auto) Baso # (Auto) Absolute Neuts (auto) PT INR APTT Sodium Potassium Chloride Carbon Dioxide Anion Gap BUN Creatinine Est GFR ( Amer) Est GFR (Non-Af Amer) Random Glucose Calcium Magnesium Iron TIBC % Saturation Ferritin Total Bilirubin AST ALT Alkaline Phosphatase Lactate Dehydrogenase Total Creatine Kinase Troponin I NT-Pro-B Natriuret Pep 9260 H Total Protein Albumin Globulin Albumin/Globulin Ratio Urine Color Urine Appearance Urine pH Ur Specific [place] Urine Protein Urine Glucose (UA) Urine Ketones Urine Blood Urine Nitrate Urine Bilirubin Urine Urobilinogen Ur Leukocyte Esterase Assessment & Plan - Assessment and Plan (Free Text) Assessment: 82 year old male patient with CAD, CKD, DMII, A.fib, and anemia seen and evaluated in TCU for b/l lower extremity edema, weeping, and erythema. Plan: Patient seen and evaluated VSS, WBC 9.3 Local wound care: Maxorb, ABD, DSD KARIN from 04/12/18: R 1.26 and L 0.88, left SFA occlusive disease, bilateral tibial disease Ordered B/L LE X-rays Instructed patient on importance of elevating b/l lower extremities Continue IV abx per ID recs Will continue to follow Thank you for the consult - Date & Time Date: 05/05/18 Time: 12:12 <Neris Page - Last Filed: 05/05/18 14:52> Meds - Medications Medications: Current Medications Acetaminophen (Tylenol 325mg Tab) 650 mg PO Q4H PRN PRN Reason: Pain, Mild (1-3) Apixaban (Eliquis) 2.5 mg PO BID [facility]; Protocol Last Admin: 05/05/18 10:26 Dose: 2.5 mg Atorvastatin Calcium (Lipitor) 40 mg PO HS [facility] Last Admin: 05/04/18 21:28 Dose: 40 mg Docusate Sodium (Colace) 100 mg PO BID [facility] Last Admin: 05/05/18 10:24 Dose: 100 mg Famotidine (Pepcid) 20 mg PO DAILY [facility] Last Admin: 05/05/18 10:24 Dose: 20 mg Furosemide (Lasix) 40 mg IV BID [facility] Last Admin: 05/05/18 10:24 Dose: 40 mg Levothyroxine Sodium (Synthroid) 25 mcg PO 0600 [facility] Last Admin: 05/05/18 05:38 Dose: 25 mcg Metoprolol Succinate (Toprol Xl) 50 mg PO DAILY [facility] Last Admin: 05/05/18 10:24 Dose: 50 mg Spironolactone (Aldactone) 25 mg PO BID [facility] Last Admin: 05/05/18 10:24 Dose: 25 mg Results - Vital Signs Recent Vital Signs: Last Vital Signs Temp 97.4 F L 05/05/18 12:00 Pulse 88 05/05/18 12:00 Resp 19 05/05/18 12:00 BP 110/78 05/05/18 12:00 Pulse Ox 95 05/05/18 05:21 - Labs Result Diagrams: 05/04/18 12:18 05/04/18 12:18 Labs: Laboratory Results - last 24 hr 05/04/18 05/04/18 05/05/18 15:00 15:00 10:15 Iron 49 TIBC 313 % Saturation 16 L Ferritin 126.0 NT-Pro-B Natriuret Pep 9260 H
--- NOTE | 2018-05-05 14:40 | RAD ---
Date of service: 05/05/2018 PROCEDURE: Radiographs of the right tibia and fibula. HISTORY: LE edema COMPARISON: None available TECHNIQUE: Frontal and lateral views obtained. 2 views obtained. FINDINGS: BONES: No fracture or destructive lesion. JOINT SPACES: Unremarkable. OTHER FINDINGS: None. IMPRESSION: Unremarkable radiographs of the right tibia and fibula.
--- NOTE | 2018-05-05 14:41 | RAD ---
Date of service: 05/05/2018 PROCEDURE: Radiographs of the left tibia and fibula. HISTORY: LE edema COMPARISON: None available. TECHNIQUE: Frontal and lateral views obtained. 2 views obtained. FINDINGS: BONES: No fracture or destructive lesion. JOINT SPACES: Unremarkable. OTHER FINDINGS: None. IMPRESSION: Unremarkable radiographs of the left tibia and fibula.
--- NOTE | 2018-05-05 20:19 | HP ---
DATE OF EXAM: 05/05/2018 CHIEF COMPLAINT AND HISTORY OF PRESENT ILLNESS: This is an 82-year-old male who is coming into the hospital, brought in by his because of a wound in his left leg as well as right foot. The patient has a past medical history of coronary artery disease, status post coronary artery bypass grafting; chronic kidney disease stage 3; diabetes type 2; atrial fibrillation; anemia. The patient states that he was sent by his because of yellowish, orangish discharge for the last few days that has been draining. The patient's granddaughter was told in the emergency room that the patient has yellow or orange discharge. He has been also having difficulty with breathing when he walks. The patient states he received Tylenol and he had no relief. His weight has been stable. He is being visited by visiting nurses. He denies any fevers or chills. No abdominal pain. No back pain. No dysuria. No frequency. No nocturia. No weakness in the arms or the legs. He does not want to stay in the hospital, but understands that his brought him in and he was advised to stay in the hospital. He moved into the Transitional Care Unit for rehab and was discharged from there to go home. REVIEW OF SYSTEMS: All of the review of symptoms are within normal limits except as mentioned. PAST MEDICAL HISTORY: Coronary artery disease, status post CABG; CKD stage 3; diabetes, type 2; atrial fibrillation, on Eliquis; anemia. PAST SURGICAL HISTORY: CABG and laminectomy. ALLERGIES: PENICILLIN, HE GETS A RASH. SOCIAL HISTORY: H was a former smoker, but does not smoke currently. He denies alcohol or drugs. He lives with his family. He uses a cane and walker. FAMILY HISTORY: Noncontributory. PHYSICAL EXAMINATION VITAL SIGNS: He has a temperature of 97.3, pulse of 91, blood pressure is 127/63, respirations 20, O2 saturations 95%. Height is 6 feet, weight is 247 pounds, BMI is 33.5. GENERAL: The patient is lying in bed, comfortable, and in no acute distress. HEENT: Atraumatic and normocephalic. Anicteric sclerae. Moist mucosa. [place] conjunctivae. No oral lesions. NECK: No JVD, anterior and posterior adenopathy, thyromegaly, or bruits. CARDIOVASCULAR: S1 and S2 regular. No murmurs, rubs or gallops. LUNGS: Clear to auscultation bilaterally. No wheezes, rales, or rhonchi. ABDOMEN: Bowel sounds are positive. Soft, nontender and nondistended. No hepatosplenomegaly. No rebound and no guarding. EXTREMITIES: No cyanosis, clubbing, or edema. In the left leg, there is a stage 2 wound with drainage, it is about 3 x 2 cm. There is mild erythema. There is edema that is 1+. NEUROLOGIC: No facial asymmetry. Tongue is midline. No uvula deviation. Power is 5/5 upper extremities and lower extremities. Sensation intact in upper extremities and lower extremities. PSYCHIATRIC: He is awake, alert and oriented x3. No anxiety or depression. He has normal affect. GENITOURINARY: No CVA tenderness. VASCULAR: 2+ pulses in the carotid pulses and pedal pulses. SKIN: No erythema or nodules SPINE: Shows normal curvature. ASSESSMENT: 1. Left leg wound stage 2 pressure ulcer. 2. Lower extremity edema. 3. Coronary artery disease, status post coronary artery bypass graft. 4. Chronic kidney disease, stage 3. 5. Diabetes type 2. 6. Atrial fibrillation. 7. Anemia. 8. Peripheral arterial disease with superficial femoral artery occlusive disease. 9. Bilateral tibial peripheral arterial disease. 10. Hypothyroidism. PLAN: The patient is currently comfortable. He has a wound, this is most likely related to his diabetes. The patient did have lower extremity venous Doppler's done on 04/16/2018, in the medical record review. The records indicated that the patient did not have a DVT. The patient also had on 04/12/2018, arterial Doppler's that showed limited study, but there was left SFA occlusive disease. The patient had a chest x-ray done that shows no active disease. The patient had an EKG that showed sinus rhythm PVCs with heart rate of 81, QTC of 471. The patient is going to be admitted to the hospital for further evaluation. I would get ID and Podiatry to see the patient. The patient is going to continue with Aldactone. He is on Colace for constipation. He is going to continue with his Eliquis for his anticoagulation. He is on Lipitor for dyslipidemia. The patient is on Synthroid for hypothyroidism. He is on metoprolol. He is on a heart-healthy diet. I will discontinue his telemetry. I did speak with Dr. Orourke about the patient from Infectious Disease. I did review the patient's last admission including giving Zyvox that the patient had received for his cellulitis. He does not wish to stay in the hospital, but has decided to stay for further management. Juma Dougherty MD
--- NOTE | 2018-05-05 21:41 | CON ---
DATE: 05/05/2018 CHIEF COMPLAINT: Weakness times several days. HISTORY OF PRESENT ILLNESS: This is an 82-year-old male known to me from previous admission with a history of congestive heart failure, hypertension, chronic lower extremity edema, coronary artery disease, myocardial infarction, peripheral vascular disease, gout, diverticulitis, atrial fibrillation, GERD, and anemia, who has had left ankle cellulitis in the past, also the patient with coronary artery bypass graft and laminectomy, cardiac catheterization, ALLERGIC TO PENICILLIN, questionable rash, has received beta lactams in the past without complications, was recently in the hospital for leg cellulitis completed 7 days of Zyvox, and tolerated the antibiotics well. Now, he is admitted with a diagnoses of exacerbation of congestive heart failure and lower extremity ulcer. Infectious Disease consultation requested. The patient denies any fevers or any chills. He is having shortness of breath. No chest pain. No abdominal pain. No diarrhea. No dysuria or frequency. REVIEW OF SYSTEMS: A 12-point review of systems is performed. The patient was seen in the emergency room by Dr. Kameron Carey yesterday who states the patient has abnormal skin integrity. The patient also had been complaining of shortness of breath. PAST MEDICAL HISTORY: Significant for congestive heart failure and moderate aortic stenosis, coronary artery disease, myocardial infarction, coronary artery bypass graft, GERD, anemia, atrial fibrillation, diverticulitis, gout, hypertension, and diabetes. PAST SURGICAL HISTORY: Significant for coronary artery bypass graft, laminectomy, and cardiac catheterization. MEDICATIONS AT HOME: Include Lipitor, Eliquis, metoprolol, Lasix, and Synthroid. The patient is not on any medication for diabetes, although Dr. Cuellar writes the patient is diabetic and nursing staff writes the patient is diabetic. ALLERGIES: THE PATIENT IS ALLERGIC TO PENICILLIN, TYPE OF ALLERGY IS MILD. PHYSICAL EXAMINATION: VITAL SIGNS: He is comfortable with a temperature of 97, pulse of 78, it was up to 91, respiratory rate of 20, blood pressure is 109/70, and the patient is saturating on 100% on room air. HEENT: Unremarkable. NECK: Supple. LUNGS: Decreased breath sounds. HEART: Normal S1 and S2. ABDOMEN: Soft. EXTREMITIES: Lower extremities chronic changes. No evidence of an active infection. Both feet have chronic changes and lower ankles have chronic changes, it is not warmth to touch, there is no erythema, there is no discharge, and pulses are intact. LABORATORY DATA: Reveals a white count of 9.3, hemoglobin of 10, and platelets of 299. Chemistries reveal the patient's creatinine is 1.7, it was 1.8 earlier this month. Glucose is 122, alk phos is 179, and troponin is normal. Urinalysis is unremarkable. Chest x-ray is negative. EKG is sinus rhythm with occasional premature ventricular complexes and the patient does have a prolonged QTc of 471. ASSESSMENT AND PLAN: This is an 82-year-old male with congestive heart failure, aortic stenosis, coronary artery disease, myocardial infarction and left ventricular ejection fraction of 51% read by Dr. Chand on 04/09/2017. Bilateral lower extremity chronic changes, no acute infection. No indication for antibiotics. Dr. Cuellar started the patient on IV Lasix. Blood cultures are pending. Urine cultures are pending. BNP will be ordered. We will follow closely with you. Hoang Orourke MD
--- NOTE | 2018-05-06 07:40 | CP.PCM.PN ---
<Chauncey Bingham - Last Filed: 05/06/18 09:08> Subjective - Date & Time of Evaluation Date of Evaluation: 05/06/18 Time of Evaluation: 07:45 - Subjective Subjective: Chauncey Bingham- Internal Medicine Resident- Progress Note on Behalf of Dr. Dougherty Subjective: Patient seen and examined at bedside. States he had difficulty achieving sleep last night. States SOB with exertion has improved relative to baseline. Denies fever, chills, chest pain, abdominal pain, nausea, vomiting, diarrhea, and urinary symptoms. 12 point ROS negative except as indicated in the HPI Physical Examination: - Constitutional Appears: Non-toxic, No Acute Distress - Head Exam Head Exam: ATRAUMATIC, NORMOCEPHALIC - Eye Exam Eye Exam: EOMI - ENT Exam ENT Exam: Mucous Membranes Moist - Neck Exam Neck exam: Positive for: Full Rom - Respiratory Exam Respiratory Exam: Clear to Auscultation Bilateral, NORMAL BREATHING PATTERN - Cardiovascular Exam Cardiovascular Exam: RRR, +S1, +S2. absent: Systolic Murmur - GI/Abdominal Exam GI & Abdominal Exam: Normal Bowel Sounds, Soft. absent: Distended, Firm, Gu arding, Organomegaly, Rebound, Tenderness - Extremities Exam Extremities exam: 2+ weeping edema appreciated to b/l lower extremities, underlying erythema noted - Neurological Exam Neurological exam: Alert, Oriented x3 - Psychiatric Exam Psychiatric exam: Normal Affect, Normal Mood - Skin Skin Exam: Superficial wound to the left medial leg, serous drainage Assessment and Plan: Acute Exacerbation of chronic congestive heart failure secondary to diastolic dysfunction Left leg wound pressure ulcer Lower Extremity Edema Coronary artery disease Atrial fibrillation on anticoagulation Peripheral arterial disease CKD Stage III Type 2 Diabetes Mellitus Hypothyroidism Chronic lower extremity wounds Normocytic Anemia- Hgb stable Constipation Gait Dysfunction GI ppx DVT ppx Imaging: Radiographs of the right tibia and fibula-Unremarkable radiographs of the right tibia and fibula Radiographs of the left tibia and fibula- Unremarkable radiographs of the left tibia and fibula Continue lasix 40 IV bid, spironolactone for treatment of acute on chronic diastolic CHF. Continue metoprolol and eliqius for treatment of atrial fibrillation. Continue aspirin and statin for CAD. Cardiology consulted and we will appreciate recommendations. Continue trending daily weights and Is/Os. Continue ISS and fingersticks ACHS for treatment of Type 2 DM. Continue synthroid for treatment of hypothyroidism. No abx needed at this time. ID is following this patient- appreciate recommendations. Podiatry consulted- continue local wound care. Continue to monitor BUN and creatinine in light of CKD stage III. Continue monitoring hemoglobin in setting of normocytic anemia. Continue colace to prevent constipation. Continue famotidine for GI prophylaxis. Continue PT for gait dysfunction. Patient case reviewed with and plan approved by attending physician, Dr. Dougherty. Objective - Vital Signs/Intake and Output Vital Signs (last 24 hours): Temp Pulse Resp BP Pulse Ox 97.7 F 93 H 20 118/77 97 05/05/18 22:00 05/05/18 22:00 05/05/18 22:00 05/05/18 22:00 05/05/18 22:00 Intake and Output: 05/06/18 05/06/18 06:59 18:59 Intake Total 940 Output Total 950 Balance -10 - Medications Medications: Current Medications Acetaminophen (Tylenol 325mg Tab) 650 mg PO Q4H PRN PRN Reason: Pain, Mild (1-3) Last Admin: 05/05/18 18:47 Dose: 650 mg Apixaban (Eliquis) 2.5 mg PO BID [facility]; Protocol Last Admin: 05/05/18 18:13 Dose: 2.5 mg Atorvastatin Calcium (Lipitor) 40 mg PO HS [facility] Last Admin: 05/05/18 21:46 Dose: 40 mg Docusate Sodium (Colace) 100 mg PO BID [facility] Last Admin: 05/05/18 18:12 Dose: 100 mg Famotidine (Pepcid) 20 mg PO DAILY [facility] Last Admin: 05/05/18 10:24 Dose: 20 mg Furosemide (Lasix) 40 mg IV BID [facility] Last Admin: 05/05/18 18:12 Dose: 40 mg Levothyroxine Sodium (Synthroid) 25 mcg PO 0600 [facility] Last Admin: 05/05/18 05:38 Dose: 25 mcg Metoprolol Succinate (Toprol Xl) 50 mg PO DAILY [facility] Last Admin: 05/05/18 10:24 Dose: 50 mg Spironolactone (Aldactone) 25 mg PO BID [facility] Last Admin: 05/05/18 18:12 Dose: 25 mg - Labs Labs: 05/04/18 12:18 05/04/18 12:18 PT 26.5 SECONDS (9.4-12.5) H 05/04/18 12:18 INR 2.35 05/04/18 12:18 APTT 37.4 Seconds (26.9-38.3) 05/04/18 12:18 <Juma Dougherty - Last Filed: 05/06/18 17:56> Subjective - Subjective Subjective: Pt seen and examined by me. I have reviewed the note of the medical clerical assistant and I agree with it. I have discussed the assessment and plan with the resident. I have reviewed the medications and the last labs. Objective - Vital Signs/Intake and Output Vital Signs (last 24 hours): Temp Pulse Resp BP Pulse Ox 97.6 F 86 20 112/75 99 05/06/18 15:10 05/06/18 15:10 05/06/18 15:10 05/06/18 15:10 05/06/18 15:10 Intake and Output: 05/06/18 05/06/18 06:59 18:59 Intake Total 940 Output Total 950 Balance -10 - Medications Medications: Current Medications Acetaminophen (Tylenol 325mg Tab) 650 mg PO Q4H PRN PRN Reason: Pain, Mild (1-3) Last Admin: 05/06/18 14:25 Dose: 650 mg Apixaban (Eliquis) 2.5 mg PO BID [facility]; Protocol Last Admin: 05/05/18 18:13 Dose: 2.5 mg Aspirin (Ecotrin) 81 mg PO DAILY [facility] Atorvastatin Calcium (Lipitor) 40 mg PO HS [facility] Last Admin: 05/05/18 21:46 Dose: 40 mg Docusate Sodium (Colace) 100 mg PO BID [facility] Last Admin: 05/05/18 18:12 Dose: 100 mg Famotidine (Pepcid) 20 mg PO DAILY [facility] Last Admin: 05/05/18 10:24 Dose: 20 mg Furosemide (Lasix) 40 mg IV BID [facility] Last Admin: 05/05/18 18:12 Dose: 40 mg Insulin Human Lispro (Humalog Med) 0 units SC [facility]; Protocol Last Admin: 05/06/18 17:27 Dose: Not Given Levothyroxine Sodium (Synthroid) 25 mcg PO 0600 [facility] Last Admin: 05/05/18 05:38 Dose: 25 mcg Metoprolol Succinate (Toprol Xl) 50 mg PO DAILY [facility] Last Admin: 05/05/18 10:24 Dose: 50 mg Spironolactone (Aldactone) 25 mg PO BID [facility] Last Admin: 05/05/18 18:12 Dose: 25 mg - Labs Labs: 05/06/18 09:25 05/06/18 09:25 PT 26.5 SECONDS (9.4-12.5) H 05/04/18 12:18 INR 2.35 05/04/18 12:18 APTT 37.4 Seconds (26.9-38.3) 05/04/18 12:18
--- NOTE | 2018-05-06 10:15 | PN ---
DATE: 05/06/2018 SUBJECTIVE: The patient is seen lying on a recliner on 5R. He is comfortable at the present time. He slept better yesterday. CURRENT MEDICATIONS: Include Aldactone 25 mg twice a day, Colace, Ecotrin, Eliquis 2.5 mg twice a day, Lasix 40 mg IV twice a day, Lipitor, Pepcid, Synthroid, Toprol XL 50 mg daily. OBJECTIVE: GENERAL: He is an obese elderly man. VITAL SIGNS: Blood pressure 118/76 with pulse of 90, respirations are 40. He is afebrile. HEENT: No JVD. CHEST: Bilateral scattered rhonchi heard. HEART: PMI displaced laterally with systolic murmur present at the base as well as the apex. ABDOMEN: Soft, obese with normoactive bowel sounds. EXTREMITIES: 2+ lower extremity edema, both legs are wrapped. DIAGNOSTIC DATA: Morning blood work is pending. IMPRESSION: 1. Chronic congestive heart failure, combined systolic and diastolic. 2. Leg ulcer, undergoing local wound care. 3. Chronic venous insufficiency. 4. [id number] aortic stenosis. 5. Moderate mitral regurgitation. 6. Coronary artery disease status post prior bypass surgery percutaneous coronary intervention and prior infarcts stable at present. 7. Chronic atrial fibrillation. 8. Chronic renal insufficiency. RECOMMENDATIONS: His current medications will be continued for now. Monitor his renal function as planned. Leg elevation and leg wraps should continue. I will follow along as needed. Thaddeus Cuellar MD
[2018-05-06 10:23] LABS: ALB/GLOB RATIO 0.9 (1.1-1.8); ALBUMIN 3.7 g/dL (3.0-4.8); CALCIUM 9.4 mg/dL (8.4-10.5)
[2018-05-06 10:28] LABS: BASO # 0.05 K/mm3 (0.0-2.0); BASO % 0.5 % (0.0-3.0); EOS # 0.4 (0.0-0.7); EOS % 3.5 % (1.5-5.0); HEMOGLOBIN 11.2 g/dL (14.0-18.0); LYMPH # 1.9 (1.2-3.4); LYMPH % 18.8 % (22.0-35.0); MEAN CELL VOLUME 92.6 fl (80.0-105.0); MEAN CORPUSCULAR HEMOGLOBIN 28.4 pg (25.0-35.0); MEAN CORPUSCULAR HGB CONC 30.7 g/dl (31.0-37.0); MEAN PLATELET VOLUME 10.3 fl (7.0-11.0); MONO # 0.6 (0.1-0.6); MONO % 6.1 % (1.0-6.0); RBC 3.94 10^6/uL (3.5-6.1); RED CELL DISTRIBUTION WIDTH 20.3 % (11.5-14.5); WHITE BLOOD COUNT 9.9 10^3/uL (4.5-11.0)
[2018-05-06] MEDS: Insulin Lispro (humaLOG) MEDIUM Coverage SC SCH ×3 (11:37→22:18)
--- NOTE | 2018-05-06 13:39 | CP.PCM.PN ---
Subjective - Date & Time of Evaluation Date of Evaluation: 05/06/18 Time of Evaluation: 13:30 - Subjective Subjective: Podiatry Consult Note: Dr. Page 82 year old male patient seen and evaluated for b/l lower extremity edema, weeping, and erythema with wound to the L lower leg. Patient denies any pain in her legs. Patient currently sitting in bedside chair. He denies any overnight nausea/vomiting/fever/shortness of breath/chest pain/chills. Objective - Vital Signs/Intake and Output Vital Signs (last 24 hours): Temp Pulse Resp BP Pulse Ox 97.4 F L 109 H 18 118/83 95 05/06/18 06:00 05/06/18 06:00 05/06/18 06:00 05/06/18 06:00 05/06/18 12:51 Intake and Output: 05/06/18 05/06/18 06:59 18:59 Intake Total 940 Output Total 950 Balance -10 - Medications Medications: Current Medications Acetaminophen (Tylenol 325mg Tab) 650 mg PO Q4H PRN PRN Reason: Pain, Mild (1-3) Last Admin: 05/05/18 18:47 Dose: 650 mg Apixaban (Eliquis) 2.5 mg PO BID [facility]; Protocol Last Admin: 05/05/18 18:13 Dose: 2.5 mg Aspirin (Ecotrin) 81 mg PO DAILY [facility] Atorvastatin Calcium (Lipitor) 40 mg PO HS [facility] Last Admin: 05/05/18 21:46 Dose: 40 mg Docusate Sodium (Colace) 100 mg PO BID [facility] Last Admin: 05/05/18 18:12 Dose: 100 mg Famotidine (Pepcid) 20 mg PO DAILY [facility] Last Admin: 05/05/18 10:24 Dose: 20 mg Furosemide (Lasix) 40 mg IV BID [facility] Last Admin: 05/05/18 18:12 Dose: 40 mg Insulin Human Lispro (Humalog Med) 0 units SC [facility]; Protocol Last Admin: 05/06/18 11:37 Dose: Not Given Levothyroxine Sodium (Synthroid) 25 mcg PO 0600 [facility] Last Admin: 05/05/18 05:38 Dose: 25 mcg Metoprolol Succinate (Toprol Xl) 50 mg PO DAILY [facility] Last Admin: 05/05/18 10:24 Dose: 50 mg Spironolactone (Aldactone) 25 mg PO BID [facility] Last Admin: 05/05/18 18:12 Dose: 25 mg - Labs Labs: 05/06/18 09:25 05/06/18 09:25 PT 26.5 SECONDS (9.4-12.5) H 05/04/18 12:18 INR 2.35 05/04/18 12:18 APTT 37.4 Seconds (26.9-38.3) 05/04/18 12:18 - Constitutional Appears: Well, Non-toxic, No Acute Distress - Head Exam Head Exam: ATRAUMATIC, NORMOCEPHALIC - Extremities Exam Additional comments: B/L lower extremity exam: Vascular: DP/PT faintly palpable, Cap refill < 3 seconds, Temp gradient warm to cool from proximal to distal, + 1 weeping edema appreciated to b/l lower extremities. Mild erythema noted to the L leg Neuro: Gross sensation intact, protective sensation diminished. Derm: Weeping edema appreciated to b/l lower extremities with superficial wound to the left medial leg, serous drainage, no malodor, no open lesions, no tunneling, no tracking appreciated, no probe to bone, no clinical signs of infection noted. MSK: No pain with palpation of b/l lower extremities, no pain with calf co mpression, MMT 4/5 to all groups b/l. - Neurological Exam Neurological Exam: Alert, Awake, Oriented x3 - Psychiatric Exam Psychiatric exam: Normal Affect, Normal Mood Assessment and Plan - Assessment and Plan (Free Text) Assessment: 82 year old male patient seen and evaluated for b/l lower extremity edema, weeping, and erythema with wound to the L lower leg. Plan: Patient seen and evaluated at the bedside. Plan discussed with Dr. Page. Charts, labs and vitals reviewed: Afebrile, No leukocytosis. Local wound care: ABD, DSD and Joshua bandage b/l. KARIN from 04/12/18: R 1.26 and L 0.88, left SFA occlusive disease, bilateral tibial disease B/L LE X-rays:Unremarkable radiographs b/l. Instructed patient on importance of elevating b/l lower extremities Continue IV abx per ID recs Podiatry will continue to follow up the patient while in house.
--- NOTE | 2018-05-07 01:14 | HP ---
DATE OF EXAM: 05/06/2018 HISTORY OF PRESENT ILLNESS: The patient was seen and examined. I do agree with the note of the biomedical photographer. I was involved in the plan of care. The patient has acute CHF secondary to diastolic dysfunction. This is being treated with IV Lasix. The patient has a left leg pressure ulcer, stage 2 that is being treated with local wound care. The patient's x-rays have been negative for osteoporosis. He has atrial fibrillation. He is on Eliquis and metoprolol for this. He is on Synthroid for his hypothyroidism. The patient has a CKD stage 3 and we will continue to follow the creatinine. He had diabetes type 2, he is on a insulin sliding scale, this will be continued. He is on Colace for his constipation. The patient is being followed by Podiatry and also by Infectious Disease, I appreciate their input. He is eager to go home, but I did advise him to wait until his wound is better. The patient is going to be seen by Physical Therapy. He is on a heart-healthy diet. Juma Dougherty MD
--- NOTE | 2018-05-07 02:47 | PN ---
DATE: 05/06/2018 SUBJECTIVE: The patient is in bed, in no acute distress. The patient was seen earlier this morning in 578, bed 1. No fevers and chills. PHYSICAL EXAMINATION: VITAL SIGNS: Temperature is 97, blood pressure is 114/70, respiratory rate of 18. HEENT: Unremarkable. NECK: Supple. LUNGS: Have decreased breath sounds. HEART: Normal S1, S2. ABDOMEN: Soft. LABORATORY DATA: Reveals a white count of 9.9, hemoglobin 11. Chemistries are noted. Urinalysis is reviewed. Microbiology reveals the blood cultures are negative. Urine cultures are negative. Review of orders reveals the patient is off of antibiotics. ASSESSMENT AND PLAN: An 82-year-old male who was admitted with, 1. Bilateral lower extremity chronic changes. No acute infection. No antibiotics. 2. Acute systolic congestive heart failure on top of chronic congestive heart failure. The patient is at risk for developing nosocomial infections. Hoang Orourke MD
[2018-05-07] MEDS: Levothyroxine 25 MCG TAB PO SCH (07:03)
[2018-05-07 07:43] LABS: BASO # 0.04 K/mm3 (0.0-2.0); BASO % 0.4 % (0.0-3.0); EOS # 0.4 (0.0-0.7); EOS % 4.2 % (1.5-5.0); HEMOGLOBIN 11.3 g/dL (14.0-18.0); LYMPH # 1.8 (1.2-3.4); LYMPH % 16.8 % (22.0-35.0); MEAN CELL VOLUME 93.4 fl (80.0-105.0); MEAN CORPUSCULAR HEMOGLOBIN 28.8 pg (25.0-35.0); MEAN CORPUSCULAR HGB CONC 30.9 g/dl (31.0-37.0); MEAN PLATELET VOLUME 9.7 fl (7.0-11.0); MONO # 0.9 (0.1-0.6); MONO % 8.5 % (1.0-6.0); RBC 3.92 10^6/uL (3.5-6.1); RED CELL DISTRIBUTION WIDTH 20.4 % (11.5-14.5); WHITE BLOOD COUNT 10.6 10^3/uL (4.5-11.0)
[2018-05-07 07:52] VITALS: O2SAT 98
[2018-05-07 08:00] LABS: ALB/GLOB RATIO 0.8 (1.1-1.8); ALBUMIN 3.4 g/dL (3.0-4.8); CALCIUM 9.2 mg/dL (8.4-10.5)
[2018-05-07] MEDS: Insulin Lispro (humaLOG) MEDIUM Coverage SC SCH ×4 (08:00→22:21)
[2018-05-07] MEDS: Metoprolol Succinate 50 mg XL Tab PO SCH (10:14)
--- NOTE | 2018-05-07 12:09 | CP.PCM.PCO ---
Additional Comments - Additional Comments Additional Comments: D/W Dr. Giron, will request tcu evaluation. If accepted, pt can go to tcu today for IV lasix and rehab. Discussed plan w/ pt.
--- NOTE | 2018-05-07 12:18 | CP.PCM.PN ---
Subjective - Date & Time of Evaluation Date of Evaluation: 05/07/18 Time of Evaluation: 08:00 - Subjective Subjective: Chauncey Bingham- Internal Medicine Resident- Progress Note on Behalf of Dr. Dougherty Subjective: Patient seen and examined at bedside. States he again had difficulty achieving sleep last night. States SOB with exertion has improved relative to baseline. Believes that his lower extremity swelling has improved. Denies fever, chills, chest pain, abdominal pain, nausea, vomiting, diarrhea, and urinary symptoms. 12 point ROS negative except as indicated in the HPI Physical Examination: - Constitutional Appears: Non-toxic, No Acute Distress - Head Exam Head Exam: ATRAUMATIC, NORMOCEPHALIC - Eye Exam Eye Exam: EOMI - ENT Exam ENT Exam: Mucous Membranes Moist - Neck Exam Neck exam: Positive for: Full Rom - Respiratory Exam Respiratory Exam: Clear to Auscultation Bilateral, NORMAL BREATHING PATTERN - Cardiovascular Exam Cardiovascular Exam: RRR, +S1, +S2. absent: Systolic Murmur - GI/Abdominal Exam GI & Abdominal Exam: Normal Bowel Sounds, Soft. absent: Distended, Firm, Guarding, Organomegaly, Rebound, Tenderness - Extremities Exam Extremities exam: 2+ weeping edema appreciated to b/l lower extremities, underlying erythema noted - Neurological Exam Neurological exam: Alert, Oriented x3 - Psychiatric Exam Psychiatric exam: Normal Affect, Normal Mood - Skin Skin Exam: Superficial wound to the left medial leg, serous drainage Assessment and Plan: Acute Exacerbation of chronic congestive heart failure secondary to diastolic dysfunction Left leg wound pressure ulcer Lower Extremity Edema Coronary artery disease Atrial fibrillation on anticoagulation Peripheral arterial disease CKD Stage III Type 2 Diabetes Mellitus Hypothyroidism Chronic lower extremity wounds Normocytic Anemia- Hgb stable Constipation Gait Dysfunction GI ppx DVT ppx Imaging: Radiographs of the right tibia and fibula-Unremarkable radiographs of the right tibia and fibula Radiographs of the left tibia and fibula- Unremarkable radiographs of the left tibia and fibula Continue lasix 40 IV bid, spironolactone for treatment of acute on chronic diastolic CHF. Continue metoprolol and eliqius for treatment of atrial fibrillation. Continue aspirin and statin for CAD. Cardiology consulted and we will appreciate recommendations. Continue trending daily weights and Is/Os. Continue ISS and fingersticks ACHS for treatment of Type 2 DM. Continue synthroid for treatment of hypothyroidism. No abx needed at this time. Blood culture negative 48 hours. ID is following this patient- appreciate recommendations. Podiatry consulted- continue local wound care. Continue to monitor BUN and creatinine in light of CKD stage III. Continue monitoring hemoglobin in setting of normocytic anemia. Continue colace to prevent constipation. Continue famotidine for GI prophylaxis. Continue PT for gait dysfunction- recommend home with services. Dispo- awaiting TCU evaluation. Patient case reviewed with and plan approved by attending physician, Dr. Giron. Objective - Vital Signs/Intake and Output Vital Signs (last 24 hours): Temp Pulse Resp BP Pulse Ox 97.6 F 103 H 17 115/76 98 05/07/18 06:00 05/07/18 06:00 05/07/18 06:00 05/07/18 10:14 05/07/18 11:52 Intake and Output: 05/07/18 05/07/18 06:59 18:59 Intake Total 620 Balance 620 - Medications Medications: Current Medications Acetaminophen (Tylenol 325mg Tab) 650 mg PO Q4H PRN PRN Reason: Pain, Mild (1-3) Last Admin: 05/06/18 14:25 Dose: 650 mg Apixaban (Eliquis) 2.5 mg PO BID [facility]; Protocol Last Admin: 05/07/18 10:14 Dose: 2.5 mg Aspirin (Ecotrin) 81 mg PO DAILY [facility] Last Admin: 05/07/18 10:13 Dose: 81 mg Atorvastatin Calcium (Lipitor) 40 mg PO HS [facility] Last Admin: 05/06/18 22:18 Dose: 40 mg Docusate Sodium (Colace) 100 mg PO BID [facility] Last Admin: 05/07/18 10:14 Dose: 100 mg Famotidine (Pepcid) 20 mg PO DAILY [facility] Last Admin: 05/07/18 10:14 Dose: 20 mg Furosemide (Lasix) 40 mg IV BID [facility] Last Admin: 05/07/18 10:13 Dose: 40 mg Insulin Human Lispro (Humalog Med) 0 units SC [facility]; Protocol Last Admin: 05/07/18 08:00 Dose: Not Given Levothyroxine Sodium (Synthroid) 25 mcg PO 0600 [facility] Last Admin: 05/07/18 07:03 Dose: 25 mcg Metoprolol Succinate (Toprol Xl) 50 mg PO DAILY [facility] Last Admin: 05/07/18 10:14 Dose: 50 mg Spironolactone (Aldactone) 25 mg PO BID [facility] Last Admin: 05/07/18 10:14 Dose: 25 mg - Labs Labs: 05/07/18 07:15 05/07/18 07:15 PT 26.5 SECONDS (9.4-12.5) H 05/04/18 12:18 INR 2.35 05/04/18 12:18 APTT 37.4 Seconds (26.9-38.3) 05/04/18 12:18
--- NOTE | 2018-05-07 12:43 | PN ---
DATE: 05/07/2018 SUBJECTIVE: The patient is seen sitting in chair on 5R. He is comfortable at the present time, he is anxious to go home. His current medications remain Aldactone 25 mg b.i.d., Ecotrin once daily, Eliquis 2.5 mg b.i.d., Lasix 40 mg IV b.i.d., Lipitor 40 mg daily, Pepcid, Synthroid, Toprol XL 50 mg daily. PHYSICAL EXAMINATION: GENERAL: He is an elderly man who appears comfortable at rest. VITAL SIGNS: Blood pressure is 102/70 with pulse of 90, respirations are 14. He is afebrile. HEENT: No JVD. CHEST: Bilateral scattered rhonchi present. HEART: PMI displaced laterally with a systolic murmur present at the base as well as the apex. ABDOMEN: Soft, obese, nontender with normoactive bowel sounds. EXTREMITIES: Both lower extremities are wrapped. 2+ edema is present. DIAGNOSTIC DATA: Morning blood work is pending. IMPRESSION: 1. Chronic congestive heart failure, combined systolic and diastolic. 2. Left leg ulcer, need only local wound care. 3. Chronic venous insufficiency. 4. [id number] aortic stenosis. 5. Moderate mitral regurgitation. 6. Coronary artery disease status post prior bypass surgery, percutaneous coronary intervention and infarcts currently stable. 7. Chronic atrial fibrillation. 8. Chronic renal insufficiency. RECOMMENDATIONS: His current medications should continue for now. Continued local wound care is advised. Diuretic use should continue. Once ready for discharge, Lasix will be switched to oral administration. The need for sodium and fluid restriction as well as leg elevation were discussed with him. Outpatient followup will be arranged as needed. Thaddeus Cuellar MD
--- NOTE | 2018-05-07 13:25 | CP.PCM.PN ---
Subjective - Date & Time of Evaluation Date of Evaluation: 05/07/18 Time of Evaluation: 13:22 - Subjective Subjective: Podiatry Consult Note: Dr. Page 82 year old male patient seen and evaluated for b/l lower extremity edema, weeping, and erythema with wound to the L lower leg. Patient denies any pain in her legs. Patient currently sitting in bedside chair. He denies any overnight nausea/vomiting/fever/shortness of breath/chest pain/chills. Objective - Vital Signs/Intake and Output Vital Signs (last 24 hours): Temp Pulse Resp BP Pulse Ox 97.6 F 103 H 17 115/76 98 05/07/18 06:00 05/07/18 06:00 05/07/18 06:00 05/07/18 10:14 05/07/18 11:52 Intake and Output: 05/07/18 05/07/18 06:59 18:59 Intake Total 620 Balance 620 - Medications Medications: Current Medications Acetaminophen (Tylenol 325mg Tab) 650 mg PO Q4H PRN PRN Reason: Pain, Mild (1-3) Last Admin: 05/06/18 14:25 Dose: 650 mg Apixaban (Eliquis) 2.5 mg PO BID [facility]; Protocol Last Admin: 05/07/18 10:14 Dose: 2.5 mg Aspirin (Ecotrin) 81 mg PO DAILY [facility] Last Admin: 05/07/18 10:13 Dose: 81 mg Atorvastatin Calcium (Lipitor) 40 mg PO HS [facility] Last Admin: 05/06/18 22:18 Dose: 40 mg Docusate Sodium (Colace) 100 mg PO BID [facility] Last Admin: 05/07/18 10:14 Dose: 100 mg Famotidine (Pepcid) 20 mg PO DAILY [facility] Last Admin: 05/07/18 10:14 Dose: 20 mg Furosemide (Lasix) 40 mg IV BID [facility] Last Admin: 05/07/18 10:13 Dose: 40 mg Insulin Human Lispro (Humalog Med) 0 units SC [facility]; Protocol Last Admin: 05/07/18 08:00 Dose: Not Given Levothyroxine Sodium (Synthroid) 25 mcg PO 0600 [facility] Last Admin: 05/07/18 07:03 Dose: 25 mcg Metoprolol Succinate (Toprol Xl) 50 mg PO DAILY [facility] Last Admin: 05/07/18 10:14 Dose: 50 mg Spironolactone (Aldactone) 25 mg PO BID [facility] Last Admin: 05/07/18 10:14 Dose: 25 mg - Labs Labs: 05/07/18 07:15 05/07/18 07:15 PT 26.5 SECONDS (9.4-12.5) H 05/04/18 12:18 INR 2.35 05/04/18 12:18 APTT 37.4 Seconds (26.9-38.3) 05/04/18 12:18 - Constitutional Appears: Well, Non-toxic, No Acute Distress - Head Exam Head Exam: ATRAUMATIC, NORMOCEPHALIC - Extremities Exam Additional comments: B/L lower extremity exam: Vascular: DP/PT faintly palpable, Cap refill < 3 seconds, Temp gradient warm to cool from proximal to distal, + 1 weeping edema appreciated to b/l lower extremities. Mild erythema noted to the L leg Neuro: Gross sensation intact, protective sensation diminished. Derm: Weeping edema appreciated to b/l lower extremities with superficial wound to the left medial leg, serous drainage, no malodor, no open lesions, no tunneling, no tracking appreciated, no probe to bone, no clinical signs of infection noted. MSK: No pain with palpation of b/l lower extremities, no pain with calf compression, MMT 4/5 to all groups b/l. - Neurological Exam Neurological Exam: Alert, Awake, Oriented x3 - Psychiatric Exam Psychiatric exam: Normal Affect, Normal Mood Assessment and Plan - Assessment and Plan (Free Text) Assessment: 82 year old male patient seen and evaluated for b/l lower extremity edema, weeping, and erythema with wound to the L lower leg. Plan: Patient seen and evaluated at the bedside. Plan discussed with Dr. Page. Charts, labs and vitals reviewed: Afebrile, No leukocytosis. Local wound care: ABD, DSD and Joshua bandage b/l. KARIN from 04/12/18: R 1.26 and L 0.88, left SFA occlusive disease, bilateral tibial disease B/L LE X-rays:Unremarkable radiographs b/l. Instructed patient on importance of elevating b/l lower extremities Applied Mepilex to the leftleg ulcer Continue IV abx per ID recs Ordered [facility] Podiatry will continue to follow up the patient while in house.
--- NOTE | 2018-05-07 15:18 | PQF ---
PROVIDER RESPONSE TEXT: Provider was unable to determine a response for this query. REVIEWER QUERY TEXT: Conflicting Documentation Clarification A single mention or documentation of multiple diagnoses for the same clinical presentation appears in the record. Please clarify the diagnosis/diagnoses. Please also document if the condition is: -- Confirmed and current -- Confirmed, treated and resolved -- Ruled out -- Other, please specify The patient's Clinical Indicators include: 05/07 You documented Acute Exacerbation of chronic congestive heart failure secondary to diastolic dysf unction Card- notes- 1.Chronic congestive heart failure, combined systolic and diastolic. Query created by: Zahida Sabillon on 05/07/2018 2:43 PM Electronically signed by: Beto Pruitt 05/07/2018 3:15 PM
[2018-05-07] MEDS: Petrolatum-Mineral Oil Oint (100gm) TOP SCH ×2 (18:21→19:30)
--- NOTE | 2018-05-08 00:42 | PN ---
DATE: 05/07/2018 SUBJECTIVE: The patient is in bed, in no acute distress, nontoxic. PHYSICAL EXAMINATION: VITAL SIGNS: Temperature is 97, blood pressure is 115/70, respiratory rate of 18. HEENT: Unremarkable. NECK: Supple. LUNGS: Have decreased breath sounds. HEART: Normal S1, S2. ABDOMEN: Soft. LABORATORY DATA: Reveals a white count of 10,000, hemoglobin of 11, BUN of 51, creatinine of 1.5. Urinalysis is noted. Microbiology reveals the blood cultures are negative. Urine cultures are negative. Review of orders reveals the patient to be off of antibiotics. ASSESSMENT AND PLAN: An 82-year-old male who was seen early this morning in room 578, bed 1, admitted with bilateral lower extremity chronic changes, no evidence of acute infection, no antibiotics at this point in a patient with acute systolic congestive heart failure on top of chronic congestive heart failure. The patient is at risk for developing nosocomial infections. We will follow with you. Hoang Orourke MD
[2018-05-08] MEDS: Petrolatum-Mineral Oil Oint (100gm) TOP SCH (01:30)
[2018-05-08] MEDS: Levothyroxine 25 MCG TAB PO SCH (06:18)
[2018-05-08 07:05] LABS: ALBUMIN 3.6 g/dL (3.0-4.8); BASO # 0.03 K/mm3 (0.0-2.0); BASO % 0.3 % (0.0-3.0); CALCIUM 9.2 mg/dL (8.4-10.5); EOS # 0.4 (0.0-0.7); EOS % 4.2 % (1.5-5.0); HEMOGLOBIN 10.8 g/dL (14.0-18.0); LYMPH # 1.7 (1.2-3.4); LYMPH % 18.1 % (22.0-35.0); MEAN CELL VOLUME 93.2 fl (80.0-105.0); MEAN CORPUSCULAR HEMOGLOBIN 28.3 pg (25.0-35.0); MEAN CORPUSCULAR HGB CONC 30.3 g/dl (31.0-37.0); MEAN PLATELET VOLUME 9.8 fl (7.0-11.0); MONO # 0.9 (0.1-0.6); MONO % 9.3 % (1.0-6.0); RBC 3.82 10^6/uL (3.5-6.1); RED CELL DISTRIBUTION WIDTH 20.7 % (11.5-14.5); WHITE BLOOD COUNT 9.5 10^3/uL (4.5-11.0)
[2018-05-08 07:43] VITALS: BP 117/74; PULSE 110; RESP 18; TEMP 97.4
--- NOTE | 2018-05-08 08:36 | PN ---
DATE: 05/07/2018 SUBJECTIVE: The patient is an 82-year-old, admitted with bilateral leg swelling and increasing shortness of breath, being diuresed. H and P as per resident. Agreed with assessment and plan. Currently, he is on IV diuretics. Local wound care is by podiatry team. He is on spironolactone. He is on Ambien, aspirin 81 daily. He is on Eliquis for AFib. Physical therapy evaluation was done. The patient does not need physical therapy. He is quite independent and ambulatory. After diuresing him, he will be discharged home eventually. His electrolytes will be followed in the a.m. Michael Giron MD
--- NOTE | 2018-05-08 09:31 | CP.PCM.DIS ---
<Chauncey Bingham - Last Filed: 05/08/18 13:36> Provider - Provider Date of Admission: 05/04/18 14:05 Attending physician: Juma Dougherty MD Primary care physician: Chandu Novak MD Consults: 05/04/18 14:06 Consult [Physician Consult] Routine Comment: Consulting Provider: Neris Page Consulting Physician: Neris Page Reason for Consult: Leg ulcer, wound care Consult [Physician Consult] Stat Comment: Consulting Provider: Thaddeus Cuellar Consulting Physician: Thaddeus Cuellar Reason for Consult: CHF 05/05/18 07:47 Physician Consult Routine Comment: Consulting Provider: Hoang Orourke Consulting Physician: Hoang Orourke Reason for Consult: wound ulcer 05/07/18 11:12 TCU [Evaluation for TRCU] Routine Comment: Physician Instructions: Reason For Exam: iv lasix Time Spent in preparation of Discharge (in minutes): 45 Hospital Course - Lab Results Lab Results: Micro Results 05/04/18 12:50 Blood-Venous Blood Culture - Preliminary NO GROWTH AFTER 3 DAYS 05/04/18 12:25 Blood-Venous Blood Culture - Preliminary NO GROWTH AFTER 3 DAYS 05/04/18 13:00 Urine Random Urine Culture - Final No Growth (<1,000 CFU/ML) Most Recent Lab Values WBC 9.5 10^3/uL (4.5-11.0) 05/08/18 06:00 RBC 3.82 10^6/uL (3.5-6.1) 05/08/18 06:00 Hgb 10.8 g/dL (14.0-18.0) L 05/08/18 06:00 Hct 35.6 % (42.0-52.0) L 05/08/18 06:00 MCV 93.2 fl (80.0-105.0) 05/08/18 06:00 MCH 28.3 pg (25.0-35.0) 05/08/18 06:00 MCHC 30.3 g/dl (31.0-37.0) L 05/08/18 06:00 RDW 20.7 % (11.5-14.5) H 05/08/18 06:00 Plt Count 283 10^3/uL (120.0-450.0) 05/08/18 06:00 MPV 9.8 fl (7.0-11.0) 05/08/18 06:00 Neut % (Auto) 68.1 % (50.0-68.0) H 05/08/18 06:00 Lymph % (Auto) 18.1 % (22.0-35.0) L 05/08/18 06:00 [place] % (Auto) 9.3 % (1.0-6.0) H 05/08/18 06:00 Eos % (Auto) 4.2 % (1.5-5.0) 05/08/18 06:00 Baso % (Auto) 0.3 % (0.0-3.0) 05/08/18 06:00 Lymph # (Auto) 1.7 (1.2-3.4) 05/08/18 06:00 [place] # (Auto) 0.9 (0.1-0.6) H 05/08/18 06:00 Eos # (Auto) 0.4 (0.0-0.7) 05/08/18 06:00 Baso # (Auto) 0.03 K/mm3 (0.0-2.0) 05/08/18 06:00 Absolute Neuts (auto) 6.47 (1.4-6.5) 05/08/18 06:00 PT 26.5 SECONDS (9.4-12.5) H 05/04/18 12:18 INR 2.35 05/04/18 12:18 APTT 37.4 Seconds (26.9-38.3) 05/04/18 12:18 Sodium 137 mmol/L (132-148) 05/08/18 06:00 Potassium 4.8 mmol/L (3.6-5.0) 05/08/18 06:00 Chloride 102 mmol/L (98-107) 05/08/18 06:00 Carbon Dioxide 28 mmol/L (21-33) 05/08/18 06:00 Anion Gap 12 (10-20) 05/08/18 06:00 BUN 45 mg/dL (7-21) H 05/08/18 06:00 Creatinine 1.4 mg/dl (0.8-1.5) 05/08/18 06:00 Est GFR ( Amer) 59 05/08/18 06:00 Est GFR (Non-Af Amer) 49 05/08/18 06:00 POC Glucose (mg/dL) 108 mg/dL (65-110) 05/08/18 06:37 Random Glucose 95 mg/dL (70-110) 05/08/18 06:00 Calcium 9.2 mg/dL (8.4-10.5) 05/08/18 06:00 Magnesium 2.1 mg/dL (1.7-2.2) 05/04/18 12:18 Iron 49 ug/dL (45-180) 05/04/18 15:00 TIBC 313 ug/dL (261-462) 05/04/18 15:00 % Saturation 16 % (20-55) L 05/04/18 15:00 Ferritin 126.0 ng/mL 05/04/18 15:00 Total Bilirubin 0.8 mg/dL (0.2-1.3) 05/08/18 06:00 AST 48 U/L (17-59) 05/08/18 06:00 ALT 31 U/L (7-56) 05/08/18 06:00 Alkaline Phosphatase 193 U/L (38-126) H 05/08/18 06:00 Lactate Dehydrogenase 445 U/L (333-699) 05/04/18 12:18 Total Creatine Kinase < 20 U/L (35-230) L 05/04/18 12:18 Troponin I < 0.01 ng/mL D 05/04/18 12:18 NT-Pro-B Natriuret Pep 9260 pg/mL (0-450) H 05/05/18 10:15 Total Protein 7.3 g/dL (5.8-8.3) 05/08/18 06:00 Albumin 3.6 g/dL (3.0-4.8) 05/08/18 06:00 Globulin 3.7 gm/dL 05/08/18 06:00 Albumin/Globulin Ratio 1.0 (1.1-1.8) L 05/08/18 06:00 Urine Color Yellow (YELLOW) 05/04/18 13:00 Urine Appearance Clear (CLEAR) 05/04/18 13:00 Urine pH 5.5 (4.7-8.0) 05/04/18 13:00 Ur Specific [place] 1.020 (1.005-1.035) 05/04/18 13:00 Urine Protein Negative mg/dL (<30 mg/dL) 05/04/18 13:00 Urine Glucose (UA) Negative mg/dL (NEGATIVE) 05/04/18 13:00 Urine Ketones Negative mg/dL (NEGATIVE) 05/04/18 13:00 Urine Blood Negative (NEGATIVE) 05/04/18 13:00 Urine Nitrate Negative (NEGATIVE) 05/04/18 13:00 Urine Bilirubin Negative (NEGATIVE) 05/04/18 13:00 Urine Urobilinogen 0.2 E.U./dL (<1 E.U./dL) 05/04/18 13:00 Ur Leukocyte Esterase Negative [place]/uL (NEGATIVE) 05/04/18 13:00 - Hospital Course Hospital Course: Mr. Swanson is an 82-year-old male with a PMHx of CAD post CABG, CKD, DM 2, A. fib (on Eliquis), and anemia who was admitted for evaluation and treatment of bilateral lower extremity swelling and redness. Patient was diagnosed and treated for acute exacerbation of chronic congestive heart failure secondary to diastolic dysfunction along with his other chronic conditions. During their hospital stay the patient was seen by podiatry whose recommendations were both appreciated and utilized in the care for this patient. During their hospital stay the patient underwent radiographs of the right and left tibia and fibula which were reviewed, appreciated, and utilized in the management of the patients clinical course. Findings are listed below. Patient was treated with abixiban, atorvastatin, toprol, levothyroxine, and pepcid. At this time the patient is medically stable for discharge to home. Patient understands and appreciates discharge plan. Patient instructed to follow up with primary care physicians and referrals within three to five days from discharge. Furthermore, the patient is instructed to take medications as prescribed and to return to emergency room for evaluation of new or worsening symptoms including but limited to intractable headache, fever, chills, dizziness, chest pain, shortness of breath, abdominal pain, nausea, vomiting, diarrhea, constipation, and urinary symptoms. This is a brief summary of the patients hospital course. Please see patient chart for full details. Discharge Diagnoses: Acute Exacerbation of chronic congestive heart failure secondary to diastolic dysfunction Left leg wound pressure ulcer Lower Extremity Edema Coronary artery disease Atrial fibrillation on anticoagulation Peripheral arterial disease CKD Stage III Type 2 Diabetes Mellitus Hypothyroidism Chronic lower extremity wounds Normocytic Anemia- Hgb stable Constipation Gait Dysfunction Imaging: Radiographs of the right tibia and fibula-Unremarkable radiographs of the right tibia and fibula Radiographs of the left tibia and fibula- Unremarkable radiographs of the left tibia and fibula Medication Changes In Hospital: Start Aspirin 81 mg 1 tablet via mouth once a day Start Furosemide 40 mg 1 tablet via mouth twice a day Start Metoprolol Succinate 50 mg via mouth once a day Discharge Exam - Additional Findings Additional findings: - Head Exam Head Exam: ATRAUMATIC, NORMOCEPHALIC - Eye Exam Eye Exam: EOMI - ENT Exam ENT Exam: Mucous Membranes Moist - Neck Exam Neck exam: Positive for: Full Rom - Respiratory Exam Respiratory Exam: Clear to Auscultation Bilateral, NORMAL BREATHING PATTERN - Cardiovascular Exam Cardiovascular Exam: RRR, +S1, +S2. absent: Systolic Murmur - GI/Abdominal Exam GI & Abdominal Exam: Normal Bowel Sounds, Soft. absent: Distended, Firm, Guarding, Organomegaly, Rebound, Tenderness - Extremities Exam Extremities exam: 2+ weeping edema appreciated to b/l lower extremities, underlying erythema noted - Neurological Exam Neurological exam: Alert, Oriented x3 - Psychiatric Exam Psychiatric exam: Normal Affect, Normal Mood - Skin Skin Exam: Superficial wound to the left medial leg, serous drainage Discharge Plan - Discharge Medications Prescriptions: Aspirin [Low Dose Aspirin EC] 81 mg PO DAILY #14 tablet. Furosemide [Lasix] 40 mg PO BID #60 tablet Metoprolol Succinate [Toprol Xl] 50 mg PO DAILY #14 tab.er.24h - Follow Up Plan Condition: GUARDED Disposition: HOME/ ROUTINE Instructions: Heart Failure, Adult (DC), Diabetic Foot Ulcer (DC) Additional Instructions: Patient Instructions: 1. Please take home medications as prescribed. Continue Aspirin 81 mg 1 tablet via mouth once a day Continue Furosemide 40 mg 1 tablet via mouth twice a day (1 tablet morning and 1 tablet in the evening) Continue Metoprolol Succinate 50 mg via mouth once a day 2. Follow up with your primary care physician and referrals within three to five days from discharge. 3. Please go to the nearest emergency room for evaluation of new or worsening symptoms including but limited to intractable headache, fever, chills, dizziness, chest pain, shortness of breath, abdominal pain, nausea, vomiting, diarrhea, constipation, and urinary symptoms. Referrals: Chandu Novak MD [Primary Care Provider] - <Juma Dougherty - Last Filed: 05/08/18 14:27> Provider - Provider Date of Admission: 05/04/18 14:05 Attending physician: Juma Dougherty MD Primary care physician: Chandu Novak MD Consults: 05/04/18 14:06 Consult [Physician Consult] Routine Comment: Consulting Provider: Neris Page Consulting Physician: Neris Page Reason for Consult: Leg ulcer, wound care Consult [Physician Consult] Stat Comment: Consulting Provider: Thaddeus Cuellar Consulting Physician: Thaddeus Cuellar Reason for Consult: CHF 05/05/18 07:47 Physician Consult Routine Comment: Consulting Provider: Hoang Orourke Consulting Physician: Hoang Orourke Reason for Consult: wound ulcer 05/07/18 11:12 TCU [Evaluation for TRCU] Routine Comment: Physician Instructions: Reason For Exam: iv lasix Hospital Course - Lab Results Lab Results: Micro Results 05/04/18 12:50 Blood-Venous Blood Culture - Preliminary NO GROWTH AFTER 4 DAYS 05/04/18 12:25 Blood-Venous Blood Culture - Preliminary NO GROWTH AFTER 4 DAYS 05/04/18 13:00 Urine Random Urine Culture - Final No Growth (<1,000 CFU/ML) Most Recent Lab Values WBC 9.5 10^3/uL (4.5-11.0) 05/08/18 06:00 RBC 3.82 10^6/uL (3.5-6.1) 05/08/18 06:00 Hgb 10.8 g/dL (14.0-18.0) L 05/08/18 06:00 Hct 35.6 % (42.0-52.0) L 05/08/18 06:00 MCV 93.2 fl (80.0-105.0) 05/08/18 06:00 MCH 28.3 pg (25.0-35.0) 05/08/18 06:00 MCHC 30.3 g/dl (31.0-37.0) L 05/08/18 06:00 RDW 20.7 % (11.5-14.5) H 05/08/18 06:00 Plt Count 283 10^3/uL (120.0-450.0) 05/08/18 06:00 MPV 9.8 fl (7.0-11.0) 05/08/18 06:00 Neut % (Auto) 68.1 % (50.0-68.0) H 05/08/18 06:00 Lymph % (Auto) 18.1 % (22.0-35.0) L 05/08/18 06:00 [place] % (Auto) 9.3 % (1.0-6.0) H 05/08/18 06:00 Eos % (Auto) 4.2 % (1.5-5.0) 05/08/18 06:00 Baso % (Auto) 0.3 % (0.0-3.0) 05/08/18 06:00 Lymph # (Auto) 1.7 (1.2-3.4) 05/08/18 06:00 [place] # (Auto) 0.9 (0.1-0.6) H 05/08/18 06:00 Eos # (Auto) 0.4 (0.0-0.7) 05/08/18 06:00 Baso # (Auto) 0.03 K/mm3 (0.0-2.0) 05/08/18 06:00 Absolute Neuts (auto) 6.47 (1.4-6.5) 05/08/18 06:00 PT 26.5 SECONDS (9.4-12.5) H 05/04/18 12:18 INR 2.35 05/04/18 12:18 APTT 37.4 Seconds (26.9-38.3) 05/04/18 12:18 Sodium 137 mmol/L (132-148) 05/08/18 06:00 Potassium 4.8 mmol/L (3.6-5.0) 05/08/18 06:00 Chloride 102 mmol/L (98-107) 05/08/18 06:00 Carbon Dioxide 28 mmol/L (21-33) 05/08/18 06:00 Anion Gap 12 (10-20) 05/08/18 06:00 BUN 45 mg/dL (7-21) H 05/08/18 06:00 Creatinine 1.4 mg/dl (0.8-1.5) 05/08/18 06:00 Est GFR ( Amer) 59 05/08/18 06:00 Est GFR (Non-Af Amer) 49 05/08/18 06:00 POC Glucose (mg/dL) 108 mg/dL (65-110) 05/08/18 06:37 Random Glucose 95 mg/dL (70-110) 05/08/18 06:00 Calcium 9.2 mg/dL (8.4-10.5) 05/08/18 06:00 Magnesium 2.1 mg/dL (1.7-2.2) 05/04/18 12:18 Iron 49 ug/dL (45-180) 05/04/18 15:00 TIBC 313 ug/dL (261-462) 05/04/18 15:00 % Saturation 16 % (20-55) L 05/04/18 15:00 Ferritin 126.0 ng/mL 05/04/18 15:00 Total Bilirubin 0.8 mg/dL (0.2-1.3) 05/08/18 06:00 AST 48 U/L (17-59) 05/08/18 06:00 ALT 31 U/L (7-56) 05/08/18 06:00 Alkaline Phosphatase 193 U/L (38-126) H 05/08/18 06:00 Lactate Dehydrogenase 445 U/L (333-699) 05/04/18 12:18 Total Creatine Kinase < 20 U/L (35-230) L 05/04/18 12:18 Troponin I < 0.01 ng/mL D 05/04/18 12:18 NT-Pro-B Natriuret Pep 9260 pg/mL (0-450) H 05/05/18 10:15 Total Protein 7.3 g/dL (5.8-8.3) 05/08/18 06:00 Albumin 3.6 g/dL (3.0-4.8) 05/08/18 06:00 Globulin 3.7 gm/dL 05/08/18 06:00 Albumin/Globulin Ratio 1.0 (1.1-1.8) L 05/08/18 06:00 Urine Color Yellow (YELLOW) 05/04/18 13:00 Urine Appearance Clear (CLEAR) 05/04/18 13:00 Urine pH 5.5 (4.7-8.0) 05/04/18 13:00 Ur Specific [place] 1.020 (1.005-1.035) 05/04/18 13:00 Urine Protein Negative mg/dL (<30 mg/dL) 05/04/18 13:00 Urine Glucose (UA) Negative mg/dL (NEGATIVE) 05/04/18 13:00 Urine Ketones Negative mg/dL (NEGATIVE) 05/04/18 13:00 Urine Blood Negative (NEGATIVE) 05/04/18 13:00 Urine Nitrate Negative (NEGATIVE) 05/04/18 13:00 Urine Bilirubin Negative (NEGATIVE) 05/04/18 13:00 Urine Urobilinogen 0.2 E.U./dL (<1 E.U./dL) 05/04/18 13:00 Ur Leukocyte Esterase Negative [place]/uL (NEGATIVE) 05/04/18 13:00 - Hospital Course Hospital Course: Pt seen and examined by me. I have reviewed the note of the medical professionals and I agree with it. I have discussed the assessment and plan with the resident. I have reviewed the medications and the last labs. Pt with acute CHF due to diastolic dysfunction. He has LE edema and is on Lasix. Abx are finished. Spoke to ID. On anticoagulation for A fib. Continue with ASA for CAD and PAD. He does not want to go to TCU or rehab. Eating well. Low Na advised.
[2018-05-08] MEDS: Metoprolol Succinate 50 mg XL Tab PO SCH (09:56)
--- NOTE | 2018-05-08 10:13 | CP.PCM.PN ---
<Beto Pruitt - Last Filed: 05/08/18 10:11> Subjective - Date & Time of Evaluation Date of Evaluation: 05/08/18 Time of Evaluation: 10:11 - Subjective Subjective: Podiatry Consult Note: Dr. Page 82 year old male patient seen and evaluated for b/l lower extremity edema, weeping, and erythema with wound to the L lower leg. Patient denies any pain in her legs. Patient currently sitting in bedside chair. He denies any overnight nausea/vomiting/fever/shortness of breath/chest pain/chills. Objective - Vital Signs/Intake and Output Vital Signs (last 24 hours): Temp Pulse Resp BP Pulse Ox 97.4 F L 110 H 18 117/74 98 05/08/18 06:00 05/08/18 06:00 05/08/18 06:00 05/08/18 09:56 05/08/18 06:00 Intake and Output: 05/08/18 05/08/18 06:59 18:59 Intake Total 980 Balance 980 - Medications Medications: Current Medications Acetaminophen (Tylenol 325mg Tab) 650 mg PO Q4H PRN PRN Reason: Pain, Mild (1-3) Last Admin: 05/06/18 14:25 Dose: 650 mg Apixaban (Eliquis) 2.5 mg PO BID [facility]; Protocol Last Admin: 05/08/18 09:56 Dose: 2.5 mg Aspirin (Ecotrin) 81 mg PO DAILY [facility] Last Admin: 05/08/18 09:55 Dose: 81 mg Atorvastatin Calcium (Lipitor) 40 mg PO HS [facility] Last Admin: 05/07/18 22:48 Dose: 40 mg Docusate Sodium (Colace) 100 mg PO BID [facility] Last Admin: 05/08/18 09:56 Dose: 100 mg Famotidine (Pepcid) 20 mg PO DAILY [facility] Last Admin: 05/08/18 09:55 Dose: 20 mg Furosemide (Lasix) 40 mg IV BID [facility] Last Admin: 05/08/18 09:56 Dose: 40 mg Insulin Human Lispro (Humalog Med) 0 units SC [facility]; Protocol Last Admin: 05/07/18 22:21 Dose: Not Given Levothyroxine Sodium (Synthroid) 25 mcg PO 0600 [facility] Last Admin: 05/08/18 06:18 Dose: 25 mcg Metoprolol Succinate (Toprol Xl) 50 mg PO DAILY [facility] Last Admin: 05/08/18 09:56 Dose: 50 mg Multi-Ingredient Ointment (Hydrophor Oint) 0 gm TOP Q6H [facility] Last Admin: 05/08/18 01:30 Dose: 1 applic Spironolactone (Aldactone) 25 mg PO BID [facility] Last Admin: 05/08/18 09:55 Dose: 25 mg - Labs Labs: 05/08/18 06:00 05/08/18 06:00 PT 26.5 SECONDS (9.4-12.5) H 05/04/18 12:18 INR 2.35 05/04/18 12:18 APTT 37.4 Seconds (26.9-38.3) 05/04/18 12:18 - Constitutional Appears: Well, Non-toxic, No Acute Distress - Head Exam Head Exam: ATRAUMATIC, NORMOCEPHALIC - Extremities Exam Additional comments: B/L lower extremity exam: Vascular: DP/PT faintly palpable, Cap refill < 3 seconds, Temp gradient warm to cool from proximal to distal, + 1 weeping edema appreciated to b/l lower extre mities. Mild erythema noted to the L leg Neuro: Gross sensation intact, protective sensation diminished. Derm: Weeping edema appreciated to b/l lower extremities with superficial wound to the left medial leg, serous drainage, no malodor, no open lesions, no tunneling, no tracking appreciated, no probe to bone, no clinical signs of infection noted. MSK: No pain with palpation of b/l lower extremities, no pain with calf compression, MMT 4/5 to all groups b/l. - Neurological Exam Neurological Exam: Alert, Awake, Oriented x3 - Psychiatric Exam Psychiatric exam: Normal Affect, Normal Mood Assessment and Plan - Assessment and Plan (Free Text) Assessment: 82 year old male patient seen and evaluated for b/l lower extremity edema, weeping, and erythema with wound to the L lower leg. Plan: Patient seen and evaluated at the bedside. Plan discussed with Dr. Bassett Charts, labs and vitals reviewed: Afebrile, No leukocytosis. Local wound care: ABD, DSD and Joshua bandage b/l. KARIN from 04/12/18: R 1.26 and L 0.88, left SFA occlusive disease, bilateral tibial disease B/L LE X-rays:Unremarkable radiographs b/l. Instructed patient on importance of elevating b/l lower extremities Applied Mepilex to the leftleg ulcer Continue IV abx per ID recs Ordered Aquaphor Podiatry will continue to follow up the patient while in house. <Danny Bassett - Last Filed: 05/08/18 10:51> Objective - Vital Signs/Intake and Output Vital Signs (last 24 hours): Temp Pulse Resp BP Pulse Ox 97.4 F L 110 H 18 117/74 98 05/08/18 06:00 05/08/18 06:00 05/08/18 06:00 05/08/18 09:56 05/08/18 06:00 Intake and Output: 05/08/18 05/08/18 06:59 18:59 Intake Total 980 Balance 980 - Medications Medications: Current Medications Acetaminophen (Tylenol 325mg Tab) 650 mg PO Q4H PRN PRN Reason: Pain, Mild (1-3) Last Admin: 05/06/18 14:25 Dose: 650 mg Apixaban (Eliquis) 2.5 mg PO BID [facility]; Protocol Last Admin: 05/08/18 09:56 Dose: 2.5 mg Aspirin (Ecotrin) 81 mg PO DAILY [facility] Last Admin: 05/08/18 09:55 Dose: 81 mg Atorvastatin Calcium (Lipitor) 40 mg PO HS [facility] Last Admin: 05/07/18 22:48 Dose: 40 mg Docusate Sodium (Colace) 100 mg PO BID [facility] Last Admin: 05/08/18 09:56 Dose: 100 mg Famotidine (Pepcid) 20 mg PO DAILY [facility] Last Admin: 05/08/18 09:55 Dose: 20 mg Furosemide (Lasix) 40 mg IV BID [facility] Last Admin: 05/08/18 09:56 Dose: 40 mg Insulin Human Lispro (Humalog Med) 0 units SC [facility]; Protocol Last Admin: 05/07/18 22:21 Dose: Not Given Levothyroxine Sodium (Synthroid) 25 mcg PO 0600 [facility] Last Admin: 05/08/18 06:18 Dose: 25 mcg Metoprolol Succinate (Toprol Xl) 50 mg PO DAILY [facility] Last Admin: 05/08/18 09:56 Dose: 50 mg Multi-Ingredient Ointment (Hydrophor Oint) 0 gm TOP Q6H [facility] Last Admin: 05/08/18 01:30 Dose: 1 applic Spironolactone (Aldactone) 25 mg PO BID [facility] Last Admin: 05/08/18 09:55 Dose: 25 mg - Labs Labs: 05/08/18 06:00 05/08/18 06:00 PT 26.5 SECONDS (9.4-12.5) H 05/04/18 12:18 INR 2.35 05/04/18 12:18 APTT 37.4 Seconds (26.9-38.3) 05/04/18 12:18 Attending/Attestation - Attestation I have personally seen and examined this patient.: Yes I have fully participated in the care of the patient.: Yes I have reviewed all pertinent clinical information, including history, physical exam and plan: Yes
--- NOTE | 2018-05-08 22:53 | PN ---
DATE: 05/08/2018 SUBJECTIVE: The patient is in bed, in no acute distress, nontoxic. The patient was seen earlier this morning in 569, bed 2. PHYSICAL EXAMINATION VITAL SIGNS: Temperature 97, blood pressure is 110/70, respiratory rate of 18. HEENT: Unremarkable. NECK: Supple. LUNGS: Decreased breath sounds. HEART: Normal S1, S2. ABDOMEN: Soft. EXTREMITIES: Examination of legs reveals chronic changes. LABORATORY DATA: Reveals white count of 9.5. Chemistries are noted. Urinalysis is noted. Microbiology is reviewed. ASSESSMENT AND PLAN: An 82-year-old male who is admitted with bilateral lower extremity chronic changes and no evidence of acute infection. No antibiotics given. The patient with acute systolic congestive heart failure on top of chronic congestive heart failure and risk of developing nosocomial infection. Hoang Orourke MD
== END 2018-05-08 14:37 | disposition home health service (06) | DRG 291 ==
LOC: ED 11:35 → ERH 14:05 → 2RSO 16:02 → 5RSO 05-05 15:38 → 5RNO 05-08 00:09
PROVIDERS: ADMIT Internal Medicine Nephrology; ATTEND Internal Medicine Nephrology
DX: I13.0 Hypertensive heart and chronic kidney disease with heart failure and stage 1 through stage 4 chronic kidney disease, or unspecified chronic kidney disease (principal); I50.43 Acute on chronic combined systolic (congestive) and diastolic (congestive) heart failure; N18.3 Chronic kidney disease, stage 3 (moderate); E11.22 Type 2 diabetes mellitus with diabetic chronic kidney disease; E11.51 Type 2 diabetes mellitus with diabetic peripheral angiopathy without gangrene; L89.892 Pressure ulcer of other site, stage 2; I48.2 Chronic atrial fibrillation; I25.10 Atherosclerotic heart disease of native coronary artery without angina pectoris; I87.2 Venous insufficiency (chronic) (peripheral); I08.0 Rheumatic disorders of both mitral and aortic valves; E03.9 Hypothyroidism, unspecified; D64.9 Anemia, unspecified; K21.9 Gastro-esophageal reflux disease without esophagitis; J44.9 Chronic obstructive pulmonary disease, unspecified; K59.00 Constipation, unspecified; G47.00 Insomnia, unspecified; I25.2 Old myocardial infarction; Z79.01 Long term (current) use of anticoagulants; Z87.891 Personal history of nicotine dependence; Z95.1 Presence of aortocoronary bypass graft; Z85.828 Personal history of other malignant neoplasm of skin; Z88.0 Allergy status to penicillin; R26.9 Unspecified abnormalities of gait and mobility

== ENCOUNTER 2018-05-14 11:13 | Emergency (ER) | payer MEDICARE, BC ==
--- NOTE | 2018-05-14 11:27 | ED PDOC ---
Arrival/HPI - General Historian: Patient - History of Present Illness Narrative History of Present Illness (Text): 05/14/18 12:07 Patient is a 82 year old male with past medical history of CAD s/p CABG, CKD, T2DM, afib on Eliquis, anemia presenting with worsening right lower extremity swelling and weeping over the past day. Patient was prompted to come to the emergency department by his wound care nurse. Patient has been compliant with his medications prescribed to him on previous admission including his Lasix. Denies fevers, chills, shortness of breath, chest pain, abdominal pain, diarrhea, dysuria. Time/Duration: 24 hours Symptom Onset: Gradual Symptom Course: Unchanged Context: Work <Julian Castillo - Last Filed: 05/14/18 15:47> <Gaudencio Marcus - Last Filed: 05/14/18 15:48> - General Chief Complaint: Lower Extremity Problem/Injury Time Seen by Provider: 05/14/18 11:15 Past Medical History - Past History Past History: No Previous - Infectious Disease Hx of Infectious Diseases: None - Tetanus Immunization Tetanus Immunization: Unknown - Reproductive Currently Lactating: No - Cardiac Hx Cardiac Disorders: Yes Hx Congestive Heart Failure: Yes - Pulmonary Hx Respiratory Disorders: Yes (PPD OF CIGARETTES QUIT 1996) - Neurological Hx Neurological Disorder: Yes Hx Dizziness: Yes - HEENT Hx HEENT Disorder: Yes (BLURRY VISION) Other/Comment: eyeglasses, viejas b/l - Renal Hx Renal Failure: Yes - Endocrine/Metabolic Hx Diabetes Mellitus Type 2: Yes - Hematological/Oncological Hx Blood Disorders: Yes Hx Anemia: Yes Hx Cancer: Yes (SKIN) - Integumentary Hx Dermatological Disorder: Yes - Musculoskeletal/Rheumatological Hx Falls: Yes - Gastrointestinal Hx Gastrointestinal Disorders: No - Genitourinary/Gynecological Hx Genitourinary Disorders: No - Psychiatric Hx Psychophysiologic Disorder: No Hx Substance Use: No - Surgical History Hx Open Heart Surgery: Yes Other/Comment: gi polyps removed - Anesthesia Hx Anesthesia: Yes Hx Anesthesia Reactions: No Hx Malignant Hyperthermia: No - Suicidal Assessment Feels Threatened In Home Enviroment: No <Julian Castillo - Last Filed: 05/14/18 15:47> - Provider Review Nursing Documentation Reviewed: Yes <Gaudencio Marcus - Last Filed: 05/14/18 15:48> Family/Social History Family/Social History: No Known Family HX Smoking Status: Former Smoker Hx Alcohol Use: Yes (quit 2009) Hx Substance Use: No Hx Substance Use Treatment: No <Julian Castillo - Last Filed: 05/14/18 15:47> - Physician Review Nursing Documentation Reviewed: Yes <Gaudencio Marcus - Last Filed: 05/14/18 15:48> Allergies/Home Meds <Julian Castillo - Last Filed: 05/14/18 15:47> <AngelineGaudencio - Last Filed: 05/14/18 15:48> Allergies/Adverse Reactions: Allergies Penicillins Allergy (Severe, Verified 05/04/18 11:36) SWELLING Home Medications: Home Meds Medication Instructions Recorded Confirmed Famotidine [Pepcid] 20 mg PO DAILY 05/21/17 05/04/18 Review of Systems - Physician Review All systems were reviewed & negative as marked: Yes (except as mentioned in HPI) - Review of Systems Respiratory: Normal Cardiovascular: Normal <Julian Castillo Last Filed: 05/14/18 15:47> Physical Exam Vital Signs Reviewed: Yes Temperature: Afebrile Blood Pressure: Normal Pulse: Tachycardic Respiratory Rate: Normal Appearance: Positive for: Non-Toxic, Comfortable Mental Status: Positive for: Alert and Oriented X 3 - Systems Exam Head: Present: Atraumatic, Normocephalic Pupils: Present: PERRL Extroacular Muscles: Present: EOMI Conjunctiva: Present: Normal Mouth: Present: Moist Mucous Membranes Respiratory/Chest: Present: Rales Cardiovascular: Present: Irregular Rhythm Abdomen: Present: Normal Bowel Sounds. No: Distention, Rebound Lower Extremity: Present: Edema (weeping ), Other (numbness in toes ) Neurological: Present: GCS=15 <Julian Castillo - Last Filed: 05/14/18 15:47> Vital Signs Temp Pulse Resp BP Pulse Ox 05/14/18 11:42 97.4 F L 102 H 16 131/77 99 <Gaudencio Marcus - Last Filed: 05/14/18 15:48> Medical Decision Making ED Course and Treatment: Impression: leg swelling Differential Diagnosis included but are not limited to: chronic exacerbation of CHF, DVT Prior Visits: Notes and results from previous visits were reviewed. Patient was last seen in the emergency department on 05/04/2018 Progress Notes: Patient hemodynamically stable and optimized for discharge. Patient instructed to continue with wound care and follow up with podiatry and PMD within 3-5 days after discharge. Patient to return to ED if symptoms worsen. - EKG Interpretation EKG Interpretation (Text): 05/14/18 15:31 80 bpm, NSR Interpreted by ED Physician: Yes Type: 12 lead EKG <Julian Castillo - Last Filed: 05/14/18 15:47> ED Course and Treatment: 05/14/18 13:29 Progress Notes Discussed case with Dr. Bassett(podiatry) who states he will send his resident to evaluate the patient at the bedside. 05/14/18 13:31 Labs reviewed with no acute leukocytosis or shift noted. No acute electrolyte abnormalities noted. 05/14/18 13:35 Dopplers for DVT negative. Updated patient's daughter of findings. 05/14/18 13:45 Podiatry resident at the bedside completing wound dressings. He states patient does not need acute intervention at this time. Will follow up with Dr. Bassett at the end of the week. In agreement with resident note, which includes further HPI details. Patient was seen and evaluated with resident, came up with plan and treatment together. 82 year old male presents complaining of right lower extremity swelling and weeping over the past day. Plan: -- EKG -- Labs -- Podiatry Consult -- Chest X-ray -- Labs -- Duplex LE US -- Reassess and disposition - Lab Interpretations Lab Results: Troponin I < 0.01 ng/mL 05/14/18 12:20 Total Bilirubin 0.9 mg/dL (0.2-1.3) 05/14/18 12:20 AST 46 U/L (17-59) 05/14/18 12:20 ALT 27 U/L (7-56) 05/14/18 12:20 Alkaline Phosphatase 198 U/L (38-126) H 05/14/18 12:20 Total Protein 7.5 g/dL (5.8-8.3) 05/14/18 12:20 Albumin 3.7 g/dL (3.0-4.8) 05/14/18 12:20 Globulin 3.8 gm/dL 05/14/18 12:20 Albumin/Globulin Ratio 1.0 (1.1-1.8) L 05/14/18 12:20 05/14/18 12:20 05/14/18 12:20 Lab Results 05/14/18 12:20: Sodium 139, Potassium 4.4, Chloride 105, Carbon Dioxide 24, Anion Gap 14, BUN 44 H, Creatinine 1.5, Est GFR ( Amer) 54, Est GFR (Non- Af Amer) 45, Random Glucose 96, Calcium 8.9, Phosphorus 4.7 H, Magnesium 2.2, Total Bilirubin 0.9, AST 46, ALT 27, Alkaline Phosphatase 198 H, Troponin I < 0.01, Total Protein 7.5, Albumin 3.7, Globulin 3.8, Albumin/Globulin Ratio 1.0 L 05/14/18 12:20: WBC 9.4, RBC 3.86, Hgb 11.1 L, Hct 36.4 L, MCV 94.3, MCH 28.8, MCHC 30.5 L, RDW 20.8 H, Plt Count 289, MPV 9.5, Neut % (Auto) 73.2 H, Lymph % (Auto) 16.3 L, [place] % (Auto) 8.1 H, Eos % (Auto) 2.1, Baso % (Auto) 0.3, Lymph # (Auto) 1.5, [place] # (Auto) 0.8 H, Eos # (Auto) 0.2, Baso # (Auto) 0.03, Absolute Neuts (auto) 6.91 H I have reviewed the lab results: Yes - RAD Interpretation Narrative RAD Interpretations (Text): Chest X-ray Dictator : Prosper Patel MD Report Date : 05/14/2018 12:58:41 IMPRESSION: No active disease. Radiology Orders: 05/14/18 12:00 CHEST PORTABLE [RAD] Stat DUPLEX LOWER EXTRM VEIN RIGHT [US] Stat Valance Cutter: Radiologist <Gaudencio Marcus - Last Filed: 05/14/18 15:48> - PA / FLORAL CLERK / Resident Statement ELLE has reviewed & agrees with the documentation as recorded. / has examined the patient and agrees with the treatment plan. - Scribe Statement The provider has reviewed the documentation as recorded by the Arash Colunga Provider Scribe Attestation: All medical record entries made by the Scribe were at my direction and personally dictated by me. I have reviewed the chart and agree that the record accurately reflects my personal performance of the history, physical exam, medical decision making, and the department course for this patient. I have also personally directed, reviewed, and agree with the discharge instructions and disposition. <FranciscoGaudencio serrano - Last Filed: 05/14/18 15:48> Disposition/Present on Arrival - Present on Arrival History of DVT/PE: No History of Uncontrolled Diabetes: No Urinary Catheter: No History Surgical Site Infection Following: None <Julian Castillo - Last Filed: 05/14/18 15:47> - Present on Arrival Any Indicators Present on Arrival: No - Disposition Have Diagnosis and Disposition been Completed?: Yes Disposition Time: 13:50 Patient Plan: Discharge <FranciscosudheerlindseyGaudencio - Last Filed: 05/14/18 15:48> - Disposition Diagnosis: Leg edema Disposition: HOME/ ROUTINE Patient Problems: Current Active Problems Problem Status Onset Leg edema Acute Condition: STABLE Discharge Instructions (ExitCare): Dependent Edema (DC) Print Language: TAJIK Additional Instructions: Please follow up with podiatry in clinic Please have continuous wound dressing changes Please follow up with your PCP in 1 week Referrals: Chandu Novak MD [Primary Care Provider] - Follow up with primary Forms: [employer] (French)
[2018-05-14 11:42] VITALS: BMI 33.9
[2018-05-14 11:48] VITALS: TEMP 97.4
[2018-05-14 12:38] LABS: BASO # 0.03 K/mm3 (0.0-2.0); BASO % 0.3 % (0.0-3.0); EOS # 0.2 (0.0-0.7); EOS % 2.1 % (1.5-5.0); HEMOGLOBIN 11.1 g/dL (14.0-18.0); LYMPH # 1.5 (1.2-3.4); LYMPH % 16.3 % (22.0-35.0); MEAN CELL VOLUME 94.3 fl (80.0-105.0); MEAN CORPUSCULAR HEMOGLOBIN 28.8 pg (25.0-35.0); MEAN CORPUSCULAR HGB CONC 30.5 g/dl (31.0-37.0); MEAN PLATELET VOLUME 9.5 fl (7.0-11.0); MONO # 0.8 (0.1-0.6); MONO % 8.1 % (1.0-6.0); RBC 3.86 10^6/uL (3.5-6.1); RED CELL DISTRIBUTION WIDTH 20.8 % (11.5-14.5); WHITE BLOOD COUNT 9.4 10^3/uL (4.5-11.0)
[2018-05-14 12:49] LABS: ALBUMIN 3.7 g/dL (3.0-4.8); ALT/SGPT 27 U/L (7-56); AST/SGOT 46 U/L (17-59); BLOOD UREA NITROGEN 44 mg/dL (7-21); CALCIUM 8.9 mg/dL (8.4-10.5); GFR NON-AFRICAN AMERICAN 45
[2018-05-14 12:57] LABS: TROPONIN I < 0.01 ng/mL
--- NOTE | 2018-05-14 13:02 | RAD ---
Date of service: 05/14/2018 HISTORY: eval COMPARISON: 05/04/2018 TECHNIQUE: 1 view obtained. FINDINGS: LUNGS: No active pulmonary disease. PLEURA: No significant pleural effusion identified, no pneumothorax apparent. CARDIOVASCULAR: Aortic calcification Moderate cardiomegaly no pulmonary vascular congestion. OSSEOUS STRUCTURES: Sternal wires VISUALIZED UPPER ABDOMEN: Normal. OTHER FINDINGS: None. IMPRESSION: No active disease.
--- NOTE | 2018-05-14 14:08 | CP.PCM.CON ---
<Beto Pruitt - Last Filed: 05/14/18 14:04> History of Present Illness - History of Present Illness History of Present Illness: Podiatry Consult Note: Dr. Bassett 82 year old male patient with CAD, CKD, DMII, A.fib, and anemia seen and evaluated for b/l lower extremity edema, weeping, and erythema to the R lower leg. Patient is well known to the podiatry service and was admitted and disch arged a week ago for b/l edema, weeping and erythema. Patient states that his home nurse came today tochange his dressing but he didn't let her do that. Patient was brought into the ER by his daughter. patient states that he has mild pain in his right leg when somebody attempts to touch it. Patient denies any change in his lower extremity during last week. Patient currently sleeping in bed. Denies any recent nausea/vomiting/fever/shortness of breath/chest pain/chills. PMH: CAD post CABG, CKD, DM II, A. fib (on Eliquis), and anemia PSH: CABG, laminectomy ALL: PCN (rash) SHx: Former tobacco use Review of Systems - Review of Systems Review of Systems: As per HPI - Constitutional Constitutional: As Per HPI Past Patient History - Infectious Disease Hx of Infectious Diseases: None - Tetanus Immunizations Tetanus Immunization: Unknown - Past Medical History & Family History Past Medical History?: Yes - Past Social History Smoking Status: Former Smoker - CARDIAC Hx Cardiac Disorders: Yes Hx Congestive Heart Failure: Yes - PULMONARY Hx Respiratory Disorders: Yes (PPD OF CIGARETTES QUIT 1996) - NEUROLOGICAL Hx Neurological Disorder: Yes Hx Dizziness: Yes - HEENT Hx HEENT Problems: Yes (BLURRY VISION) Other/Comment: eyeglasses, jena b/l - RENAL Hx Renal Failure: Yes - ENDOCRINE/METABOLIC Hx Diabetes Mellitus Type 2: Yes - HEMATOLOGICAL/ONCOLOGICAL Hx Blood Disorders: Yes Hx Anemia: Yes Hx Cancer: Yes (SKIN) - INTEGUMENTARY Hx Dermatological Problems: Yes - MUSCULOSKELETAL/RHEUMATOLOGICAL Hx Falls: Yes - GASTROINTESTINAL Hx Gastrointestinal Disorders: No - GENITOURINARY/GYNECOLOGICAL Hx Genitourinary Disorders: No - PSYCHIATRIC Hx Psychophysiologic Disorder: No Hx Substance Use: No - SURGICAL HISTORY Hx Open Heart Surgery: Yes Other/Comment: gi polyps removed - ANESTHESIA Hx Anesthesia: Yes Hx Anesthesia Reactions: No Hx Malignant Hyperthermia: No Meds Allergies/Adverse Reactions: Allergies Allergy/AdvReac Type Severity Reaction Status Date / Time Penicillins Allergy Severe SWELLING Verified 05/04/18 11:36 Physical Exam - Constitutional Appears: Well, Non-toxic, No Acute Distress - Head Exam Head Exam: ATRAUMATIC, NORMOCEPHALIC - Extremities Exam Additional comments: B/L lower extremity exam: LLE is inside compression dressing, Dressing was C/D/I. LLE dressing left intact RLE exam: Vascular: DP/PT faintly palpable 1/4, CAp refill < 3 seconds, Temp gradient warm to cool, + 1 weeping edema appreciated to b/l lower extremities Neuro: Gross sensation intact, protective sensation diminished Derm: Weeping edema appreciated to R lower extremity, serous drainage, no malodor, no open lesions, no tunneling, no tracking appreciated, no probe to bone, no clinical signs of infection noted, Mild erythema noted to the upper and lower 1/3 of the right leg. MSK: Mild pain with palpation of R lower extremity, no pain with calf compression, MMT 4/5 to all groups. - Neurological Exam Neurological exam: Alert, Oriented x3 Results - Vital Signs Recent Vital Signs: Last Vital Signs Temp 97.4 F L 05/14/18 11:42 Pulse 102 H 05/14/18 11:42 Resp 16 05/14/18 11:42 BP 131/77 05/14/18 11:42 Pulse Ox 99 05/14/18 11:42 - Labs Result Diagrams: 05/14/18 12:20 05/14/18 12:20 Labs: Laboratory Results - last 24 hr 05/14/18 05/14/18 12:20 12:20 WBC 9.4 RBC 3.86 Hgb 11.1 L Hct 36.4 L MCV 94.3 MCH 28.8 MCHC 30.5 L RDW 20.8 H Plt Count 289 MPV 9.5 Neut % (Auto) 73.2 H Lymph % (Auto) 16.3 L [place] % (Auto) 8.1 H Eos % (Auto) 2.1 Baso % (Auto) 0.3 Lymph # (Auto) 1.5 [place] # (Auto) 0.8 H Eos # (Auto) 0.2 Baso # (Auto) 0.03 Absolute Neuts (auto) 6.91 H Sodium 139 Potassium 4.4 Chloride 105 Carbon Dioxide 24 Anion Gap 14 BUN 44 H Creatinine 1.5 Est GFR ( Amer) 54 Est GFR (Non-Af Amer) 45 Random Glucose 96 Calcium 8.9 Phosphorus 4.7 H Magnesium 2.2 Total Bilirubin 0.9 AST 46 ALT 27 Alkaline Phosphatase 198 H Troponin I < 0.01 Total Protein 7.5 Albumin 3.7 Globulin 3.8 Albumin/Globulin Ratio 1.0 L Assessment & Plan - Assessment and Plan (Free Text) Assessment: 82 year old male patient with CAD, CKD, DMII, A.fib, and anemia seen and evaluated in the Ed for R lower extremity edema, weeping, and erythema. Plan: Patient seen and evaluated Plan discussed with Dr. Bassett Charts, labs and vitals reviewed: Afebrile, WBC 9.4 LLE compression dressing left intact RLE dressed with kerlix and Joshua bandage KARIN from 04/12/18: R 1.26 and L 0.88, left SFA occlusive disease, bilateral tibial disease Instructed patient on importance of elevating b/l lower extremities. Instructed patient the importance of being compliant with dressing change by the home nurse. Thank you for the consult Patient to follow with Dr. Page/ upon discharge home. - Date & Time Date: 05/14/18 Time: 14:05 <Danny Bassett - Last Filed: 05/16/18 15:23> Results - Vital Signs Recent Vital Signs: Last Vital Signs Temp 97.4 F L 05/14/18 11:42 Pulse 88 05/14/18 15:00 Resp 18 05/14/18 15:00 BP 139/82 05/14/18 15:00 Pulse Ox 98 05/14/18 15:00 - Labs Result Diagrams: 05/14/18 12:20 05/14/18 12:20 Attending/Attestation - Attestation I have personally seen and examined this patient.: Yes I have fully participated in the care of the patient.: Yes I have reviewed all pertinent clinical information: Yes
--- NOTE | 2018-05-14 14:49 | CARD ---
APPROVED REPORT Date of service: 05/14/2018 EKG Measurement Heart [id number] <Conclusion> Baseline artifact may preclude adduratae interpretation Probable sinus rhythm with frequent supraventricular premature complexes T wave abnormality, consider inferior ischemia Abnormal ECG
[2018-05-14 15:21] VITALS: RESP 18
[2018-05-14 15:22] VITALS: BP 139/82; PULSE 88; O2SAT 98
--- NOTE | 2018-05-14 18:30 | US ---
PROCEDURE: Right lower extremity venous US HISTORY: Leg pain and swelling. Evaluate for DVT. PHYSICIAN(S): Elliott Benavides M.D. TECHNIQUE: Duplex sonography and color-flow Doppler with graded compression were used to evaluate the deep venous system of the right lower extremity. The exam is limited by body habitus and edema. The tibial veins are not well seen FINDINGS: The visualized deep venous system of the right lower extremity is sonographically normal and compressible. Normal waveforms and augmentation are seen. There is no sonographic evidence for deep venous thrombosis in the visualized segments of the right lower extremity. IMPRESSION: 1. No sonographic evidence for deep venous thrombosis in the visualized segments of the right lower extremity. 2. Limited study.
== END 2018-05-14 15:15 | disposition home or self-care (01) ==
LOC: ED 11:13
DX: R60.0 Localized edema (principal); I25.10 Atherosclerotic heart disease of native coronary artery without angina pectoris; Z95.1 Presence of aortocoronary bypass graft; E11.9 Type 2 diabetes mellitus without complications; I48.91 Unspecified atrial fibrillation; Z79.01 Long term (current) use of anticoagulants; N18.9 Chronic kidney disease, unspecified; I50.9 Heart failure, unspecified; Z87.891 Personal history of nicotine dependence

== ENCOUNTER 2018-05-23 14:46 | Inpatient (IN) | payer MEDICARE, BC | END 2018-05-29 15:37 | disposition home or self-care (01) | LOC: ED 14:46 → ERH 17:40 → 2RNO 19:41 ==

== ENCOUNTER 2018-06-01 01:19 | Emergency (ER) | payer MEDICARE, BC ==
[2018-06-01 01:20] VITALS: PULSE 86; BMI 33.9
[2018-06-01 01:37] VITALS: RESP 18; TEMP 98.2; O2SAT 99
--- NOTE | 2018-06-01 01:42 | ED PDOC ---
Arrival/HPI - General Chief Complaint: Chest Pain Time Seen by Provider: 06/01/18 01:21 Historian: Patient, Family (granddaughter) - History of Present Illness Narrative History of Present Illness (Text): 06/01/18 01:38 Eligio Swanson is an 82 year old male, whose past medical history includes CHF, CAD s/p CABG, chronic kidney disease, diabetes, atrial fibrillation, anemia, hypothyroidism, and chronic left lower extremity ulcer, who presents to the ED brought in by EMS for right great toe bleeding and chest pain. Granddaughter states patient was discharged from the hospital 3 days prior and notes while hospitalized patient stubbed his right great toe and sustained an abrasion to the area. Granddaughter states bleeding from the area has not stopped since he stubbed his toe and notes she has had to change his foot dressings multiple times due to the blood. Granddaughter notes patient was advised to hold his Eliquis. Patient also reports he developed some chest pain earlier tonight prior to arrival. Patient denies any fever, chills, shortness of breath, nausea, vomiting, diarrhea, urinary symptoms, back pain, neck pain, headache, dizziness, or any other complaints. PMD: Dr. Novak Research Food Technologist: Dr. Atkins Symptom Onset: Gradual Symptom Course: Unchanged Activities at Onset: Light Context: Home Past Medical History - Provider Review Nursing Documentation Reviewed: Yes - Past History Past History: No Previous - Infectious Disease Hx of Infectious Diseases: None - Tetanus Immunization Tetanus Immunization: Unknown - Reproductive Currently Lactating: No - Cardiac Hx Cardiac Disorders: Yes (CAD,CABG) Hx Circulatory Problems: Yes Hx Congestive Heart Failure: Yes - Pulmonary Hx Respiratory Disorders: Yes (PPD OF CIGARETTES QUIT 1996) - Neurological Hx Neurological Disorder: Yes Hx Dizziness: Yes - HEENT Hx HEENT Disorder: Yes (BLURRY VISION) Other/Comment: eyeglasses, [place] b/l - Renal Hx Renal Disorder: Yes Hx Renal Failure: Yes - Endocrine/Metabolic Hx Endocrine Disorders: Yes Hx Diabetes Mellitus Type 2: Yes - Hematological/Oncological Hx Blood Disorders: Yes Hx Anemia: Yes Hx Cancer: Yes (SKIN) - Integumentary Hx Dermatological Disorder: Yes Other/Comment: 05-23-18 BILATERAL GROSS EDEMA EXTENDS TO HIP AND BELOW STOMACH. CELLULITIS,STASIS ULCER TO BILATERAL LE WITH RAW SKIN,BLEED,OOZING COPIOUS AMOUNT OF SEROUS FLUID. BLISTER FORMATION. LEFT TOES HAS SLOUGH.LEFT GREAT TOE HAS DTI DISCOLORED DEEP PURPLISH HUE. IASD TO INBETWEEN BUTTOCK AND GROIN AREA. RAW SKIN ,BLEEDING. MASD. UNDER THE FOLDS OF STOMACH IS BLEEDING WITH FOUL SMELL. - Musculoskeletal/Rheumatological Hx Musculoskeletal Disorders: Yes Hx Falls: Yes Hx Unsteady Gait: Yes (NON AMBULATORY DUE TO CELLULITIS AND PAIN TO LEFT HEEL.) - Gastrointestinal Hx Gastrointestinal Disorders: No - Genitourinary/Gynecological Hx Genitourinary Disorders: No - Psychiatric Hx Psychophysiologic Disorder: No Hx Substance Use: No - Surgical History Hx Open Heart Surgery: Yes Other/Comment: gi polyps removed - Anesthesia Hx Anesthesia: Yes Hx Anesthesia Reactions: No Hx Malignant Hyperthermia: No - Suicidal Assessment Feels Threatened In Home Enviroment: No Family/Social History - Physician Review Nursing Documentation Reviewed: Yes Family/Social History: Unknown Family HX Smoking Status: Former Smoker Hx Alcohol Use: Yes (QUIT 2009) Hx Substance Use: No Hx Substance Use Treatment: No Allergies/Home Meds Allergies/Adverse Reactions: Allergies Penicillins Allergy (Severe, Verified 06/01/18 01:24) SWELLING Home Medications: Home Meds Medication Instructions Recorded Confirmed Famotidine [Pepcid] 20 mg PO DAILY 05/21/17 05/23/18 Review of Systems - Physician Review All systems were reviewed & negative as marked: Yes - Review of Systems Constitutional: Normal. absent: Fevers Eyes: Normal ENT: Normal Respiratory: Normal. absent: SOB, Cough Cardiovascular: Chest Pain Gastrointestinal: Normal. absent: Abdominal Pain, Diarrhea, Nausea, Vomiting Genitourinary Male: Normal. absent: Dysuria, Frequency, Hematuria, Urinary Output Changes Musculoskeletal: Normal. absent: Back Pain, Neck Pain Skin: Other (+right great toe wound). absent: Rash Neurological: Normal. absent: Headache, Dizziness Endocrine: Normal Hemo/Lymphatic: Normal Psychiatric: Normal Physical Exam Vital Signs Reviewed: Yes Vital Signs Temp Pulse Resp BP Pulse Ox 06/01/18 01:30 98.2 F 88 18 117/50 L 99 Temperature: Afebrile Blood Pressure: Normal Pulse: Regular Respiratory Rate: Normal Appearance: Positive for: Well-Appearing, Non-Toxic, Comfortable Pain Distress: None Mental Status: Positive for: Alert and Oriented X 3 - Systems Exam Head: Present: Atraumatic, Normocephalic Pupils: Present: PERRL Extroacular Muscles: Present: EOMI Conjunctiva: Present: Normal Mouth: Present: Moist Mucous Membranes Neck: Present: Normal Range of Motion Respiratory/Chest: Present: Clear to Auscultation, Good Air Exchange. No: Respiratory Distress, Accessory Muscle Use Cardiovascular: Present: Regular Rate and Rhythm, Normal S1, S2. No: Murmurs Abdomen: No: Tenderness, Distention, Peritoneal Signs Back: Present: Normal Inspection Upper Extremity: Present: Normal Inspection. No: Cyanosis, Edema Lower Extremity: Present: NORMAL PULSES, Normal ROM, Other (Small abrasion to volar pad of right great toe with minimal oozing blood). No: Edema, Tenderness, Swelling, Erythema, Deformity, Temperature Abnormalties Neurological: Present: GCS=15, CN II-XII Intact, Speech Normal Skin: Present: Warm, Dry, Normal Color. No: Rashes Psychiatric: Present: Alert, Oriented x 3, Normal Insight, Normal Concentration Medical Decision Making ED Course and Treatment: 06/01/18 01:39 Impression: 82 year old male complaining of bleeding from his right toe and chest pain. Plan: -- EKG -- Chest X-ray -- Labs, cardiac enzymes, BNP -- Gelfoam -- Reassess and disposition Prior Visits: Notes and results from previous visits were reviewed. Progress Notes: Reviewed EKG, a fib at 96 bpm[address] Non-specific ST/T wave changes. Right great toe was irrigated and cleansed with sterile saline. Gelfoam was applied to the right great toe abrasion. Abrasion was dressed with sterile gauze. 06/01/18 03:05 Chest X-ray reviewed, shows no acute processes. 06/01/18 03:25 Leaving Against Medical Advice (AMA): The patient is choosing to leave against medical advice. I have personally explained to the patient that choosing to do so may result in permanent bodily harm, disability, or . I have discussed at great length that without further evaluation and monitoring there may be unforeseen circumstances and/or deterioration causing permanent bodily harm or as a result of their choice. The patient is alert, oriented, and shows the mental capacity to make clear decisions regarding the patients health care at this time. The patient continues to wish to leave against medical advice. In light of the patients decision to leave against medical advice, patient is aware of the importance to following up as instructed. The patient has been advised that they should return to the emergency room immediately if they change their mind at any time, or if their condition begins to change or worsen in any way. - Lab Interpretations I have reviewed the lab results: Yes - RAD Interpretation Radiology Orders: 06/01/18 01:32 CHEST PORTABLE [RAD] Stat Prosthetic Technician: ED Physician - EKG Interpretation Interpreted by ED Physician: Yes Type: 12 lead EKG - Scribe Statement The provider has reviewed the documentation as recorded by the Mirlandeibe Maura Nassar Provider Scribe Attestation: All medical record entries made by the Scribe were at my direction and personally dictated by me. I have reviewed the chart and agree that the record accurately reflects my personal performance of the history, physical exam, medical decision making, and the department course for this patient. I have also personally directed, reviewed, and agree with the discharge instructions and disposition. Disposition/Present on Arrival - Present on Arrival Any Indicators Present on Arrival: No History of DVT/PE: No History of Uncontrolled Diabetes: No Urinary Catheter: No History of Decub. Ulcer: No History Surgical Site Infection Following: None - Disposition Have Diagnosis and Disposition been Completed?: Yes Diagnosis: Chest pain, Abrasion of toe Disposition: AGAINST MEDICAL ADVICE Disposition Time: 03:58 Condition: STABLE Discharge Instructions (ExitCare): Chest Pain (ED) Referrals: Chandu Novak MD [Primary Care Provider] - Follow up with primary Forms: [employer] ([place])
[2018-06-01] MEDS ORDERED: Absorbable Gelatin Sponge Size 12-7 ONE (01:44)
[2018-06-01] MEDS ORDERED: Absorbable Gelatin Sponge Size 12-7 MM STA (01:47)
[2018-06-01 02:37] LABS: HEMOGLOBIN 10.2 g/dL (14.0-18.0); MEAN CELL VOLUME 92.7 fl (80.0-105.0); MEAN CORPUSCULAR HEMOGLOBIN 28.7 pg (25.0-35.0); MEAN CORPUSCULAR HGB CONC 30.9 g/dl (31.0-37.0); MEAN PLATELET VOLUME 8.7 fl (7.0-11.0); RBC 3.56 10^6/uL (3.5-6.1); WHITE BLOOD COUNT 9.5 10^3/uL (4.5-11.0)
[2018-06-01 02:41] LABS: INR 1.32; PROTHROMBIN TIME 14.7 SECONDS (9.4-12.5)
[2018-06-01 02:44] LABS: ALBUMIN 3.7 g/dL (3.0-4.8); ALT/SGPT 31 U/L (7-56); AST/SGOT 51 U/L (17-59); BLOOD UREA NITROGEN 68 mg/dL (7-21); CALCIUM 9.1 mg/dL (8.4-10.5); GFR NON-AFRICAN AMERICAN 49
[2018-06-01 02:49] LABS: B-TYPE NATRIURETIC PEPTIDE 9990 pg/mL (0-450); TROPONIN I 0.03 ng/mL
[2018-06-01 06:39] VITALS: BP 118/57; PULSE 90
--- NOTE | 2018-06-01 12:12 | RAD ---
Date of service: 06/01/2018 HISTORY: chest pain COMPARISON: Chest radiograph dated 05/23/2018. TECHNIQUE: 1 view obtained. FINDINGS: LUNGS: No active pulmonary disease. PLEURA: No significant pleural effusion identified, no pneumothorax apparent. CARDIOVASCULAR: Prior sternotomy with sternal wires and surgical clips in place. Aortic atherosclerotic calcifications. Cardiomediastinal silhouette stably enlarged. OSSEOUS STRUCTURES: Old right-sided rib fractures. Unchanged. VISUALIZED UPPER ABDOMEN: Normal. OTHER FINDINGS: None. IMPRESSION: No active disease.
--- NOTE | 2018-06-01 12:14 | RAD ---
PROCEDURE: Radiographs of the right great toe. TECHNIQUE:: AP radiograph of the right foot, with oblique and lateral view of the right great toe. COMPARISON: Right foot radiographs dated 05/24/2018 TECHNIQUE: 3 views obtained. FINDINGS: BONES: No acute fracture. Erosive changes along the medial base of the 5th proximal phalanx. JOINTS: Normal. SOFT TISSUES: Normal. OTHER FINDINGS: None. IMPRESSION: No demonstrated acute fracture or dislocation.
--- NOTE | 2018-06-01 15:03 | CARD ---
APPROVED REPORT Date of service: 06/01/2018 EKG Measurement Heart [id number] <Conclusion> Atrial fibrillation ST & T wave abnormality, consider inferior ischemia or digitalis effect Abnormal ECG
== END 2018-06-01 03:35 | disposition left against medical advice (07) ==
LOC: ED 01:19
DX: R07.9 Chest pain, unspecified (principal); S90.411A Abrasion, right great toe, initial encounter; W22.8XXA Striking against or struck by other objects, initial encounter; I25.10 Atherosclerotic heart disease of native coronary artery without angina pectoris; I50.9 Heart failure, unspecified; I48.91 Unspecified atrial fibrillation; E11.22 Type 2 diabetes mellitus with diabetic chronic kidney disease; Z85.828 Personal history of other malignant neoplasm of skin; Z95.1 Presence of aortocoronary bypass graft; Z79.01 Long term (current) use of anticoagulants; Z87.891 Personal history of nicotine dependence

== ENCOUNTER 2018-06-15 22:12 | Inpatient (IN) | payer MEDICARE, BC ==
[2018-06-15 22:12] VITALS: BMI 33.9
--- NOTE | 2018-06-15 22:21 | ED PDOC ---
Arrival/HPI - General Historian: Patient, Family (great granddaughter) - History of Present Illness Narrative History of Present Illness (Text): 06/15/18 22:29 Patient is an 82 yo male with CHF, CAD s/p CABG, CKD, T2DM, Afib on Eliquis, b/l leg cellulitis, hypothyroidism, and anemia who presents with chest pain. Great granddaughter is at bedside who helps provide history. Patient states that his started to have mid chest pain around 9:20 PM (1 hour prior to arrival) while sitting down. He said it felt like pressure and was a 7/10 severity. He took 2 sublingual nitroglycerins and pain subsided. Presently, he denies pain but feels a chest "heaviness." He denies palpitations or SOB. Great granddaughter states that she lives with him and has been ensuring he takes all his medications, including Eliquis. Of note, patient was recently hospitalized for b/l leg cellulitis and Afib 05/24-05/29/18. He is taking clindamycin. He came back to the emergency department on 06/01 for chest pain but AMA'd prior to dispo. 06/15/18 23:17 Great granddaughter reports that patient was admitted in [facility] for sepsis (source leg cellulitis) from last Sunday-Sunday. Additionally, patient and family report he started having blood in his stool this morning. They state he is up-to-date on colonoscopy but cannot remember the date of the most recent one. Patient was restarted on Eliquis after being discharged from [facility] about 2 weeks ago. Time/Duration: Prior to Arrival <Herlinda Lara - Last Filed: 06/15/18 23:45> <Kunal Del Cid DO - Last Filed: 06/16/18 05:55> - General Chief Complaint: Chest Pain Time Seen by Provider: 06/15/18 22:15 Past Medical History - Provider Review Nursing Documentation Reviewed: Yes Primary Care Provider: Chandu Novak - Past History Past History: No Previous - Infectious Disease Hx of Infectious Diseases: None - Tetanus Immunization Tetanus Immunization: Unknown - Reproductive Currently Lactating: No - Cardiac Hx Cardiac Disorders: Yes (CAD,CABG) - Pulmonary Hx Respiratory Disorders: Yes (PPD OF CIGARETTES QUIT 1996) - Neurological Hx Neurological Disorder: Yes Hx Dizziness: Yes - HEENT Hx HEENT Disorder: Yes (BLURRY VISION) Other/Comment: eyeglasses, [place] b/l - Renal Hx Renal Failure: Yes - Endocrine/Metabolic Hx Diabetes Mellitus Type 2: Yes - Hematological/Oncological Hx Blood Disorders: Yes Hx Anemia: Yes Hx Cancer: Yes (SKIN) - Integumentary Hx Dermatological Disorder: Yes - Musculoskeletal/Rheumatological Hx Falls: Yes - Gastrointestinal Hx Gastrointestinal Disorders: No - Genitourinary/Gynecological Hx Genitourinary Disorders: No - Psychiatric Hx Psychophysiologic Disorder: No Hx Substance Use: No - Surgical History Hx Open Heart Surgery: Yes Other/Comment: gi polyps removed - Anesthesia Hx Anesthesia: Yes Hx Anesthesia Reactions: No Hx Malignant Hyperthermia: No - Suicidal Assessment Feels Threatened In Home Enviroment: No <Herlinda Lara - Last Filed: 06/15/18 23:45> Family/Social History - Physician Review Nursing Documentation Reviewed: Yes Family/Social History: Unknown Family HX Smoking Status: Former Smoker Hx Alcohol Use: Yes (QUIT 2009) Hx Substance Use: No Hx Substance Use Treatment: No <Herlinda Lara - Last Filed: 06/15/18 23:45> Allergies/Home Meds <Herlinda Lara - Last Filed: 06/15/18 23:45> <Kunal Del Cid DO - Last Filed: 06/16/18 05:55> Allergies/Adverse Reactions: Allergies Penicillins Allergy (Severe, Verified 06/15/18 22:18) SWELLING Home Medications: Home Meds Medication Instructions Recorded Confirmed Famotidine [Pepcid] 20 mg PO DAILY 05/21/17 05/23/18 Review of Systems - Review of Systems Constitutional: absent: Fatigue, Fevers Eyes: absent: Vision Changes ENT: absent: Hearing Changes Respiratory: absent: SOB, Cough Cardiovascular: Chest Pain. absent: Palpitations Gastrointestinal: Hematochezia. absent: Abdominal Pain, Constipation, Diarrhea, Nausea, Vomiting Genitourinary Male: absent: Dysuria, Hematuria Skin: Cellulitis (b/l legs) Neurological: Normal. absent: Headache, Dizziness Endocrine: absent: Diaphoresis Hemo/Lymphatic: absent: Adenopathy <Herlinda Lara - Last Filed: 06/15/18 23:45> Physical Exam Temperature: Afebrile Blood Pressure: Normal Pulse: Regular Respiratory Rate: Normal Appearance: Positive for: Non-Toxic Pain Distress: None Mental Status: Positive for: Alert and Oriented X 3 - Systems Exam Head: Present: Atraumatic, Normocephalic Pupils: Present: PERRL Extroacular Muscles: Present: EOMI Conjunctiva: Present: Normal Neck: Present: Normal Range of Motion Respiratory/Chest: Present: Clear to Auscultation, Good Air Exchange. No: Respiratory Distress, Accessory Muscle Use Cardiovascular: Present: Regular Rate and Rhythm, Normal S1, S2. No: Murmurs Abdomen: No: Tenderness, Distention Back: Present: Normal Inspection Upper Extremity: Present: Neurovascularly Intact Lower Extremity: Present: Other (b/l LEs wrapped from knees to feet) Neurological: Present: GCS=15, CN II-XII Intact, Speech Normal Skin: Present: Warm, Diaphoretic, Other (multiple scabs on chest, head, arms, large area of purpura on RUE) Psychiatric: Present: Alert, Oriented x 3, Normal Insight, Normal Concentration <Herlinda Lara - Last Filed: 06/15/18 23:45> Vital Signs Temp Pulse Resp BP Pulse Ox 06/16/18 00:25 97.8 F 80 18 111/68 98 06/15/18 23:25 80 18 112/56 L 98 06/15/18 22:27 97.5 F L 79 18 135/50 L 98 <Kunal Del Cid DO - Last Filed: 06/16/18 05:55> Medical Decision Making ED Course and Treatment: 06/15/18 23:[address] Juma Dougherty who accepts patient for admission. He requested patient not be given aspirin due to GI bleed and acute anemia. Requested GI consulted (Dr. Lozada). Re-evaluation Time: 23:34 Reassessment Condition: Unchanged - Lab Interpretations I have reviewed the lab results: Yes Interpretation: Abnormal lab values (Hgb 8.5 (sig change), BNP 26319, trop 0.10) - RAD Interpretation Radiology Orders: 06/15/18 22:20 CHEST PORTABLE [RAD] Stat Turbine Blade Assembler: ED Physician, Radiologist - EKG Interpretation EKG Interpretation (Text): 06/15/18 22:40 Compared to EKG on 06/01/18- now NSR (06/01 was Afib) Interpreted by ED Physician: Yes Type: 12 lead EKG Comparison: Different from prev. EKG <Herlinda Lara - Last Filed: 06/15/18 23:45> - Lab Interpretations Lab Results: Troponin I 0.10 ng/mL D 06/15/18 22:55 NT-Pro-B Natriuret Pep 14629 pg/mL (0-450) H 06/15/18 22:55 Total Bilirubin 0.7 mg/dL (0.2-1.3) 06/15/18 22:55 AST 52 U/L (17-59) 06/15/18 22:55 ALT 29 U/L (7-56) 06/15/18 22:55 Alkaline Phosphatase 217 U/L (38-126) H 06/15/18 22:55 Total Protein 7.4 g/dL (5.8-8.3) 06/15/18 22:55 Albumin 3.5 g/dL (3.0-4.8) 06/15/18 22:55 Globulin 3.9 gm/dL 06/15/18 22:55 Albumin/Globulin Ratio 0.9 (1.1-1.8) L 06/15/18 22:55 - RAD Interpretation Radiology Orders: 06/15/18 22:20 CHEST PORTABLE [RAD] Stat - Medication Orders Current Medication Orders: Atorvastatin Calcium (Lipitor) 40 mg PO HS NIYA Digoxin (Digoxin) 0.125 mg PO 1400 NIYA Docusate Sodium (Colace) 100 mg PO BID NIAY Last Admin: 06/16/18 00:29 Dose: 100 mg Last Bowel Movement Document 06/16/18 00:29 RG (Rec: 06/16/18 00:29 RG [id number]) Last Bowel Movement Last Bowel Movement 06/16/18 Famotidine (Pepcid) 20 mg PO DAILY NIYA Furosemide (Lasix) 40 mg PO BID NIYA Levothyroxine Sodium (Synthroid) 25 mcg PO 0600 NIYA Metoprolol Succinate (Toprol Xl) 50 mg PO DAILY NIYA Spironolactone (Aldactone) 25 mg PO BID NIYA <Kunal Del Cid DO - Last Filed: 06/16/18 05:55> - PA / BANKING ANALYST / Resident Statement ELLE has reviewed & agrees with the documentation as recorded. ELEL has examined the patient and agrees with the treatment plan. <Kunal Del Cid DO - Last Filed: 06/16/18 05:55> Disposition/Present on Arrival - Present on Arrival Any Indicators Present on Arrival: No History of DVT/PE: No History of Uncontrolled Diabetes: No Urinary Catheter: No History of Decub. Ulcer: No History Surgical Site Infection Following: None - Disposition Have Diagnosis and Disposition been Completed?: Yes Disposition Time: 23:46 Patient Plan: Admission, Telemetry <Herlinda Lara - Last Filed: 06/15/18 23:45> <Kunal Del Cid DO - Last Filed: 06/16/18 05:55> - Disposition Diagnosis: GI bleed, Chest pain, Anemia Disposition: HOSPITALIZED Patient Problems: Current Active Problems Problem Status Onset Anemia Acute Chest pain Acute GI bleed Acute Condition: STABLE
[2018-06-15 22:30] VITALS: O2SAT 98
[2018-06-15 23:08] LABS: BASO # 0.03 K/mm3 (0.0-2.0); BASO % 0.3 % (0.0-3.0); EOS # 0.4 (0.0-0.7); EOS % 4.2 % (1.5-5.0); HEMOGLOBIN 8.5 g/dL (14.0-18.0); LYMPH # 1.5 (1.2-3.4); LYMPH % 17.2 % (22.0-35.0); MEAN CELL VOLUME 94.2 fl (80.0-105.0); MEAN CORPUSCULAR HEMOGLOBIN 29.2 pg (25.0-35.0); MEAN PLATELET VOLUME 9.4 fl (7.0-11.0); MONO # 0.6 (0.1-0.6); MONO % 6.5 % (1.0-6.0); RBC 2.91 10^6/uL (3.5-6.1); RED CELL DISTRIBUTION WIDTH 20.4 % (11.5-14.5)
[2018-06-15 23:23] LABS: ALB/GLOB RATIO 0.9 (1.1-1.8); ALBUMIN 3.5 g/dL (3.0-4.8); ALT/SGPT 29 U/L (7-56); AST/SGOT 52 U/L (17-59); BLOOD UREA NITROGEN 40 mg/dL (7-21); CALCIUM 8.7 mg/dL (8.4-10.5); GFR NON-AFRICAN AMERICAN > 60
[2018-06-15 23:29] LABS: B-TYPE NATRIURETIC PEPTIDE 13000 pg/mL (0-450)
[2018-06-15 23:53] LABS: T3 0.79 ng/mL (0.97-1.69)
--- NOTE | 2018-06-16 01:54 | CP.PCM.PN ---
Subjective - Date & Time of Evaluation Date of Evaluation: 06/16/18 Time of Evaluation: 01:51 - Subjective Subjective: Nurse calls and tells that patient is very hungry and demand to have food. Not sure if is taking patient for socpy in AM(Week end) Will feed once and keep NPO afterwards,so was nurse Taylor instructed. Objective - Vital Signs/Intake and Output Vital Signs (last 24 hours): Temp Pulse Resp BP Pulse Ox 97.8 F 80 18 111/68 98 06/16/18 00:25 06/16/18 00:25 06/16/18 00:25 06/16/18 00:25 06/16/18 00:25 - Medications Medications: Current Medications Atorvastatin Calcium (Lipitor) 40 mg PO HS NIYA Digoxin (Digoxin) 0.125 mg PO 1400 NIYA Docusate Sodium (Colace) 100 mg PO BID NIYA Last Admin: 06/16/18 00:29 Dose: 100 mg Famotidine (Pepcid) 20 mg PO DAILY NIYA Furosemide (Lasix) 40 mg PO BID NIYA Levothyroxine Sodium (Synthroid) 25 mcg PO 0600 NIYA Metoprolol Succinate (Toprol Xl) 50 mg PO DAILY NIYA Spironolactone (Aldactone) 25 mg PO BID [facility] - Labs Labs: 06/15/18 22:55 06/15/18 22:55
[2018-06-16] MEDS: Levothyroxine 25 MCG TAB PO SCH (06:00)
--- NOTE | 2018-06-16 08:29 | RAD ---
Date of service: 06/15/2018 HISTORY: chest pain COMPARISON: 06/01/2018. FINDINGS: LUNGS: The lungs are well inflated. The right lung is clear. There haziness in the left lower lobe. PLEURA: No pleural effusions or pneumothorax. CARDIOVASCULAR: There is moderate cardiomegaly. Status post CABG. There are aortic atherosclerotic calcifications present. OSSEOUS STRUCTURES: Within normal limits for the patient's age. VISUALIZED UPPER ABDOMEN: Normal. OTHER FINDINGS: None. IMPRESSION: Haziness in the left lower lobe could represent developing atelectasis/pneumonia or layering pleural effusion follow-up is advised. The final report is tagged to the PA review folder.
[2018-06-16] MEDS: Metoprolol Succinate 50 mg XL Tab PO SCH (09:22)
--- NOTE | 2018-06-16 11:12 | CP.PCM.CON ---
<Sabine France - Last Filed: 06/16/18 11:08> History of Present Illness - History of Present Illness History of Present Illness: Podiatry Consult Note: Dr. Bassett 82 year old male patient with CAD, CKD, DMII, A.fib, and anemia seen and evaluated for b/l lower extremity edema, weeping, and erythema with wound to the L lower leg. Patient poor historian and is unclear why he was sent back to the hospital. Denies complains of pain and sensitivity to b/l lower extremities at this time. Patient currently sitting in chair at bedside. Denies nausea/vomiting/fever/shortness of breath/chest pain/chills. As per previous chart, was was brought to the ED due to complaints of chest pain. Patient currently lives with family who states patient is taking all his medications, including Eliquis. Of note, patient was recently hospitalized for b/l leg cellulitis and Afib 05/24-05/29/18. He is taking clindamycin. He came back to the emergency department on 06/01 for chest pain but AMA'd prior to dispo. PMH: CAD post CABG, CKD, DM II, A. fib (on Eliquis), and anemia PSH: CABG, laminectomy ALL: PCN (rash) SHx: Former tobacco use Review of Systems - Review of Systems All systems: reviewed and no additional remarkable complaints except Review of Systems: As per HPI Past Patient History - Infectious Disease Hx of Infectious Diseases: None - Tetanus Immunizations Tetanus Immunization: Unknown - Past Medical History & Family History Past Medical History?: Yes - Past Social History Smoking Status: Never Smoked - CARDIAC Hx Cardiac Disorders: Yes Hx Angina: No Hx Congestive Heart Failure: Yes - PULMONARY Hx Respiratory Disorders: No - NEUROLOGICAL Hx Neurological Disorder: No - HEENT Hx HEENT Problems: Yes Hx Epistaxis: Yes - RENAL Hx Chronic Kidney Disease: No - ENDOCRINE/METABOLIC Hx Endocrine Disorders: No - HEMATOLOGICAL/ONCOLOGICAL Hx Blood Disorders: Yes Hx Anemia: Yes - INTEGUMENTARY Hx Dermatological Problems: Yes Other/Comment: cellulitis - MUSCULOSKELETAL/RHEUMATOLOGICAL Hx Musculoskeletal Disorders: Yes Hx Back Pain: Yes Hx Falls: Yes - GASTROINTESTINAL Hx Gastrointestinal Disorders: Yes Other/Comment: GI bleeding - GENITOURINARY/GYNECOLOGICAL Hx Genitourinary Disorders: No - PSYCHIATRIC Hx Psychophysiologic Disorder: No - SURGICAL HISTORY Hx Surgeries: Yes Hx Cardiac Catheterization: Yes - ANESTHESIA Hx Anesthesia: Yes Hx Anesthesia Reactions: No Hx Malignant Hyperthermia: No Meds Allergies/Adverse Reactions: Allergies Allergy/AdvReac Type Severity Reaction Status Date / Time Penicillins Allergy Severe SWELLING Verified 06/15/18 22:18 - Medications Medications: Current Medications Atorvastatin Calcium (Lipitor) 40 mg PO HS [facility] Digoxin (Digoxin) 0.125 mg PO 1400 [facility] Docusate Sodium (Colace) 100 mg PO BID [facility] Last Admin: 06/16/18 09:22 Dose: 100 mg Famotidine (Pepcid) 20 mg PO DAILY [facility] Last Admin: 06/16/18 09:22 Dose: 20 mg Furosemide (Lasix) 40 mg PO BID [facility] Last Admin: 06/16/18 09:22 Dose: 40 mg Levothyroxine Sodium (Synthroid) 25 mcg PO 0600 [facility] Last Admin: 06/16/18 06:00 Dose: 25 mcg Metoprolol Succinate (Toprol Xl) 50 mg PO DAILY [facility] Last Admin: 06/16/18 09:22 Dose: 50 mg Spironolactone (Aldactone) 25 mg PO BID [facility] Last Admin: 06/16/18 09:22 Dose: 25 mg Physical Exam - Constitutional Appears: Well, Non-toxic, No Acute Distress - Head Exam Head Exam: ATRAUMATIC, NORMOCEPHALIC - Extremities Exam Additional comments: B/L lower extremity exam: Vascular: DP/PT faintly palpable, CFT < 3 seconds, TG warm to cool, + 1 weeping edema appreciated to b/l lower extremities Ortho: No pain with palpation of b/l lower extremities, no pain with calf compression, MMT 4/5 Neuro: Gross sensation intact, protective sensation diminished Derm: Weeping edema appreciated to b/l lower extremities with superficial wound to the left medial leg, serous drainage, no malodor, no open lesions, no tunneling, no tracking appreciated, no probe to bone, no clinical signs of infection noted - Neurological Exam Neurological exam: Alert, Oriented x3 - Psychiatric Exam Psychiatric exam: Normal Affect, Normal Mood Results - Vital Signs Recent Vital Signs: Last Vital Signs Temp 97.8 F 06/16/18 06:00 Pulse 79 06/16/18 09:22 Resp 18 06/16/18 06:00 BP 122/72 06/16/18 09:22 Pulse Ox 98 06/16/18 00:25 - Labs Result Diagrams: 06/15/18 22:55 06/15/18 22:55 Labs: Laboratory Results - last 24 hr 06/15/18 06/15/18 06/15/18 22:55 22:55 22:55 WBC 9.0 RBC 2.91 L Hgb 8.5 L Hct 27.4 L MCV 94.2 MCH 29.2 MCHC 31.0 RDW 20.4 H Plt Count 328 MPV 9.4 Neut % (Auto) 71.8 H Lymph % (Auto) 17.2 L [place] % (Auto) 6.5 H Eos % (Auto) 4.2 Baso % (Auto) 0.3 Lymph # (Auto) 1.5 [place] # (Auto) 0.6 Eos # (Auto) 0.4 Baso # (Auto) 0.03 Absolute Neuts (auto) 6.42 Sodium 137 Potassium 4.0 Chloride 105 Carbon Dioxide 22 Anion Gap 14 BUN 40 H Creatinine 1.1 Est GFR ( Amer) > 60 Est GFR (Non-Af Amer) > 60 Random Glucose 139 H Calcium 8.7 Magnesium 1.8 Total Bilirubin 0.7 AST 52 ALT 29 Alkaline Phosphatase 217 H Lactate Dehydrogenase 445 Total Creatine Kinase < 20 L Troponin I 0.10 D NT-Pro-B Natriuret Pep 04663 H Total Protein 7.4 Albumin 3.5 Globulin 3.9 Albumin/Globulin Ratio 0.9 L Total T3 TSH 3rd Generation Digoxin 0.4 L 06/15/18 22:55 WBC RBC Hgb Hct MCV MCH MCHC RDW Plt Count MPV Neut % (Auto) Lymph % (Auto) [place] % (Auto) Eos % (Auto) Baso % (Auto) Lymph # (Auto) [place] # (Auto) Eos # (Auto) Baso # (Auto) Absolute Neuts (auto) Sodium Potassium Chloride Carbon Dioxide Anion Gap BUN Creatinine Est GFR ( Amer) Est GFR (Non-Af Amer) Random Glucose Calcium Magnesium Total Bilirubin AST ALT Alkaline Phosphatase Lactate Dehydrogenase Total Creatine Kinase Troponin I NT-Pro-B Natriuret Pep Total Protein Albumin Globulin Albumin/Globulin Ratio Total T3 0.79 L TSH 3rd Generation 4.94 H Digoxin Assessment & Plan - Assessment and Plan (Free Text) Assessment: 82 year old male patient with CAD, CKD, DMII, A.fib, and anemia seen and evaluated for b/l lower extremity edema, weeping, and erythema. Plan: Patient seen and evaluated Plan discussed with attending VSS, WBC 9.0 Local wound care: Maxorb, ABD, DSD KARIN from 04/12/18: R 1.26 and L 0.88, left SFA occlusive disease, bilateral tibial disease Instructed patient on importance of elevating b/l lower extremities Continue IV abx per ID recs Will continue to follow Thank you for the consult - Date & Time Date: 06/16/18 Time: 11:14 <Danny Bassett - Last Filed: 06/17/18 10:46> Meds - Medications Medications: Current Medications Atorvastatin Calcium (Lipitor) 40 mg PO HS [facility] Last Admin: 06/16/18 22:09 Dose: 40 mg Digoxin (Digoxin) 0.125 mg PO 1400 [facility] Last Admin: 06/16/18 15:09 Dose: 0.125 mg Docusate Sodium (Colace) 100 mg PO BID [facility] Last Admin: 06/17/18 09:26 Dose: 100 mg Famotidine (Pepcid) 20 mg PO DAILY [facility] Last Admin: 06/17/18 09:27 Dose: 20 mg Furosemide (Lasix) 40 mg PO BID [facility] Last Admin: 06/17/18 09:26 Dose: 40 mg Levothyroxine Sodium (Synthroid) 25 mcg PO 0600 [facility] Last Admin: 06/17/18 05:30 Dose: 25 mcg Metoprolol Succinate (Toprol Xl) 50 mg PO DAILY [facility] Last Admin: 06/17/18 09:26 Dose: 50 mg Spironolactone (Aldactone) 25 mg PO BID [facility] Last Admin: 06/17/18 09:26 Dose: 25 mg Results - Vital Signs Recent Vital Signs: Last Vital Signs Temp 97.6 F 06/17/18 05:43 Pulse 79 06/17/18 09:39 Resp 20 06/17/18 05:43 BP 124/75 06/17/18 09:26 Pulse Ox 98 06/17/18 05:43 - Labs Result Diagrams: 06/17/18 06:40 06/17/18 06:40 Labs: Laboratory Results - last 24 hr 06/17/18 06/17/18 06/17/18 06:40 06:40 06:40 WBC 9.6 RBC 3.12 L Hgb 9.0 L Hct 29.3 L MCV 93.9 MCH 28.8 MCHC 30.7 L RDW 20.6 H Plt Count 395 MPV 9.2 Sodium 138 Potassium 4.6 Chloride 104 Carbon Dioxide 24 Anion Gap 14 BUN 31 H Creatinine 1.1 Est GFR ( Amer) > 60 Est GFR (Non-Af Amer) > 60 Random Glucose 91 Calcium 9.3 Iron 37 L TIBC 320 % Saturation 11 L Total Bilirubin 0.8 AST 48 ALT 30 Alkaline Phosphatase 149 H D Troponin I 0.07 D Total Protein 7.6 Albumin 3.6 Globulin 4.0 Albumin/Globulin Ratio 0.9 L Attending/Attestation - Attestation I have personally seen and examined this patient.: Yes I have fully participated in the care of the patient.: Yes I have reviewed all pertinent clinical information: Yes
[2018-06-16] MEDS ORDERED: Digoxin 125 mcg (0.125 mg) Tab PO SCH (14:00)
[2018-06-16 15:11] VITALS: PULSE 88
--- NOTE | 2018-06-16 21:00 | HP ---
DATE OF EXAM: 06/16/2018 CHIEF COMPLAINT AND HISTORY OF PRESENT ILLNESS: This is an 82-year-old male who is coming into the hospital with chest pain. The patient was brought in by his great granddaughter because of the chest pain, this pain started about 9:20 last night. She said there was about 7/10. He took 2 sublingual nitroglycerin and the pain improved. He complains of heaviness that he had. This morning he says his chest pain is okay. The patient was recently in [facility] for leg cellulitis for 3 days. The patient has not followed up with Dr. Novak, his primary doctor. He does not complain of any shortness of breath. No abdominal pain. No back pain. No dysuria or frequency. No nocturia. He has been on Eliquis for his anticoagulation from his atrial fibrillation. He says he does not wish to be in the hospital. He does not understand why he needs to stay, I explained to him about the fact that his blood count. His hemoglobin is lower than he has been previously and they are concerned that he may have bleeding because of the anticoagulation that he is on. He says that he has been take clindamycin to finish off his antibiotics. He is able to walk. REVIEW OF SYMPTOMS: All other review of symptoms are within normal limits except that was mentioned. 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 PAST SURGICAL HISTORY: CABG, gastric polypectomy, laminectomy. SOCIAL HISTORY: He is a former smoker. He did drink alcohol, but he is quit. He denies drug use. FAMILY HISTORY: Noncontributory. ALLERGIES: HE HAS A PENICILLIN ALLERGY. HOME MEDICATIONS: His home medications has been reviewed in the chart. PHYSICAL EXAMINATION VITAL SIGNS: Temperature is 97.8, pulse is 79, blood pressure is 122/72 and respirations 18. Height is 5 feet 9 inches. Weight is 217 pounds. BMI is 32. GENERAL: The patient is lying in bed, comfortable, and in no acute distress. HEENT: Atraumatic and normocephalic. Anicteric sclerae. Moist mucosa. [place] conjunctivae. No oral lesions. NECK: No JVD, anterior and posterior adenopathy, thyromegaly, or bruits. CARDIOVASCULAR: S1 and S2 regular. No murmurs, rubs or gallops. LUNGS: Clear to auscultation bilaterally. No wheezes, rales, or rhonchi. ABDOMEN: Bowel sounds are positive. Soft, nontender and nondistended. No hepatosplenomegaly. No rebound and no guarding. EXTREMITIES: Lower extremity; his legs are wrapped. In the arms, he has multiple ecchymotic areas bilaterally in the hands and the arms. NEUROLOGIC: No facial asymmetry. Tongue is midline. No uvula deviation. Power is 5/5 upper extremities and lower extremities. Sensation intact in upper extremities and lower extremities. PSYCHIATRIC: She is awake, alert and oriented x3. No anxiety or depression. She has normal affect. GENITOURINARY: No CVA tenderness. VASCULAR: 2+ pulses in the carotid pulses and pedal pulses. SKIN: No erythema or nodules. SPINE: Shows normal curvature. LABORATORY DATA: White count is 9, hemoglobin is 8.5, platelet count is 328. Chemistry shows; sodium 137, creatinine is 1.1, albumin is 3.5, TSH is 4.94, digoxin is 0.4. Chest x-ray done shows haziness in the left lower lobe, atelectasis versus pneumonia. The patient's EKG shows sinus rhythm. ASSESSMENT: 1. Chest pain. 2. Coronary artery disease. 3. Status post coronary artery bypass graft. 4. Diabetes, type 2. 5. Atrial fibrillation, on Eliquis. 6. Peripheral arterial disease. 7. Obese with a body mass index of 32. 8. Hypothyroidism. 9. Dyslipidemia. PLAN: The patient has had chest pain. He is admitted to the hospital for further evaluation. He had initial troponin which was at 0.1. He is going to be seen by Dr. Lozada and Dr. Page. He denies any chest pain. He has Lasix that he is going to continue. He is on Lipitor for his dyslipidemia. He is on Synthroid for hypothyroidism. He has a CBC, going to be repeat it tomorrow, added iron studies to his labs. The patient is able to ambulate. He is on the liquid diet. I did speak to Dr. Lozada. We will await for further input from Dr. Lozada. I do not suspect cardiac involvement. The patient will get consult with Dr. Cuellar. Juma Dougherty MD
[2018-06-17] MEDS: Levothyroxine 25 MCG TAB PO SCH (05:30)
[2018-06-17 05:44] VITALS: RESP 20
[2018-06-17 07:09] LABS: MEAN CELL VOLUME 93.9 fl (80.0-105.0); MEAN CORPUSCULAR HEMOGLOBIN 28.8 pg (25.0-35.0); MEAN CORPUSCULAR HGB CONC 30.7 g/dl (31.0-37.0); MEAN PLATELET VOLUME 9.2 fl (7.0-11.0); RBC 3.12 10^6/uL (3.5-6.1); RED CELL DISTRIBUTION WIDTH 20.6 % (11.5-14.5); WHITE BLOOD COUNT 9.6 10^3/uL (4.5-11.0)
--- NOTE | 2018-06-17 07:18 | CARD ---
APPROVED REPORT Date of service: 06/15/2018 EKG Measurement Heart [id number] <Conclusion> Normal sinus rhythm ST & T wave abnormality, consider inferior ischemia Abnormal ECG
[2018-06-17 07:24] LABS: IRON 37 ug/dL (45-180)
[2018-06-17 07:25] LABS: TROPONIN I 0.07 ng/mL
[2018-06-17 07:33] LABS: % IRON SATURATION 11 % (20-55); TOTAL IRON BINDING CAPACITY 320 ug/dL (261-462)
[2018-06-17 07:35] LABS: ALB/GLOB RATIO 0.9 (1.1-1.8); ALBUMIN 3.6 g/dL (3.0-4.8); ALT/SGPT 30 U/L (7-56); AST/SGOT 48 U/L (17-59); BLOOD UREA NITROGEN 31 mg/dL (7-21); CALCIUM 9.3 mg/dL (8.4-10.5); GFR NON-AFRICAN AMERICAN > 60
--- NOTE | 2018-06-17 07:36 | CP.PCM.PN ---
<Crispin Olivas - Last Filed: 06/17/18 10:25> Subjective - Date & Time of Evaluation Date of Evaluation: 06/17/18 Time of Evaluation: 07:33 - Subjective Subjective: Podiatry progress note - Drs. Bassett/Camilo 82M seen and evaluated this AM with Dr. Bassett for b/l LE weeping and edema. Patient denies acute events overnight. Resting comfortably. Denies n/v/f/c/sob and has no other acute pedal complaints today. Objective - Vital Signs/Intake and Output Vital Signs (last 24 hours): Temp Pulse Resp BP Pulse Ox 97.6 F 80 20 127/72 98 06/17/18 05:43 06/17/18 05:43 06/17/18 05:43 06/17/18 05:43 06/17/18 05:43 Intake and Output: 06/17/18 06/17/18 06:59 18:59 Intake Total 1500 Output Total 901 Balance 599 - Medications Medications: Current Medications Atorvastatin Calcium (Lipitor) 40 mg PO HS [facility] Last Admin: 06/16/18 22:09 Dose: 40 mg Digoxin (Digoxin) 0.125 mg PO 1400 [facility] Last Admin: 06/16/18 15:09 Dose: 0.125 mg Docusate Sodium (Colace) 100 mg PO BID [facility] Last Admin: 06/16/18 17:24 Dose: 100 mg Famotidine (Pepcid) 20 mg PO DAILY [facility] Last Admin: 06/16/18 09:22 Dose: 20 mg Furosemide (Lasix) 40 mg PO BID [facility] Last Admin: 06/16/18 17:24 Dose: 40 mg Levothyroxine Sodium (Synthroid) 25 mcg PO 0600 [facility] Last Admin: 06/17/18 05:30 Dose: 25 mcg Metoprolol Succinate (Toprol Xl) 50 mg PO DAILY [facility] Last Admin: 06/16/18 09:22 Dose: 50 mg Spironolactone (Aldactone) 25 mg PO BID [facility] Last Admin: 06/16/18 17:24 Dose: 25 mg - Labs Labs: 06/17/18 06:40 - Constitutional Appears: Non-toxic - Head Exam Head Exam: ATRAUMATIC - Extremities Exam Additional comments: B/L lower extremity exam: Vascular: DP/PT faintly palpable, CFT < 3 seconds, TG warm to cool, + 1 weeping edema appreciated to b/l lower extremities Ortho: No pain with palpation of b/l lower extremities, no pain with calf compression, MMT 4/5 Neuro: Gross sensation intact, protective sensation diminished Derm: Weeping edema appreciated to b/l lower extremities with superficial wound to the left medial leg, serous drainage, no malodor, no open lesions, no tunne ling, no tracking appreciated, no probe to bone, no clinical signs of infection noted - Neurological Exam Neurological Exam: Alert, Awake, Oriented x3 - Psychiatric Exam Psychiatric exam: Normal Affect Assessment and Plan - Assessment and Plan (Free Text) Assessment: 82M with b/l lower extremity edema, weeping, and erythema. Plan: Patient seen and evaluated with Dr. Danyelle MARIN, WBC 9.6 Local wound care: L - Maxorb, ABD, DSD, R - xerform, DSD KARIN from 04/12/18: R 1.26 and L 0.88, left SFA occlusive disease, bilateral tibial disease Instructed patient on importance of elevating b/l lower extremities Told to f/u in the wound center upon d/c as outpatient Continue IV abx per ID recs Will continue to follow <Danny Bassett - Last Filed: 06/17/18 10:43> Objective - Vital Signs/Intake and Output Vital Signs (last 24 hours): Temp Pulse Resp BP Pulse Ox 97.6 F 79 20 124/75 98 06/17/18 05:43 06/17/18 09:39 06/17/18 05:43 06/17/18 09:26 06/17/18 05:43 Intake and Output: 06/17/18 06/17/18 06:59 18:59 Intake Total 1500 Output Total 901 400 Balance 599 -400 - Medications Medications: Current Medications Atorvastatin Calcium (Lipitor) 40 mg PO HS [facility] Last Admin: 06/16/18 22:09 Dose: 40 mg Digoxin (Digoxin) 0.125 mg PO 1400 [facility] Last Admin: 06/16/18 15:09 Dose: 0.125 mg Docusate Sodium (Colace) 100 mg PO BID [facility] Last Admin: 06/17/18 09:26 Dose: 100 mg Famotidine (Pepcid) 20 mg PO DAILY [facility] Last Admin: 06/17/18 09:27 Dose: 20 mg Furosemide (Lasix) 40 mg PO BID [facility] Last Admin: 06/17/18 09:26 Dose: 40 mg Levothyroxine Sodium (Synthroid) 25 mcg PO 0600 [facility] Last Admin: 06/17/18 05:30 Dose: 25 mcg Metoprolol Succinate (Toprol Xl) 50 mg PO DAILY [facility] Last Admin: 06/17/18 09:26 Dose: 50 mg Spironolactone (Aldactone) 25 mg PO BID [facility] Last Admin: 06/17/18 09:26 Dose: 25 mg - Labs Labs: 06/17/18 06:40 06/17/18 06:40 Attending/Attestation - Attestation I have personally seen and examined this patient.: Yes I have fully participated in the care of the patient.: Yes I have reviewed all pertinent clinical information, including history, physical exam and plan: Yes
[2018-06-17] MEDS: Metoprolol Succinate 50 mg XL Tab PO SCH (09:26)
[2018-06-17 11:59] VITALS: BP 105/63; PULSE 80; TEMP 97.4
[2018-06-17 12:36] LABS: FERRITIN 92.4 ng/mL
--- NOTE | 2018-06-17 12:47 | CP.PCM.DIS ---
<Adrian Aguero - Last Filed: 06/17/18 15:57> Provider - Provider Date of Admission: 06/15/18 23:45 Attending physician: Juma Dougherty MD Primary care physician: Chandu Novak MD Consults: 06/15/18 23:46 Gastroenterology Consult Routine Comment: Consulting Provider: Magaly Lozada V Consulting Physician: Magaly Lozada V Reason for Consult: GI bleed 06/16/18 00:09 Consult [Physician Consult] Stat Comment: Consulting Provider: Neris Page Consulting Physician: Neris Page Reason for Consult: foot ulcer and LE edema 06/16/18 11:07 Consult [Physician Consult] Routine Comment: Consulting Provider: Thaddeus Cuellar Consulting Physician: Thaddeus Cuellar Reason for Consult: CP Time Spent in preparation of Discharge (in minutes): 40 Diagnosis - Discharge Diagnosis (1) Chest pain Status: Acute (2) Anemia Status: Acute (3) Hypothyroid Status: Chronic (4) Diabetes mellitus Status: Chronic (5) Atrial fibrillation Status: Chronic (6) CHF exacerbation Status: Chronic Hospital Course - Lab Results Lab Results: Most Recent Lab Values WBC 9.6 10^3/uL (4.5-11.0) 06/17/18 06:40 RBC 3.12 10^6/uL (3.5-6.1) L 06/17/18 06:40 Hgb 9.0 g/dL (14.0-18.0) L 06/17/18 06:40 Hct 29.3 % (42.0-52.0) L 06/17/18 06:40 MCV 93.9 fl (80.0-105.0) 06/17/18 06:40 MCH 28.8 pg (25.0-35.0) 06/17/18 06:40 MCHC 30.7 g/dl (31.0-37.0) L 06/17/18 06:40 RDW 20.6 % (11.5-14.5) H 06/17/18 06:40 Plt Count 395 10^3/uL (120.0-450.0) 06/17/18 06:40 MPV 9.2 fl (7.0-11.0) 06/17/18 06:40 Neut % (Auto) 71.8 % (50.0-68.0) H 06/15/18 22:55 Lymph % (Auto) 17.2 % (22.0-35.0) L 06/15/18 22:55 [place] % (Auto) 6.5 % (1.0-6.0) H 06/15/18 22:55 Eos % (Auto) 4.2 % (1.5-5.0) 06/15/18 22:55 Baso % (Auto) 0.3 % (0.0-3.0) 06/15/18 22:55 Lymph # (Auto) 1.5 (1.2-3.4) 06/15/18 22:55 [place] # (Auto) 0.6 (0.1-0.6) 06/15/18 22:55 Eos # (Auto) 0.4 (0.0-0.7) 06/15/18 22:55 Baso # (Auto) 0.03 K/mm3 (0.0-2.0) 06/15/18 22:55 Absolute Neuts (auto) 6.42 (1.4-6.5) 06/15/18 22:55 Sodium 138 mmol/L (132-148) 06/17/18 06:40 Potassium 4.6 mmol/L (3.6-5.0) 06/17/18 06:40 Chloride 104 mmol/L (98-107) 06/17/18 06:40 Carbon Dioxide 24 mmol/L (21-33) 06/17/18 06:40 Anion Gap 14 (10-20) 06/17/18 06:40 BUN 31 mg/dL (7-21) H 06/17/18 06:40 Creatinine 1.1 mg/dl (0.8-1.5) 06/17/18 06:40 Est GFR ( Amer) > 60 06/17/18 06:40 Est GFR (Non-Af Amer) > 60 06/17/18 06:40 Random Glucose 91 mg/dL (70-110) 06/17/18 06:40 Calcium 9.3 mg/dL (8.4-10.5) 06/17/18 06:40 Magnesium 1.8 mg/dL (1.7-2.2) 06/15/18 22:55 Iron 37 ug/dL (45-180) L 06/17/18 06:40 TIBC 320 ug/dL (261-462) 06/17/18 06:40 % Saturation 11 % (20-55) L 06/17/18 06:40 Ferritin 92.4 ng/mL 06/17/18 06:40 Total Bilirubin 0.8 mg/dL (0.2-1.3) 06/17/18 06:40 AST 48 U/L (17-59) 06/17/18 06:40 ALT 30 U/L (7-56) 06/17/18 06:40 Alkaline Phosphatase 149 U/L (38-126) H D 06/17/18 06:40 Lactate Dehydrogenase 445 U/L (333-699) 06/15/18 22:55 Total Creatine Kinase < 20 U/L (35-230) L 06/15/18 22:55 Troponin I 0.07 ng/mL D 06/17/18 06:40 NT-Pro-B Natriuret Pep 29640 pg/mL (0-450) H 06/15/18 22:55 Total Protein 7.6 g/dL (5.8-8.3) 06/17/18 06:40 Albumin 3.6 g/dL (3.0-4.8) 06/17/18 06:40 Globulin 4.0 gm/dL 06/17/18 06:40 Albumin/Globulin Ratio 0.9 (1.1-1.8) L 06/17/18 06:40 Total T3 0.79 ng/mL (0.97-1.69) L 06/15/18 22:55 TSH 3rd Generation 4.94 mIU/mL (0.46-4.68) H 06/15/18 22:55 Digoxin 0.4 ng/mL (0.8-2.0) L 06/15/18 22:55 - Hospital Course Hospital Course: 82-year-old male with a past medical history of heart failure, CAD status post CABG, CKD, diabetes, atrial fibrillation on Eliquis, bilateral cellulitis of lower extremities, hypothyroidism, and anemia who presented for complaints of chest pain. Chest pain was a 7 out of 10 on presentation. There was a mention of blood in the stools by patient's family in the ER. Consultation for GI, podiatry, and cardiology were requested. Initial troponin was 0.1. He was evaluated by podiatry for his lower extremity peripheral arterial disease with weeping with no acute signs of infection and had dressing changes. He was continued on his home medications including Lasix, Aldactone, digoxin, metoprolol, and levothyroxine. Patient's hemoglobin was followed closely and stable readings. Patient had been evaluated previously and has denied colonoscopy for previous complaints of bloody stools. Patient was seen and examined today at bedside and was found to be comfortable. No acute complaints. Had negative troponins x3. Patient was found to be in a stable condition for discharge given his clinical picture. Patient was given clear discharge instructions in particular to follow-up with his primary medical doctor. All questions were welcomed and answered to this patient satisfaction. Referral was placed by case management for visiting nurse. - Date & Time of H&P Date of H&P: 06/17/18 Time of H&P: 16:00 Discharge Exam - Head Exam Head Exam: ATRAUMATIC, NORMOCEPHALIC - Eye Exam Eye Exam: EOMI. absent: Scleral icterus - ENT Exam ENT Exam: Mucous Membranes Moist - Neck Exam Neck exam: Normal Inspection - Respiratory Exam Respiratory Exam: absent: Rales, Rhonchi, Wheezes - Cardiovascular Exam Cardiovascular Exam: Irregular Rhythm, +S1, +S2. absent: Rubs - GI/Abdominal Exam GI & Abdominal Exam: Soft. absent: Distended - Extremities Exam Additional comments: lower extremity chronic changes, clean dressings - Neurological Exam Neurological exam: Alert - Skin Skin Exam: Dry, Warm Discharge Plan - Follow Up Plan Condition: STABLE Disposition: HOME/ ROUTINE Instructions: Anemia Caused by Low Iron, Adult (DC), Gastrointestinal Bleeding (DC), Chest Pain (DC), Chest Pain (DC), Chest Pain (GEN) Additional Instructions: Follow up with your primary doctor in 1 to 2 weeks. See care notes provided for further instructions. If you symptoms return, or you experience any concerning symptoms return to the nearest emergency room Referrals: Chandu Novak MD [Primary Care Provider] - <Juma Dougherty - Last Filed: 06/17/18 16:34> Provider - Provider Date of Admission: 06/15/18 23:45 Attending physician: Juma Dougherty MD Primary care physician: Chandu Novak MD Consults: 06/15/18 23:46 Gastroenterology Consult Routine Comment: Consulting Provider: Magaly Lozada V Consulting Physician: Magaly Lozada V Reason for Consult: GI bleed 06/16/18 00:09 Consult [Physician Consult] Stat Comment: Consulting Provider: Neris Page Consulting Physician: Neris Page Reason for Consult: foot ulcer and LE edema 06/16/18 11:07 Consult [Physician Consult] Routine Comment: Consulting Provider: Thaddeus Cuellar Consulting Physician: Thaddeus Cuellar Reason for Consult: CP Hospital Course - Lab Results Lab Results: Most Recent Lab Values WBC 9.6 10^3/uL (4.5-11.0) 06/17/18 06:40 RBC 3.12 10^6/uL (3.5-6.1) L 06/17/18 06:40 Hgb 9.0 g/dL (14.0-18.0) L 06/17/18 06:40 Hct 29.3 % (42.0-52.0) L 06/17/18 06:40 MCV 93.9 fl (80.0-105.0) 06/17/18 06:40 MCH 28.8 pg (25.0-35.0) 06/17/18 06:40 MCHC 30.7 g/dl (31.0-37.0) L 06/17/18 06:40 RDW 20.6 % (11.5-14.5) H 06/17/18 06:40 Plt Count 395 10^3/uL (120.0-450.0) 06/17/18 06:40 MPV 9.2 fl (7.0-11.0) 06/17/18 06:40 Neut % (Auto) 71.8 % (50.0-68.0) H 06/15/18 22:55 Lymph % (Auto) 17.2 % (22.0-35.0) L 06/15/18 22:55 [place] % (Auto) 6.5 % (1.0-6.0) H 06/15/18 22:55 Eos % (Auto) 4.2 % (1.5-5.0) 06/15/18 22:55 Baso % (Auto) 0.3 % (0.0-3.0) 06/15/18 22:55 Lymph # (Auto) 1.5 (1.2-3.4) 06/15/18 22:55 [place] # (Auto) 0.6 (0.1-0.6) 06/15/18 22:55 Eos # (Auto) 0.4 (0.0-0.7) 06/15/18 22:55 Baso # (Auto) 0.03 K/mm3 (0.0-2.0) 06/15/18 22:55 Absolute Neuts (auto) 6.42 (1.4-6.5) 06/15/18 22:55 Sodium 138 mmol/L (132-148) 06/17/18 06:40 Potassium 4.6 mmol/L (3.6-5.0) 06/17/18 06:40 Chloride 104 mmol/L (98-107) 06/17/18 06:40 Carbon Dioxide 24 mmol/L (21-33) 06/17/18 06:40 Anion Gap 14 (10-20) 06/17/18 06:40 BUN 31 mg/dL (7-21) H 06/17/18 06:40 Creatinine 1.1 mg/dl (0.8-1.5) 06/17/18 06:40 Est GFR ( Amer) > 60 06/17/18 06:40 Est GFR (Non-Af Amer) > 60 06/17/18 06:40 Random Glucose 91 mg/dL (70-110) 06/17/18 06:40 Calcium 9.3 mg/dL (8.4-10.5) 06/17/18 06:40 Magnesium 1.8 mg/dL (1.7-2.2) 06/15/18 22:55 Iron 37 ug/dL (45-180) L 06/17/18 06:40 TIBC 320 ug/dL (261-462) 06/17/18 06:40 % Saturation 11 % (20-55) L 06/17/18 06:40 Ferritin 92.4 ng/mL 06/17/18 06:40 Total Bilirubin 0.8 mg/dL (0.2-1.3) 06/17/18 06:40 AST 48 U/L (17-59) 06/17/18 06:40 ALT 30 U/L (7-56) 06/17/18 06:40 Alkaline Phosphatase 149 U/L (38-126) H D 06/17/18 06:40 Lactate Dehydrogenase 445 U/L (333-699) 06/15/18 22:55 Total Creatine Kinase < 20 U/L (35-230) L 06/15/18 22:55 Troponin I 0.07 ng/mL D 06/17/18 06:40 NT-Pro-B Natriuret Pep 23426 pg/mL (0-450) H 06/15/18 22:55 Total Protein 7.6 g/dL (5.8-8.3) 06/17/18 06:40 Albumin 3.6 g/dL (3.0-4.8) 06/17/18 06:40 Globulin 4.0 gm/dL 06/17/18 06:40 Albumin/Globulin Ratio 0.9 (1.1-1.8) L 06/17/18 06:40 Total T3 0.79 ng/mL (0.97-1.69) L 06/15/18 22:55 TSH 3rd Generation 4.94 mIU/mL (0.46-4.68) H 06/15/18 22:55 Digoxin 0.4 ng/mL (0.8-2.0) L 06/15/18 22:55 - Hospital Course Hospital Course: Pt seen and examined by me. I have reviewed the note of the medical clinic manager and I agree with it. I have discussed the assessment and plan with the resident. I have reviewed the medications and the last labs.
--- NOTE | 2018-06-18 00:42 | DS ---
HOSPITAL COURSE: This is an 82-year-old male who came into the hospital with chest pain. The patient was seen by Dr. Cuellar. He was cleared for discharge. The patient had troponins, which were negative. He had hemoglobin that was low and was offered endoscopy, but the patient refused, he did not wish to have endoscopy. He had an endoscopy performed by Dr. Kwan. The patient is currently comfortable. Denies any pain. He was seen by Podiatry. He is requesting to be discharged home. He is going to be continued as an outpatient and followup for his bilateral leg edema this was improved. The patient will be discharged home and followed up with his primary care doctor, Dr. Novak. CONDITION: Stable. ACTIVITIES: Increase as tolerated. Juma Dougherty MD
--- NOTE | 2018-06-18 08:34 | CON ---
DATE: 06/17/2018 REQUESTING PHYSICIAN: Juma Dougherty MD REASON FOR CONSULTATION: Chest pain. HISTORY OF PRESENT ILLNESS: This is an 82-year-old man, well known to me with a complex past medical history, who was brought to the emergency room with complaints of chest pain. He was reportedly brought in by his great granddaughter when he complained of chest pain to her. He is seen resting on telemetry in bed. He states that he cannot recall the details of his chest pain episode. He feels he is having some worsening memory issues lately. He has a history of coronary artery disease, prior PCI, and bypass surgery as well as chronic atrial fibrillation and moderate aortic stenosis. He has had multiple admissions for leg cellulitis and edema secondary to heart failure. He is currently chest pain free. PAST MEDICAL HISTORY: Notable for the problems mentioned above. He has a history of diabetes, peripheral arterial disease, and prior back surgery. MEDICATIONS: Include Aldactone 25 mg b.i.d., digoxin 0.125 mg daily, Lasix 40 mg b.i.d., Lipitor, Pepcid, Synthroid, Toprol-XL 50 mg daily, and Ultram p.r.n. ALLERGIES: HE HAS HAD REACTION TO PENICILLIN IN THE PAST. SOCIAL HISTORY: He is a former smoker. He lives at home with his . He denies alcohol use at the present time. FAMILY HISTORY: Both parents are from age-related illness. REVIEW OF SYSTEMS: A 12-point review of systems is notable mainly for the problems as mentioned above. He denies any PND or orthopnea lately. PHYSICAL EXAMINATION: GENERAL: He is an elderly male who appears comfortable at rest. VITAL SIGNS: Her blood pressure is 124/76 with a pulse of 76 in atrial flutter, respirations are 16, and he is afebrile. HEENT: Normocephalic and atraumatic. NECK: Supple. No JVD noted. CHEST: Bilateral scattered rhonchi heard. HEART: PMI is displaced laterally. Systolic murmur is present at the base radiating to the carotids. ABDOMEN: Soft, obese, and nontender. Normoactive bowel sounds. EXTREMITIES: Both lower extremities are wrapped, 2+ edema is present. DIAGNOSTIC DATA: Troponin 0.07. White count is 9.6, hemoglobin and hematocrit are 9 and 29.3 with a platelet count of 395,000. Potassium 4.6, BUN and creatinine of 31 and 1.1. Chest x-ray; increased cardiac silhouette with post sternotomy changes and basilar atelectasis. Electrocardiogram reveals sinus rhythm with nonspecific ST-T abnormalities. IMPRESSION: 1. Chest pain, possible angina. At the present time, he is unable to recall any details. Electrocardiogram shows no acute changes and his troponin is borderline at this time as he is comfortable and has fairly complex anatomy and therefore intensified medical therapy would be most appropriate first option. 2. Prior bypass surgery. 3. History of moderate aortic stenosis. 4. Atrial fibrillation, chronic. 5. Rest of the problems as noted. RECOMMENDATIONS: His current medications will continue for now. Long-acting oral nitrates can be added to his regimen as needed. Continue diuretic therapy as advised. I will continue to follow along as needed and arrange for outpatient followup as well upon discharge. Thank you for this consultation. Thaddeus Cuellar MD MTDM[facility]
== END 2018-06-17 12:10 | disposition home health service (06) | DRG 313 ==
LOC: ED 22:12 → ERH 23:45 → 2RSO 06-16 01:20
PROVIDERS: ADMIT Internal Medicine Nephrology; ATTEND Internal Medicine Nephrology
DX: R07.89 Other chest pain (principal); K92.1 Melena; L03.115 Cellulitis of right lower limb; L03.116 Cellulitis of left lower limb; I50.32 Chronic diastolic (congestive) heart failure; I25.10 Atherosclerotic heart disease of native coronary artery without angina pectoris; E11.51 Type 2 diabetes mellitus with diabetic peripheral angiopathy without gangrene; E11.22 Type 2 diabetes mellitus with diabetic chronic kidney disease; N18.9 Chronic kidney disease, unspecified; I48.2 Chronic atrial fibrillation; D64.9 Anemia, unspecified; E03.9 Hypothyroidism, unspecified; I35.0 Nonrheumatic aortic (valve) stenosis; E78.5 Hyperlipidemia, unspecified; E66.9 Obesity, unspecified; Z68.32 Body mass index [BMI] 32.0-32.9, adult; Z95.1 Presence of aortocoronary bypass graft; Z87.891 Personal history of nicotine dependence; Z79.01 Long term (current) use of anticoagulants; Z98.61 Coronary angioplasty status; Z88.0 Allergy status to penicillin

== ENCOUNTER 2018-06-23 13:05 | Emergency (ER) | payer MEDICARE, BC ==
[2018-06-23 13:06] VITALS: PULSE 88
[2018-06-23 13:09] VITALS: BMI 37.4
--- NOTE | 2018-06-23 13:40 | ED PDOC ---
Arrival/HPI - General Chief Complaint: Chest Pain Historian: Patient - History of Present Illness Narrative History of Present Illness (Text): 06/23/18 13:33 Pt is an 82 yo male with a PMH of CAD/CABG s, 5 cardiac stents, diastolic CHF, CKD3, DM2, atrial fibrillation on Eliquis, anemia, hypertension, and hyperlipidemia who presented to the ED complaining of chest pain. Pt states the 10 chest pain started last night, felt like burning/pressure but did not radiate. The pain kept him from sleeping. Pt denies pleuritic chest pain, or positional chest pain. Denies nausea or vomiting. Pt states the pain continued until this morning, but has now resolved. Time/Duration: 24 hours Symptom Onset: Sudden Symptom Course: Resolved Quality: Pressure, Burning Severity Level: 7 Activities at Onset: Rest Context: Sitting Past Medical History - Provider Review Primary Care Provider: Chandu Novak - Past History Past History: No Previous - Infectious Disease Hx of Infectious Diseases: None - Tetanus Immunization Tetanus Immunization: Unknown - Reproductive Currently Lactating: No - Cardiac Hx Cardiac Disorders: Yes Hx Angina: No Hx Congestive Heart Failure: Yes - Pulmonary Hx Respiratory Disorders: No - Neurological Hx Neurological Disorder: No - HEENT Hx HEENT Disorder: Yes Hx Epistaxis: Yes - Renal Hx Renal Disorder: No - Endocrine/Metabolic Hx Endocrine Disorders: No - Hematological/Oncological Hx Blood Disorders: Yes Hx Anemia: Yes - Integumentary Hx Dermatological Disorder: Yes Other/Comment: cellulitis - Musculoskeletal/Rheumatological Hx Musculoskeletal Disorders: Yes Hx Back Pain: Yes Hx Falls: Yes - Gastrointestinal Hx Gastrointestinal Disorders: Yes Other/Comment: GI bleeding - Genitourinary/Gynecological Hx Genitourinary Disorders: No - Psychiatric Hx Psychophysiologic Disorder: No Hx Substance Use: No - Surgical History Hx Cardiac Catheterization: Yes - Anesthesia Hx Anesthesia: Yes Hx Anesthesia Reactions: No Hx Malignant Hyperthermia: No - Suicidal Assessment Feels Threatened In Home Enviroment: No Family/Social History Family/Social History: Unknown Family HX Smoking Status: Never Smoked Hx Alcohol Use: Yes (QUIT 2009) Hx Substance Use: No Hx Substance Use Treatment: No Allergies/Home Meds Allergies/Adverse Reactions: Allergies Penicillins Allergy (Severe, Verified 06/23/18 13:10) SWELLING Home Medications: Home Meds Medication Instructions Recorded Confirmed Famotidine [Pepcid] 20 mg PO DAILY 05/21/17 05/23/18 Review of Systems - Review of Systems Constitutional: Normal Eyes: Normal ENT: Normal Respiratory: Normal Cardiovascular: Chest Pain Gastrointestinal: Normal Musculoskeletal: Normal Skin: Normal Neurological: Normal Endocrine: Normal Hemo/Lymphatic: Normal Psychiatric: Normal Physical Exam Vital Signs Reviewed: Yes Vital Signs Temp Pulse Pulse Resp Pulse Ox 06/23/18 13:20 20 L 06/23/18 13:10 98.0 F 80 18 99 Temperature: Afebrile Blood Pressure: Normal Pulse: Regular Respiratory Rate: Normal Appearance: Positive for: Well-Appearing Mental Status: Positive for: Alert and Oriented X 3 - Systems Exam Head: Present: Atraumatic, Normocephalic Pupils: Present: PERRL Extroacular Muscles: Present: EOMI Mouth: Present: Moist Mucous Membranes Neck: Present: Normal Range of Motion Respiratory/Chest: Present: Clear to Auscultation, Good Air Exchange Cardiovascular: Present: Regular Rate and Rhythm, Normal S1, S2. No: Murmurs Abdomen: Present: Normal Bowel Sounds. No: Tenderness, Distention Upper Extremity: Present: Normal Inspection Lower Extremity: Present: Other (bl cellulitis) Neurological: Present: GCS=15, CN II-XII Intact Psychiatric: Present: Alert, Oriented x 3 Medical Decision Making ED Course and Treatment: 06/23/18 13:44 chest pain ACS rule out CMP Mg BNP Trop CBC PT PTT CXR EKG RRR, no signs of ST or T wave abnormalities UA 06/23/18 15:50 Pt seen, examined, assessment and plan discussed with Dr Angeline Garg PGY1 - Lab Interpretations Lab Results: 06/23/18 14:00 06/23/18 14:00 Lab Results 06/23/18 14:00: Sodium 141, Potassium 4.4, Chloride 105, Carbon Dioxide 26, Anion Gap 15, BUN 36 H, Creatinine 1.2, Est GFR ( Amer) > 60, Est GFR (Non-Af Amer) 58, Random Glucose 111 H, Calcium 9.7, Magnesium 1.8, Total Bilirubin 0.8, AST 39, ALT 27, Alkaline Phosphatase 137 H, Troponin I 0.01 D, N T-Pro-B Natriuret Pep 5620 H, Total Protein 7.7, Albumin 3.7, Globulin 4.0, Albumin/Globulin Ratio 0.9 L 06/23/18 14:00: PT 18.5 H, INR 1.67, APTT 37.7 06/23/18 14:00: WBC 10.7, RBC 3.25 L, Hgb 9.4 L, Hct 30.5 L, MCV 93.8, MCH 28.9, MCHC 30.8 L, RDW 19.5 H, Plt Count 343, MPV 9.3, Neut % (Auto) 74.0 H, Lymph % (Auto) 14.0 L, [place] % (Auto) 7.6 H, Eos % (Auto) 4.0, Baso % (Auto) 0.4, Lymph # (Auto) 1.5, [place] # (Auto) 0.8 H, Eos # (Auto) 0.4, Baso # (Auto) 0.04, Absolute Neuts (auto) 7.89 H I have reviewed the lab results: Yes Interpretation: No sign. chg./baseline - RAD Interpretation Radiology Orders: 06/23/18 13:25 CHEST PORTABLE [RAD] Stat Form Setter/Driver: ED Physician - EKG Interpretation Interpreted by ED Physician: Yes Type: 12 lead EKG - PA / TURN OPERATOR / Resident Statement MD/DO has reviewed & agrees with the documentation as recorded. MD/DO has examined the patient and agrees with the treatment plan. Disposition/Present on Arrival - Present on Arrival Any Indicators Present on Arrival: No History of DVT/PE: No History of Uncontrolled Diabetes: No Urinary Catheter: No History of Decub. Ulcer: No History Surgical Site Infection Following: CABG - Mediastinitis - Disposition Have Diagnosis and Disposition been Completed?: Yes Diagnosis: Chest pain Disposition: HOME/ ROUTINE Disposition Time: 15:51 Patient Plan: Discharge Patient Problems: Current Active Problems Problem Status Onset Chest pain Acute Condition: GOOD Discharge Instructions (ExitCare): Chest Pain That Is Not Caused by the Heart (DC), Chest Pain (ED) Referrals: Chandu Novak MD [Primary Care Provider] - Follow up with primary Forms: [employer] (Danish)
--- NOTE | 2018-06-23 13:46 | RAD ---
Date of service: 06/23/2018 HISTORY: Chest pain COMPARISON: 06/15/2018 TECHNIQUE: 1 view obtained. FINDINGS: LUNGS: No active pulmonary disease. PLEURA: No significant pleural effusion identified, no pneumothorax apparent. CARDIOVASCULAR: Aortic calcification Moderate cardiomegaly no pulmonary vascular congestion. OSSEOUS STRUCTURES: No significant abnormalities. VISUALIZED UPPER ABDOMEN: Normal. OTHER FINDINGS: None. IMPRESSION: No active disease.
[2018-06-23 14:16] LABS: ALB/GLOB RATIO 0.9 (1.1-1.8); ALBUMIN 3.7 g/dL (3.0-4.8); ALT/SGPT 27 U/L (7-56); AST/SGOT 39 U/L (17-59); BLOOD UREA NITROGEN 36 mg/dL (7-21); CALCIUM 9.7 mg/dL (8.4-10.5); GFR NON-AFRICAN AMERICAN 58
[2018-06-23 14:23] LABS: BASO # 0.04 K/mm3 (0.0-2.0); BASO % 0.4 % (0.0-3.0); EOS # 0.4 (0.0-0.7); HEMOGLOBIN 9.4 g/dL (14.0-18.0); LYMPH # 1.5 (1.2-3.4); MEAN CELL VOLUME 93.8 fl (80.0-105.0); MEAN CORPUSCULAR HEMOGLOBIN 28.9 pg (25.0-35.0); MEAN CORPUSCULAR HGB CONC 30.8 g/dl (31.0-37.0); MEAN PLATELET VOLUME 9.3 fl (7.0-11.0); MONO # 0.8 (0.1-0.6); MONO % 7.6 % (1.0-6.0); RBC 3.25 10^6/uL (3.5-6.1); RED CELL DISTRIBUTION WIDTH 19.5 % (11.5-14.5); WHITE BLOOD COUNT 10.7 10^3/uL (4.5-11.0)
[2018-06-23 14:27] LABS: B-TYPE NATRIURETIC PEPTIDE 5620 pg/mL (0-450); INR 1.67; PARTIAL THROMBOPLASTIN TIME 37.7 Seconds (26.9-38.3); PROTHROMBIN TIME 18.5 SECONDS (9.4-12.5); TROPONIN I 0.01 ng/mL
[2018-06-23 16:40] VITALS: BP 120/74; PULSE 81; RESP 20; TEMP 98.5; O2SAT 98
--- NOTE | 2018-06-23 18:09 | CARD ---
APPROVED REPORT Date of service: 06/23/2018 EKG Measurement Heart [id number] <Conclusion> Normal sinus rhythm NDSTT abnormalities Abnormal ECG
== END 2018-06-23 16:39 | disposition home or self-care (01) ==
LOC: ED 13:05
DX: R07.9 Chest pain, unspecified (principal); E78.5 Hyperlipidemia, unspecified; I48.91 Unspecified atrial fibrillation; Z79.01 Long term (current) use of anticoagulants; I12.9 Hypertensive chronic kidney disease with stage 1 through stage 4 chronic kidney disease, or unspecified chronic kidney disease; N18.3 Chronic kidney disease, stage 3 (moderate); E11.9 Type 2 diabetes mellitus without complications; I25.10 Atherosclerotic heart disease of native coronary artery without angina pectoris; Z95.1 Presence of aortocoronary bypass graft; I50.9 Heart failure, unspecified

== ENCOUNTER 2018-06-28 12:05 | Emergency (ER) | payer MEDICARE, BC ==
[2018-06-28 12:06] VITALS: PULSE 88; BMI 37.4
--- NOTE | 2018-06-28 12:24 | ED PDOC ---
Arrival/HPI - General Chief Complaint: GI Problem Historian: Patient - History of Present Illness Narrative History of Present Illness (Text): 06/28/18 12:19 83 year old male, whose past medical history includes with NSTEMI, CHF, anemia, and is on Eliquis, presents for rectal bleeding since this morning. Patient reports he noticed red blood drops on his sheets and in his boxers. Patient denies any changes in bowel movements. Patient was recently admitted on 06/15/18 where he had an endoscopy performed by Dr. Kwan. Patient denies any fevers, chills, headache, dizziness, chest pain, shortness of breath, dyspnea on exertion, cough, abdominal pain, nausea, vomiting, diarrhea, back pain, neck pain, urinary/bowel changes, or any other complaints. PMD: Dr. Novak Time/Duration: Other (this morning) Symptom Course: Unchanged Activities at Onset: Light Context: Home Past Medical History - Provider Review Nursing Documentation Reviewed: Yes - Past History Past History: No Previous - Infectious Disease Hx of Infectious Diseases: None - Tetanus Immunization Tetanus Immunization: Unknown - Reproductive Currently Lactating: No - Cardiac Hx Cardiac Disorders: Yes Hx Angina: No Hx Congestive Heart Failure: Yes - Pulmonary Hx Respiratory Disorders: No - Neurological Hx Neurological Disorder: No - HEENT Hx HEENT Disorder: Yes Hx Epistaxis: Yes - Renal Hx Renal Disorder: No - Endocrine/Metabolic Hx Endocrine Disorders: No - Hematological/Oncological Hx Blood Disorders: Yes Hx Anemia: Yes - Integumentary Hx Dermatological Disorder: Yes Other/Comment: cellulitis - Musculoskeletal/Rheumatological Hx Musculoskeletal Disorders: Yes Hx Back Pain: Yes Hx Falls: Yes - Gastrointestinal Hx Gastrointestinal Disorders: Yes Other/Comment: GI bleeding - Genitourinary/Gynecological Hx Genitourinary Disorders: No - Psychiatric Hx Psychophysiologic Disorder: No Hx Substance Use: No - Surgical History Hx Cardiac Catheterization: Yes - Anesthesia Hx Anesthesia: Yes Hx Anesthesia Reactions: No Hx Malignant Hyperthermia: No - Suicidal Assessment Feels Threatened In Home Enviroment: No Family/Social History - Physician Review Nursing Documentation Reviewed: Yes Family/Social History: No Known Family HX Smoking Status: Never Smoked Hx Alcohol Use: Yes (QUIT 2009) Hx Substance Use: No Hx Substance Use Treatment: No Allergies/Home Meds Allergies/Adverse Reactions: Allergies Penicillins Allergy (Severe, Verified 06/28/18 12:10) SWELLING Home Medications: Home Meds Medication Instructions Recorded Confirmed Famotidine [Pepcid] 20 mg PO DAILY 05/21/17 06/28/18 Review of Systems - Physician Review All systems were reviewed & negative as marked: Yes - Review of Systems Constitutional: absent: Fevers Eyes: absent: Vision Changes ENT: absent: Hearing Changes Respiratory: absent: SOB, Cough Cardiovascular: absent: Chest Pain Gastrointestinal: Hematochezia. absent: Stool Changes Genitourinary Male: absent: Dysuria, Hematuria Musculoskeletal: absent: Back Pain Skin: absent: Rash Neurological: absent: Headache, Dizziness Endocrine: absent: Diaphoresis Hemo/Lymphatic: absent: Adenopathy Psychiatric: absent: Anxiety, Depression Physical Exam Vital Signs Reviewed: Yes - Systems Exam Head: Present: Atraumatic, Normocephalic Pupils: Present: PERRL Extroacular Muscles: Present: EOMI Conjunctiva: Present: Normal Mouth: Present: Dry (Dry mucous membranes) Respiratory/Chest: Present: Clear to Auscultation, Good Air Exchange. No: Respiratory Distress, Accessory Muscle Use Cardiovascular: Present: Regular Rate and Rhythm, Normal S1, S2. No: Murmurs Rectal: Present: Other (Negative for hematochezia. Brown stool yielded at rectal vault.). No: Hemorrhoids Upper Extremity: Present: Other (Scattered ecchymosis) Lower Extremity: Present: Other (3+ pitting edema. Scattered ecchymosis.) Psychiatric: Present: Alert, Oriented x 3 Medical Decision Making ED Course and Treatment: 06/28/18 12:30 Impression: 82 year old male who presents to the ED complaining of a rectal bleed. Plan: --Labs --Urinalysis --EKG --Sodium Bicarbonate --Dextrose --Insulin -- Reassess and disposition Prior Visits: Notes and results from previous visits were reviewed. Patient was last seen in the emergency department on 06/23/18. Progress Notes: 06/28/18 13:52 Labs reviewed with Hgb of 9.4(unchanged from previous) as well as hyperkalemia of 5.3. EKG shows no evidence of T wave changes. Patient is ready for discharge. - Lab Interpretations Lab Results: 06/28/18 12:43 06/28/18 12:43 Lab Results 06/28/18 13:23: Urine Color Yellow, Urine Appearance Clear, Urine pH 6.0, Ur Specific [place] 1.010, Urine Protein Negative, Urine Glucose (UA) Negative, Urine Ketones Negative, Urine Blood Negative, Urine Nitrate Negative, Urine Bilirubin Negative, Urine Urobilinogen 0.2, Ur Leukocyte Esterase Negative 06/28/18 12:55: Blood Type Pending, Antibody Screen Pending, BBK History Checked Patient has bt 06/28/18 12:43: Sodium 139, Potassium 5.3 H, Chloride 103, Carbon Dioxide 24, Anion Gap 16, BUN 51 H, Creatinine 1.2, Est GFR ( Amer) > 60, Est GFR (Non-Af Amer) 58, Random Glucose 123 H, Calcium 9.8, Phosphorus 4.3, Magnesium 1.9, Total Bilirubin 0.7, AST 46, ALT 27, Alkaline Phosphatase 151 H, Total Protein 8.1, Albumin 4.0, Globulin 4.0, Albumin/Globulin Ratio 1.0 L 06/28/18 12:43: PT 16.9 H, INR 1.50, APTT 38.9 H 06/28/18 12:43: WBC 12.0 H, RBC 3.24 L, Hgb 9.4 L, Hct 30.7 L, MCV 94.8, MCH 2 9.0, MCHC 30.6 L, RDW 19.1 H, Plt Count 275, MPV 9.6, Neut % (Auto) 73.3 H, Lymph % (Auto) 16.4 L, [place] % (Auto) 6.5 H, Eos % (Auto) 3.3, Baso % (Auto) 0.5, Lymph # (Auto) 2.0, [place] # (Auto) 0.8 H, Eos # (Auto) 0.4, Baso # (Auto) 0.06, Absolute Neuts (auto) 8.79 H I have reviewed the lab results: Yes - Scribe Statement The provider has reviewed the documentation as recorded by the Arash Hayes Provider Scribe Attestation: All medical record entries made by the Scribe were at my direction and personally dictated by me. I have reviewed the chart and agree that the record accurately reflects my personal performance of the history, physical exam, medical decision making, and the department course for this patient. I have also personally directed, reviewed, and agree with the discharge instructions and disposition. Disposition/Present on Arrival - Present on Arrival Any Indicators Present on Arrival: No History of DVT/PE: No History of Uncontrolled Diabetes: No Urinary Catheter: No History of Decub. Ulcer: No History Surgical Site Infection Following: CABG - Mediastinitis - Disposition Have Diagnosis and Disposition been Completed?: Yes Diagnosis: Hyperkalemia, Anemia, Rectal bleeding Disposition: HOME/ ROUTINE Disposition Time: 14:01 Patient Plan: Discharge Discharge Instructions (ExitCare): Hyperkalemia (DC), Bloody Stools Print Language: CHADIAN Additional Instructions: All medical record entries made by the Scribe were at my direction and personally dictated by me. I have reviewed the chart and agree that the record accurately reflects my personal performance of the history, physical exam, medical decision making, and the department course for this patient. I have also personally directed, reviewed, and agree with the discharge instructions and disposition. Please follow up with Dr. Kwan at your earliest convenience Referrals: Chandu Novak MD [Primary Care Provider] - Follow up with primary Eligio Kwan MD [Staff Provider] - Follow up with primary Forms: [facility] (Armenian)
[2018-06-28 13:00] LABS: BASO # 0.06 K/mm3 (0.0-2.0); BASO % 0.5 % (0.0-3.0); EOS # 0.4 (0.0-0.7); EOS % 3.3 % (1.5-5.0); HEMOGLOBIN 9.4 g/dL (14.0-18.0); LYMPH % 16.4 % (22.0-35.0); MEAN CELL VOLUME 94.8 fl (80.0-105.0); MEAN CORPUSCULAR HGB CONC 30.6 g/dl (31.0-37.0); MEAN PLATELET VOLUME 9.6 fl (7.0-11.0); MONO # 0.8 (0.1-0.6); MONO % 6.5 % (1.0-6.0); RBC 3.24 10^6/uL (3.5-6.1); RED CELL DISTRIBUTION WIDTH 19.1 % (11.5-14.5)
[2018-06-28 13:05] LABS: INR 1.5; PARTIAL THROMBOPLASTIN TIME 38.9 Seconds (26.9-38.3); PROTHROMBIN TIME 16.9 SECONDS (9.4-12.5)
[2018-06-28 13:11] LABS: ALT/SGPT 27 U/L (7-56); AST/SGOT 46 U/L (17-59); BLOOD UREA NITROGEN 51 mg/dL (7-21); CALCIUM 9.8 mg/dL (8.4-10.5); GFR NON-AFRICAN AMERICAN 58
[2018-06-28 13:28] LABS: URINE BILIRUBIN NEGATIVE (NEGATIVE); URINE BLOOD NEGATIVE (NEGATIVE); URINE GLUCOSE (UA) NEGATIVE (NEGATIVE); URINE LEUKOCYTE ESTERASE NEGATIVE Leu/uL (NEGATIVE); URINE PROTEIN NEGATIVE mg/dL (<30 mg/dL); URINE UROBILINOGEN 0.2 E.U./dL (<1 E.U./dL)
[2018-06-28] MEDS ORDERED: Sodium Bicarbonate (8.4%) 50 Meq Syringe IVP ONE ×2 (13:28→13:44)
[2018-06-28] MEDS ORDERED: Insulin Regular 1 UNITS/0.01 ML ML IVP ONE (13:30)
[2018-06-28] MEDS ORDERED: Albuterol 0.083% Inhal Sol (2.5 mg/3 mL) UD INH STA (13:31)
[2018-06-28] MEDS ORDERED: Dextrose 50% SYRINGE Inj (50 ml) IVP STA (13:32)
[2018-06-28 13:33] LABS: URINE APPEARANCE CLEAR (CLEAR); URINE COLOR YELLOW (YELLOW)
[2018-06-28 14:28] VITALS: BP 138/78; PULSE 93; RESP 18; TEMP 97.9; O2SAT 99
--- NOTE | 2018-06-29 11:55 | CARD ---
APPROVED REPORT Date of service: 06/28/2018 EKG Measurement Heart [id number] <Conclusion> Atrial fibrillation with a competing junctional pacemaker Cannot rule out Inferior infarct, age undetermined Abnormal ECG
== END 2018-06-28 14:28 | disposition home or self-care (01) ==
LOC: ED 12:05
DX: E87.5 Hyperkalemia (principal); D64.9 Anemia, unspecified; K62.5 Hemorrhage of anus and rectum; I50.9 Heart failure, unspecified; Z79.01 Long term (current) use of anticoagulants